=== PATIENT | female | born 1960 | race African-American/Black ===

== ENCOUNTER 2020-07-15 16:27 | Outpatient (CLI) | payer OTHER, SELFPAY ==
--- NOTE | ~2020-07-15 | MM_ITS ---
EXAMINATION: MM screening maryjo BI w demarcus HISTORY: Screening mammogram TECHNIQUE: Craniocaudal and mediolateral oblique 3-D tomosynthesis images were obtained and synthetic 2-D images were generated. CAD analysis was submitted and interpreted. COMPARISON: 11/07/2018, 10/26/2017 bilateral digital screening mammogram examinations BREAST PARENCHYMAL COMPOSITION: The breasts are almost entirely fatty. FINDINGS: There is no evidence of suspicious mass, calcification, or architectural distortion to sugg est malignancy in either breast. There has been no suspicious interval change. IMPRESSION: 1. No mammographic evidence of malignancy. 2. Recommend routine screening mammography in one year. BI-RADS Category 1: Negative Reviewed, dictated and finalized at location A.
== END 2020-07-15 16:28 | disposition home or self-care (01) ==
PROVIDERS: Visit Provider Nurse Practitioner Obstetrics & Gynecology
DX: Z12.31 Encounter for screening mammogram for malignant neoplasm of breast (principal)
CPT/HCPCS: 77063; 77067

== ENCOUNTER 2021-04-24 02:50 | Day surgery (SDC) | payer OTHER, SELFPAY ==
[2021-04-16 15:11] VITALS: BMI 27.6
--- NOTE | 2021-04-23 15:56 | WPDANESEPP ---
Anes - Eval Pre Procedure Procedure: Operation Date: 04/24/21 12:30 Proposed Procedures p Screening Colonoscopy - Luis Hanna MD Date/Time: 04/23/21 15:56 Pre Op Diagnosis: neoplasm screening, hx of colon polyps Patient Data Age: 60 Gender: F Height: 1.63 m Weight: 73 kg Allergies Allergy/AdvReac Type Severity Reaction Status Date / Time No Known Allergies Allergy Verified 04/16/21 15:07 Home Medications Medication Instructions Recorded Confirmed Type levothyroxine 50 mcg PO DAILY 04/16/21 04/16/21 History rosuvastatin 5 mg PO DAILY 04/16/21 04/16/21 History Patient hx anesthesia problems: none Family hx anesthesia problems: none Results Review: All pre-operative results and documents have been reviewed as part of the pre-operative evaluation. PMFSH Past Medical History Medical History (Updated 04/23/21 @ 15:57 by Wilda Jack CRNA) Hypothyroid Surgical History Surgical History (Updated 04/23/21 @ 15:57 by Wilda Jack CRNA) H/O section H/O: hysterectomy Hx of tonsillectomy Social History Social History Smoking status: Never smoker Substance use: never Living arrangements: alone Spiritual care concerns: No Exam Day of Procedure 04/23/21 15:56
[2021-04-24 11:05] VITALS: BP 132/87; PULSE 83; RESP 18; TEMP 36.8; O2SAT 100; BMI 29.0
--- NOTE | 2021-04-24 11:16 | PM.HPGS ---
History of Present Illness History of Present Illness Consent: Risks, benefits, and alternatives have been discussed and questions answered. Patient agrees to proceed with procedure. Chief complaint: neoplasm screening, hx of colon polyps Narrative: Ming Loya is a 60 year old female referred for colon cancer screen She has a family history of pancreatic cancer. She apparently had a polyp removed in the past Review of Systems Review of Systems: All systems reviewed & are unremarkable except as noted in HPI and below PMFSH Past Medical History Medical History Hypothyroid Surgical History Surgical History H/O section H/O: hysterectomy Hx of tonsillectomy Social History Social History Smoking status: Never smoker Substance use: never Living arrangements: alone Spiritual care concerns: No Meds Home Medications and Allergies Home Medications Medication Instructions Recorded Confirmed Type levothyroxine 50 mcg PO DAILY 04/16/21 04/16/21 History rosuvastatin 5 mg PO DAILY 04/16/21 04/16/21 History Allergies Allergy/AdvReac Type Severity Reaction Status Date / Time No Known Allergies Allergy Verified 04/24/21 11:15 Exam Const: General: alert Orientation/consciousness: patient oriented x3 Resp: Auscultation: clear to auscultation bilaterally Cardio: Rhythm: regular rhythm GI: GI Palp: Yes Soft to palpation and No Tenderness to palpation present (GI) Neuro: General: patient oriented x3 Assessment and Plan Assessment and plan (1) Colon cancer screening: Code(s): Z12.11 - Encounter for screening for malignant neoplasm of colon Status: Acute Assessment and Plan: Colonoscopy with possible biopsy or polypectomy or cautery or injection of substances.
--- NOTE | 2021-04-24 11:27 | WPDANESEFPP ---
Anes - Eval Final PreProcedure Day of Procedure 04/24/21 11:27 Patient weight: overweight Heart: regular rate and rhythm Lungs: clear to auscultation Airway: Mallampati scale class II Neurological: alert and oriented Last oral intake: >/= 8 hours ASA classification: II Emergent: no Anesthetic plan: proceed Anesthesia type and monitoring: general GIVS and standard monitoring Results Review: All pre-operative results and documents have been reviewed as part of the pre-operative evaluation. Informed Consent: The patient's anesthetic plan and its attendant risks and benefits were discussed with the patient/family/POA. Questions were solicited and answers provided to the satisfaction of the patient/family/POA.
[2021-04-24] MEDS: LACTATED RINGERS 1,000 ML 150 ML IV CONT (11:28)
[2021-04-24 12:46] VITALS: BP 115/74; PULSE 93; RESP 15; O2SAT 100
[2021-04-24 12:56] VITALS: BP 116/74; PULSE 87; RESP 16; O2SAT 100
[2021-04-24 13:06] VITALS: BP 120/86; PULSE 86; RESP 19; O2SAT 100
== END 2021-04-24 13:14 | disposition home or self-care (01) ==
PROVIDERS: PCP Nurse Practitioner Family; Visit Provider Internal Medicine Gastroenterology
PROC: 0DJD8ZZ Inspection of Lower Intestinal Tract, Via Natural or Artificial Opening Endoscopic (ICD-10-PCS; CPT 45378; principal; 2021-04-24 12:30)
DX: Z12.11 Encounter for screening for malignant neoplasm of colon (principal); K57.30 Diverticulosis of large intestine without perforation or abscess without bleeding; Z86.010 Personal history of colon polyps; E03.9 Hypothyroidism, unspecified
CPT/HCPCS: 45378; J2704; J7120

== ENCOUNTER 2022-01-24 09:13 | Emergency (ER) | payer OTHER, SELFPAY ==
--- NOTE | ~2022-01-24 | CT_ITS ---
EXAMINATION: CT cervical spine wo con DATE: 01/24/2022 11:32 INDICATION: Left posterior neck pain radiating 2 left upper extremity. No known injury. TECHNIQUE: Computed tomography (CT) of the cervical spine was performed without intravenous contrast. Automated exposure control and iterative reconstruction technique were employed. Exam dose: 293.76 mGy-cm total exam DLP. COMPARISON: None FINDINGS: There is reversal cervical curvature which may be due to positioning and/or muscle spasm. C1 and C2 are normally aligned and the odontoid process is intact. No fracture or dislocation, locked facet or prevertebral soft tissue swelling. There is mild degenerative disc disease and prominent anterior spurring at C3-4. Moderate loss of interspace height and anterior and mild posterior spurring at C4-5. Moderately severe degenerative disc disease with anterior and prominent posterior spurring at C6-7.. There is uncovertebral joint spurring at C4-5, C5-6 and particularly at C6-7 IMPRESSION: Cervical spondylosis; no fracture or dislocation or locked facet Reviewed, dictated and finalized at [facility]. Reviewed, dictated and finalized at location A. IRER HELPER
[2022-01-24 09:27] VITALS: BP 133/79; PULSE 72; RESP 16; TEMP 36.6; O2SAT 100
--- NOTE | 2022-01-24 10:56 | ED.NECK ---
HPI - Neck Pain/Injury General Chief Complaint: Neck Pain/Injury Stated Complaint: neck, shoulder, L arm pain Time Seen by Provider: 01/24/22 10:44 Source: patient Mode of arrival: ambulatory Limitations: no limitations History of Present Illness HPI Narrative: Patient is a 61 y/o female who presents to the ED with c/o posterior left-sided neck pain. Patient reports the pain begins in her posterior neck going into her left-sided neck, left shoulder, and down to her mid left arm. She states the pain has been intermittent for the last several months since starting a new job. She has tried using a heating pad, but otherwise has not tried any Tylenol or ibuprofen. 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 She has had 1 episode of chest tightness associated with the pain 1 week ago, though denies any persistent chest pain. She does feel this episode was stress related. She denies any current chest pain, difficulty breathing, direct injury, numbness, tingling, focal weakness. Related Data Allergies Allergy/AdvReac Type Severity Reaction Status Date / Time No Known Allergies Allergy Verified 01/24/22 10:15 Review of Systems Review of Systems: CONSTITUTIONAL: Denies fever, chills, or sweats. EYES: Denies visual changes, redness, or discharge. ENT: Denies rhinorrhea, congestion, sore throat, or otalgia. CARDIOVASCULAR: Reports 1 episode of chest tightness. Denies chest pain, palpitations, or edema. RESPIRATORY: Denies cough or dyspnea. GASTROINTESTINAL: Denies abdominal pain, nausea, vomiting. MUSCULOSKELETAL: Reports posterior and L sided neck pain, radiating into shoulder and arm. NEUROLOGIC: Denies tingling, numbness, or focal weakness. All systems reviewed & are unremarkable except as noted in HPI and below PMFSH Past Medical History Medical History Hypothyroid Surgical History Surgical History H/O section H/O: hysterectomy Hx of tonsillectomy Social History Social History Smoking status: Never smoker Substance use: never Spiritual care concerns: No Exam Narrative: GENERAL: Well appearing, well-nourished, non-toxic, in no acute distress. HEAD: Normocephalic, atraumatic. NECK: Supple. No adenopathy, no masses. Mild lower midline spinal tenderness, tenderness extending into L posterior shoulder/trapezius muscles. RESPIRATORY: Airway patent, respirations nonlabored. Clear to auscultation bilaterally, no rales, rhonchi, wheezing. CARDIOVASCULAR: Regular rate and rhythm without murmurs, rubs, or gallops. Peripheral pulses 2+ and equal bilaterally. MUSCULOSKELETAL: Moves all extremities. Strength/ROM intact without gross deformities. Full nonpainful ROM of LUE. Strength 5 out of 5 in upper extremities bilaterally. Equal table tender strength bilaterally. No chest wall tenderness. SKIN: Warm, dry, normal color. No rashes. NEURO: A&O X3. Speech clear. Cranial nerves II-XII grossly intact. Steady gait. No ataxic movements. No focal deficits. PSYCHIATRIC: Appropriate mood and affect. Normal interaction. Course Vital Signs Vital signs: Vital Signs Temperature 97.8 F 01/24/22 09:27 Pulse Rate 72 01/24/22 09:27 Respiratory Rate 16 01/24/22 09:27 Blood Pressure 133/79 01/24/22 09:27 Pulse Oximetry 100 01/24/22 09:27 Oxygen Delivery Room Air 01/24/22 09:27 Temperature 97.8 F 01/24/22 09:27 Pulse Rate 60 01/24/22 13:05 Respiratory Rate 16 01/24/22 13:05 Blood Pressure 140/88 01/24/22 13:05 Pulse Oximetry 98 01/24/22 13:05 Oxygen Delivery Room Air 01/24/22 09:27 MDM - Neck Pain/Injury MDM Narrative Medical decision making narrative: Patient presented to ED with several month history of posterior and left-sided neck pain, radiating down
--- NOTE | 2022-01-24 11:05 | ECG_ITS ---
Measurements Intervals [place] Rate: 53 P: 54 [place]: 142 QRS: 40 QRSD: 79 T: 56 QT: 421 QTc: 398 Interpretive Statements SINUS BRADYCARDIA BASELINE ARTIFACT- I, II, III, AVR, AVL, AVF BORDERLINE ECG NO PREVIOUS ECG AVAILABLE FOR COMPARISON Electronically Signed On 01-24-2022 14:00:09 [employer]ICE WORKFORCE PLANNER by Darrel Sanchez D.O.
[2022-01-24 11:47] LABS: Troponin I < 0.012 ng/mL (0.000-0.034)
[2022-01-24] MEDS: KETOROLAC 30 MG/ML VIAL (*BKC) IM (12:11)
[2022-01-24 13:05] VITALS: BP 140/88; PULSE 60; RESP 16; O2SAT 98
== END 2022-01-24 13:05 | disposition home or self-care (01) ==
PROVIDERS: Physician Assistant; Emergency Provider Emergency Medicine; PCP Nurse Practitioner Family
DX: M47.22 Other spondylosis with radiculopathy, cervical region (principal); E03.9 Hypothyroidism, unspecified; Z90.710 Acquired absence of both cervix and uterus; R00.1 Bradycardia, unspecified
CPT/HCPCS: 36415; 72125; 84484; 93005; 96372; 99284; J1885

== ENCOUNTER 2023-06-27 18:44 | Emergency (ER) | payer MEDICAID, SELFPAY ==
[2023-06-27] VITALS (8 sets, daily range): BP systolic 130–145; BP diastolic 84–100; PULSE 68–76; RESP 14–20; TEMP 36.1–36.8; O2SAT 100
--- NOTE | ~2023-06-27 | XR_ITS ---
EXAMINATION: XR chest 2V Exam Date/Time: 06/27/2023 19:00 CDT HISTORY: chest pain, NAUSEAS FOR 2 DAYS Comparison: 08/06/2009, report only. RESULT: Lines, tubes, and devices: None. Lungs and pleura: Clear. Minimal streaky bibasilar scar/atelectasis. Cardiomediastinal silhouette: Stable. Other: No acute osseous or upper abdominal finding. IMPRESSION: No acute cardiopulmonary process. Reviewed, dictated and finalized at location K.
--- NOTE | 2023-06-27 18:56 | ECG_ITS ---
Measurements Intervals [place] Rate: 74 P: 48 SC: 148 QRS: 66 QRSD: 74 T: 70 QT: 383 AVG RR 804 QTc: 411 QTcB 427 QTcF 411 Interpretive Statements SINUS RHYTHM NORMAL ECG SEE SCANNED COPY FOR SIGNATURE MTDD
[2023-06-27 19:13] LABS: Basophils Percent Auto 0.5 % (0.2-1.2); Eosinophils Absolute Auto 0.1 K/mm3 (0-0.3); Eosinophils Percent Auto 1.8 % (0-4.4); Hemoglobin 13.1 g/dL (12.0-15.0); Immature Granulocyte Absolute 0.01 K/mm3 (0.00-0.031); Immature Granulocyte Percent A 0.2 % (0-0.5); Lymphocytes Absolute Auto 2.42 K/mm3 (0.9-3.2); Lymphocytes Percent Auto 42.5 % (18.3-44.2); Mean Corpuscular Hemoglobin 30.4 pg (26-34); Mean Corpuscular Volume 95.1 fl (80-100); Mean Platelet Volume 11.2 fl (7.4-10.4); Monocytes Absolute Auto 0.5 K/mm3 (0.1-0.6); Monocytes Percent Auto 9.1 % (2.6-8.5); Neutrophils Absolute Auto 2.6 K/mm3 (1.3-6.7); Neutrophils Percent Auto 45.9 % (45.5-73.1); Platelet Count Result 166 k/mm3 (150-375); Red Blood Count 4.31 M/mm3 (4.2-5.4); Red Cell Distribution Width 12.9 % (11.5-14.5); White Blood Count 5.7 K/mm3 (4.5-10.0)
[2023-06-27] MEDS: ASPIRIN 81 MG CHEWABLE TABLET 324 MG PO (19:14)
[2023-06-27 19:23] LABS: INR 0.9; Prothrombin Time 12.3 Seconds (11.1-14.7)
[2023-06-27 19:24] LABS: Partial Thromboplastin Time 25.7 Seconds (22.3-36.8)
[2023-06-27 19:34] LABS: Alanine Aminotransferase 21 U/L (6-35); Albumin Level 4.5 g/dL (3.5-5.1); Alkaline Phosphatase 67 U/L (38-126); Anion Gap 6 mmol/L (4-12); Aspartate Amino Transferase 33 U/L (14-36); Bilirubin,Total 0.5 mg/dL (0.2-1.3); Blood Urea Nitrogen 12 mg/dL (7-17); Calcium 9.3 mg/dL (8.4-10.2); Carbon Dioxide 25 mmol/L (22-30); Chloride 109 mmol/L (98-107); Estimated CRCL calculation 65 ml/min; Estimated Glomerular Filt Rate > 60; Glucose 92 mg/dL (65-110); Lipase 81 U/L (23-300); Potassium 3.6 mmol/L (3.4-5.0); Sodium 140 mmol/L (137-145)
[2023-06-27 19:45] LABS: Troponin I < 0.012 ng/mL (0.000-0.034)
[2023-06-27 22:28] LABS: Troponin I < 0.012 ng/mL (0.000-0.034)
--- NOTE | 2023-06-27 22:51 | ED.GENADULT ---
HPI - General Adult General Chief complaint: Chest Pain Stated complaint: chest pain Time Seen by Provider: 06/27/23 19:04 History of Present Illness HPI narrative: Patient is a 62-year-old female who presents emergency department with chief complaint of dizziness and then nausea and a chest discomfort feeling. The patient reports that the last 2 days she has had some episodes of feeling dizzy and had nausea. The patient states that then she started having a feeling of indigestion and had fullness in her chest. Patient states that he is doing much better at this point reports that she has had a stress test many years ago reports no prior history of cardiac disease. Related Data Allergies Allergy/AdvReac Type Severity Reaction Status Date / Time No Known Allergies Allergy Verified 06/27/23 18:45 Review of Systems Review of Systems: A 10 system review of systems was completed on the patient and is negative except for what is stated in the HPI. Nursing and ancillary documentation was reviewed. PMFSH Past Medical History Medical History Hypothyroid Surgical History Surgical History H/O section H/O: hysterectomy Hx of tonsillectomy Social History Social History Smoking status: Never smoker Substance use: never Living arrangements: alone Spiritual care concerns: No Exam Narrative: GENERAL: Well-appearing, well-nourished, and in no acute distress. HEAD: Normocephalic, atraumatic. EYES: PERRLA and EOMI. ENT: Nares clear, no rhinorrhea or epistaxis. Mucous membranes moist. NECK: Supple. CHEST: Clear to auscultation. No respiratory distress. HEART: Regular rate and rhythm. No murmur heard. Normal peripheral pulses. ABDOMEN: Soft, nontender, nondistended, normal active bowel sounds. EXTREMITIES: Normal range of motion. No edema. SKIN: Warm, dry, no rash. NEURO: No focal deficits. Alert and oriented x3. PSYCH: Normal mood and affect. Course Vital Signs Vital signs: Vital Signs Temperature 36.1 C L 06/27/23 18:53 Pulse Rate 76 06/27/23 18:53 Respiratory Rate 18 06/27/23 18:53 Blood Pressure 132/96 H 06/27/23 18:53 Pulse Oximetry 100 06/27/23 18:53 Oxygen Delivery Room Air 06/27/23 18:53 Temperature 36.8 C 06/27/23 22:13 Pulse Rate 68 06/27/23 22:13 Respiratory Rate 20 06/27/23 22:13 Blood Pressure 145/100 H 06/27/23 22:13 Pulse Oximetry 100 06/27/23 22:13 Oxygen Delivery Room Air 06/27/23 18:53 Medical Decision Making MDM Narrative Medical decision making narrative: Differential diagnosis includes ACS, atypical chest pain, gastroesophageal reflux disease, dysrhythmia, vertigo Laboratory studies were obtained on the patient which showed normal CBC normal CMP troponin was 0 hour and 3 hour EKG showed no acute ischemic changes. Patient currently asymptomatic is feeling much better Vital Signs Vital Signs: Vital Signs Temperature 36.1 C L 06/27/23 18:53 Pulse Rate 76 06/27/23 18:53 Respiratory Rate 18 06/27/23 18:53 Blood Pressure 132/96 H 06/27/23 18:53 Pulse Oximetry 100 06/27/23 18:53 Oxygen Delivery Room Air 06/27/23 18:53 Temperature 36.8 C 06/27/23 22:13 Pulse Rate 68 06/27/23 22:13 Respiratory Rate 20 06/27/23 22:13 Blood Pressure 145/100 H 06/27/23 22:13 Pulse Oximetry 100 06/27/23 22:13 Oxygen Delivery Room Air 06/27/23 18:53 Lab Data 06/27/23 19:04 06/27/23 19:04 Labs: Lab Results 06/27/23 06/27/23 Range/Units 19:04 21:56 WBC 5.7 (4.5-10.0) K/mm3 RBC 4.31 (4.2-5.4) M/mm3 Hgb 13.1 (12.0-15.0) g/dL Hct 41.0 (37.0-47.0) % MCV 95.1 (80-100) fl MCH 30.4 (26-34) pg MCHC 32.0 (32-36) g/dl RDW 12.9 (11.5-14.5) % Plt Coun
== END 2023-06-27 23:16 | disposition home or self-care (01) ==
PROVIDERS: Emergency Medicine; Emergency Provider Emergency Medicine; PCP Nurse Practitioner Family
DX: R07.89 Other chest pain (principal); E03.9 Hypothyroidism, unspecified
CPT/HCPCS: 36415; 71046; 80053; 83690; 84484; 85025; 85610; 85730; 93005; 99284; A9270

== ENCOUNTER 2023-09-15 11:01 | Emergency (ER) | payer SELFPAY ==
--- NOTE | ~2023-09-15 | CT_ITS ---
CT abd pelvis lumbar w con Ordering provider: April Singh PA-C History: . abd pain, bright red blood per rectum . Comparison: None Technique: CT abdomen with IV and without oral contrast. Radiation reduction technique utilized. DLP is 753.12 mGy. 100 mL Omnipaque 350 was given IV. Findings: VISUALIZED LOWER CHEST: Dependent atelectatic changes. UPPER ABDOMINAL ORGANS: Liver: Peripherally enhancing small lesion is seen in the left lobe of the liver measuring 2.4 cm mos t likely hemangioma. Focal area of fat infiltration seen near to the interlobar fissure and adjacent to gallbladder.. Gallbladder: Normal. Spleen: Normal. Stomach/duodenum: Thickened wall of the area of the antrum further evaluation advised. Pancreas: Normal. Adrenals: Normal. Kidneys: Normal. Urinary bladder: Slightly thickened wall with underfilling. VISUALIZED BOWEL AND MESENTERY: No evidence of without diverticulitis. No evidence of appendicitis. S lightly bright signal is seen in the rectal area which may be blood. The bowel is otherwise normal. N o free air or free fluid. No mesenteric lymphadenopathy. RETROPERITONEUM: Mild atheromatous disease of the abdominal aorta. No retroperitoneal lymphadenopathy . MUSCULOSKELETAL: The superficial soft tissues are normal. Normal spine. IMPRESSION: Bright densities in the rectum which may be blood exteriorization. Sigmoidoscopy is advised. Hemangioma in the liver. Thickened wall of the stomach in the area of the pylorus. Reviewed, dictated and finalized at location [facility]. IMPRESSION: Bright densities in the rectum which may be blood exteriorization. Sigmoidoscop y is advised. Hemangioma in the liver. Thickened wall of the stomach in the area of the pylorus.
[2023-09-15 12:13] VITALS: BP 135/80; PULSE 75; RESP 16; TEMP 36.7; O2SAT 96
[2023-09-15 13:19] LABS: Basophils Percent Auto 0.5 % (0.2-1.2); Eosinophils Absolute Auto 0.1 K/mm3 (0-0.3); Eosinophils Percent Auto 1.1 % (0-4.4); Hematocrit 42.8 % (37.0-47.0); Hemoglobin 13.5 g/dL (12.0-15.0); Immature Granulocyte Absolute 0.03 K/mm3 (0.00-0.031); Immature Granulocyte Percent A 0.5 % (0-0.5); Lymphocytes Absolute Auto 2.72 K/mm3 (0.9-3.2); Mean Corpuscular HGB Conc 31.5 g/dl (32-36); Mean Corpuscular Hemoglobin 30.5 pg (26-34); Mean Corpuscular Volume 96.8 fl (80-100); Mean Platelet Volume 11.3 fl (7.4-10.4); Monocytes Absolute Auto 0.5 K/mm3 (0.1-0.6); Monocytes Percent Auto 8.1 % (2.6-8.5); Neutrophils Percent Auto 46.8 % (45.5-73.1); Platelet Count Result 168 k/mm3 (150-375); Red Blood Count 4.42 M/mm3 (4.2-5.4); Red Cell Distribution Width 12.8 % (11.5-14.5); White Blood Count 6.3 K/mm3 (4.5-10.0)
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
[2023-09-15 13:29] LABS: Alanine Aminotransferase 24 U/L (6-35); Albumin Level 4.7 g/dL (3.5-5.1); Alkaline Phosphatase 63 U/L (38-126); Anion Gap 5 mmol/L (4-12); Aspartate Amino Transferase 32 U/L (14-36); Bilirubin,Total 0.5 mg/dL (0.2-1.3); Blood Urea Nitrogen 11 mg/dL (7-17); Calcium 9.3 mg/dL (8.4-10.2); Carbon Dioxide 31 mmol/L (22-30); Chloride 106 mmol/L (98-107); Estimated CRCL calculation 66 ml/min; Estimated Glomerular Filt Rate > 60; Glucose 92 mg/dL (65-110); Lipase 98 U/L (23-300); Sodium 142 mmol/L (137-145)
[2023-09-15 13:30] LABS: INR 0.9; Prothrombin Time 12.7 Seconds (11.1-14.7)
[2023-09-15 13:30] LABS: Appearance Urine Clear (Clear); Bacteria Urine 1+ /hpf; Bilirubin Urine Negative (Negative); Blood Urine Negative (Negative); Color Urine Yellow (Yellow); Glucose Urine UA Negative (Negative); Ketones Urine Negative (Negative); Leukocyte Esterase Ur 2+ LEU/UL (Negative); Mucus Urine Present /lpf; Nitrate Urine Negative (Negative); Non Pathogenic Casts 0-2; Protein Urine Negative (Negative); Specific Grav Ur 1.013 (1.001-1.035); Squamous Epithelial Cell Urine Occasional /hpf (Few); Urobilinogen Urine 0.2 mg/dL (<2.0); WBC Urine 0-5 /hpf (0-3); pH Urine 7.5 (5.0-9.0)
[2023-09-15 13:31] LABS: Partial Thromboplastin Time 25.3 Seconds (22.3-36.8)
[2023-09-15 13:38] LABS: Add Urine Microscopic? YES
[2023-09-15 14:55] VITALS: BP 138/86; PULSE 63; RESP 15; O2SAT 100
[2023-09-15 16:32] VITALS: BP 130/91; PULSE 91; RESP 17; O2SAT 100
== END 2023-09-15 16:33 | disposition home or self-care (01) ==
PROVIDERS: Emergency Provider Physician Assistant
DX: M54.41 Lumbago with sciatica, right side (principal); K62.5 Hemorrhage of anus and rectum; E03.9 Hypothyroidism, unspecified; Z90.710 Acquired absence of both cervix and uterus; D18.09 Hemangioma of other sites; R93.5 Abnormal findings on diagnostic imaging of other abdominal regions, including retroperitoneum
CPT/HCPCS: 36415; 72132; 74177; 80053; 81001; 83690; 85025; 85610; 85730; 99284; Q9967

== ENCOUNTER 2023-10-14 11:31 | Outpatient (CLI) | payer BC, SELFPAY ==
--- NOTE | ~2023-10-14 | US_ITS ---
EXAMINATION: US abdomen limited DATE: 10/14/2023 11:53 INDICATION: diseases of liver TECHNIQUE: Multiple grayscale and Doppler ultrasound images of limited portions of the abdomen were o btained. COMPARISON: CT abdomen pelvis 09/15/2023. FINDINGS: The visualized portions of the pancreas are normal. Increased liver parenchymal echogenicit y. 1.8 cm hypoechogenic lesion in the inferior right liver lobe near the free edge of the liver. Righ t lobe hemangioma. No surface nodularity. Normal hepatopetal flow in the main portal vein. Multiple g allstones. No wall thickening or pericholecystic fluid The common bile duct measures 3 mm. There was no sonographic Austin sign. IMPRESSION: Echogenic liver, most commonly due to steatosis but also can be seen with hepatitis and fibrosis. 1.8 cm indeterminate right liver lobe lesion, recommend MRI or CT of the liver without and with contr ast for further characterization. Cholelithiasis. Reviewed, dictated and finalized at location [facility]. IMPRESSION: Echogenic liver, most commonly due to steatosis but also can be seen with hepat itis and fibrosis. 1.8 cm indeterminate right liver lobe lesion, recommend MRI or CT of the liver without and with contrast for further characterization. Cholelithiasis.
== END 2023-10-14 11:32 ==
PROVIDERS: PCP Family Medicine; Visit Provider Family Medicine
DX: K76.89 Other specified diseases of liver (principal); K80.20 Calculus of gallbladder without cholecystitis without obstruction; Z13.820 Encounter for screening for osteoporosis
CPT/HCPCS: 76705

== ENCOUNTER 2023-10-22 09:28 | Emergency (ER) | payer BC, SELFPAY ==
[2023-10-22 09:35] VITALS: BP 139/99; PULSE 75; RESP 16; TEMP 36.6; O2SAT 98
--- NOTE | 2023-10-22 11:14 | ED.GENADULT ---
HPI - General Adult General Chief complaint: Skin/Abscess/Foreign Body Stated complaint: right side neck swelling Time Seen by Provider: 10/22/23 09:40 History of Present Illness HPI narrative: Patient is a 62-year-old female who presents ER with swelling to her right shoulder. Worsening over last 3 4 days. No fevers chills or sweats. Tender to touch and indurated. Does not believe she had a bug bite. Related Data Allergies Allergy/AdvReac Type Severity Reaction Status Date / Time No Known Allergies Allergy Verified 06/27/23 18:45 Review of Systems Constitutional: Constitutional: Reports no additional constitutional complaints Integumentary/Breasts: Skin/Breast: Denies pruritus, Reports erythema and Denies rash PMFSH Past Medical History Medical History Hypothyroid Surgical History Surgical History H/O section H/O: hysterectomy Hx of tonsillectomy Social History Social History Smoking status: Never smoker Substance use: never Living arrangements: alone Spiritual care concerns: No Exam Narrative: GENERAL: Well-appearing, well-nourished, and in no acute distress. HEAD: Normocephalic, atraumatic. EXTREMITIES: Normal range of motion. No edema. SKIN: Warm, dry, no rash. Abscess versus cyst right trapezius region with erythema and induration and tenderness. NEURO: Alert and oriented x3. PSYCH: Normal mood and affect. Course Vital Signs Vital signs: Vital Signs Temperature 97.9 F 10/22/23 09:35 Pulse Rate 75 10/22/23 09:35 Respiratory Rate 16 10/22/23 09:35 Blood Pressure 139/99 H 10/22/23 09:35 Pulse Oximetry 98 10/22/23 09:35 Oxygen Delivery Room Air 10/22/23 09:35 Temperature 97.9 F 10/22/23 09:35 Pulse Rate 75 10/22/23 09:35 Respiratory Rate 16 10/22/23 09:35 Blood Pressure 139/99 H 10/22/23 09:35 Pulse Oximetry 98 10/22/23 09:35 Oxygen Delivery Room Air 10/22/23 09:35 Procedures Abscess I/D shoulder: Date of Incision: 10/22/23 Time of Incision: 11:00 Local Anesthetic: lidocaine 1% and with epi Amount of anesthesia used (mL): 2 Technique: incised with #11 blade Irrigation: No Packing used?: none I&D Results: Pus Medical Decision Making MDM Narrative Medical decision making narrative: -Course: Pain improved after drainage. -Co-morbidities complicating care: None -Hx from independent Sources: Patient -Independent interpretation of studies: None -Interventions: Incision drainage -Shared decision making / Disposition: Discharge home with Bactrim. Unable to pack. Vital Signs Vital Signs: Vital Signs Temperature 97.9 F 10/22/23 09:35 Pulse Rate 75 10/22/23 09:35 Respiratory Rate 16 10/22/23 09:35 Blood Pressure 139/99 H 10/22/23 09:35 Pulse Oximetry 98 10/22/23 09:35 Oxygen Delivery Room Air 10/22/23 09:35 Temperature 97.9 F 10/22/23 09:35 Pulse Rate 75 10/22/23 09:35 Respiratory Rate 16 10/22/23 09:35 Blood Pressure 139/99 H 10/22/23 09:35 Pulse Oximetry 98 10/22/23 09:35 Oxygen Delivery Room Air 10/22/23 09:35 Discharge Plan Discharge Clinical Impression: Abscess Patient Disposition: Home, Self-Care Condition: Stable Instructions: Abscess (ED) Additional Instructions: Return ER if you have worsening pain, you have fever, or you have additional concerns. Prescriptions: New sulfamethoxazole-trimethoprim [Bactrim DS] 800-160 mg tablet 1 tablet PO Q12H Qty: 14 0RF No Action naproxen 500 mg tablet 250 mg PO BID PRN (Reason: pain) Qty: 20 0RF cyclobenzaprine 5 mg tablet 5 mg PO TID PRN (Reason: muscle spasm) Qty: 15 0RF Follow-up/Referrals: Damon,MD Luis Antonio [Primary Care Provider] - 1 Week
[2023-10-22 11:27] VITALS: BP 147/72; PULSE 76; RESP 18; TEMP 37.1; O2SAT 100
== END 2023-10-22 11:30 | disposition home or self-care (01) ==
PROVIDERS: Emergency Provider Emergency Medicine; PCP Family Medicine
DX: L02.413 Cutaneous abscess of right upper limb (principal); E03.9 Hypothyroidism, unspecified
CPT/HCPCS: 10060; 99283

== ENCOUNTER 2024-04-02 07:48 | Outpatient (CLI) | payer OTHER, SELFPAY ==
--- NOTE | ~2024-04-02 | DEXA_ITS ---
Bone Density Report Name: ANA VELA Age: 63 Sex: Female Ethnicity: White Date of : 1960 Indication: hyperparathyroidism; hysterectomy; Referring Provider: JENNIFER, [facility] Study: Bone densitometry was performed. Exam Date: April 02, 2024 Accession number: [id number] Bone Density: Region BMD T-score Z-score Classification AP Spine(L1-L4) 0.937 -1.0 0.7 Normal Femoral Neck (Left) 0.786 -0.6 0.9 Normal Total Hip (Left) 0.942 0.0 1.2 Normal Femoral Neck (Right) 0.700 -1.3 0.1 Osteopenia Total Hip (Right) 0.881 -0.5 0.7 Normal Total Hip Mean 0.911 -0.3 1.0 Normal World Health Organization criteria for BMD impression classify patients as: Normal (T-score at or above -1.0), Osteopenia (T-score between -1.0 and -2.5), or Osteoporosis (T-score at or below -2.5). 10-year Fracture Risk(1): Major Osteoporotic Fracture 7.9% Hip Fracture 0.7% Reported Risk Factors: [place] (), Neck BMD=0.700, BMI=33.0 (1) FRAX(R) Version 3.08. Fracture probability calculated for an untreated patient. Fracture probability may be lower if the patient has received treatment. Clinical Information Provided by Patient: Has used the following medications: Vitamin D Has the following medical conditions: Hyperparathyroidism, Hysterectomy Patient maximum height was 64.0 No regular weight bearing exercise Drinks caffeinated beverages Onset of menses at age 11 Number of children 2 Impression: The patient has low bone mass, based on the Right Femoral Neck T-score. The patient has an estimated ten-year risk of hip fracture of 0.7% and an estimated ten-year risk of major fracture of 7.9%, based on the WHO FRAX algorithm. Discussion: BONE DENSITY IS LOW AT ONE OR MORE SKELETAL SITES. This patient's lowest T-score is low at one or more skeletal sites. It meets the World Health Organization's (WHO) criteria for ?low bone mass? (T-score between -1.0 and -2.5). The patient's 10-year risk of fracture as calculated by FRAX is less than the threshold where pharmacological therapy is recommended by the National Osteoporosis Foundation (NOF). However, all treatment decisions require clinical judgment and consideration of individual patient factors, including patient preferences, comorbidities, previous drug use, risk factors not captured in the FRAX model (e.g., frailty, falls, vitamin D deficiency, increased bone turnover, interval significant decline in bone density) and possible under or overestimation of fracture risk by FRAX. The patient should follow a healthful lifestyle (good nutrition with adequate calcium and vitamin D, and appropriate weight-bearing exercise). Follow-Up: Consider repeating this study in 2 to 3 years to reassess this patient's status, or sooner if there is some new clinical indication. Reported by: EFREM on 04/02/2024 8:24:00 AM. Reviewed, dictated and finalized at location A. [facility]
== END 2024-04-02 07:49 | disposition home or self-care (01) ==
LOC: ANHIMG 07:52
PROVIDERS: PCP Family Medicine; Visit Provider Family Medicine
DX: Z13.820 Encounter for screening for osteoporosis (principal); M85.851 Other specified disorders of bone density and structure, right thigh
CPT/HCPCS: 77080

== ENCOUNTER 2024-06-22 15:30 | Emergency (ER) | payer MEDICAID, SELFPAY ==
--- NOTE | 2024-06-22 15:32 | ED.URI ---
HPI - URI/Sore Throat General Chief Complaint: Upper Respiratory Infection Stated Complaint: Congesiton Time Seen by Provider: 06/22/24 15:54 Source: patient, RN notes reviewed and old records reviewed Mode of arrival: ambulatory Limitations: no limitations History of Present Illness HPI Narrative: 63-year-old female presents to the [facility] with complaints of 1 week history of cough, congestion, stuffy nose, runny nose, postnasal drainage. Denies fevers, chest pain, shortness of breath. Was evaluated 1 day post symptoms. States that she was negative for flu and COVID. Patient is concerned because her sister has pneumonia. Related Data Home Medications ?Medication ?Instructions ?Recorded ?Confirmed ?Last Taken ?Type levothyroxine 88 mcg tablet mcg 06/22/24 Unknown History tirzepatide 2.5 mg/0.5 mL mg subcut 06/22/24 Unknown History subcutaneous pen injector (Mounjaro) Allergies Allergy/AdvReac Type Severity Reaction Status Date / Time No Known Allergies Allergy Verified 06/22/24 15:56 Review of Systems Review of Systems: All systems reviewed & are unremarkable except as noted in HPI and below Constitutional: Constitutional: Reports no additional constitutional complaints ENT: Reports as per HPI Cardiovascular: Cardiovascular: Reports no additional cardiovascular complaints, Denies chest pain and Denies dyspnea Respiratory: Respiratory: Reports no additional respiratory complaints, Denies chest congestion, Denies cough and Denies dyspnea Musculoskeletal: Musculoskeletal: Reports no additional musculoskeletal complaints Integumentary/Breasts: Skin/Breast: Reports system reviewed and no additional complaints, except as docu PMFSH Past Medical History Medical History Hypothyroid Surgical History Surgical History Hx of tonsillectomy H/O: hysterectomy H/O section Social History Social History Smoking status: Never smoker Substance use: never Living arrangements: alone Spiritual care concerns: No Comments At the time of my signature, I reviewed and agree with the nursing past medical, surgical, social, and family history. There is no relevant family history pertinent to the patient complaint. Exam Const: General: cooperative, healthy appearing, comfortable, no acute distress, well developed, alert and well nourished Nutritional Appearance: well nourished Orientation/consciousness: patient oriented x3 Limitations: no limitations HENMT: Head: normal to inspection Ears: hearing grossly normal bilaterally, external ears normal, TM's normal bilaterally, EAC's normal and mastoids normal Face/Nose/Sinus: Normal external nose present, Normal nares present and Nasal discharge present clear bilateral Mouth: Yes Normal oral and palatal mucosa present, Yes lip normal, Yes tongue normal and Yes moist mucous membranes Throat: posterior oropharynx normal, uvula midline, postnasal drainage and no uvular edema Eyes: General: appearance normal, both eyes and all related structures Alignment and Position: alignment normal Neck: Neck: normal visual inspection, full ROM, no lymphadenopathy and no meningeal signs Chest: Chest palpation & inspection: normal inspection of the chest Resp: Effort & Inspection: normal respiratory effort and able to speak in complete sentences Auscultation: clear to auscultation bilaterally, no crackles, no rales, no rhonchi and no wheezes Cardio: Rate: regular rate Skin: General skin exam: normal color and no rashes or lesions noted Neuro: General: patient oriented x3, gait normal, moves all extremities and no meningeal signs Cognition (Neuro): normal cognition Speech: normal speech Gait exam (Neuro): Normal gait present Extrem: General: normal to inspection, full ROM, capillary refill normal and normal gait Psych: Appearance: grossly normal and well kempt Mental Status: mental status grossly normal Speech and movement: Normal speech and movement present and Clear speech present Affect: normal affect Attitude: cooperative Course Course Level of Care: Express Care Visit Vital Signs Vital signs: Vital Signs Oxygen Delivery Room Air 06/22/24 15:31 Temperature 97.5 F L 06/22/24 15:38 Pulse Rate 76 06/22/24 15:38 Respiratory Rate 18 06/22/24 15:38 Blood Pressure 129/88 06/22/24 15:38 Pulse Oximetry 100 06/22/24 15:38 Oxygen Delivery Room Air 06/22/24 15:38 Reviewed MDM - URI/Sore Throat MDM Narrative Medical decision making narrative: Patient sitting comfortably in exam room. Nontoxic vitals are stable. Patient in no acute distress. Patient presents with 1 week history of URI symptoms. Significant rhinorrhea and postnasal drainage noted. Patient appropriate for outpatient treatment with close follow-up Discharge instructions reviewed with patient, as well as provided in writing per nursing staff. The instructions also include specific and strict return/GO TO THE ER as well as f/u information. All questions have been answered, and the patient deny any further questions with discharge and discharge plan. Some parts of this dictation were generated by voice recognition software and may contain typographical and/or grammatical inaccuracies. Differential Diagnosis Differential diagnosis: Likely upper respiratory infection, otitis media, sinusitis, viral infection, bronchitis, influenza and pharyngitis Critical Care Time Critical Care Time Critical Care Time: No Discharge Plan Discharge Clinical Impression: Sinusitis Patient Disposition: Home, Self-Care Condition: Stable Instructions: Antibiotic Form, Sinusitis (ED) Additional Instructions: It is very important to treat your symptoms. Drink plenty of water, Gatorade, Pedialyte, ice pops or Jell-O. -Alternate Tylenol and Motrin per package directions for fever or pain. You can alternate every 4 hours -Antihistamine medication such as Zyrtec/Claritin/Estrella during the day can help improve symptoms. -doing daily nasal irrigations can help relieve pressure your sinuses. Things like a Neti pot -Use Flonase twice a day for 5 days then daily to help reduce the inflammation and dry up your sinuses. -You can also use Mucinex. Be sure to drink plenty of water with this medication at least 8 ounces with every dose and it is important to drink 8 to 10 glasses of water per day. Water is a natural decongestant -Eat and drink things that are easy to swallow, like tea or soup, or popsicles. -Oral rinses such as: Salt water gargles and/or may use topical anesthetic (eg. Chloraseptic spray) or lozenges to relieve dryness or throat pain). -Frequent hand washing or hand immigration paralegal is one of the best ways to prevent spread of infection. -Using a vaporizer or humidifier at night will also help thin secretions and help with coughing up phlegm. -Follow up with primary care provider in 7-10 days if condition is not improving - For new or worsening symptoms go directly to the nearest ER Patient Language: Urdu Prescriptions: New doxycycline monohydrate 100 mg tablet 100 mg PO BID Qty: 14 0RF No Action levothyroxine 88 mcg tablet Mounjaro 2.5 mg/0.5 mL pen injector SUBCUT Follow-up/Referrals: Damon,MD Luis Antonio [Primary Care Provider] - Stand Alone Forms: Work/School Release IP Time of Disposition: 16:05
--- OUTSIDE RECORDS SUMMARY | 2024-06-22 15:34 | XMS_ITS | Encounter Summary ---
Author Organization [facility] Address [address] [place] [id number] Care Team Providers Care Flexographic Printing Press Operator Name Role Phone Mita Boland [facility] Primary Care Provider + Encounter Details Date Type Department Care Team (Latest Contact Info) Description 01/24/2018 Abstract [facility] Silvia Lewis MD Social History Tobacco Use Types Packs/Day Years Used Date Smoking Tobacco: Never Assessed Comments Unknown Sex and Gender Information Value Date Recorded Sex Assigned at Not on file Legal Sex Female 1:58 AM CDT Gender Identity Not on file Sexual Orientation Not on file documented as of this encounter Plan of Treatment Not on file documented as of this encounter Visit Diagnoses Not on filedocumented in this encounter Care Teams Flexographic Printing Press Operator Relationship Specialty Start Date End Date Mita Boland [facility] [address] [place] [id number] PCP - General Nurse Practitioner Family 05/04/23 documented as of this encounter
--- OUTSIDE RECORDS SUMMARY | 2024-06-22 15:34 | XMS_ITS | Referral Summary ---
Author Organization [facility] Address [address] [place] [address] Care Team Providers Care Oil Pipeline Operator Name Role Phone Luis Antonio Jose MD Primary Care Provider [phone] Encounters Date Type Department Care Team Description 04/17/2024 Telephone [facility] Neurology [address] [place] [phone] Mohsen Justin MD Test Results (Brain MRI results ) 04/16/2024 8:19 AM SH[facility]TMAN - 04/16/2024 11:59 PM [facility] Hospital Encounter [facility] Center [address] [place] [address] Memory change Discharge Disposition: Discharge to home or self care 04/12/2024 Telephone [facility] Neurology [address] [place] [phone] Mohsen Justin MD Pre Cert (MRI) 04/05/2024 3:00 PM [facility] Office Visit [facility] Neurology [address] [place] [phone] Mohsen Justin MD Memory change (Primary Dx) from Last 3 Months Allergies No known active allergies Medications levothyroxine sodium (TIROSINT) 100 mcg capsule Take 1 capsule (100 mcg total) by mouth resolution specialist before breakfast Active metFORMIN XR (GLUCOPHAGE XR) 500 mg 24 hr tablet Take 1 tablet (500 mg total) by mouth daily 3 Active rosuvastatin (CRESTOR) 20 mg tablet Take 1 tablet (20 mg total) by mouth daily 3 Active Active Problems Problem Noted Date Diagnosed Date Hx of colonic polyps 07/22/2020 Overview (07/22/2020): Added automatically from request for surgery [id number] Social History Tobacco Use Types Packs/Day Years Used Date Smoking Tobacco: Never Smokeless Tobacco: Never Tobacco Cessation:Counseling Given: Not Answered AUDIT-C Answer Date Recorded Q1: How often do you have a drink containing alc ohol? Monthly or less 04/05/2024 Q2: How many drinks containi ng alcohol do you have on a typical day when you are drinking? 1 or 2 04/05/2024 Q3: How often do you have si x or more drinks on one occasion? Never 04/05/2024 Comments Unknown Sex and Gender Information Value Date Recorded Sex Assigned at Not on file Legal Sex Female 7:00 PM [facility]TMAN Gender Identity Female 10/08/2020 12:28 PM CDT Sexual Orientation Not on file Last Filed Vital Signs Vital Sign Reading Time Taken Comments Blood Pressure 112/76 04/05/2024 2:54 PM SHIFTMAN Pulse 76 04/05/2024 2:54 PM [facility] Temperature - - Respiratory Rate - - Oxygen Saturation 98% 04/05/2024 2:54 PM [facility]TMAN Inhaled Oxygen Concentration - - Weight 86.2 kg (190 lb) 04/05/2024 2:54 PM [facility]TMAN Height 162.6 cm (5' 4 ) 04/05/2024 2:54 PM [facility]TM[facility] Body Mass Index 32.61 04/05/2024 2:54 PM [facility]TMAN Plan of Treatment Not on file Procedures Procedure Name Priority Date/Time Associated Diagnosis Comments MRI BRAIN WO CONTRAST Schedule Routine, Read Routine (OP Routine) 04/16/2024 10:26 AM SH[facility]TMAN Memory change from Last 3 Months Results * MRI Brain WO Contrast (04/16/2024 10:26 AM SHIFTMAN) Anatomical Region Laterality Modality Head and Neck N/A Magnetic Resonan ce 04/16/2024 11:4 2 AM [facility]TMAN Narrative 04/16/2024 11:49 AM [facility]TMAN EXAM DESCRIPTION: MRI BRAIN WO CONTRAST REASON FOR STUDY: Memory loss of unspecified duration. No provided focal neurologic deficits. No provided history of trauma or inciting and/or aggravating events. No provided past medical or surgical history. TECHNIQUE: Multiplanar imaging includes non-contrasted T1, T2, FLAIR, and diffusion with ADC map sequences. Additional sequence(s) sensitive to blood products. Images stored on PACS. COMPARISON: No prior neuro imaging available at time of interpretation. FINDINGS: CEREBRUM: No acute intra-axial hemorrhage. No edema, mass effect, midline shift, or herniation. Senescent mineralization of the lentiform nuclei. WHITE MATTER: Unremarkable. POSTERIOR FOSSA: Brainstem and cerebellum are unremarkable. DIFFUSION IMAGING: No restricted diffusion to suggest acute/subacute ischemia or infarct. EXTRAAXIAL SPACES: No extra-axial fluid collection. No extra-axial mass. BRAIN VOLUME: Within normal limits for age. PITUITARY: Unremarkable. VASCULATURE: No flow disturbance evident. CALVARIUM: No acute abnormality. Hyperostosis frontalis interna. ORBITS: No acute abnormality. Ocular lenses and globes normal in conformation and position. PARANASAL SINUSES AND MASTOIDS: Well-aerated with no fluid levels. No mucosa thickening. OTHER: No other significant finding. IMPRESSION: No acute intracranial process. THIS IS AN ELECTRONICALLY VERIFIED FINAL REPORT 04/16/2024 11:49 AM - Electronically signed by Tato Mcneil M.D. MOLLY: MOLLY Report ID: [id number] Reading Location: [place] [address] Procedure Note Tato Mcneil MD - 04/16/2024 EXAM DESCRIPTION: MRI BRAIN WO CONTRAST REASON FOR STUDY: Memory loss of unspecified duration. No provided focal neurologic deficits. No provided history of trauma or inciting and/or aggravating events. No provided past medical or surgical history. TECHNIQUE: Multiplanar imaging includes non-contrasted T1, T2, FLAIR, and diffusion with ADC map sequences. Additional sequence(s) sensitive toblood products. Images stored on PACS. COMPARISON: No prior neuro imaging available at time of interpretation. FINDINGS: CEREBRUM: No acute intra-axial hemorrhage. No edema, mass effect,midline shift, or herniation. Senescent mineralization of the lentiform nuclei. WHITE MATTER: Unremarkable. POSTERIOR FOSSA: Brainstem and cerebellum are unremarkable. DIFFUSION IMAGING: No restricted diffusion to suggest acute/subacute ischemia or infarct. EXTRAAXIAL SPACES: No extra-axial fluid collection. No extra-axialmass. BRAIN VOLUME: Within normal limits for age. PITUITARY: Unremarkable. VASCULATURE: No flow disturbance evident. CALVARIUM: No acute abnormality. Hyperostosis frontalis interna. ORBITS: No acute abnormality. Ocular lenses and globes normal in conformation and position. PARANASAL SINUSES AND MASTOIDS: Well-aerated with no fluid levels. Nomucosa thickening. OTHER: No other significant finding. IMPRESSION: No acute intracranial process. THIS IS AN ELECTRONICALLY VERIFIED FINAL REPORT 04/16/2024 11:49 AM - Electronically signed by Tato Mcneil M.D. MOLLY: MOLLY Report ID: [id number] Reading Location: [id number] Mohsen Justin MD IMG MRI PROCEDURES Final Resul t from Last 3 Months Insurance [facility] OPT[employer] PPO [facility] [employer] PPO Advance Directives For more information, please contact: [phone] Documents on File Type Date Recorded Patient Differential Tester Expl anation ADVANCE DIRECTIVE 07/18/2012 12:00 AM MOLLY R OF WHEEL SETTER FINANCIAL/MEDICAL Care Teams Oil Pipeline Operator Relationship Specialty Start Date End Date Luis Antonio Jose MD [address] [address] PCP - General Family Medicine 04/12/24
--- OUTSIDE RECORDS SUMMARY | 2024-06-22 15:34 | XMS_ITS | Clinical Summary ---
Author Organization [facility] Address [address] [place] [address] Care Team Providers Care Fuel Cell Test Engineer Name Role Phone Luis Antonio Jose MD Primary Care Provider [phone] Allergies No known active allergies Medications levothyroxine sodium (TIROSINT) 100 mcg capsule Take 1 capsule (100 mcg total) by mouth metallurgical lab technician before breakfast Active metFORMIN XR (GLUCOPHAGE XR) 500 mg 24 hr tablet Take 1 tablet (500 mg total) by mouth daily 3 Active rosuvastatin (CRESTOR) 20 mg tablet Take 1 tablet (20 mg total) by mouth daily 3 Active Active Problems Problem Noted Date Diagnosed Date Hx of colonic polyps 07/22/2020 Overview (07/22/2020): Added automatically from request for surgery [id number] Encounters Date Type Department Care Team Description 04/17/2024 Telephone [facility] [address] [place] [phone] Mohsen Justin MD Test Results (Brain MRI results ) 04/16/2024 8:19 AM LENS POLISHER - 04/16/2024 11:59 PM LENS POLISHER Hospital Encounter [facility] [address] [place] [address] Memory change Discharge Disposition: Discharge to home or self care 04/12/2024 Telephone [facility] [address] [place] [address] [phone] Mohsen Justin MD Pre Cert (MRI) 04/05/2024 3:00 PM LENS POLISHER Office Visit [facility] [address] [place] [address] [phone] Mohsen Justin MD Memory change (Primary Dx) from Last 3 Months Surgical History Surgery Date Site/Laterality Comments COLONOSCOPY 03/21/2016 - 03/20/2017 SECTION HYSTERECTOMY Medical History Medical History Date Comments Hypothyroidism Social History Tobacco Use Types Packs/Day Years [...] on file Legal Sex Female 7:00 PM LENS POLISHER Gender Identity Female 10/08/2020 12:28 PM CDT Sexual Orientation Not on file Obstetrics History Last Filed Vital Signs Vital Sign Reading Time Taken Comments Blood Pressure 112/76 04/05/2024 2:54 PM LENS POLISHER Pulse 76 04/05/2024 2:54 PM LENS POLISHER Temperature - - Respiratory Rate - - Oxygen Saturation 98% 04/05/2024 2:54 PM LENS POLISHER Inhaled Oxygen Concentration - - Weight 86.2 kg (190 lb) 04/05/2024 2:54 PM LENS POLISHER Height 162.6 cm (5' 4 ) 04/05/2024 2:54 PM LENS POLISHER Body Mass Index 32.61 04/05/2024 2:54 PM LENS POLISHER Plan of Treatment Health Maintenance Due Date Last Done Comments Colon Cancer Screening-Colonoscopy 1960 Depression Screening 1960 Hepatitis C Screening 1960 DTaP/Tdap/Td Vaccine (1 - Tdap) 11/24/1970 Hepatitis B Screening 11/24/1977 Regular Well Visit/Exam 18-64 11/24/1977 Zoster Vaccine (1 of 2) 11/24/2009 Breast Cancer Screening-Mammogram 10/03/2016 10/04/2015, 08/29/2014, 08/29/2013 Influenza Vaccine (#1) 2023 Pneumococcal vaccine <65 Aged Out No longer eligible based on patient's age to complete this topic Procedures Procedure Name Priority Date/Time Associated Diagnosis Comments MRI BRAIN WO CONTRAST Schedule Routine, Read Routine (OP Routine) 04/16/2024 10:26 AM LENS POLISHER Memory change from Last 3 Months Results * MRI Brain WO Contrast (04/16/2024 10:26 AM LENS POLISHER) Anatomical Region Laterality Modality Head and Neck N/A Magnetic Resonan ce 04/16/2024 11:4 2 AM LENS POLISHER Narrative 04/16/2024 11:49 AM LENS POLISHER EXAM DESCRIPTION: MRI BRAIN WO CONTRAST REASON [...] Tato Mcneil M.D. MOLLY: MOLLY Report ID: [id number] Reading Location: [id number] Procedure Note Tato Mcneil MD - 04/16/2024 EXAM DESCRIPTION: MRI BRAIN WO CONTRAST REASON FOR STUDY: Memory loss of unspecified duration. No provided focal neurologic deficits. No provided history of trauma or inciting and/or aggravating events. No provided past medical or surgical history. TECHNIQUE: Multiplanar imaging includes non-contrasted T1, T2, FLAIR, and diffusion with ADC map sequences. Additional sequence(s) sensitive iAdvize products. Images stored on PACS. COMPARISON: No [...] Tato Mcneil M.D. MOLLY: MOLLY Report ID: [id number] Reading Location: [place] [address] Mohsen Justin MD IM MRI PROCEDURES Final Resul t from Last 3 Months Insurance [facility] OPTIONS PPO [facility] H[facility]PPO Address: [address] [address] [place] [id number] [facility] OPTIONS PPO [facility] H[facility]PP[facility] Address: [address] [address] [place] [address] Advance Directives For more information, please contact: [phone] Documents on File Type Date Recorded Patient Brake Lining Finisher Expl anation ADVANCE DIRECTIVE 07/18/2012 12:00 AM MOLLY Walker OF DISPATCH OFFICER FINANCIAL/MEDICAL Care Teams Fuel Cell Test Engineer Relationship Specialty Start Date End Date Luis Antonio Jose MD [address] [address] PCP - General Family Medicine 04/12/24
--- OUTSIDE RECORDS SUMMARY | 2024-06-22 15:34 | XMS_ITS | Clinical Summary ---
Author Organization [facility] Address [address] [place] [address] Care Team Providers Care Color Making Supervisor Name Role Phone Unavailable Primary Care Provider Unavailabl e Source Comments [facility],non-owned Affiliates and Associated Physician Practices is amultiple site organization consisting of ambulatory clinics and hospital sitesin [place], [place], [place] and [place]. This disclosure is being madepursuant to the Care Everywhere program and may not contain all information available regarding this patient. Last updated 17.TroopSwap Allergies No known active allergies Medications * Be aware that medications may not be up to date on this document. Alwaysverify current medications with the patient. Medication Sig Dispensed Refills Start Date End Date Status metFORMIN ER 24hr (Glucophage XR) 500 MG tablet Take 1 (one) tablet by mouth once daily 06/04/2022 Active rosuvastatin (Crestor) 20 MG tablet Take 1 (one) tablet by mouth once daily 06/01/2022 Active OneTouch Ultra test strip USE TO TEST BLOOD SUGAR EVERY DAY 07/29/2022 Active polyethylene glycol 3350 (Miralax) 17 GM/SCOOP powder MIX AND TAKE 17 GRAMS TWICE DAILY NEEDED FOR BOWEL MOVEMENT 07/27/2022 Active Blood Glucose Monitoring Suppl (ONE TOUCH ULTRA 2) w/Device KIT as directed 07/29/2022 Active ONETOUCH DELICA PLUS 30G FINE LANCETS USE TO CHECK BLOOD SUGAR EVERY DAY 07/30/2022 Active Linzess 145 MCG capsule Take 1 (one) capsule by mouth once daily 10/06/2022 Active levothyroxine (Synthroid) 88 MCG tablet Take 1 (one) tablet by mouth once daily 06/01/2022 Active azithromycin (Zithromax) 250 MG tablet Take 2 tablets on day 1, then take 1 tablet daily for 4 days 6 tablet 11/02/2022 Active methylPREDNISolone (Medrol Dosepak) 4 MG tablet Take by mouth as directed Follow package insert dosing for six day supply. 21 tablet 11/02/2022 Active Active Problems No known active problems Encounters Date Type Department Care Team Description 06/12/2024 Travel from Last 3 Months Social History Tobacco Use Types Packs/Day Years Used Date Smoking Tobacco: Never Passive Smoke Exposure: Past Smokeless Tobacco: Never Tobacco Cessation:Counseling Given: Not Answered Alcohol Use Standard Drinks/Week Comments Not Currently 0 (1 standard drink = 0.6 oz pur e alcohol) PHQ-2 Answer Date Recorded Patient Health Questionnaire-2 Score 0 11/02/2022 Sex and Gender Information Value Date Recorded Sex Assigned at Not on file Gender Identity Not on file Sexual Orientation Not on file Last Filed Vital Signs Vital Sign Reading Time Taken Comments Blood Pressure 151/100 03/24/2023 1:30 PM BLUE PRINT CONTROL CLERK Pulse 64 03/24/2023 1:30 PM BLUE PRINT CONTROL CLERK Temperature 36.4 C (97.6 F) 03/24/2023 9:08 AM BLUE PRINT CONTROL CLERK Respiratory Rate 12 03/24/2023 1:30 PM BLUE PRINT CONTROL CLERK Oxygen Saturation 98% 03/24/2023 1:30 PM BLUE PRINT CONTROL CLERK Inhaled Oxygen Concentration - - Weight 83.9 kg (185 lb) 03/24/2023 9:08 AM BLUE PRINT CONTROL CLERK Height 162.6 cm (5' 4 ) 03/24/2023 9:08 AM BLUE PRINT CONTROL CLERK Body Mass Index 31.76 03/24/2023 9:08 AM BLUE PRINT CONTROL CLERK Plan of Treatment Upcoming Encounters Date Type Department Care Team (Late st Contact Info) Description 10/18/2024 10:00 AM CDT Office Visit [facility] [address] [place] [address] 11/01/2024 2:00 PM CDT Office Visit [facility] [address] [place] [phone] Brendan Villela MD [address] [place] [phone] Health Maintenance Due Date Last Done Comments COLOGUARD (AGES 45-75) - COL ON CA SCREENING 1959 COLON MONITORING 1959 COLONOSCOPY - COLON CA SCREENING 1959 CT COLONOGRAPHY - COLON CA SCREENING 1960 Colorectal Cancer Screening 1959 FIT - COLON CA SCREENING 1959 FLEX SIG - COLON CA SCREENING 1959 MAMMOGRAM 1959 PAP SMEAR 1959 HIV SCREENING 11/24/1974 HEPATITIS C SCREENING 11/20/1977 DTAP/TDAP/TD VACCINES (1 - Tdap) 11/24/1978 PNEUMOCOCCAL VACCINE 50+ (1 of 1 - PCV) 11/24/2009 ZOSTER VACCINE (1 of 2) 11/24/2009 COVID-19 VACCINE (1 - 2023-2 5 season) 2023 DEPRESSION SCREENING 03/21/2024 11/02/2022 INFLUENZA VACCINE (Season Ended) 2024 Respiratory Syncytial Virus (RSV) Vaccine Pt: or over 60 yrs (1 - 1-dose 75+ series) 11/24/2034 HEPATITIS B VACCINE Aged Out No longe r eligible based on patient's age to complete this topic HIB VACCINE Aged Out No longer eligi ble based on patient's age to complete this topic HPV VACCINE Aged Out No longer eligi ble based on patient's age to complete this topic MENINGOCOCCAL (Group B) VACC INE SHARED DECISION-MAKING Aged Out No longer eligibl e based on patient's age to complete this topic MENINGOCOCCAL GROUPS A/C/Y/W VACCINE Aged Out No longer eligible b ased on patient's age to complete this topic Ming Loya Personal/Famil y Self 1960
--- OUTSIDE RECORDS SUMMARY | 2024-06-22 15:34 | XMS_ITS | Clinical Summary ---
Author Organization [facility] Address [address] [place] [address] Care Team Providers Care Accessories Repairer Name Role Phone Mita Boland [facility] Primary Care Provider + Allergies No known active allergies Medications levothyroxine (SYNTHROID) 88 MCG tablet Take 1 tablet (88 mcg total) by mouth daily. 06/01/2022 Active polyethylene glycol (GLYCOLAX) 17 GM/SCOOP powder MIX AND TAKE 17 GRAMS TWICE DAILY NEEDED FOR BOWEL MOVEMENT Active rosuvastatin (CRESTOR) 20 MG tablet Take 1 tablet (20 mg total) by mouth daily. 06/01/2022 Active LINZESS 145 MCG capsule Take 1 capsule (145 mcg total) by mouth daily. 10/06/2022 Active Social History Tobacco Use Types Packs/Day Years Used Date Smoking Tobacco: Never Smokeless Tobacco: Never Tobacco Cessation:Counseling Given: Not Answered Comments No Sex and Gender Information Value Date Recorded Sex Assigned at Not on file Legal Sex Female 1:58 AM CDT Gender Identity Not on file Sexual Orientation Not on file Last Filed Vital Signs Vital Sign Reading Time Taken Comments Blood Pressure 147/93 05/04/2023 6:30 PM CHINA DECORATOR Pulse 78 05/04/2023 6:30 PM CHINA DECORATOR Temperature 36.1 C (97 F) 05/04/2023 6:30 PM CHINA DECORATOR Respiratory Rate 18 05/04/2023 6:30 PM CHINA DECORATOR Oxygen Saturation 100% 05/04/2023 6:30 PM CHINA DECORATOR Inhaled Oxygen Concentration - - Weight 81.6 kg (180 lb) 05/04/2023 6:30 PM CHINA DECORATOR Height 162.6 cm (5' 4 ) 05/04/2023 6:30 PM CHINA DECORATOR Body Mass Index 30.9 05/04/2023 6:30 PM CHINA DECORATOR Plan of Treatment Health Maintenance Due Date Last Done Comments Annual Physical 11/24/1962 Hepatitis C 11/24/1977 Zoster Vaccines (1 of 2) 11/24/2009 DTaP, Tdap and Td Vaccines (2 - Td or Tdap) 06/02/2016 06/02/2006 Mammogram Screening 10/03/2017 10/04/2015, 08/29/2014, 08/29/2013 Colorectal Cancer Screening Colonoscopy (10 Years) 02/05/2021 02/05/2011 COVID-19 Vaccine ( season) 2023 03/11/2021, 06/13/2020, 06/09/2020, Additional history exists RSV Immunization or 60+ Years (1 - 1-dose 75+ series) 11/24/2034 Meningococcal B Vaccine Aged Out No l onger eligible based on patient's age to complete this topic Meningococcal Vaccine Aged Out No xavier austin eligible based on patient's age to complete this topic Pneumococcal Vaccine: Pediatrics (0 to 5 Years) and At-Risk Patients (6 to 64 Years) Aged Out No longer eligible based on patient's age to complete this topic RSV Immunizations Under 20 Months Aged Out No longer eligible based on patient's age to complete this topic Procedures Procedure Name Priority Date/Time Associated Diagnosis Comments MG SCREENING DAYA DIGI Routine 10/04/2015 11:56 AM CDT COLONOSCOPY Routine 02/05/2011 12:00 AM CHINA DECORATOR from Last 3 Months or Most Recently Relevant to Health Maintenance Results * MG SCREENING DAYA DIGI (10/04/2015 11:56 AM CDT) Anatomical Region Laterality Modality Breast Bilateral Mammography 10/04/2015 11:5 6 AM CDT 10/04/2015 11:56 AM CDT Narrative 10/04/2015 12:02 PM CDT CONRAD LOYAKRYSTAL ADMIT/SERVICE DATE: 10/04/15 ACCT: [id number] DISCHARGE DATE: : 1960 SEX: F ORD SITE: [facility] PT TYPE: REG CLI ORDERING MD: XENA MÉNDEZ DO STUDY DATE REPORT # ORDER # EXT ORDER ID 10/04/15 [id number] PROC CODE: [id number] PROCEDURE DESCRIPTION: MG SCREEN MAMMO DIGITAL BI IMPRESSION: 1. STABLE MAMMOGRAPHIC APPEARANCE WITH NO NEW FINDINGS TO SUGGEST MALIGNANCY IN EITHER BREAST. ASSESSMENT: ACR BI-RADS CATEGORY 2 - BENIGN. RECOMMENDATION: 1: ROUTINE SCREENING MAMMOGRAM BILATERAL IN 1 YEAR COMMENTS: EXAMINATION: DIGITAL BILATERAL SCREENING MAMMOGRAM CLINICAL HISTORY: NO PERSONAL HISTORY OF BREAST CANCER. BREAST CANCER IN A SISTER AT AGE 38 AND A MOTHER AT AGE 73. BILATERAL BREAST REDUCTION 2006. CYST ASPIRATION ON THE LEFT 2006. BENIGN EXCISIONAL BIOPSY LEFT 2006. COMPARISON: MAMMOGRAMS FROM 08/29/2014 08/29/2013 08/02/2012 04/18/2010 TECHNIQUE: BILATERAL CC AND MLO MAMMOGRAMS ARE OBTAINED. THIS STUDY WAS READ WITH THE ASSISTANCE OF A COMPUTER-AIDED DETECTION SYSTEM. TISSUE DENSITY: THE BREAST TISSUE CONTAINS SCATTERED FIBROGLANDULAR DENSITIES. FINDINGS: BENIGN PUNCTATE CALCIFICATIONS BILATERALLY. OVERALL PARENCHYMAL PATTERN STABLE FROM PRIOR STUDIES. THERE IS NO NEW FOCAL ASYMMETRY, DOMINANT MASS LESION, AREA OF SKIN THICKENING, OR CLUSTER OF SUSPICIOUS APPEARING CALCIFICATIONS IN EITHER BREAST TO SUGGEST MALIGNANCY. ELECTRONICALLY SIGNED BY: ERNESTO MALDONADO10/04/2015 11:57 AM Procedure Note Silvia Colon MD - 01/11/2018 ANA LOYA ADMIT/SERVICE DATE:10/04/15 ACCT: [id number] DISCHARGE DATE: : 1960 SEX: F [facility] TYPE: REG CLI ORDERING MD:XENA MÉNDEZ DO STUDY DATE REPORT # ORDER # EXT ORDER ID 10/04/15 [id number] PROC CODE: [id number] PROCEDURE DESCRIPTION: MG SCREEN MAMMO DIGITAL BI IMPRESSION: 1. STABLE MAMMOGRAPHIC APPEARANCE WITH NO NEW FINDINGS TO SUGGEST MALIGNANCY IN EITHER BREAST. ASSESSMENT: ACR BI-RADS CATEGORY 2 - BENIGN. RECOMMENDATION: 1: ROUTINE SCREENING MAMMOGRAM BILATERAL IN 1 YEAR COMMENTS: EXAMINATION: DIGITAL BILATERAL SCREENING MAMMOGRAM CLINICAL HISTORY: NO PERSONAL HISTORY OF BREAST CANCER. BREAST CANCER IN A SISTER AT AGE 38 AND A MOTHER AT AGE 73. BILATERAL BREAST REDUCTION 2006. CYST ASPIRATION ON THE LEFT 2006. BENIGN EXCISIONAL BIOPSY LEFT 2006. COMPARISON: MAMMOGRAMS FROM 08/29/2014 08/29/2013 08/02/2012 04/18/2010 TECHNIQUE: BILATERAL CC AND MLO MAMMOGRAMS ARE OBTAINED. THIS STUDY WAS READ WITH THE ASSISTANCE OF A COMPUTER-AIDED DETECTION SYSTEM. TISSUE DENSITY: THE BREAST TISSUE CONTAINS SCATTERED FIBROGLANDULAR DENSITIES. FINDINGS: BENIGN PUNCTATE CALCIFICATIONS BILATERALLY. OVERALL PARENCHYMAL PATTERN STABLE FROM PRIOR STUDIES. THERE IS NO NEW FOCAL ASYMMETRY, DOMINANT MASS LESION, AREA OF SKIN THICKENING, OR CLUSTER OF SUSPICIOUS APPEARING CALCIFICATIONS IN EITHER BREAST TO SUGGEST MALIGNANCY. ELECTRONICALLY SIGNED BY: ERNESTO MALDONADO10/04/2015 11:57 AM Xena Méndez DO MAMMO Final Result * Colonoscopy (02/05/2011 12:00 AM CHINA DECORATOR) 02/05/2011 02/05/2011 Narrative [facility] TO EPIC CONVERSION - 02/05/2011 12:00 AM CHINA DECORATOR Documented hx of procedure Procedure Note Silvia Colon MD - 01/22/2018 Documented hx of procedure us Generic Conversion Md COLON GI PROCEDURE ORDERABLES Final Result [facility] TO EPIC CONVERSION from Last 3 Months or Most Recently Relevant to Health Maintenance Insurance [employer] Care Teams Accessories Repairer Relationship Specialty Start Date End Date Mita Boland, SINGLE ENDING MACHINE OPERATOR- [address] [place] [phone] PCP - General Nurse Practitioner Family 05/04/23
--- OUTSIDE RECORDS SUMMARY | 2024-06-22 15:34 | XMS_ITS | Encounter Summary ---
Author Organization [facility] Address [facility] [place] [address] Care Team Providers Care Senior Database Programmer Name Role Phone Mita Boland [facility] Primary Care Provider + Encounter Details Date Type Department Care Team (Latest Contact Info) Description 11/15/2017 Abstract [facility] Patel Laguerre MD [address] [phone] Social History Tobacco Use Types Packs/Day Years [...] on filedocumented in this encounter Care Teams Senior Database Programmer Relationship Specialty Start Date End Date Mita Boland [facility] [address] [place] [address] PCP - General Nurse Practitioner Family 05/04/23 documented as of this encounter
--- OUTSIDE RECORDS SUMMARY | 2024-06-22 15:34 | XMS_ITS | Data Portability ---
Author Organization [facility] MARLINFerRamah H Address [address] [place] [address] Assessment Encounter Date Assessment Date Assessment LastModified by Organization Details LastModified Time 09/11/2019 09/11/2019 Next visit - discuss memory problems karina Not available 09/11/2019 10:34:32 Plan of Treatment Reminders Order Date Submit Date Provider Last Modified By Organization Details Last Modified Time Details Appointments None recorded. Lab CT + NG + TV, DNA, urine/swab [address] [facility], [address] [place] [address], [address], [place], [address], 0 06:07:16 HBsAg (hepatitis B surface Ag), EIA, serum [address] [facility], [address] [place] [address], [address], [place], [address], 0 06:07:17 RPR (rapid plasma reagin), serum [address] [facility], [address] [place] [address], [address], [place], [address], 0 06:07:16 HIV 1+2 AB + HIV 1 p24 Ag, qualitativ e immunoassa y, serum [address] [facility], [address] [place] [address], [address], [place], [address], 0 06:07:17 TSH, ultra-sens itive, serum 2019 020 [facility], [address] [place] [address], [address], [place], [address], 0 03:04:23 TSH, ultra-sens itive, serum 2019 020 [facility], [address] [place] [address], [address], [place], [address], 0 08:19:36 TSH, ultra-sens itive, serum 2018 019 [facility], [address] [place] [address], [address], [place], [address], 9 06:13:01 bacterial vaginosis + vaginitis panel, vaginal [address] [facility], [address] [place] [address], [address], [place], [address], 8 06:05:55 Referral None recorded. Procedures None recorded. Surgeries None recorded. Imaging None recorded. Medication Orders levothyrox ine 25 mcg tablet 2019 020 [id number], [address] [place], [place], [id number], 0 23:29:46 Miralax 17 gram/dose oral powder 2019 020 [id number], [address] [place], [place], [id number], 0 10:34:31 naproxen 500 mg tablet 2018 019 [id number], [address], [place], [id number], 0 10:18:29 Augmentin 875 mg-125 mg tablet 2017 018 [email or web address], [address] [place] [address] [place], [id number], 9 11:04:15 Patient TargetsNo targets recorded. Patient Instructions Encounter Date Encounter Id Patient Instructions Last Modified By Organization Details Last Modified Time 06/02/[id number] I certify that I was present and available in the [facility] for discussion of this patient. I have reviewed the resident's note and agree with the stated assessment and treatment plan. nicole Not available 06/27/2017 14:23:22 12/06/2018 [id number] I certify that I was present and available in the clinic for discussion of this patient. I have reviewed the resident's note and agree with the stated assessment and treatment plan. --Gawrys DO Faculty physician [email or web address] Not available 12/11/2018 00:09:17 09/14/2019 [id number] rotator cuff: exercises husman Not available 09/14/2019 11:47:37 Reason for Referral None Reported. Results Created Date Observation Date Name Description Value Unit Range Abnormal Flag Note LastModifiedBy Organization Detail LastModifiedTime 06/03/19 18 06/04/2017 bacte rial vagin osis + vagin itis panel , vagin al trich vag by RICK Negati ve negati ve Not Available [facility] ([facility]) [address] [place], [address], 06/07/2017 06:05:55 06/03/19 18 06/04/2017 bacte rial vagin osis + vagin itis panel , vagin al chlamydia trachomatis, RICK Negati ve negati ve Not Available [facility] ([facility]) [address] [place], [address], 06/07/2017 06:05:55 06/03/19 18 06/04/2017 bacte rial vagin osis + vagin itis panel , vagin al neisseria gonorrhoeae, RICK Negati ve negati ve Not Available [facility] ([facility]) [address] [facility], [place], [address], 06/07/2017 06:05:55 06/03/19 18 06/05/2017 bacte rial vagin osis + vagin itis panel , vagin al atopobium vaginae High - 2 score abnormal Not Available [facility] ([facility]) [address] [facility], [place], [address], 06/07/2017 06:05:55 06/03/19 18 06/05/2017 bacte rial vagin osis + vagin itis panel , vagin al bvab 2 Low - 0 score Not Available [facility] ([facility]) [address] [facility], [place], [address], 06/07/2017 06:05:55 06/03/19 18 06/05/2017 bacte rial vagin osis + vagin itis panel , vagin al megasphaera 1 Low - 0 score Calcu late total score by zoila valenzuela the 3 indiv idual bacte rial vagin osis (BV) marke r score s toget her. Total score is inter prete d as follo ws: Total score 0-1: Indic ates the absen ce of BV. Total score 2: Indet ermin ate for BV. Addit ional clini leonardo data shoul d be evalu ated to estab beatriz a diagn osis. Total score 3-6: Indic ates the prese nce of BV. This test was devel oped and its perfo rmanc e brii cteri stics deter mined by [facility]. It has not been clear ed or appro melly by the Food and Drug Admin istra tion. The FDA has deter mined that such clear ance or appro gustabo is not neces jorge alberto. Not Available [facility] ([facility]) [address] [facility], [place], [address], 06/07/2017 06:05:55 06/03/19 18 06/06/2017 bacte rial vagin osis + vagin itis panel , vagin al arsh albicans, RICK Negati ve negati ve Not Available [facility] ([facility]) [address] [place], [address], 06/07/2017 06:05:55 06/03/19 18 06/06/2017 bacte rial vagin osis + vagin itis panel , vagin al arsh glabrata, RICK Negati ve negati ve This test was gregorio hollins and its perfo rmanc e brii cteri stics deter mined by [facility]. It has not been clear ed or appro melly by the Food and Drug Admin istra tion. The FDA has deter mined that such clear ance or appro gustabo is not neces jorge alberto. Not Available [facility] ([facility]) [address] [facility], [place], [address], 06/07/2017 06:05:55 12/07/19 19 12/07/2018 TSH, ultra -sens itive , serum TSH 6.950 uIU/m L 0.450- 4.500 above high normal Not Available [facility] ([facility]) [address] [place], [address], 12/07/2018 06:13:00 09/11/19 20 09/12/2019 TSH, ultra -sens itive , serum TSH 5.140 uIU/m L 0.450- 4.500 above high normal Not Available [facility] ([facility]) [address] [place], [address], 09/12/2019 08:19:36 09/11/1909/12/2019 TSH, ultra -sens itive , serum T4,free (direct) 0.71 NG/dL 0.82-1 .77 below low normal Not Available [facility] ([facility]) [address] [place], [address], 09/12/2019 08:19:36 09/14/19 20 09/18/2019 CT + NG + TV, DNA, urine /swab chlamydia by RICK Negati ve negati ve Not Available [facility] ([facility]) [address] [facility], [place], [address], 09/18/2019 06:07:16 09/14/19 20 09/18/2019 CT + NG + TV, DNA, urine /swab gonococcus by RICK Negati ve negati ve Not Available [facility] ([facility]) [address] [place], [address], 09/18/2019 06:07:16 09/14/19 20 09/18/2019 CT + NG + TV, DNA, urine /swab trich vag by RICK Negati ve negati ve Not Available [facility] ([facility]) [address] [facility], [place], [address], 09/18/2019 06:07:16 09/14/19 20 09/15/2019 RPR (rapi d plasm a reagi n), serum RPR Non Reacti ve non reacti ve Not Available [facility] ([facility]) [address] [place], [address], 09/18/2019 06:07:16 09/14/19 20 09/15/2019 HIV 1+2 AB + HIV 1 p24 Ag, quali tativ e immun oassa y, serum HIV screen 4TH generation wrfx Non Reacti ve non reacti ve Not Available [facility] ([facility]) [address] [place], [address], 09/18/2019 06:07:17 09/14/19 20 09/15/2019 HBsAg (hepa titis B surfa ce Ag), EIA, serum HBsAg screen Negati ve negati ve Not Available [facility] ([facility]) [address] [place], [address], 09/18/2019 06:07:17 11/14/19 19 11/11/2018 MAMMO , scree kristy, digit al, bilat eral No observ ation record ed. [address] (Imaging) [address] [place] [address] [place] [address], [address], 11/13/2018 18:56:30 Result Notes None recorded. Problems Name Problem SNOMED Code Status Onset Date Resolution Date Notes Provider Name and Address Organization Details Recorded Time Hypothyro idism 69814735 Active 2018 Hypothyro idism, untreated as pt believes sx are not controlle d. -TSH/t4 today -Counsell ed on importanc e of complianc e with medicatio ns Alia barreto, [place] - [facility] 0 14:03:01 Pain of right elbow joint [id number] 82979 Active 2018 Jose barreto, [place] - [facility] 9 21:27:08 Constipat ion 85900867 Active 2019 Constipat ion present for 5+ years, BM Q weekly, has untreated hypothyro idism. Alleviate d with unknown stool softener. -Begin miralax capful daily, titrate to goal of soft BMs Alia barreto, [place] - [facility] 0 14:02:13 Problem Notes None recorded. Procedures Surgical History None recorded. Imaging Results Imaging Date Name Status LastModified by Organiz ation Details LastModified Time 11/11/2018 MAMMO, screening, digital, bilateral completed [address] (Imaging) [address], [place], [address], 11/13/2018 18:56:30 Procedure Notes None recorded. Medical Equipment None Reported. Allergies No known drug allergies Medications Name Sig Start Date Stop Date Status Note LastModified by Organization Details LastModified Time cyclobenzap rine 10 mg tablet 09/10 completed Not Available Not Available Not Available amoxicillin 500 mg capsule 09/10 completed Not Available Not Available Not Available tramadol 50 mg tablet 08/16 completed Not Available Not Available Not Available levothyroxi ne 25 mcg tablet Take 1 tablet every day by oral route as directed for 30 days. 2019 active Not Available Not Available Not Avai lable Flagyl 500 mg tablet Take 1 tablet twice a day by oral route as directed for 7 days. 08/16 completed Not Available Not Available Not Available polyethylen e glycol 3350 17 gram/dose oral powder MIX AND TAKE 17 GRAMS EVERY DAY DIRECTED active Not Available Not Available No t Available fluticasone propionate 50 mcg/actuati on nasal spray,suspe nsion 09/10 completed Not Available Not Available Not Available loratadine 10 mg tablet 09/10 completed Not Available Not Available Not Available naproxen 500 mg tablet Take 1 tablet twice a day by oral route for 5 days. 09/10 completed Not Available Not Available Not Available amoxicillin 875 mg-potassiu m clavulanate 125 mg tablet Take 1 tablet every 12 hours by oral route as directed for 10 days. 08/16 completed Not Available Not Available Not Available chlorhexidi ne gluconate 0.12 % mouthwash 09/10 completed Not Available Not Available Not Available Vitals Date Recorded Body height Body mass index (BMI) Body weight Body temperature Heart rate Oxygen saturation Oxygen saturation in Arterial blood by Pulse oximetry Systolic blood pressure Diastolic blood pressure Provider Name and Address Organization Details Last Updated DateTime 8 160.02 cm 29.7 kg/m2 47275.0 8 g 98.9 [degF] 90 /min 98 % 98 % 140 mm[Hg] 94 mm[Hg] Heidi Louis [facility] 8 16:05:36 Date Recorded Body height Heart rate Oxygen saturation Oxygen saturation in Arterial blood by Pulse oximetry Body mass index (BMI) Body weight Body temperature Systolic blood pressure Diastolic blood pressure Provider Name and Address Organization Details Last Updated DateTime 9 161.93 cm 72 /min 99 % 99 % 30.2 kg/m2 93794.2 2 g 98.4 [degF] 122 mm[Hg] 76 mm[Hg] Nina Gilmore CMA [facility] 9 09:49:02 Date Recorded Body height Body mass index (BMI) Body weight Heart rate Oxygen saturation Oxygen saturation in Arterial blood by Pulse oximetry Systolic blood pressure Diastolic blood pressure Provider Name and Address Organization Details Last Updated DateTime 9 161.93 cm 30.4 kg/m2 43562.2 6 g 74 /min 98 % 98 % 118 mm[Hg] 90 mm[Hg] Nani Campo MA [facility] 9 11:39:14 Date Recorded Body height Body mass index (BMI) Body weight Heart rate Oxygen saturation Oxygen saturation in Arterial blood by Pulse oximetry Body temperature Systolic blood pressure Diastolic blood pressure Provider Name and Address Organization Details Last Updated DateTime 0 161.93 cm 30.8 kg/m2 58762.1 9 g 92 /min 98 % 98 % 99.1 [degF] 110 mm[Hg] 78 mm[Hg] Hesham Ramesh CMA [place] [facility] 0 10:36:24 Social History Question Answer Notes LastModified by Organizat ion Details LastModified Time Tobacco Smoking Status Never Smoker Desire Bernabe CMA [place], [place] - [facility] 07/29/2016 17:04:53 Do You Or Have You Ever Used E-cigarettes Or Vape? Never Used Electronic Cigarettes Information not available 09/14/2019 What Was The Date Of Your Most Recent Tobacco Screening? 09/11/2019 [email or web address] Information not available 09/11/2019 Do You Or Have You Ever Used Smokeless Tobacco? Never Used Smokeless Tobacco Information not available 09/14/2019 Sex: Unknown Functional Status None recorded. Mental Status None recorded. Family History Nothing Reported. Medical History No medical history recorded. Gynecological HistoryNo gynecological history recorded. 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 Valencia- onoscopy 1 year ago, Pap smear 1-2 years ago, Mammogram 1 year ago. Request for records, patient to sign release form and give to medical records in frontdesk- Not on thyroid medication . Will check TSH.-Praneeth wagner lipid panel and BMP.-Refus es all vaccines. Obesity 714809719 E66.9 -BMI 31.5, patient just recently enrolled in a weight loss clinic. Discussed with patient diet and exercise. Pt expresses understand ing. [id number] Heidilinda Richardsons, [employer] [facility] [place] [facility] ([address]) [address] [place] [address] 12/07/2016 14:43:30 12/08/2016 11:42:39 Standard chest X-ray abnormal 463009973 R93.8 - CXR showed minimal scarring vs atelectasi s- Will repeat CXR to ensure resolution Memory impairment 279965 006 R41.3 - Expresses concern about dementia because her father has it- Occasional ly forgets things like names, but memory impairment is not limiting her ADLs- SLUMs questionna yovani administer ed; resulted in score of 28 - normal- Reassured pt that this is age-relate d and memory changes typically occur, but as long as they are not affecting daily activities , she does not have dementia. Pt verbalized understand ing and agreement [id number] Jai Ornelas MD [facility] [address] [address] 06/02/2017 15:57:32 06/03/2017 15:25:04 Vaginal discharge 470959514 N89.8 Check nuswab + Sinusitis 67171734 J32.9 Augmentin BID x10 daysRecomm end nasal saline rinses [id number] Daljit Vitaly [place] [address] [address] 08/16/2018 09:27:23 08/17/2018 13:42:27 Pain in elbow 85849664 M25.521 - Suspect mild bursitis vs muscle strain- PE remarkable TTP over elbow. Mild swelling over R elbow- Start Naproxen 500mg BID for 5 days with food [id number] Gwendolyn Estrada [facility] [address] [address] 12/06/2018 11:24:27 12/08/2018 10:10:28 Hypothyroidism 33551460 E03.9 Chronic-Pa tient reports symptoms consistent with hypothyroi dism-Most recent TSH 6.7 on 10/06/17-Cu rrently not taking Synthroid- Will check TSH and if abnormal will start treatment Elevated blood-pressure reading without diagnosis of hypertension 799328799 R03.0 Blood pressure 118/90 in clinicGoal blood pressure less than 140/90-No red flag symptoms concerning for HTN emergency- ED precaution s discussed- RTC 2 weeks for blood pressure recheck. If persistent ly elevated will discuss lifestyle modificati ons vs initiating antihypert ensive medication . Lateral epicondylitis 20 7442358 M77.11 Approximat sarah 6 month history of lateral, right elbow painExam consistent with lateral epicondyli tis-Reassu sarah provided that in most individual symptoms will improve within 1 year from onset even without any interventi on.-May continue to use Aleve/Tyle nol as needed-Pat ient declines physical therapy. Rehab exercises provided from [employer]-RTC as needed [id number] Alia Reyez [facility] 47 [address] [facility] [address] [place] [address] 09/11/2019 08:33:41 09/19/2019 15:00:46 Constipation 14504028 K59.00 Constipati on present for 5+ years, BM Q weekly, has untreated hypothyroi dism. Alleviated with unknown stool softener.- Begin miralax capful daily, titrate to goal of soft BMs Hypothyroidism 41689538 E03.9 Hypothyroi dism, untreated as pt believes sx are not controlled .-TSH/t4 today-Coun selled on importance of compliance with medication s [id number] Alia Reyez [facility] 47 3 [facility] [address] [place] [address] 09/14/2019 10:25:33 09/19/2019 15:49:32 Venereal disease screening 272664040 Z11.3 Symptomati c with dysuria and pressure for a couple weeks-STI screening today, will call with abnormal results Pain of ri ght shoulder joint 9713653016 5130057 M25.511 R shoulder pain, likely rotator cuff injury-Pro vided with exercises- Conservati ve care with PRN tylenol/ib uprofen, rest, heat/ice Hypothyroidism 33569084 E03.9 Hx of hypothyroi dism, on 25mcg daily. TSH 5.140/T4 0.71-Pt noncomplia nt with medication s, advised her to take meds as prescribed . Repeat TSH/T4 6-8 weeks Health Concerns Section Related Observation LastModified by Organization Detai ls LastModified Time None Recorded Concern Status LastModified by Organization Details LastModified Time None Recorded Advance Directives Directive None Recorded Payers Encounter Date Sequence Insurance Name Policy Number Policy Fu Covered Member ID Fu Member ID Guarantor Name 06/02/2017 1 [facility] (MEDICAID HMO) [id number] Tatiana Loya [id number] Ming Vincenzo 08/16/2018 1 [facility] (MEDICAID HMO) [id number] Cargti Loya [id number] Ming Loya 12/06/2018 1 [facility] (MEDICAID HMO) [id number] Cargti Loya [id number] [place] Loya 09/11/2019 1 [facility] (MEDICAID HMO) [id number] Tatiana Loya [id number] Ming Vincenzo 09/14/2019 1 [facility] (MEDICAID HMO) [id number] Tatiana Loya [id number] Ming Vincenzo Notes Date Note Type Note Provider Name and Address Organization Details Recorded Time 8 text/html 56 y/o F presents w/ vaginal discharge and itching x1-2 days. Denies any bleeding. She is sexually active. Denies fever or abdominal pain. Also c/o of sinus congestion for 2 weeks, purulent nasal discharge, and intermittent fevers. No teeth or jaw pain. Jai Ornelas MD Attn: Accounting,[address] [facility], [place], [address], [facility] 06/27/2017 14:23:47 9 text/html 57 y/o F presents for ER f/u.Pt went to [place] [facility] on 08/10 due to R elbow and arm pain .Pain started about 3-4 weeks ago. Pt fell about a few months ago and broke her fall with her R arm - unknown if that was the trigger.Pt was given muscle relaxant and Naproxen. Naproxen decreased pain down to 5/10. Did not take muscle relaxantPain currently 8/10.Feels like sharp pain that radiates up and down elbow and it starts at the elbow.No numbness or tingling.No other complaints today. Daljit Haider [facility] 08/17/2018 11:33:39 9 text/html 58 y/o F presenting in clinic for follow up for right elbow pain. Patient last seen in 07/2018 for pain in right elbow at which time was started on Aleve and provided home PT exercises. Patient states that since that time her symptoms have improved, but still having some pain over the lateral aspect of her elbow. She continues to take Aleve as needed for pain and states that she has tried to continue with home PT exercises. Denies any recent trauma, swelling, bruising, erythema, warmth, or decreased range of motion.Patient also reports a history of hypothyroidism. States that was previously on 25mcg Synthroid in 2017 but only continued for a few months. States still dealing with weight gain, thinning of hair, fatigue, and difficulty concentrating. Most recent TSH was 09/26/2017 which demonstrated TSH elevated to 6.7. No recent viral illness, fever, chills, or thyroid tenderness. She states that she is able to drink fluids and swallow food without difficulty, but does state that occasionally when she lies flat she feels as though someone is pressing on her throat but improves when sitting up. No headaches, acute changes in vision, chest pain, palpitations, dyspnea, abdominal pain, N/V/D, or dysuria. [facility] 12/11/2018 00:09:24 0 text/html ConstipationReported bypatient.Duration:presen t 5 or more years Onset/Timing:once every three days; once a week Contexthx of hypothyroidism Hx of cystocele and bladder repair (???) during hysterectomy - 2007, pt poor historian Alleviating Factors:stool softener (unknown name) Associated Symptoms:no abdominal pain; no fever; no rash; no nausea; no vomiting; no blood in stool; no black or tarry stools; Abdominal distentionNotes: Preventative-Last colonoscopy - 2+ years ago, unknown GIHypertension F/UReported bypatient.Medications:jacobo cks blood pressure at home, range: (120s/80s) 58F presents for GI complaints R flank-C/o RUQ abdominal hardness-Assoc tenderness Hypothyroidism-Hx of thyroid cyst [id number]-Cpao not take her synthroid - says it gave her exophthalmos, did not improve symptoms-C/o fatigue x1 month and exercise intolerance Alia barreto [facility] 11/11/2019 14:03:06 0 text/html 58 y/o female who presents with concerns about a pain involving the right arm and shoulder R arm pain -Has been present for years but has recently worsened -Shocking pain that travels down the lateral aspect of the forearm & anterior shoulder-occasionally numbness, tingling, and weakness-Episode 1 mo. ago concerning for TIA. Pt was on a walk and noticed her right upper and lower extermities were tingling and weak and foot drag.- No recent injuries. Did have an over throw injury years ago but did not require PT or intervention- Possible compression of the nerve root at the shoulder due holding right shoulder to support keeping her phone to ear STI screening-Recently found out her exhusband had another partner-C/o dysuria and pressure for a couple weeks w/o flank pain/fevers/chills Alia barreto [facility] 03/31/2020 12:10:53 OBGyn Episode No OBEpisode recorded.
--- OUTSIDE RECORDS SUMMARY | 2024-06-22 15:34 | XMS_ITS | Data Portability ---
Author Organization [facility] Address [address] [place] [address] Assessment Encounter Date Assessment Date Assessment LastModified by Organization Details LastModified Time 06/24/2020 06/24/2020 Annual gynecological exam performed. Patient will come back in a year unless there are new symptoms. [email or web address] Not available 06/24/2020 09:59:24 05/05/2023 05/05/2023 Annual gynecological exam performed. Patient will come back in a year unless there are new symptoms. [email or web address] Not available 05/05/2023 11:56:14 Plan of Treatment Reminders Order Date Submit Date Provider Last Modified By Organization Details Last Modified Time Details Appointments None recorded. Lab CMP, serum or plasma 2020 [facility] (Lab), [address], [place], [address], 11:29:20 CBC w/ auto diff 2020 021 [facility] (Lab), [address], [place], [address], 11:29:19 lipid panel, blood 2020 021 [facility] (Lab), [address], [place], [address], 11:29:20 HbA1c (hemoglobin A1c), blood 2020 021 [facility] (Lab), [address], [place], [address], 1 11:29:19 vitamin D, 25-hydroxy, total, serum 2020 021 [facility] (Lab), [address], [place], [address], 1 11:29:21 TSH, serum or plasma 2020 021 [facility] (Lab), [address], [place], [address], 1 11:29:21 Referral primary care provider referral 2020 021 [email or web address] Not available 1 13:07:52 Procedures None recorded. Surgeries None recorded. Imaging US, breast, bilateral, complete 2023 024 [facility], [address], [place], [address], 4 13:34:45 MAMMO, screening, bilateral [address] [facility], [address], [place], [address], 4 15:22:18 DEXA, axial skeleton + vertebral fracture assessment 2020 021 [facility], [address], [place], [address], 2 05:00:48 Medication Orders Diflucan 150 mg tablet 2023 024 [id number], [address], [place], [place], [id number], 4 12:13:41 metronidazo le 500 mg tablet 2023 024 [facility] #[id number], [address], [place], [place], [id number], 4 12:13:45 Patient TargetsNo targets recorded. Patient InstructionsNo instructions recorded. Reason for Referral Primary Care Provider Referr al for Adult health examination Referring Physician: Evangelina Capps, SYSTEM TRAINER, Encounter Date: 06/24/2020 Results Created Date Observation Date Name Description Value Unit Range Abnormal Flag Note LastModifiedBy Organization Detail LastModifiedTime 06/25/19 21 06/24/2020 CBC w/ auto diff WBC 6.3 10'3/ uL 3.6-10 .2 Not Available [facility] (Lab) [address], [place], [address], 06/25/2020 11:29:18 06/25/19 21 06/24/2020 CBC w/ auto diff RBC 4.50 10'6/ uL (based on docume nted legal sex) 4.10-5 .30 Not Available [facility] (Lab) [address] [place], [address], 06/25/2020 11:29:18 06/25/19 21 06/24/2020 CBC w/ auto diff HGB 13.7 g/dL (based on docume nted legal sex) 11.9-1 5.8 Not Available [facility] (Lab) [address] [place], [address], 06/25/2020 11:29:18 06/25/19 21 06/24/2020 CBC w/ auto diff HCT 44.9 % (based on docume nted legal sex) 37.4-4 8.3 Not Available [facility] (Lab) [address] [place], [address], 06/25/2020 11:29:18 06/25/19 21 06/24/2020 CBC w/ auto diff MCV 100.0 fL 82.0-9 9.0 high Not Available [facility] (Lab) [address] [place], [address], 06/25/2020 11:29:18 06/25/19 21 06/24/2020 CBC w/ auto diff MCH 31.0 pg 27.0-3 3.0 Not Available [facility] (Lab) [address], [place], [address], 06/25/2020 11:29:18 06/25/19 21 06/24/2020 CBC w/ auto diff MCHC 31.0 g/dL 32.0-3 6.0 low Not Available [facility] (Lab) [address], [place], [address], 06/25/2020 11:29:18 06/25/19 21 06/24/2020 CBC w/ auto diff RDW 14.0 % 11.0-1 5.0 Not Available [facility] (Lab) [address], [place], [address], 06/25/2020 11:29:18 06/25/19 21 06/24/2020 CBC w/ auto diff plt 201 10'3/ uL 150-45 0 Not Available [facility] (Lab) [address], [place], [address], 06/25/2020 11:29:18 06/25/19 21 06/24/2020 CBC w/ auto diff MPV 11.8 fL Not Available [facility] (Lab) [address], [place], [address], 06/25/2020 11:29:18 06/25/19 21 06/24/2020 CBC w/ auto diff NRBC's 0.00 % 0 Not Available [facility] (Lab) [address], [place], [address], 06/25/2020 11:29:18 06/25/19 21 06/24/2020 CBC w/ auto diff absolute NRBCs 0.0 10'3/ uL 0 Not Available [facility] (Lab) [address] [facility], [place], [address], 06/25/2020 11:29:18 06/25/19 21 06/24/2020 CBC w/ auto diff neutrophils 55.0 % 37.0-7 2.0 Not Available [facility] (Lab) [address], [place], [address], 06/25/2020 11:29:18 06/25/19 21 06/24/2020 CBC w/ auto diff lymphocytes 36.0 % 16.0-4 8.0 Not Available [facility] (Lab) [address] [facility], [place], [address], 06/25/2020 11:29:18 06/25/19 21 06/24/2020 CBC w/ auto diff monocytes 7.0 % 4.0-14 .0 Not Available [facility] (Lab) [address] [facility], [place], [address], 06/25/2020 11:29:18 06/25/19 21 06/24/2020 CBC w/ auto diff eosinophils 1.0 % 0.0-9. 0 Not Available [facility] (Lab) [address] [facility], [place], [address], 06/25/2020 11:29:18 06/25/19 21 06/24/2020 CBC w/ auto diff basophils 1.0 % 0.0-2. 0 Not Available [facility] (Lab) [address] [facility], [place], [address], 06/25/2020 11:29:18 06/25/19 21 06/24/2020 CBC w/ auto diff immature granulocytes 0.0 % no define d refere nce range Not Available [facility] (Lab) [address], [place], [address], 06/25/2020 11:29:18 06/25/19 21 06/24/2020 CBC w/ auto diff absolute neutrophils 3.5 10'3/ uL 1.1-6. 0 Not Available [facility] (Lab) [address] [facility], [place], [address], 06/25/2020 11:29:18 06/25/19 21 06/24/2020 CBC w/ auto diff absolute lymphocytes 2.3 10'3/ uL 0.7-3. 4 Not Available [facility] (Lab) [address] [facility], [place], [address], 06/25/2020 11:29:18 06/25/19 21 06/24/2020 CBC w/ auto diff absolute monocytes 0.4 10'3/ uL 0.3-1. 0 Not Available [facility] (Lab) [address], [place], [address], 06/25/2020 11:29:18 06/25/19 21 06/24/2020 CBC w/ auto diff absolute eosinophils 0.1 10'3/ uL 0.0-0. 6 Not Available [facility] (Lab) [address], [place], [address], 06/25/2020 11:29:18 06/25/19 21 06/24/2020 CBC w/ auto diff absolute basophils 0.0 10'3/ uL 0.0-0. 1 Not Available [facility] (Lab) [address] [facility], [place], [address], 06/25/2020 11:29:18 06/25/19 21 06/24/2020 CBC w/ auto diff absolute immature granulocytes 0.00 10'3/ uL 0.00-0 .10 7:03 AM: P indic ates parti al resul ts on a panel have been relea sed. Addit ional resul ts will follo w. 7:03 AM: This resul t has been final verif ied. No addit ional or vizcaino ed resul ts are expec peter. Not Available [facility] (Lab) [address], [place], [address], 06/25/2020 11:29:18 06/25/19 21 06/24/2020 HbA1c (hemo globi n A1c), blood hemoglobin A1C 5.8 % 0-5.6 high The Ameri can [employer] [facility] i[employer] n recom mends that a prima ry goal of thera py genaro d be a HBA1C of < 7% and that physi cians shoul d reeva luate the treat ment regim en in patie nts with HBA1C value s consi stent ly > 8%. <5.7% Myranda l 5.7 - 6.4% Incre ased risk for diabe vicenta >=6.5 % Diagn ostic of diabe vicenta <7.0% Goal of thera py >8.0% Actio n jordin whitlock Not Available [facility] (Lab) [address], [place], [address], 06/25/2020 11:29:19 06/25/19 21 06/24/2020 lipid panel , blood total cholesterol 250 mg/dL 0-[address] [facility] (Lab) [address] [place], [address], 06/25/2020 11:29:20 06/25/19 21 06/24/2020 lipid panel , blood triglyceride s 96 mg/dL 0-150 NCEP Refer ence Value s for Trigl yceri prashanth: Myranda l: <150 mg/dL Borde rline High: 150 - 199 mg/dL High: 200 - 499 mg/dL Very High: >/= 500 mg/dL Not Available [facility] (Lab) [address] [place], [address], 06/25/2020 11:29:20 06/25/19 21 06/24/2020 lipid panel , blood HDL cholesterol 66 mg/dL 40-[address] [facility] (Lab) [address] [place], [address], 06/25/2020 11:29:20 06/25/19 21 06/24/2020 lipid panel , blood LDL cholesterol 165 mg/dL 0-99 high Cutof f value s recom ilana d by the [facility] Gloria stero l Educa tion Progr am: FRED ABLE: Gloria stero l <200 mg/dL LDL <100 mg/dL BORDE RLINE : Gloria stero l 200-2 39 mg/dL LDL 101-1 59 mg/dL HIGHE R RISK: Gloria stero l >240 mg/dL LDL >160 mg/dL , HDL <40 mg/dL Not Available [facility] (Lab) [address] [place], [address], 06/25/2020 11:29:20 06/25/19 21 06/24/2020 lipid panel , blood non-HDL cholesterol 184 mg/dL 0-129 high A reaso nable goal for non-H DL gloria stero l is one that is 30 mg/dL highe r than the LDL gloria stero l goal. Not Available [facility] (Lab) [address] [place], [address], 06/25/2020 11:29:20 06/25/19 21 06/24/2020 lipid panel , blood chol/HDL ratio 3.8 . 0.0-5. 0 Not Available [facility] (Lab) [address] [place], [address], 06/25/2020 11:29:20 06/25/19 21 06/24/2020 CMP, serum or plasm a sodium 145 mmol/ L 136-14 5 Not Available [facility] (Lab) [address] [place], [address], 06/25/2020 11:29:20 06/25/19 21 06/24/2020 CMP, serum or plasm a potassium 4.3 mmol/ L 3.5-5. 3 Not Available [facility] (Lab) [address] [place], [address], 06/25/2020 11:29:20 06/25/19 21 06/24/2020 CMP, serum or plasm a chloride 104 mmol/ L 98-107 Not Available [facility] (Lab) [address] [place] [facility] [place], [address], 06/25/2020 11:29:20 06/25/19 21 06/24/2020 CMP, serum or plasm a carbon dioxide 27 mmol/ L 23-31 Not Available [facility] (Lab) [address], [place], [address], 06/25/2020 11:29:20 06/25/19 21 06/24/2020 CMP, serum or plasm a anion gap 14 mmol/ L 8-16 Not Available [facility] (Lab) [address], [place], [address], 06/25/2020 11:29:20 06/25/19 21 06/24/2020 CMP, serum or plasm a blood urea nitrogen 12.0 mg/dL 8.0-23 .0 Not Available [facility] (Lab) [address], [place], [address], 06/25/2020 11:29:20 06/25/19 21 06/24/2020 CMP, serum or plasm a creatinine 0.90 mg/dL (based on legal sex) .5-1.2 Not Available [facility] (Lab) [address], [place], [address], 06/25/2020 11:29:20 06/25/19 21 06/24/2020 CMP, serum or plasm a GFR () 77 mL/mi n/1.7 3_m2 60-300 Not Available [facility] (Lab) [address] [place], [address], 06/25/2020 11:29:20 06/25/19 21 06/24/2020 CMP, serum or plasm a GFR (others) 64 mL/mi n/1.7 3_m2 60-300 Not Available [facility] (Lab) [address] [place], [address], 06/25/2020 11:29:20 06/25/19 21 06/24/2020 CMP, serum or plasm a calcium 9.8 mg/dL 8.4-10 .5 Not Available [facility] (Lab) [address] [place], [address], 06/25/2020 11:29:20 06/25/19 21 06/24/2020 CMP, serum or plasm a glucose 94 mg/dL 70-99 Not Available [facility] (Lab) [address] [place], [address], 06/25/2020 11:29:20 06/25/19 21 06/24/2020 CMP, serum or plasm a protein, total 7.2 g/dL 6.0-8. 3 Not Available [facility] (Lab) [address], [place], [address], 06/25/2020 11:29:20 06/25/19 21 06/24/2020 CMP, serum or plasm a albumin 4.6 g/dL 3.5-5. 0 Not Available [facility] (Lab) [address] [place], [address], 06/25/2020 11:29:20 06/25/19 21 06/24/2020 CMP, serum or plasm a ALT 15 units /L 9-43 Not Available [facility] (Lab) [address] [place], [address], 06/25/2020 11:29:20 06/25/19 21 06/24/2020 CMP, serum or plasm a alkaline phosphatase 61 units /L 35-129 Not Available [facility] (Lab) [address] [place], [address], 06/25/2020 11:29:20 06/25/19 21 06/24/2020 CMP, serum or plasm a AST 19 units /L (based on docume nted legal sex) 11-32 Not Available [facility] (Lab) [address] [place], [address], 06/25/2020 11:29:20 06/25/19 21 06/24/2020 CMP, serum or plasm a bilirubin, total 0.4 mg/dL 0.0-1. 0 Not Available [facility] (Lab) [address] [facility], [place], [address], 06/25/2020 11:29:20 06/25/19 21 06/24/2020 vitam in D, 25-hy droxy , total , serum vitamin D, 25-hydroxy, total 34.3 NG/mL 30-80 NOTE: Defic iency : <20 ng/mL Insuf ficie ncy: 20-29 ng/mL Optim um Level : 30-80 ng/mL Possi ble Toxic ity: >80 ng/mL Most patie nts with toxic ity have level s >150 ng/mL . Not Available [facility] (Lab) [address] [facility], [place], [address], 06/25/2020 11:29:21 06/25/19 21 06/24/2020 TSH, serum or plasm a TSH 5.63 uIU/m L 0.30-5 .00 high Not Available [facility] (Lab) [address] [facility], [place], [address], 06/25/2020 11:29:21 06/25/19 21 06/24/2020 T4, free, serum T4, free 0.73 NG/dL 0.80-1 .80 low Not Available [facility] (Lab) [address] [place], [address], 06/26/2020 03:58:05 06/25/1906/24/2020 pap, IG Pap test SEE RESULT S BELOW abnormal CASE REPOR T: Cytol ogy Gynec ologi leonardo Repor t Case: [id number] Autho ashok valenzuela Provi mario: Gama Castellano Colle cted: 06/24 1447 GREY WASHER Order ing Locat ion: [place] Patho logy Recei melly: 06/25 0946 First Scree n: Yeny conley ak, [address] [address], [place] Patho logis t: Asha Marshall MD Speci men: Praneeth wagner Pap - Image d, Cervi x STATE MENT OF ADEQU ACY: Satis facto ry for evalu ation Trans forma tion zone compo nent prese nt FINAL DIAGN OSIS: Epith elial Cell Abnor malit y, Squam ous Cell: Atypi leonardo squam ous cells of undet ermin ed solo jackson. Elect jamie mata by Asha Marshall MD on 021 at 11:41 AM ----- ----- ----- ----- ----- ----- ----- ----- ----- ----- ----- ----- ----- ----- ----- ----- ----- ---- HPV RESUL TS: HPV mRNA E6/E7 : No HPV mRNA Detec peter NOTE: This high risk HPV mRNA assay detec ts fourt een high- risk HPV types (16, 18, 31, 33, 35, 39, 45, 51, 52, 56, 58, 59, 66, 68) witho ut diffe renti ation . CHART ABLE COMME NT: Note: This speci men was revie wed by a Cytot echno logis t and/o r Patho logis t (as indic ated in this repor t) after evalu ation using the Thinp rep Imagi ng Syste m. CLINI LEONARDO INFOR MATIO N: Menst rual Statu s: LMP (if appli cable ): Clini leonardo Histo ry/Pr eviou s Pap: Type of Neopl gladys (if appli cable ): Other Histo ry: Hormo refugio (if appli cable ): JORDIN WHITLOCK FOLLO W-UP: Follo w up as warra nted, based on curre nt guide lines and indiv idual patie nt consi derat ions. Not Available [facility] (Lab) [address], [place], [address], 06/26/2020 12:45:05 06/25/19 21 06/24/2020 [facility] HIV Ag-Ab total quant 0.08 idx <1.[address] [facility] (Lab) [address], [place], [address], 06/26/2020 12:49:08 06/25/19 21 06/24/2020 [facility] HIV Ag-Ab total Non-re active non-re active Not Available [facility] (Lab) [address], [place], [address], 06/26/2020 12:49:08 06/25/19 21 06/24/2020 [facility] HIV-1 antibody quant 0.04 idx <1.00 Not Available [facility] (Lab) [address], [place], [address], 06/26/2020 12:49:08 06/25/19 21 06/24/2020 [facility] HIV-1 antibody Non-re active non-re active Not Available [facility] (Lab) [address] [place], [address], 06/26/2020 12:49:08 06/25/19 21 06/24/2020 [facility] HIV-1 antigen (P24) quant 0.08 idx <1.[address] [facility] (Lab) [address] [place], [address], 06/26/2020 12:49:08 06/25/19 21 06/24/2020 [facility] HIV-1 antigen (P24) Non-re active non-re active Not Available [facility] (Lab) [address] [place], [address], 06/26/2020 12:49:08 06/25/19 21 06/24/2020 [facility] HIV-2 antibody quant 0.03 idx <1.00 Not Available [facility] (Lab) [address], [place], [address], 06/26/2020 12:49:08 06/25/19 21 06/24/2020 [facility] HIV-2 antibody Non-re active non-re active HIV testi ng is perfo rmed using Multi plex- Bead Immun oassa y techn ology . The final overa ll HIV Ag-Ab resul t is deter mined based on the final resul t for each indiv idual reyna te. If any of the reyna vicenta has 2 or more repli cates that are REACT ADY, the final overa ll HIV Ag-Ab resul t is also React ady. A Non-R eacti ve test resul t at any point in the inves tigat ion of indiv idual subje cts does not precl ude the possi bilit y of expos ure to or infec tion with HIV-1 and/o r HIV-2 . Non-R eacti ve resul ts can occur if the quant ity of marke r prese nt in the sampl e is below the detec tion limit s of the assay . React ady speci mens must be inves tigat ed by addit ional , more speci fic suppl ement al tests . Speci men confi rmati on will be perfo rmed by the Quad/Graphicsni us HIV 1/2 Suppl ement al Assay . The perfo rmanc e of this assay has not been estab lishe d for neona vicenta and the assay shoul d not be used in indiv idual s young er than 2 years of age. Not Available [facility] (Lab) [address], [place], [address], 06/26/2020 12:49:08 05/05/19 24 05/05/2023 IMAGE GUIDE D PAP AND HPV REGAR DLESS image guided Pap, HPV regardless of Pap result SEE RESULT S BELOW CASE REPOR T: Cytol ogy Gynec ologi leonardo Repor t Case: [id number] Autho ashok valenzuela Provi mario: Gama Castellano Colle cted: 05/05 1629 GREY WASHER Order ing Locat ion: [place] Patho logy Recei melly: 05/06 0020 First Scree n: Uriel Lugo, CT Rescr een: Yeny hartley, Ivory smalls, CT Speci men: Scree kristy Pap - Image d, Vagin a STATE MENT OF ADEQU ACY: Satis facto ry for evalu ation Trans forma tion zone compo nent prese nt FINAL DIAGN OSIS: Negat ady for Intra epith elial Lesio n or Jovita leonard (NIL) . Elect jamie alexandre eunice d by Yeny hartley, Ivory smalls, CT on 2023 at 7:45 PM ----- ----- ----- ----- ----- ----- ----- ----- ----- ----- ----- ----- ----- ----- ----- ----- ----- ---- HPV RESUL TS: HPV mRNA E6/E7 : No HPV mRNA Detec peter NOTE: This high risk HPV mRNA assay detec ts fourt een high- risk HPV types (16, 18, 31, 33, 35, 39, 45, 51, 52, 56, 58, 59, 66, 68) witho ut diffe renti ation . COMME NT: This speci men was revie wed by a Cytot echno logis t and/o r Patho logis t (as indic ated in this repor t) after evalu ation using the Thinp rep Imagi ng Syste m. CLINI LEONARDO INFOR MATIO N: Menst rual Statu s: LMP (if appli cable ): Clini leonardo Histo ry/Pr eviou s Pap: Type of Neopl gladys (if appli cable ): Signi fican t Clini leonardo Findi ngs: Other Histo ry: Hormo refugio (if appli cable ): PAP EDUCA MIGUEL A L NOTE: The Pap Test is a scree kristy test with an inher ent false negat ady rate. Liqui d-bas ed sampl ing may decre ase, but will not elimi naima, false negat ady resul ts. A negat ady resul t does not precl ude the prese nce and/o r devel opmen t of disea se, since the prese nce of abnor mal cells in the sampl e depen ds on the locat ion of the lesio n and sampl ing techn ique. Andie nued regul ar scree kristy is the best metho d of cance r preve ntion . If repor peter cytol ogic findi ng do not corre late with physi leonardo and/o r histo rical findi ngs, furth er inves tigat ion is recom ilana d, as clini emanuel warra nted. Not Available [facility] (Lab) [address], [place], [address], 05/11/2023 20:49:08 07/16/19 21 07/15/2020 MAMMO , scree kristy, bilat eral No observ ation record ed. [facility] (Imaging) [address], [place], [address], 07/21/2020 17:21:15 05/18/19 24 05/17/2023 US, breas t, bilat eral, compl ete No observ ation record ed. [facility] [address] [place], [address], 05/30/2023 01:17:32 05/18/19 24 05/17/2023 MAMMO , diagn ostic , digit al, bilat eral No observ ation record ed. [email or web address] [address], [place], [address], 05/18/2023 17:52:20 Result Notes None recorded. Problems Name Problem SNOMED Code Status Onset Date Resolution Date Notes Provider Name and Address Organization Details Recorded Time Screenin g for malignan t neoplasm of rectum Completed 201605/18/2021 Encounter for screening for malignant neoplasm of rectum;Pr actice ID: [id number] Nimco Baker [place], [place] - [facility] 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 2 10:19:25 Atypical squamous cells on cervical Papanico laou smear cannot exclude high grade squamous intraepi thelial lesion [id number] Completed 201405/18/2021 Papanicol aou smear of cervix with atypical squamous cannot exclude high grade squamous intraepit helial lesion (ASC-H);R ecorded Elsewhere : No Locati on: [facility] So urce: EHR Chron ic: N Practic e ID: [id number] Bill able Time: 02:28:55 PM Nimco barreto [facility] 2 10:19:18 Adult health examinat ion Completed 201405/18/2021 ROUTINE MEDICAL EXAM;Gentry rded Elsewhere : No Locati on: [facility] So urce: EHR Chron ic: N Practic e ID: [id number] Bill able Time: 02:30:00 PM Nimco Baker [facility] 2 10:19:16 Speciali zed medical examinat ion Completed 201405/18/2021 ROUTINE MOVE COORDINATOR EXAMINATI ON;Record ed Elsewhere : No Locati on: [facility] So urce: EHR Chron ic: N Practic e ID: [id number] Bill able Time: 02:30:00 PM Nimco Baker [facility] 2 10:19:26 Abscess of vulva [id number] Completed 201605/18/2021 Abscess of vulva;Rec orded Elsewhere : No Locati on: [facility] So urce: EHR Chron ic: N Practic e ID: [id number] Bill able Time: 09:15:00 AM Nimco barreto [facility] 2 10:19:15 Body mass index 25-29 - overweig [id number] Completed 201705/18/2021 Body mass index (BMI) 29.0-29.9 , adult;Rec orded Elsewhere : No Locati on: [facility] So urce: EHR Chron ic: N Practic e ID: [id number] Bill able Time: 11:00:00 AM Nimco Baker [facility] 2 10:19:20 Screenin g for malignan t neoplasm of cervix Completed 201705/18/2021 Screening for malignant neoplasms of the cervix;Re corded Elsewhere : No Locati on: [facility] So urce: EHR Chron ic: N Practic e ID: [id number] Bill able Time: 11:00:00 AM Nimco Baker [facility] 10:19:21 Problem Notes None recorded. Procedures Surgical History Date Name Laterality Status Provider Name and Address Organization Details Recorded Time 05/26/19 22 I&D completed Venancio Clements MD [address], [place], [address], [facility] 05/25/2021 22:57:40 04/25/19 22 completed [facility] 05/18/2021 10:42:58 04/25/19 22 Date of Last Colonoscopy completed [facility] 05/18/2021 10:42:58 07/16/19 21 Date of Last Mammogram completed [facility] 05/18/2021 10:46:50 06/25/19 21 Date of Last Pap Smear completed [facility] 05/18/2021 10:45:03 10/06/19 18 completed [facility] 06/24/2020 10:00:26 Vaginal hysterectomy completed [facility] 06/24/2020 10:01:36 Imaging Results Imaging Date Name Status LastModified by [facility] Details LastModified Time 07/15/2020 MAMMO, screening, bilateral completed [facility] (Imaging) [address], [place], [address], 07/21/2020 17:21:15 05/17/2023 US, breast, bilateral, complete completed [facility] [address], [place], [address], 05/30/2023 01:17:32 05/17/2023 MAMMO, diagnostic, digital, bilateral completed [email or web address] [address], [place], [address], 05/18/2023 17:52:20 Procedure Notes None recorded. Medical Equipment None Reported. Allergies No known drug allergies Medications Name Sig Start Date Stop Date Status Note LastModified by Organization Details LastModified Time doxycycli ne hyclate 100 mg capsule TAKE 1 CAPSULE BY MOUTH TWICE DAILY FOR 10 DAYS 05/18 completed Not Available Not Available Not Available clindamyc in HCl 300 mg capsule TAKE 1 CAPSULE BY MOUTH EVERY 6 HOURS FOR 5 DAYS 05/18 completed Not Available Not Available Not Available azithromy rhett 250 mg tablet TAKE 2 TABLETS BY MOUTH FOR 1 DAY THEN TAKE 1 TABLET BY MOUTH DAILY FOR 4 DAYS 05/05 completed Not Available Not Available Not Available fluconazo le 150 mg tablet TAKE 1 TABLET BY MOUTH EVERY DAY active Not Available Not Available No t Available clindamyc in HCl 150 mg capsule TAKE 2 CAPSULES BY MOUTH EVERY 8 HOURS FOR 10 DAYS 05/05 completed Not Available Not Available Not Available metronida zole 500 mg tablet TAKE 1 TABLET BY MOUTH TWICE DAILY active Not Available Not Available No t Available sulfameth oxazole 800 mg-trimet hoprim 160 mg tablet TAKE 1 TABLET BY MOUTH TWICE DAILY 05/18 completed Not Available Not Available Not Available doxycycli ne monohydra te 100 mg tablet take 1 tablet by oral route 2 times every day 09/05 completed Prescrib ed Elsewher e: No Locat ion: [facility] odify By: [email or web address] salcedo DateTime : 08/28/19 17 09:16:56 AM Not Available Not Available Not Available levothyro xine 25 mcg tablet TAKE 1 TABLET BY MOUTH EVERY DAY DIRECTED 05/18 completed Not Available Not Available Not Available levothyro xine 88 mcg tablet TAKE 1 TABLET BY MOUTH EVERY DAY active Not Available Not Available No t Available amoxicill in 875 mg tablet TAKE 1 TABLET BY MOUTH EVERY 12 HOURS FOR 10 DAYS 05/05 completed Not Available Not Available Not Available OneTouch Ultra Test strips USE TO TEST BLOOD SUGAR EVERY DAY active Not Available Not Available No t Available levothyro xine 50 mcg tablet TAKE 1 TABLET BY MOUTH EVERY DAY IN THE MORNING active Not Available Not Available No t Available polyethyl dennys glycol 3350 17 gram/dose oral powder MIX AND TAKE 17 GRAMS TWICE DAILY NEEDED FOR BOWEL MOVEMENT 05/05 completed Not Available Not Available Not Available methylpre dnisolone 4 mg tablets in a dose pack FOLLOW PACKAGE DIRECTIO NS 05/05 completed Not Available Not Available Not Available metformin ER 500 mg tablet,ex tended release 24 hr TAKE 1 TABLET BY MOUTH EVERY DAY active Not Available Not Available No t Available doxycycli ne hyclate 100 mg tablet take 1 tablet by oral route 2 times every day 06/24 completed Prescrib ed Elsewher e: No Locat ion: [facility] odify By: [email or web address] Encounte r DateTime : 08/27/19 17 09:15:00 AM Not Available Not Available Not Available rosuvasta tin 5 mg tablet TAKE 1 TABLET BY MOUTH EVERY DAY active Not Available Not Available No t Available rosuvasta tin 20 mg tablet TAKE 1 TABLET BY MOUTH EVERY DAY active Not Available Not Available No t Available chlorhexi dine gluconate 0.12 % mouthwash RINSE AND SPIT 15ML BY MOUTH TWICE DAILY FOR 8 TO 10 DAYS 05/05 completed Not Available Not Available Not Available Linzess 145 mcg capsule TAKE 1 CAPSULE BY MOUTH EVERY DAY active Not Available Not Available No t Available OneTouch Ultra2 Meter DIRECTED active Not Available Not Available No t Available OneTouch Delica Plus Lancet 30 gauge USE TO CHECK BLOOD SUGAR EVERY DAY active Not Available Not Available No t Available Vitals Date Recorded Body height Body mass index (BMI) Body weight Provider Name and Address Organization Details Last Updated DateTime 06/24/2020 160.02 cm 28.3 kg/m2 02211.78 g Margret Ontiveros [facility] 06/24/2020 09:59:51 Date Recorded Systolic blood pressure Diastolic blood pressure Provider Name and Address Organization Details Last Updated DateTime 06/24/2020 123 mm[Hg] 80 mm[Hg] Evangelina Capps, [facility]- [address], [place], [address], [facility] 06/24/2020 10:04:04 Date Recorded Body height Body mass index (BMI) Body weight Systolic blood pressure Diastolic blood pressure Provider Name and Address Organization Details Last Updated DateTime 05/18/2021 160.02 cm 30.6 kg/m2 37495.48 g 120 mm[Hg] 80 mm[Hg] Nimco Baker [facility] 2 10:42:49 Date Recorded Body height Body mass index (BMI) Body weight Systolic blood pressure Diastolic blood pressure Provider Name and Address Organization Details Last Updated DateTime 05/25/2021 160.02 cm 30.6 kg/m2 92984.48 g 126 mm[Hg] 76 mm[Hg] Nimco Baker [facility] 2 14:56:36 Date Recorded Body height Body mass index (BMI) Body weight Systolic blood pressure Diastolic blood pressure Provider Name and Address Organization Details Last Updated DateTime 05/05/2023 160.02 cm 33.2 kg/m2 09477.49 g 137 mm[Hg] 88 mm[Hg] Smitha Tapia [facility] 4 11:57:05 Social History Question Answer Notes LastModified by Organizat ion Details LastModified Time Tobacco Smoking Status Never Smoker Nimco Baker [facility] 05/18/2021 10:43:02 What Is Your Level Of Alcohol Consumption? None Information not available 05/18/2021 How Many Years Have You Consumed Alcohol? 1 Information not available 05/18/2021 Are You Blind Or Do You Have Difficulty Seeing? Yes Information not available 05/18/2021 What Is Your Level Of Caffeine Consumption? Occasional Information not available 05/18/2021 Are You Deaf Or Do You Have Serious Difficulty Hearing? No Information not available 05/18/2021 What Type Of Diet Are You Following? REGULAR Information not available 05/18/2021 What Is The Highest Grade Or Level Of School You Have Completed Or The Highest Degree You Have Received? 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 No Information not available 05/18/2021 Do You Use Protection During Sex? No Information not available 05/18/2021 Do You Use Your Seat Belt Or Car Seat Routinely? Yes Information not available 05/18/2021 Do You Have Smoke And Carbon Monoxide Detectors In Your Home? Yes Information not available 05/18/2021 How Much Tobacco Do You Smoke? No Information not available 05/18/2021 Do You Use Any Illicit Or Recreational Drugs? No Information not available 05/18/2021 Do You Use Sunscreen Routinely? No Information not available 05/18/2021 Have You Used IV Drugs? No Information not available 05/18/2021 Sex: Unknown Functional Status Question Answer Note LastModified by Organizat ion Details LastModified Time Do you have difficulty walking or climbing stairs? No Information not available 05/18/2021 Are you able to walk? YESWOREST Information not available 05/18/2021 Are you able to care for yourself? Yes Information not available 05/18/2021 Do you have difficulty dressing or bathing? No Information not available 05/18/2021 What is your exercise level? None Information not available 05/18/2021 Mental Status None recorded. Family History Relationship Description Onset Age of this Age Resolved Age Notes LastModified by Organization Details LastModified Time Father No current problems or disability [email or web address] Not available 05/05 11:58:20 Mother No current problems or disability [email or web address] Not available 05/05 11:58:20 Medical History Condition Response Allergies (Food, seasonal, environmental ) N Other N Breast Cancer N Drug/Latex Allergies/Reactions N Blood Transfusion N Dermatologic Disorders N Lung Disease N Defects or Inherited Disease N Breast Problem N Gestational Diabetes N Hematologic disorders N Anesthesia Complications N History of STI N Deep Vein Thrombosis N Polycystic ovary syndrome N Anxiety Disorder N Autoimmune disease N Arthritis N Infertility N Polyps N Acid Reflux (GERD) N History of abnormal pap N Cancer N Stroke N Varicosities N Neurologic/Epilepsy N Endometriosis N High Cholesterol N Headaches N Fibromyalgia N Kidney Disease N Heart Problems N Kidney or Bladder Problems N Thyroid Problems N GI Problems N Eating Disorder N Anemia N Art (IVF or FET) N Psychiatric Illness N Ovarian Cancer N Diabetes N Pulmonary (TB, Asthma) N Hepatitis/Liver Disease N No Past Medical History N Eczema N Urinary Tract Infection N Abuse/Domestic Violence N Asthma N Trauma/Violence N Depression/ depression N Heart Disease N Pre-Eclampsia N Hypertension N Osteoporosis N Thrombophilias N Gynecological History Statement/Question Response Abnormal Pap Yes Date of Last Mammogram 07/15/2020 On BCP's at Conception? N N STIs/STDs Yes HPV Vaccine N Duration of Flow (days) 2 10/05/2017 Current Control Method Hysterectom y Age at First Child 17 Date of Last Colonoscopy 04/25/2021 Frequency of Cycle (Q days) 3 Sexually Active? Y Age of first menstrual cycle 13 Date of Last Pap Smear 06/24/2020 Sexual Problems? N LMP Unknown 04/25/2021 N Obstetrics History GPAL:G 2 P 0 0 2 0 Type Value Spontaneous 1 Living 0 Ectopics 1 Total 2 Past Encounters Encounter ID Performer Location Encounter Start Date Encounter Closed Date Diagnosis/Indication Diagnosis SNOMED-CT Code Diagnosis ICD10 Code Diagnosis [id number] [address] [address] 06/24/2020 09:38:26 06/24/2020 10:32:04 Gynecologic examination 09270562 Z01.419 Take Calcium with Vitamin D 12-1500mg daily. Do monthly self breast exams. It is advised to get annual flu shot in the fall and she could obtain at [facility] or [facility] take care clinic. If you haven't received the Tdap vaccine in the last 10 years you should obtain one as well. Have mammogram yearly, bone density every 2-3 years and colonoscop y every 5-10 years depending on findings and history. Engage in daily exercise of low impact aerobic exercise 45-60 minutes 4-5 times weekly. Avoid tobacco and illicit drugs as well as using moderation with alcohol intake less than 1-2 8 oz beverages daily. This lifestyle behavior pattern will lead to less health conditions and longer life span. If BMI greater than 25 weight watchers or dietary consult advised. Questions have been answered. Patient appears to understand instructio ns, but if you have any further questions call or respond to this email Pap/hpv sent partial hyst kept cervix after 33yrs No new partners Colon-PCP managed Dexa ordered Adult heal th examination 502220953 Z00.00 Wants new PCP. Referral made. Reports hx of thyroid dz but does not routine take her medication . Will update her labs & refer out if needed. Postmenopa usal osteopenia 426461055 M85.80 [id number] [facility]apps [facility] [address] [address] 05/18/2021 10:29:53 05/18/2021 11:28:26 Comedone present 325866482 L70.0 Today, we discussed shaving hygeine & body skin care which included mosturizin g and exfoliatin g.Her bumps are comedones two of which were able to be extracted w/o difficulty .Consider laser hair removal. Time spent in visit is a total of 15 mins with at least 50% of visit consisting of counseling and review of plan of care.Addit ional precaution art measures were taken to minimize potential exposure to the Covid-19 virus during this patient s visit, including available hand medicare specialist upon arrive, temperatur e check and being asked a series of screening questions. All staff wore face coverings during this encounter, as well as provided additional cleaning and sanitizing of all surfaces, including countertop s, pens, chairs, door handles, light switches, etc, prior to and following the patient s visit. [id number] Venancio Clements MD [facility] [address],[facility] [place] [address] 05/23/2021 10:33:55 05/23/2021 12:01:43 Obesity 208782295 E66.9 Lesion of vulva 73412130 6 N90.89 This patient is a 60-year-ol d female who presents for discussion on obesity. We discussed her health in detail. She has hypothyroi dism which is untreated. She chooses not to take her medication s. We reviewed her health history. We talked about her her obesity in detail. We talked about her goals with respect to her excess body weight. talked about the medical tense of weight loss. She describes some of her social history and her medical history. We talked about her ideal body weight and historical body weights. She is radha valenzuela returning to join our weight loss program. Talked about a vulvar lesion agreed to meet for the vulvar lesion. [id number] Venancio Clements MD [facility] [address],[facility] [place] [address] 05/25/2021 14:36:35 05/26/2021 11:01:41 Lesion of vulva 360571887 N90.89 incision drainage a 0 inclusion cyst, she tolerated well. [id number] Evangelina Capps , [facility] [address],[facility] [place] [address] 05/05/2023 11:41:09 05/05/2023 12:15:56 Gynecologic examination 47514455 Z01.419 Take Calcium with Vitamin D 12-1500mg daily. Do monthly self breast exams. It is advised to get annual flu shot in the fall and she could obtain at [facility] or [facility] take care clinic. If you haven't received the Tdap vaccine in the last 10 years you should obtain one as well. Have mammogram yearly, bone density every 2-3 years and colonoscop y every 5-10 years depending on findings and history. Engage in daily exercise of low impact aerobic exercise 45-60 minutes 4-5 times weekly. Avoid tobacco and illicit drugs as well as using moderation with alcohol intake less than 1-2 8 oz beverages daily. This lifestyle behavior pattern will lead to less health conditions and longer life span. If BMI greater than 25 weight watchers or dietary consult advised. Questions have been answered. Patient appears to understand instructio ns, but if you have any further questions call or respond to this email Pap/hpv sent partial hyst kept cervix after 33yrsDad 2wks ago; talking to old boyfriend Colon-PCP managed Toshia sanchezLab s PCP Screening mammography 24 742200 Z12.31 Extremely dense breast composition 933000046 N63.0 Dense on exam Vaginitis 75206839 N76.0 PRN use Health Concerns Section Related Observation LastModified by Organization Detai ls LastModified Time None Recorded Concern Status LastModified by Organization Details LastModified Time None Recorded Advance Directives Directive None Recorded Payers Encounter Date Sequence Insurance Name Policy Number Policy Fu Covered Member ID Fu Member ID Guarantor Name 06/24/2020 1 [facility] (MEDICAID HMO) [id number] Tatiana Loya [id number] Ming Loya 05/18/2021 1 [facility] (MEDICAID HMO) [id number] Tatiana Loya [id number] Ming oLya 05/23/2021 1 [facility] (MEDICAID HMO) [id number] Monsei Vincenzo [id number] Ming Loya 05/25/2021 1 [facility] (MEDICAID HMO) [id number] Monsei Vincenzo [id number] Ming Loya 05/05/2023 1 [facility] [place] ([place]ICAID [place]) [id number] Monsei Vincenzo [id number] Ming Loya Notes Date Note Type Note Provider Name and Address Organization Details Recorded Time 06/24/2020 text/html Annual Green Prize Packer Post-MenopausalRepor peter bypatient.Menopausal Symptoms:no menopausal symptoms; normal vaginal lubrication Vaginal Bleeding:history of menopause having occurred; no history of post menopausal bleeding Urinary Symptoms:no hematuria; no incontinence; no nocturia; no urinary frequency Vulva:no genital lesion; no vulvar atrophy Vagina:normal vaginal discharge; no vaginal atrophy Breast:no breast lump; no nipple discharge; no breast pain Sexual Complaints:no sexual complaints Psychological Symptoms:no depression; no anxiety Preventive Measures:encourage regular mammograms starting age 40; encourage self breast examination; encourage regular exercise; encourage no tobacco use; needs to schedule mammogram; history of recent colonoscopy; needs to schedule bone density Evangelina Capps, [facility] [address], [place], [address], [facility] 06/24/2020 10:31:58 05/18/2021 text/html Here today with concerns of bumps undermy arms and bikini areas after I shave. This has been going on for >6mos but feels creates more bumps now.She shaves with a triple blade disposable razor.Uses bath & body soaps.Does not always moisturize in these areas.No pain.Neg N/V/F/D/CNeg drainage in these areas.Neg itching, odor, vag d/c.Neg urinary sx'sNeg GI sx'sNeg Hx of skin conditions Evangelina Capps, [facility] [address], [place], [address], [facility] 05/18/2021 11:13:35 05/23/2021 text/html This patient is a 60-year-old female who presents for discussion on obesity. We discussed her health in detail. She has hypothyroidism which is untreated. She chooses not to take her medications. We reviewed her health history. We talked about her her obesity in detail. We talked about her goals with respect to her excess body weight. talked about the medical tense of weight loss. She describes some of her social history and her medical history. We talked about her ideal body weight and historical body weights. She is considering returning to join our weight loss program. Talked about a vulvar lesion agreed to meet for the vulvar lesion. Venancio Clements MD [address], [place], [address], [facility] 05/23/2021 12:00:39 05/25/2021 text/html Patient presents for incision drainage of vulvar lesion. She has a small inclusion cyst on the left labia. It is slightly less than a cm. Venancio Clements MD [address], [place], [address], [facility] 05/25/2021 23:00:19 05/05/2023 text/html Annual [employer] Prize Packer Post-MenopausalRepor peter bypatient.Menopausal Symptoms:no menopausal symptoms; normal vaginal lubrication Vaginal Bleeding:history of menopause having occurred; no history of post menopausal bleeding Urinary Symptoms:no hematuria; no incontinence; no nocturia; no urinary frequency Vulva:no genital lesion; no vulvar atrophy Vagina:normal vaginal discharge; no vaginal atrophy Breast:no breast lump; no nipple discharge; no breast pain Sexual Complaints:no sexual complaints Psychological Symptoms:no depression; no anxiety Preventive Measures:encourage regular mammograms starting age 40; encourage self breast examination; encourage regular exercise; encourage no tobacco use; needs to schedule mammogram; history of recent colonoscopy Evangelina Capps, [facility]- [address], [place], [address], [facility] 05/05/2023 12:15:43 OBGyn Episode Ob Episode Information Episode Created Date Number of Fetuses Patient Bloodtype Patient rh Status Prepregnancy Weight lbs Domestic Partner Domestic Partner Phone Father Name Life Trainer Status 06/25/19 21 1 CLOSED Fetus Data First Name Last Name Admitted to NICU Weight (g) Sex Living Outcome Pediatric Complications Fetus ID Race Codes Race Delivery Type , Spontane ous [id number] Dnaiele Calculation Initial Daniele Date Initial Exam Date Initial Exam Provider Initial Ultrasound Date Last Menstrual Period Date Ultra Sound Weeks Gestation 0 Eighteen To Twenty Week Daniele Update Ultra Sound Date Fundal Height At Umbil Quickening Date Ultra Sound Latest Weeks Gestation Final Daniele Confirmed By Final Daniele Confirmed Date Final Daniele Date Ultra Sound Latest Days Gestation 0 0 Menstrual History Last Menstrual Date Menses Monthly On Bcp Conception Prior Menses Frequency Hcg Plus Date Menarche Onset Age Delivery Information Delivery Date Delivery Type Labor Anesthesia Weeks Gestation Incision Type Labor Labor Length Hrs Delivered By Post Complications Tubal Sterilization Discharge Date Comments 9 Discharge Information Feeding Method Contraceptive Method Maternal HG B and HCT Levels Ob Episode Information Episode Created Date Number of Fetuses Patient Bloodtype Patient rh Status Prepregnancy Weight lbs Domestic Partner Domestic Partner Phone Father Name Life Trainer Status 06/25/19 21 1 CLOSED Fetus Data First Name Last Name Admitted to NICU Weight (g) Sex Living Outcome Pediatric Complications Fetus ID Race Codes Race Delivery Type Ectopic [id number] Daniele Calculation Initial Daniele Date Initial Exam Date Initial Exam Provider Initial Ultrasound Date Last Menstrual Period Date Ultra Sound Weeks Gestation 0 Eighteen To Twenty Week Daniele Update Ultra Sound Date Fundal Height At Umbil Quickening Date Ultra Sound Latest Weeks Gestation Final Daniele Confirmed By Final Daniele Confirmed Date Final Daniele Date Ultra Sound Latest Days Gestation 0 0 Menstrual History Last Menstrual Date Menses Monthly On Bcp Conception Prior Menses Frequency Hcg Plus Date Menarche Onset Age Delivery Information Delivery Date Delivery Type Labor Anesthesia Weeks Gestation Incision Type Labor Labor Length Hrs Delivered By Post Complications Tubal Sterilization Discharge Date Comments 8 Discharge Information Feeding Method Contraceptive Method Maternal HG B and HCT Levels
--- OUTSIDE RECORDS SUMMARY | 2024-06-22 15:34 | XMS_ITS | Continuity of Care Document ---
Author Organization [facility] Address [address] [place] [address] [place] [address] Phone Care Team Providers Care Shroudman Name Role Phone Gama Dockery DO Unavailable Unavailable Advance Directives Directive Yes / No Effective Date File Name No Information Encounters Encounter Description Practice Location Reason(s) For Visit Diagnoses Date Provider Providers Copied on Encounter [facility], [address], [place], [place], [id number], [place] tel:[phone] [facility] No Information Sarkis Ji. [address] [place], [address], [place]. tel: [phone] Family History Family Member Type Diagnosis Age At Onset No Information Payers Payer name Insurance type Covered constitution party ID Authoriza tyson(s) [facility] Commercial CI [id number] Social History Type Description Quantity Date Captured [...]
[2024-06-22 15:38] VITALS: BP 129/88; PULSE 76; RESP 18; TEMP 36.4; O2SAT 100
--- OUTSIDE RECORDS SUMMARY | 2024-06-22 15:39 | XMS_ITS | Continuity of Care Document ---
Author Organization Located within [facility] Address [id number] [place] [address] [place] [address] Phone Care Team Providers Care Cash Management Clerk Name Role Phone Gama Dockery DO Unavailable Unavailable Advance Directives Directive Yes / No Effective Date File Name No Information Encounters Encounter Description Practice Location Reason(s) For Visit Diagnoses Date Provider Providers Copied on Encounter [facility], [address] [place], [place], [id number], [place] tel:[phone] [facility] No Information Sarkis [address] [address] [place], [address], [place]. tel: [phone] Family History Family Member Type Diagnosis Age At Onset No Information Payers Payer name Insurance type Covered libertarian ID Authoriza tyson(s) [facility] Commercial CI [id number] Social History Type Description Quantity Date Captured [...]
--- OUTSIDE RECORDS SUMMARY | 2024-06-22 15:39 | XMS_ITS | Data Portability ---
Author Organization [place] - [facility], Main Office Address [address] [place] [address] Care Team Providers Care Switch Crew Supervisor Name Role Phone LUIS ANTONIO JOSE Primary Care Provider Assessment Encounter Date Assessment Date Assessment LastModified by Organization Details LastModified Time 09/21/2023 09/21/2023 I have reconcile d the patient's medications post their discharge from inpatient facility. [email or web address] Not available 09/21/2023 11:57:16 10/13/2023 10/13/2023 62 yo F with - WELL ADULT VISIT - SKIN LESIONS - LIVER CYST - HYPOTHYROIDISM - HLD - CHRONIC CONSTIPATION - CHRONIC LOW BACK PAIN - OBESITY I CT A&P with: 09/15/23. D/w pt about her findings, recent labs & imagines and further plan of care. Will do routine labs, US liver. Meds as directed. Diet and exercise explained in detail. BP diary education given. Cont f/u with Ophtho and Dentist as per schedule. HM: WWE - 06/11, normal as per pt. Cont f/u with Gyne as per schedule. Mammo - 05/17/23, normal. DEXA - Ordered. Colonoscopy - 2022, 1 polyp ++. Cont f/u with GI as per schedule. Flu - Pt declined. Tdap - Pt declined. Pneumo - Pt declined. Shingrix - At pharmacy/HD. F/u in 3 weeks. Annual labs in 10/12. [email or web address] Not available 10/13/2023 10:34:32 11/09/2023 11/09/2023 62 yo F with - DM II, new - GALL STONES - RT LIVER CYST (1.8 cm) - HYPOTHYROIDISM, resolved - HLD - CHRONIC CONSTIPATION - CHRONIC LOW BACK PAIN - SKIN LESIONS - OBESITY I HbA1c: 6.5(10/13/23) US liver: 10/14/23. Annual labs: 10/13/23. CT A&P with: 09/15/23. D/w pt about her findings, recent labs & imagines and further plan of care. Will refer pt to GI and Hepat. Explained about different options for her. Pt declined for any ACEI/ARB at this time. Meds as directed. Diet and exercise explained in detail. BP & DM diary education given. F/u with Derm as per schedule. F/u with Neuro as per schedule. Cont f/u with Ophtho and Dentist as per schedule. HM: WWE - 06/11, normal as per pt. Cont f/u with Gyne as per schedule. Mammo - 05/17/23, normal. DEXA - Ordered. Colonoscopy - 2022, 1 polyp ++. Cont f/u with GI as per schedule. Flu - Pt declined. Tdap - Pt declined. Pneumo - Pt declined. Shingrix - At pharmacy/HD. F/u in 3 months. A1c in 02/11. Annual labs in 10/12. Not available 11/09/2023 14:37:38 04/05/2024 04/05/2024 63 yo F with - ANXIETY, new - DM II, new - GALL STONES - RT LIVER CYST (1.8 cm) - HLD - CHRONIC CONSTIPATION - CHRONIC LOW BACK PAIN - OSTEOPENIA - SKIN LESIONS - OBESITY I - H/O HYPOTHYROIDISM HbA1c: 6.5(10/13/23) - 6.8(04/02/24) US liver: 10/14/23. Annual labs: 10/13/23. CT A&P with: 09/15/23. D/w pt about her findings, recent labs & imagines and further plan of care. Will refer pt to Counsellor. Explained about different options for her. Pt declined for any ACEI/ARB at this time. Meds as directed. Diet and exercise explained in detail. BP & DM diary education given. F/u with Derm as per schedule. F/u with Neuro as per schedule. Cont f/u with Ophtho and Dentist as per schedule. Pt got s/e from [facility]. Rybelsus is too costly for pt. HM: WWE - 06/11, normal as per pt. Cont f/u with Gyne as per schedule. Mammo - 05/17/23, normal. DEXA - 04/02/24, osteopenia ++. Colonoscopy - 2022, 1 polyp ++. Cont f/u with GI as per schedule. Flu - Pt declined. Tdap - Pt declined. Pneumo - Pt declined. Shingrix - At pharmacy/HD. F/u in 1-1.5 months. A1c in 07/13. Annual labs in 10/12. [email or web address] Not available 04/05/2024 10:29:03 Plan of Treatment Reminders Order Date Submit Date Provider Last Modified By Organization Details Last Modified Time Details Appointments Follow Up 15 2024 08:30A Gene Jose MD Not available Not available Not available Lab glycohemo globin, total, blood 2024 [email or web address] [facility] (Lab), [address] [place], [address], 04/05/2024 10:11:58 glycohemo globin, total, blood [email or web address] (Lab), [address] [place], [address], 04/02/2024 11:26:15 vitamin D, 25-hydrox y, total, serum [address] (Lab), [address] [place], [address], 10/20/2023 08:43:00 vitamin B12 + folate, serum or blood [address] (Lab), [address] [place], [address], 10/20/2023 08:43:00 CBC w/ auto diff [address] [facility] (Lab), [address] [place], [address], 10/13/2023 14:34:02 CMP, serum or plasma 2023 024 [facility] (Lab), [address] [place], [address], 10/13/2023 14:39:42 lipid panel, serum 2023 024 [facility] (Lab), [address] [place], [address], 10/13/2023 14:39:45 TSH, serum, reflex free T4 [address] (Lab), [address] [place], [address], 10/20/2023 08:42:59 urinalysi s complete, reflex culture [address] (Lab), [address] [place], [address], 10/20/2023 08:42:59 glycohemo globin, total, blood 2023 024 [facility] (Lab), [address] [place], [address], 10/13/2023 19:24:01 CMP, serum or plasma 2022 023 SCOTT Not available 05/28/2022 21:57:18 HbA1c (hemoglob in A1c), blood 2022 023 [email or web address] Not available 06/04/2022 10:45:29 TSH, serum, reflex free T4 2022 023 [email or web address] Not available 06/08/2022 09:56:46 lipid panel, serum 2022 023 SCOTT Not available 05/28/2022 21:57:[address] referral - Please call patient to schedule an appointme nt. Thank you. 2024 025 SCOTT [facility] [employer], [facility] , [address], [place], [address], 04/05/2024 17:03:59 mental health counselor referral - Please call patient to schedule an appointme nt. Thank you. 2024 025 [email or web address] Leyla Matthew Ma [facility], [address] [facility], [address], [place], [address], 05/03/2024 09:03:53 gastroent erologist referral - Please call patient to schedule an appointme nt. Thank you. 2023 024 [email or web address] [facility], [facility] [place], [address], 12/07/2023 08:45:47 hepatolog ist referral - Please call patient to schedule an appointme nt. Thank you. 2023 024 [email or web address] [facility], [address] [place], [address], 12/07/2023 08:45:[address] referral - Please call patient to schedule an appointme nt. Thank you 2023 024 [email or web address] [facility], [facility] , [address], [place], [address], 11/10/2023 08:44:13 dermatolo gist referral - Please call patient to schedule an appointme nt. Thank you. 2023 024 [email or web address] [facility], [address], [place], [address], 11/10/2023 08:43:50 physical therapist referral - *Please call pt to schedule* 2023 024 [email or web address] [id number] [facility] [address] , [place], [address], 10/24/2023 09:09:13 Procedures None recorded. Surgeries None recorded. Imaging US, liver - *Please call pt to schedule* [address], [address], [place], [address], 10/17/2023 10:23:13 DEXA - *Please call pt to schedule* [address] (Imaging), [address], [place], [address], 04/03/2024 09:14:22 Medication Orders buspirone 10 mg tablet 2024 SCOTT [id number], [address], [place], [place], [id number], 04/05/2024 10:15:30 rosuvasta tin 20 mg tablet 2024 [employer] [facility], [address], [place], [place], [id number], 04/05/2024 16:25:25 Calcium 600 + D(3) 600 mg-10 mcg (400 unit) tablet 2024 SCOTT [facility] #70406, [address], [place], [place], [id number], 04/05/2024 10:14:06 Linzess 145 mcg capsule 2024 [facility]12107, [address], [place], [place], [id number], 04/05/2024 10:25:22 Mounjaro 2.5 mg/0.5 mL subcutane ous pen injector 2024 025 [facility], [address], [place], [place], [id number], 04/25/2024 15:09:29 Farxiga 10 mg tablet 2024 025 [facility] #15457, [address], [place], [place], [id number], 04/05/2024 10:12:03 metformin ER 500 mg tablet,ex tended release 24 hr 2023 024 [facility] #58435, [address], [place], [place], [id number], 04/05/2024 10:24:39 Rybelsus 3 mg tablet 2023 024 [facility] #75363, [address], [place], [place], [id number], 11/09/2023 14:26:53 Trulance 3 mg tablet 2023 024 [facility] #73219, [address], [place], [place], [id number], 10/13/2023 10:25:56 cyclobenz aprine 10 mg tablet 2023 024 [facility] #66996, [address], [place], [place], [id number], 10/13/2023 10:10:39 diclofena c sodium 75 mg tablet,de layed release 2023 024 [facility]38132, [address], [id number], 09/21/2023 11:28:28 polyethyl dennys glycol 3350 17 gram/dose oral powder 2023 024 [facility] #25521, [address], [place], [place], [id number], 09/21/2023 11:28:27 Linzess 145 mcg capsule 2023 [facility] #81164, [address], [place], [place], [id number], 09/21/2023 11:28:33 docusate sodium 100 mg capsule 2023 [facility] #86899, [address], [place], [place], [id number], 09/21/2023 11:28:26 rosuvasta tin 20 mg tablet 2023 [facility] #50846, [address], [place], [place], [id number], 09/21/2023 11:28:32 levothyro xine 88 mcg tablet 2023 [facility] #15813, [address], [place], [place], [id number], 09/21/2023 11:28:28 Patient TargetsNo targets recorded. Patient Instructions Encounter Date Encounter Id Patient Instructions Last Modified By Organization Details Last Modified Time 05/28/2022 [id number] 3 mo fu weight, lipid, hyperglycemia, thyroid. [email or web address] Not available 05/28/2022 14:34:11 09/21/2023 [id number] learning about obesity [email or web address] Not available 09/21/2023 11:28:18 Thank you for your visit to our office today. We would like to request that you reach out to your referring or previous provider and request that they send us a Summary of Care in electronic form, so that we may have it on file in your medical record. At your visit, we had the medical records we needed to provide you with the best possible care; however, for insurance purposes, an electronic Summary of Care is beneficial. Thank you for your assistance in obtaining this information and we look forward to providing continued care to you. Please review your medication list from the Summary of Care for this visit. If there are any differences from what you are currently taking at home, please call us to discuss. Not available 09/21/2023 11:11:03 Homebound Status : {{Patient has an inability to leave the home without a taxing effort and assistance from another person Does not meet homebound status}} Required Home Health Services: {{none detention, physical therapy, occupational therapy detention, physical therapy detention}} Durable Medical Equipment needed: {{cane walker wal ker with seat manual wheelchair bedsid e commode oxygen}} Billing Guidelines CPT code 06305- Transitional Care Management services with moderate medical decision complexity ([id number]-[id number] visit within 14 days of discharge). CPT code 33696- Transitional Care Management services with high medical decision complexity (jqqy-xm-ptvs visit within 7 days of discharge). Not available 09/21/2023 11:11:03 10/13/2023 [id number] dash diet: care instructions [email or web address] Not available 10/13/2023 10:26:32 11/09/2023 [id number] starting a weigh t loss plan: care instructions [email or web address] Not available 11/09/2023 14:35:19 dash diet: care instructions [email or web address] Not available 11/09/2023 14:26:47 type 2 diabetes: care instructions [email or web address] Not available 11/09/2023 14:35:38 04/05/2024 [id number] dash diet: care instructions Not available 04/05/2024 10:11:58 starting a weigh t loss plan: care instructions [email or web address] Not available 04/05/2024 10:11:58 type 2 diabetes: care instructions Not available 04/05/2024 10:11:58 Reason for Referral Physical Therapist Referral for Chronic low back pain *Please call pt to schedule* Referring Physician: [facility], Encounter Date: 09/21/2023 Inspector Outside Production Referral for C jered in skin lesion Please call patient to schedule an appointment. Thank you. Referring Physician: [facility], Encounter Date: 10/13/2023 Neurologist Referral for Mem ory impairment Please call patient to schedule an appointment. Thank you [facility]: 10/13/2023 Network Administrator Referral for Li cordell cyst Liver cyst, fatty liver, ? Fibrosis Please call patient to schedule an appointment. Thank you. Referring Physician: Luis Antonio Jose [facility], Encounter Date: 11/09/2023 Sign Out Clerk Referral for Chronic idiopathic constipation Please call patient to schedule an appointment. Thank you. Referring Physician: Luis Antonio Jose [facility], Encounter Date: 11/09/2023 Neurologist Referral for Mem ory impairment Please call patient to schedule an appointment. Thank you. Referring Physician: Luis Antonio Jose [facility], Encounter Date: 04/05/2024 Mental Health Counselor Refe rral for Anxiety disorder Please call patient to schedule an appointment. Thank you. Ref[facility], Encounter Date: 04/05/2024 Results Created Date Observation Date Name Description Value Unit Range Abnormal Flag Note LastModifiedBy Organization Detail LastModifiedTime 05/29/1905/28/2022 HEMOG LOBIN A1C HA1C 6.6 % 4.0-6. 0 high Diabe vicenta Scree kristy Crite carson: <5.7% Consi stent with absen ce of diabe vicenta 5.7-6 .4% Consi stent with incre ased risk for diabe vicenta (pred iabet es) >OR=6 .5% Consi stent with diabe vicenta REFER ENCE: Diabe vicenta Care 2016, 39(Nettles ppl.1 ):s13 -s22 Not Available [facility] (Lab) [address] [place], [address], 05/28/2022 21:23:21 05/29/19 23 05/28/2022 TSH thyroid-stim ulating hormone 5.600 uIU/m L 0.465- 4.680 high Not Available [facility] (Lab) [address] [place], [address], 05/28/2022 21:55:29 05/29/19 23 05/28/2022 LIPID PANEL cholesterol 260 mg/dL 140-19 9 high NIH TAYLER NSUS RECOM MENDA TION FOR ANNE-MARIE STERO L: ADULT CHILD LOW RISK: <200 <170 BORDE RLINE : <200- 239 ----- HIGH RISK: >240 >200 Not Available [facility] (Lab) [address] [place], [address], 05/28/2022 21:57:12 05/29/19 23 05/28/2022 LIPID PANEL triglyceride s 116 mg/dL 0-150 NIH TAYLER NSUS REPOR T RECOM MENDA TION FOR TRIGL YCERI IMAN: ADULT CHILD LOW RISK: <150 ----- BODER LINE: 150-1 99 ----- HIGH RISK: >200 ----- Not Available [facility] (Lab) [address] [place], [address], 05/28/2022 21:57:12 05/29/19 23 05/28/2022 LIPID PANEL HDL cholesterol 65 mg/dL 40- Not Available [facility] (Lab) [address] [place], [address], 05/28/2022 21:57:12 05/29/19 23 05/28/2022 LIPID PANEL LDL cholesterol, calculated 172 mg/dL 0-130 high NIH TAYLER NSUS REPOR T RECOM MENDA TIONS FOR LDL: ADULT CHILD LOW RISK <130 <110 (OPTI MAL LDL) <100 ----- BORDE RLINE : 130-1 59 ----- HIGH RISK: >160 >130 A TRIGL YCERI DE RESUL T >400 INVAL IDATE S THE CALCU LATIO N FOR LDL FRACT IONAT ION - THE LDL RESUL T WILL NOT BE REPOR JOSHUA. Not Available [facility] (Lab) [address] [place], [address], 05/28/2022 21:57:12 05/29/19 23 05/28/2022 COMPR EHENS ADY METAB OLIC PANEL sodium 139 mmol/ L 137-14 5 Not Available [facility] (Lab) [address] [place], [address], 05/28/2022 21:57:18 05/29/19 23 05/28/2022 COMPR EHENS ADY METAB OLIC PANEL potassium 4.2 mmol/ L 3.5-5. 1 Not Available [facility] (Lab) [address] [place], [address], 05/28/2022 21:57:18 05/29/19 23 05/28/2022 COMPR EHENS ADY METAB OLIC PANEL chloride 106 mmol/ L 98-107 Not Available [facility] (Lab) [address] [place], [address], 05/28/2022 21:57:18 05/29/19 23 05/28/2022 COMPR EHENS ADY METAB OLIC PANEL carbon dioxide 29 mmol/ L 22-30 Not Available [facility] (Lab) [address] [place], [address], 05/28/2022 21:57:18 05/29/19 23 05/28/2022 COMPR EHENS ADY METAB OLIC PANEL anion gap 8.2 mmol/ L 14-22 low Not Available [facility] (Lab) [address] [place], [address], 05/28/2022 21:57:18 05/29/19 23 05/28/2022 COMPR EHENS ADY METAB OLIC PANEL glucose 106 mg/dL 70-99 high Not Available [facility] (Lab) [address] [place], [address], 05/28/2022 21:57:18 05/29/19 23 05/28/2022 COMPR EHENS ADY METAB OLIC PANEL BUN 10 mg/dL 8-19 Not Available [facility] (Lab) [address] [place], [address], 05/28/2022 21:57:18 05/29/19 23 05/28/2022 COMPR EHENS ADY METAB OLIC PANEL creatinine 0.78 mg/dL 0.66-1 .25 Not Available [facility] (Lab) [address] [place], [address], 05/28/2022 21:57:18 05/29/19 23 05/28/2022 COMPR EHENS ADY METAB OLIC PANEL GFR >60 Refer ence Range : [place] ge GFR Healt hy Adult : >60 mL/mi n/1.7 3 m2 Chron ic Kidne y Disea se: 15-60 mL/mi n/1.7 3 m2 Kidne y Failu re: <15/m L/min /1.73 m2 www.n iddk. nih.g ov The MDRD study equat ion has not been valid ated in child tomasz <18 years of age; pregn ant women ; the elder ly >85 years of age; or in some racia l or ethni c subgr oups, such as Hisms nics. Outsi de the valid ated lonnie eters , estim ated GFR is less accur ate, requi ring clini leonardo judgm ent on a case- by-ca se basis . Clini leonardo inter preta tion for other races and ages must be made by the clini roberto. The MDRD study equat ion has not been valid ated for the evalu ation of serum creat inine relat ed to nutri ayanna l statu s or medic ation usage . For perso ns <18 years of age, a pedia tric GFR calcu lator is avail able on the [facility] websi te: https ://ann marie w.jigna taveras.o rg/pr ofess ional s/kdo qi/gf r_cal culat or Not Available [facility] (Lab) [address] [place], [address], 05/28/2022 21:57:18 05/29/19 23 05/28/2022 COMPR EHENS ADY METAB OLIC PANEL alkaline phosphatase 67 U/L 38-126 Not Available [facility] (Lab) [address] [place], [address], 05/28/2022 21:57:18 05/29/19 23 05/28/2022 COMPR EHENS ADY METAB OLIC PANEL alanine aminotransfe rase 25 U/L 0-35 Not Available [facility] (Lab) [address] [place], [address], 05/28/2022 21:57:18 05/29/19 23 05/28/2022 COMPR EHENS ADY METAB OLIC PANEL aspartate aminotransfe rase 34 U/L 15-37 Not Available [facility] (Lab) [address] [place], [address], 05/28/2022 21:57:18 05/29/19 23 05/28/2022 COMPR EHENS ADY METAB OLIC PANEL bilirubin, total 0.60 mg/dL 0.20-1 .30 Not Available [facility] (Lab) [address] [place], [address], 05/28/2022 21:57:18 05/29/19 23 05/28/2022 COMPR EHENS ADY METAB OLIC PANEL calcium 9.3 mg/dL 8.4-10 .2 Not Available [facility] (Lab) [address] [place], [address], 05/28/2022 21:57:18 05/29/19 23 05/28/2022 COMPR EHENS ADY METAB OLIC PANEL total protein 7.5 g/dL 6.3-8. 2 Not Available [facility] (Lab) [address] [place], [address], 05/28/2022 21:57:18 05/29/19 23 05/28/2022 COMPR EHENS ADY METAB OLIC PANEL albumin 4.4 g/dL 3.4-5. 0 Not Available [facility] (Lab) [address] [place], [address], 05/28/2022 21:57:18 05/29/19 23 05/28/2022 COMPR EHENS ADY METAB OLIC PANEL globulin 3.1 g/dL 2.6-4. 2 Not Available [facility] (Lab) [address] [place], [address], 05/28/2022 21:57:18 05/29/19 23 05/28/2022 COMPR EHENS ADY METAB OLIC PANEL A/G ratio 1.4 ratio 1.0-2. 0 Not Available [facility] (Lab) [address] [place], [address], 05/28/2022 21:57:18 10/13/19 24 10/13/2023 CBC/C OMPLE TE BLD COUNT W/DIF F white blood cells 5.5 x10'3 /uL 4.2-10 .8 Not Available [facility] (Lab) [address] [place], [address], 10/13/2023 14:34:02 10/13/19 24 10/13/2023 CBC/C OMPLE TE BLD COUNT W/DIF F red blood cells 4.47 x10'6 /uL 3.80-5 .20 Not Available [facility] (Lab) [address] [place], [address], 10/13/2023 14:34:02 10/13/19 24 10/13/2023 CBC/C OMPLE TE BLD COUNT W/DIF F hemoglobin 14.1 g/dL 12.0-1 5.6 Not Available [facility] (Lab) [address] [place], [address], 10/13/2023 14:34:02 10/13/19 24 10/13/2023 CBC/C OMPLE TE BLD COUNT W/DIF F hematocrit 43.2 % 35.7-4 5.7 Not Available [facility] (Lab) [address] [place], [address], 10/13/2023 14:34:02 10/13/19 24 10/13/2023 CBC/C OMPLE TE BLD COUNT W/DIF F mean red cell volume 96.6 fL 82.0-9 9.0 Not Available [facility] (Lab) [address] [place], [address], 10/13/2023 14:34:02 10/13/19 24 10/13/2023 CBC/C OMPLE TE BLD COUNT W/DIF F mean red cell hemoglobin 31.5 pg 27.0-3 3.0 Not Available [facility] (Lab) [address] [place], [address], 10/13/2023 14:34:02 10/13/19 24 10/13/2023 CBC/C OMPLE TE BLD COUNT W/DIF F mean RBC HGB concentratio n 32.6 g/dL 31.0-3 6.0 Not Available [facility] (Lab) [address] [place], [address], 10/13/2023 14:34:02 10/13/19 24 10/13/2023 CBC/C OMPLE TE BLD COUNT W/DIF F red cell distribution width 12.8 % 11.8-1 5.5 Not Available [facility] (Lab) [address] [place], [address], 10/13/2023 14:34:02 10/13/19 24 10/13/2023 CBC/C OMPLE TE BLD COUNT W/DIF F platelets 186 x10'3 /uL 150-40 0 Not Available [facility] (Lab) [address] [place], [address], 10/13/2023 14:34:02 10/13/19 24 10/13/2023 CBC/C OMPLE TE BLD COUNT W/DIF F mean platelet volume 11.9 fL 9.0-12 .4 Not Available [facility] (Lab) [address] [place], [address], 10/13/2023 14:34:02 10/13/19 24 10/13/2023 CBC/C OMPLE TE BLD COUNT W/DIF F neutrophils 47.6 % 39.0-7 2.0 Not Available [facility] (Lab) [address] [place], [address], 10/13/2023 14:34:02 10/13/19 24 10/13/2023 CBC/C OMPLE TE BLD COUNT W/DIF F lymphocytes 40.3 % 16.0-4 7.0 Not Available [facility] (Lab) [address] [place], [address], 10/13/2023 14:34:02 10/13/19 24 10/13/2023 CBC/C OMPLE TE BLD COUNT W/DIF F monocytes 8.6 % 5.0-12 .0 Not Available [facility] (Lab) [address] [place], [address], 10/13/2023 14:34:02 10/13/19 24 10/13/2023 CBC/C OMPLE TE BLD COUNT W/DIF F eosinophils 2.4 % 1.0-7. 0 Not Available [facility] (Lab) [address] [place], [address], 10/13/2023 14:34:02 10/13/19 24 10/13/2023 CBC/C OMPLE TE BLD COUNT W/DIF F basophils 0.7 % 0.0-2. 0 Not Available [facility] (Lab) [address] [place], [address], 10/13/2023 14:34:02 10/13/19 24 10/13/2023 CBC/C OMPLE TE BLD COUNT W/DIF F immature granulocytes 0.4 % 0.00-0 .50 Not Available [facility] (Lab) [address] [place], [address], 10/13/2023 14:34:02 10/13/19 24 10/13/2023 CBC/C OMPLE TE BLD COUNT W/DIF F neutrophils, absolute count 2.62 x10'3 /uL 1.5-8. 0 Not Available [facility] (Lab) [address] [place], [address], 10/13/2023 14:34:02 10/13/19 24 10/13/2023 CBC/C OMPLE TE BLD COUNT W/DIF F lymphocytes, absolute count 2.21 x10'3 /uL 1.07-3 .43 Not Available [facility] (Lab) [address] [place], [address], 10/13/2023 14:34:02 10/13/19 24 10/13/2023 CBC/C OMPLE TE BLD COUNT W/DIF F monocytes, absolute count 0.47 x10'3 /uL 0.29-0 .99 Not Available [facility] (Lab) [address] [place], [address], 10/13/2023 14:34:02 10/13/19 24 10/13/2023 CBC/C OMPLE TE BLD COUNT W/DIF F eosinophils, absolute count 0.13 x10'3 /uL 0.02-0 .53 Not Available [facility] (Lab) [address] [place], [address], 10/13/2023 14:34:02 10/13/19 24 10/13/2023 CBC/C OMPLE TE BLD COUNT W/DIF F basophils, absolute count 0.04 x10'3 /uL 0.01-0 .08 Not Available [facility] (Lab) [address] [place], [address], 10/13/2023 14:34:02 10/13/19 24 10/13/2023 CBC/C OMPLE TE BLD COUNT W/DIF F immature granulocytes ,absolute 0.02 x10'3 /uL 0.00-0 .05 Not Available [facility] (Lab) [address] [place], [address], 10/13/2023 14:34:02 10/13/19 24 10/13/2023 CBC/C OMPLE TE BLD COUNT W/DIF F nucleated red blood cells 0.0 % -0 Not Available [facility] (Lab) [address] [place], [address], 10/13/2023 14:34:02 10/13/19 24 10/13/2023 CBC/C OMPLE TE BLD COUNT W/DIF F NRBC# 0.00 x10'3 /uL Not Available [facility] (Lab) [address] [place], [address], 10/13/2023 14:34:02 10/13/19 24 10/13/2023 COMPR EHENS ADY METAB OLIC PANEL sodium 140 mmol/ L 137-14 5 Not Available [facility] (Lab) [address] [place], [address], 10/13/2023 14:39:42 10/13/19 24 10/13/2023 COMPR EHENS ADY METAB OLIC PANEL potassium 4.2 mmol/ L 3.5-5. 1 Not Available [facility] (Lab) [address] [place], [address], 10/13/2023 14:39:42 10/13/19 24 10/13/2023 COMPR EHENS ADY METAB OLIC PANEL chloride 109 mmol/ L 98-107 high Not Available [facility] (Lab) [address] [place], [address], 10/13/2023 14:39:42 10/13/19 24 10/13/2023 COMPR EHENS ADY METAB OLIC PANEL carbon dioxide 29 mmol/ L 22-30 Not Available [facility] (Lab) [address] [place], [address], 10/13/2023 14:39:42 10/13/19 24 10/13/2023 COMPR EHENS ADY METAB OLIC PANEL anion gap 6.2 mmol/ L 14-22 low Not Available [facility] (Lab) [address] [place], [address], 10/13/2023 14:39:42 10/13/19 24 10/13/2023 COMPR EHENS ADY METAB OLIC PANEL glucose 113 mg/dL 70-99 high Not Available [facility] (Lab) [address] [place], [address], 10/13/2023 14:39:42 10/13/19 24 10/13/2023 COMPR EHENS ADY METAB OLIC PANEL BUN 12 mg/dL 8-19 Not Available [facility] (Lab) [address] [place], [address], 10/13/2023 14:39:42 10/13/19 24 10/13/2023 COMPR EHENS ADY METAB OLIC PANEL creatinine 0.79 mg/dL 0.66-1 .25 Not Available [facility] (Lab) [address] [place], [address], 10/13/2023 14:39:42 10/13/19 24 10/13/2023 COMPR EHENS ADY METAB OLIC PANEL GFR >60 Refer ence Range : [place] ge GFR Healt hy Adult : >60 mL/mi n/1.7 3 m2 Chron ic Kidne y Disea se: 15-60 mL/mi n/1.7 3 m2 Kidne y Failu re: <15/m L/min /1.73 m2 www.n iddk. nih.g ov The MDRD study equat ion has not been valid ated in child tomasz <18 years of age; pregn ant women ; the elder ly >85 years of age; or in some racia l or ethni c subgr oups, such as Hispa nics. Outsi de the valid ated lonnie eters , estim ated GFR is less accur ate, requi ring clini leonardo judgm ent on a case- by-ca se basis . Clini leonardo inter preta tion for other races and ages must be made by the clini roberto. The MDRD study equat ion has not been valid ated for the evalu ation of serum creat inine relat ed to nutri ayanna l statu s or medic ation usage . For perso ns <18 years of age, a pedia tric GFR calcu lator is avail able on the [facility] websi te: https ://ann marie w.jigna taveras.o rg/pr ofess ional s/kdo qi/gf r_cal culat or Not Available [facility] (Lab) [address] [place], [address], 10/13/2023 14:39:42 10/13/19 24 10/13/2023 COMPR EHENS ADY METAB OLIC PANEL alkaline phosphatase 62 U/L 38-126 Not Available [facility] (Lab) [address] [place], [address], 10/13/2023 14:39:42 10/13/19 24 10/13/2023 COMPR EHENS ADY METAB OLIC PANEL alanine aminotransfe rase 30 U/L 0-35 Not Available [facility] (Lab) [address] [place], [address], 10/13/2023 14:39:42 10/13/19 24 10/13/2023 COMPR EHENS ADY METAB OLIC PANEL aspartate aminotransfe rase 35 U/L 15-37 Not Available [facility] (Lab) [address] [place], [address], 10/13/2023 14:39:42 10/13/19 24 10/13/2023 COMPR EHENS ADY METAB OLIC PANEL bilirubin, total 0.60 mg/dL 0.20-1 .30 Not Available [facility] (Lab) [address] [place], [address], 10/13/2023 14:39:42 10/13/19 24 10/13/2023 COMPR EHENS ADY METAB OLIC PANEL calcium 9.3 mg/dL 8.4-10 .2 Not Available [facility] (Lab) [address] [place], [address], 10/13/2023 14:39:42 10/13/19 24 10/13/2023 COMPR EHENS ADY METAB OLIC PANEL total protein 7.0 g/dL 6.3-8. 2 Not Available [facility] (Lab) [address] [place], [address], 10/13/2023 14:39:42 10/13/19 24 10/13/2023 COMPR EHENS ADY METAB OLIC PANEL albumin 4.4 g/dL 3.0-4. 4 Not Available [facility] (Lab) [address] [place], [address], 10/13/2023 14:39:42 10/13/19 24 10/13/2023 COMPR EHENS ADY METAB OLIC PANEL globulin 2.6 g/dL 2.6-4. 2 Not Available [facility] (Lab) [address] [place], [address], 10/13/2023 14:39:42 10/13/19 24 10/13/2023 COMPR EHENS ADY METAB OLIC PANEL A/G ratio 1.7 ratio 1.0-2. 0 Not Available [facility] (Lab) [address] [place], [address], 10/13/2023 14:39:42 10/13/19 24 10/13/2023 LIPID PANEL cholesterol 144 mg/dL 140-19 9 NIH TAYLER NSUS RECOM MENDA TION FOR ANNE-MARIE STERO L: ADULT CHILD LOW RISK: <200 <170 BORDE RLINE : <200- 239 ----- HIGH RISK: >240 >200 Not Available [facility] (Lab) [address] [place], [address], 10/13/2023 14:39:44 10/13/19 24 10/13/2023 LIPID PANEL triglyceride s 87 mg/dL 0-150 NIH TAYLER NSUS REPOR T RECOM MENDA TION FOR TRIGL YCERI IMAN: ADULT CHILD LOW RISK: <150 ----- BODER LINE: 150-1 99 ----- HIGH RISK: >200 ----- Not Available [facility] (Lab) [address] [place], [address], 10/13/2023 14:39:44 10/13/19 24 10/13/2023 LIPID PANEL HDL cholesterol 45 mg/dL 40- Not Available [facility] (Lab) [address] [place], [address], 10/13/2023 14:39:44 10/13/19 24 10/13/2023 LIPID PANEL LDL cholesterol, calculated 82 mg/dL 0-130 NIH TAYLER NSUS REPOR T RECOM MENDA TIONS FOR LDL: ADULT CHILD LOW RISK <130 <110 (OPTI MAL LDL) <100 ----- BORDE RLINE : 130-1 59 ----- HIGH RISK: >160 >130 A TRIGL YCERI DE RESUL T >400 INVAL IDATE S THE CALCU LATIO N FOR LDL FRACT IONAT ION - THE LDL RESUL T WILL NOT BE REPOR JOSHUA. Not Available [facility] (Lab) [address] [place], [address], 10/13/2023 14:39:44 10/13/1910/13/2023 TSH W/REF LONG FT4 TSH with reflex free T4 3.060 uIU/m L 0.465- 4.680 Not Available [facility] (Lab) [address] [place], [address], 10/13/2023 14:52:23 10/13/19 24 10/13/2023 URINA LYSIS COMPL ETE/I RIS W/RFX color LIGHT- YELLOW Not Available [facility] (Lab) [address] [place], [address], 10/13/2023 14:55:27 10/13/19 24 10/13/2023 URINA LYSIS COMPL ETE/I RIS W/RFX appear TURBID abnormal Not Available [facility] (Lab) [address] [place], [address], 10/13/2023 14:55:27 10/13/19 24 10/13/2023 URINA LYSIS COMPL ETE/I RIS W/RFX specific gravity 1.020 1.001- 1.030 Not Available [facility] (Lab) [address] [place], [address], 10/13/2023 14:55:27 10/13/19 24 10/13/2023 URINA LYSIS COMPL ETE/I RIS W/RFX pH 6.5 pH_un its 5.0-9. 0 Not Available [facility] (Lab) [address] [place], [address], 10/13/2023 14:55:27 10/13/19 24 10/13/2023 URINA LYSIS COMPL ETE/I RIS W/RFX leukocytes 25 karime/u L negati ve- abnormal Not Available [facility] (Lab) [address] [place], [address], 10/13/2023 14:55:27 10/13/19 24 10/13/2023 URINA LYSIS COMPL ETE/I RIS W/RFX nitrite NEGATI VE negati ve- Not Available [facility] (Lab) [address] [place], [address], 10/13/2023 14:55:27 10/13/19 24 10/13/2023 URINA LYSIS COMPL ETE/I RIS W/RFX protein NEGATI VE mg/dL negati ve- Not Available [facility] (Lab) [address] [place], [address], 10/13/2023 14:55:27 10/13/19 24 10/13/2023 URINA LYSIS COMPL ETE/I RIS W/RFX glucose NORMAL mg/dL normal - Not Available [facility] (Lab) [address] [place], [address], 10/13/2023 14:55:27 10/13/19 24 10/13/2023 URINA LYSIS COMPL ETE/I RIS W/RFX ketones NEGATI VE mg/dL negati ve- Not Available [facility] (Lab) [address] [place], [address], 10/13/2023 14:55:27 10/13/19 24 10/13/2023 URINA LYSIS COMPL ETE/I RIS W/RFX urobilinogen NORMAL mg/dL normal - Not Available [facility] (Lab) [address] [place], [address], 10/13/2023 14:55:27 10/13/19 24 10/13/2023 URINA LYSIS COMPL ETE/I RIS W/RFX bilirubin NEGATI VE mg/dL negati ve- Not Available [facility] (Lab) [address] [place], [address], 10/13/2023 14:55:27 10/13/19 24 10/13/2023 URINA LYSIS COMPL ETE/I RIS W/RFX blood NEGATI VE mg/dL negati ve- Not Available [facility] (Lab) [address] [place], [address], 10/13/2023 14:55:27 10/13/19 24 10/13/2023 URINA LYSIS COMPL ETE/I RIS W/RFX white blood cells 0-8 /i??h pfi?? 0-8 Not Available [facility] (Lab) [address] [place], [address], 10/13/2023 14:55:27 10/13/19 24 10/13/2023 URINA LYSIS COMPL ETE/I RIS W/RFX red blood cells 0-4 /i??h pfi?? 0-4 Not Available [facility] (Lab) [address] [place], [address], 10/13/2023 14:55:27 10/13/19 24 10/13/2023 URINA LYSIS COMPL ETE/I RIS W/RFX bacteria NONE Not Available [facility] (Lab) [address] [place], [address], 10/13/2023 14:55:27 10/13/19 24 10/13/2023 URINA LYSIS COMPL ETE/I RIS W/RFX mucous OCCASI ONAL /i??l pfi?? abnormal Not Available [facility] (Lab) [address] [place], [address], 10/13/2023 14:55:27 10/13/19 24 10/13/2023 URINA LYSIS COMPL ETE/I RIS W/RFX squamous epithelial PACKED FIELD /i??l pfi?? abnormal Not Available [facility] (Lab) [address] [place], [address], 10/13/2023 14:55:27 10/13/19 24 10/13/2023 URINA LYSIS COMPL ETE/I RIS W/RFX unclassified cast 4 abnormal Not Available [facility] (Lab) [address] [place], [address], 10/13/2023 14:55:27 10/13/19 24 10/13/2023 VITAM IN D 25-HY DROXY [id number] 33.5 NG/mL 30-100 Vitam in D Statu s: Defic ient: <20 ng/mL Insuf ficie nt: 20-29 ng/mL Suffi cient : 30-10 0 ng/mL Not Available [facility] (Lab) [address] [place], [address], 10/13/2023 14:57:22 10/13/19 24 10/13/2023 VITAM IN B12 (POLA JOEY ) vb12 >1000 pg/mL 239-93 1 high Not Available [facility] (Lab) [address] [place], [address], 10/13/2023 15:21:13 10/13/19 24 10/13/2023 FOLAT E, SERUM /PLAS MA folate 13.5 NG/mL 2.76-2 0.0 Not Available [facility] (Lab) [address] [place], [address], 10/13/2023 15:21:18 10/13/19 24 10/13/2023 HEMOG LOBIN A1C HA1C 6.5 % 4.0-6. 0 high Diabe vicenta Scree kristy Crite carson: <5.7% Consi stent with absen ce of diabe vicenta 5.7-6 .4% Consi stent with incre ased risk for diabe vicenta (pred iabet es) >OR=6 .5% Consi stent with diabe vicenta REFER ENCE: Diabe vicenta Care 2016, 39(Nettles ppl.1 ):s13 -s22 Not Available [facility] (Lab) [address] [place], [address], 10/13/2023 19:24:01 05/17/19 24 05/17/2023 MAMMO , scree kristy, digit al, bilat eral No observ ation record ed. [email or web address] [facility] [address] [place], [address], 09/21/2023 11:18:07 05/17/19 24 05/17/2023 MAMMO , scree kristy, digit al, bilat eral No observ ation record ed. [email or web address] [facility] [address], [place], [address], 09/21/2023 11:18:07 10/13/19 24 09/15/2023 CT, abdom en + pelvi s, w/ contr ast No observ ation record ed. [email or web address] Not Available 2023 14:19:35 10/14/19 24 10/14/2023 US, liver No observ ation record ed. [facility] [address], [place], [address], 11/09/2023 14:19:35 04/02/19 25 04/02/2024 DEXA No observ ation record ed. [facility] [address], [place], [address], 04/05/2024 10:04:21 Result Notes None recorded. Problems Name Problem SNOMED Code Status Onset Date Resolution Date Notes Provider Name and Address Organization Details Recorded Time Constipati on 48432127 Active 2020 Not Available [facility] 3 00:43:37 Insomnia 529567856 Active 2020 Not Available [facility] 3 00:43:37 Mixed anxiety and depressive disorder 682588311 Active 2020 Not Available [facility] 3 00:43:37 Screening for malignant neoplasm of colon Active 2021 Not Available [facility] 3 00:43:37 Hypothyroi dism 66787630 Active 2020 Not Available [facility] 3 00:43:38 Hyperlipid emia 43264810 Active 2021 Not Available [facility] 3 00:43:38 Cyst of thyroid 19513623 Active 2020 Not Available [facility] 3 00:43:38 Hyperglyce manju 74997701 Active 2021 Not Available [facility] 3 00:43:38 Incision of thyroid Active 2020 Not Available [facility] 3 00:43:38 Type 2 diabetes mellitus without complicati on 842450725 Active 2022 Mita Boland NP [address], [place], [address] , [employer] 3 12:48:57 Chronic idiopathic constipati on 78438180 Active 2022 Miat Boland NP [address], [place], [address] , [employer] 3 15:22:02 Obesity 584174454 Active 2023 Luis Antonio Jose MD [address], [place], [address] , [employer] 4 11:07:21 Prediabete s 033772883 Active 2023 Luis Antonio Jose MD [address], [place], [address] , [employer] 4 11:08:11 Chronic low back pain 143554318 Active 2023 Luis Antonio Jose MD [address], [place], [address] , [employer] 4 11:24:17 Blood-ting ed feces 3135512647665 02 Active 2023 Luis Antonio Jose MD [address], [place], [address] , [employer] 4 11:57:31 Thyroid nodule 232594837 Active 2023 Luis Antonio Jose MD [address], [place], [address] , [employer] 4 11:58:23 Change in skin lesion 418521163 Active 2023 Luis Antonio Jose MD [address], [place], [address] , [employer] 4 10:20:35 Liver cyst 88859280 Active 2023 Luis Antonio Jose MD [address] [address], [place], [address] , [facility] 4 10:22:56 Memory impairment 086026500 Active 2023 Luis Antonio Jose MD [address], [place] [address], [place], [address] , [facility] 4 10:23:44 Elevated blood-pres sure reading without diagnosis of hypertensi on 862930108 Active 2023 Luis Antonio Jose MD [address] [place] [address], [place], [address] , [facility] 4 10:26:15 Cholelithi asis without obstructio n 15040088 Active 2023 Luis Antonio Jose MD [address], [place] [address], [place], [address] , [facility] 4 14:24:57 Osteopenia 857202414 Active 2024 Luis Antonio Jose MD [address], [address], [address] , [facility] 5 10:13:36 Anxiety disorder 667470031 Active 2024 Luis Antonio Jose MD [address] [place] [address], [place], [address] , [facility] 5 10:14:13 Problem Notes None recorded. Procedures Surgical History Date Name Laterality Status Provider Name and Address Organization Details Recorded Time 09/21/19 24 Transitional_Car e_Management completed Jose Roberto Lawton [facility] 09/21/2023 11:11:03 04/24/19 22 Date of Last Colonoscopy completed Not Available [facility] 05/19/2022 00:41:05 03/01/19 81 delivery completed Not Available [facility] 05/19/2022 00:41:08 biopsy of thyroid completed Not Available [facility] 05/19/2022 00:41:08 Unlisted px mectheodore's [email or web address] completed Not Available [facility] 05/19/2022 00:41:08 Hysterectomy completed Not [facility] 05/19/2022 00:41:08 Imaging Results Imaging Date Name Status LastModified by Organiz ation Details LastModified Time 05/17/2023 MAMMO, screening, digital, bilateral completed [email or web address] [facility] [address] [place], [address], 09/21/2023 11:18:07 05/17/2023 MAMMO, screening, digital, bilateral completed [email or web address] [facility] [address] [place], [address], 09/21/2023 11:18:07 09/15/2023 CT, abdomen + pelvis, w/ contrast completed [email or web address] Information not available 11/09/2023 14:19:35 10/14/2023 US, liver completed [email or web address] [facility] [address], [place], [address], 11/09/2023 14:19:35 04/02/2024 DEXA completed [email or web address] [facility] [address], [place], [address], 04/05/2024 10:04:21 Procedure Notes None recorded. Medical Equipment None Reported. Allergies Allergen ID Allergen Name Allergen Category Reaction Reaction Severity Criticality Documentation Date Start Date Code Code System Note Provider Name and Address Organization Details Recorded Time 88833 metformin medicatio n abdominal pain moderate Not available 04/05/2024 6808 RxNorm Luis Antonio Jose MD [address], [place], [address] , [facility] [employer] 10:06:38 Medications Name Sig Start Date Stop Date Status Note LastModified by Organization Details LastModified Time cyclobenzap rine 10 mg tablet 2023 active Not Available Not Available Not Avai lable amoxicillin 500 mg capsule TAKE 1 CAPSULE BY MOUTH FOUR TIMES DAILY UNTIL ALL TAKEN active Not Available Not Available No t Available doxycycline hyclate 100 mg capsule Take 1 capsule twice a day by oral route for 10 days. active Not Available Not Available No t Available clindamycin HCl 300 mg capsule Take 1 capsule every 6 hours by oral route for 5 days. active Not Available Not Available No t Available azithromyci n 250 mg tablet TAKE 2 TABLETS BY MOUTH FOR 1 DAY THEN TAKE 1 TABLET BY MOUTH DAILY FOR 4 DAYS 09/20 completed Not Available Not Available Not Available fluconazole 150 mg tablet TAKE 1 TABLET BY MOUTH EVERY DAY 09/20 completed Not Available Not Available Not Available hydrocodone 5 mg-acetamin ophen 325 mg tablet TAKE 1 TABLET BY MOUTH EVERY 6 HOURS NEEDED FOR PAIN 05/26 completed Not Available Not Available Not Available clindamycin HCl 150 mg capsule TAKE 2 CAPSULES BY MOUTH EVERY 8 HOURS FOR 10 DAYS 10/15 completed Not Available Not Available Not Available metronidazo le 500 mg tablet TAKE 1 TABLET BY MOUTH TWICE DAILY 09/20 completed Not Available Not Available Not Available sulfamethox azole 800 mg-trimetho prim 160 mg tablet TAKE 1 TABLET BY MOUTH TWICE DAILY 04/05 completed Not Available Not Available Not Available levothyroxi ne 25 mcg tablet TAKE 1 TABLET BY MOUTH EVERY DAY DIRECTED 06/11 completed Not Available Not Available Not Available levothyroxi ne 75 mcg tablet Take 1 tablet every day by oral route. 06/01 completed Not Available Not Available Not Available levothyroxi ne 88 mcg tablet TAKE 1 TABLET BY MOUTH EVERY DAY IN THE MORNING active Not Available Not Available No t Available amoxicillin 875 mg tablet TAKE 1 TABLET BY MOUTH EVERY 12 HOURS FOR 10 DAYS 10/15 completed Not Available Not Available Not Available OneTouch Ultra Test strips USE TO TEST BLOOD SUGAR EVERY DAY active Not Available Not Available No t Available levothyroxi ne 50 mcg tablet TAKE 1 TABLET BY MOUTH EVERY DAY IN THE MORNING 12/14 completed Not Available Not Available Not Available buspirone 10 mg tablet Take 1 tablet twice a day by oral route as needed for 30 days. active Not Available Not Available No t Available docusate sodium 100 mg capsule TAKE 1 CAPSULE BY MOUTH TWICE DAILY DIRECTED active Not Available Not Available No t Available diclofenac sodium 75 mg tablet,uriel yed release TAKE 1 TABLET BY MOUTH EVERY 12 HOURS NEEDED WITH FOOD 2023 active Not Available Not Available Not Avai lable polyethylen e glycol 3350 17 gram/dose oral powder MIX AND TAKE 17 GRAMS TWICE DAILY NEEDED FOR BOWEL MOVEMENT active Not Available Not Available No t Available methylpredn isolone 4 mg tablets in a dose pack FOLLOW PACKAGE DIRECTION S 09/20 completed Not Available Not Available Not Available metformin ER 500 mg tablet,exte nded release 24 hr TAKE 1 TABLET BY MOUTH TWICE DAILY AFTER MEALS 04/05 completed Not Available Not Available Not Available naproxen 500 mg tablet TAKE 1 TABLET BY MOUTH TWICE DAILY WITH FOOD active Not Available Not Available No t Available amoxicillin 875 mg-potassiu m clavulanate 125 mg tablet TAKE 1 TABLET BY MOUTH TWICE DAILY 10/12 completed Not Available Not Available Not Available rosuvastati n 5 mg tablet Take 1 tablet every day by oral route. 12/14 completed Not Available Not Available Not Available rosuvastati n 10 mg tablet Take 1 tablet every day by oral route. 06/01 completed Not Available Not Available Not Available rosuvastati n 20 mg tablet Take 1 tablet every day by oral route at bedtime for 90 days. active Not Available Not Available No t Available nitrofurant oin monohydrate /macrocryst als 100 mg capsule TAKE 1 CAPSULE BY MOUTH EVERY 12 HOURS 06/26 completed Not Available Not Available Not Available chlorhexidi ne gluconate 0.12 % mouthwash SWISH AND SPIT 15 ML FOR 30 SECONDS TWICE DAILY active Not Available Not Available No t Available aspirin as needed 09/16 completed Not Available Not Available Not Available Calcium 600 + D(3) 600 mg-10 mcg (400 unit) tablet Take 1 tablet twice a day by oral route as directed for 90 days. 2024 active Not Available Not Available Not Avai lable Linzess 145 mcg capsule Take 1 capsule every day by oral route as directed for 90 days. active Not Available Not Available No t Available Farxiga 10 mg tablet TAKE 1 TABLET BY MOUTH EVERY DAY active Not Available Not Available No t Available Jardiance 25 mg tablet Take 1 tablet every day by oral route as directed for 90 days. 2024 active Not Available Not Available Not Avai lable Trulance 3 mg tablet Take 1 tablet every day by oral route as directed for 90 days. active Not Available Not Available No t Available OneTouch Ultra2 Meter DIRECTED active Not Available Not Available No t Available OneTouch Delica Plus Lancet 30 gauge USE TO CHECK BLOOD SUGAR EVERY DAY active Not Available Not Available No t Available Rybelsus 3 mg tablet 2023 active Not Available Not Available Not Avai lable Mounjaro 2.5 mg/0.5 mL subcutaneou s pen injector ADMINISTE R 2.5 MG UNDER THE SKIN EVERY WEEK DIRECTED active Not Available Not Available No t Available Vitals Date Recorded Body height Body mass index (BMI) Body weight Body temperature Heart rate Oxygen saturation Oxygen saturation in Arterial blood by Pulse oximetry Systolic blood pressure Diastolic blood pressure Provider Name and Address Organization Details Last Updated DateTime 3 157.48 cm 33.3 kg/m2 02173.8 1 g 96.7 [degF] 70 /min 99 % 99 % 122 mm[Hg] 80 mm[Hg] Sonia lombardi [facility] [employer] [facility] 3 12:00:56 Date Recorded Body height Body mass index (BMI) Body weight Body temperature Heart rate Respiratory rate Oxygen saturation Oxygen saturation in Arterial blood by Pulse oximetry Systolic blood pressure Diastolic blood pressure Provider Name and Address Organization Details Last Updated DateTime 4 157.48 cm 34.2 kg/m2 69992.1 2 g 98.2 [degF] 72 /min 16 /min 99 % 99 % 126 mm[Hg] 84 mm[Hg] Jose Roberto Lawton [facility] [employer] [facility] 4 11:14:41 Date Recorded Body height Body mass index (BMI) Body weight Body temperature Heart rate Respiratory rate Oxygen saturation Oxygen saturation in Arterial blood by Pulse oximetry Pain severity - 0-10 verbal numeric rating [Score] - Reported Provider Name and Address Organization Details Last Updated DateTime 4 157.48 cm 34.4 kg/m2 65136.7 2 g 97.2 [degF] 72 /min 20 /min 99 % 99 % 7 Mita Huang RN [facility] [employer] [facility] 4 10:13:40 Date Recorded Systolic blood pressure Diastolic blood pressure Provider Name and Address Organization Details Last Updated DateTime 10/13/2023 136 mm[Hg] 88 mm[Hg] Luis Antonio Jose MD [address], [facility] [address], [place], [address], [place] [employer] [facility] [employer] 10/13/2023 10:29:47 Date Recorded Body height Body mass index (BMI) Body weight Body temperature Heart rate Respiratory rate Oxygen saturation Oxygen saturation in Arterial blood by Pulse oximetry Systolic blood pressure Diastolic blood pressure Provider Name and Address Organization Details Last Updated DateTime 4 157.48 cm 34.4 kg/m2 70220.7 2 g 98.1 [degF] 70 /min 16 /min 99 % 99 % 128 mm[Hg] 78 mm[Hg] Jose Roberto Lwaton PA [employer] [facility] [employer] 14:16:38 Date Recorded Body height Body mass index (BMI) Body weight Body temperature Oxygen saturation Oxygen saturation in Arterial blood by Pulse oximetry Heart rate Systolic blood pressure Diastolic blood pressure Provider Name and Address Organization Details Last Updated DateTime 5 162.56 cm 32.7 kg/m2 63047 g 97.3 [degF] 95 % 95 % 91 /min 126 mm[Hg] 90 mm[Hg] Chari Serrano RN [facility] [employer] 5 10:03:18 Social History Question Answer Notes LastModified by Organizat ion Details LastModified Time Tobacco Smoking Status Never Smoker Not Available [facility] 05/19/2022 00:40:51 What Is Your Level Of Alcohol Consumption? Occasional [id number] Information not available 05/19/2022 What Is Your Level Of Caffeine Consumption? Moderate MIGRATION.[id number] Information not available 05/19/2022 How Much Tobacco Do You Chew? None MIGRATION.35795 [id number] Information not available 05/19/2022 In The 14 Days Before Symptom Onset, Have You Had Close Contact With A Laboratory-confir med COVID-19 While That Case Was Ill? No MIGRATION.[id number] Information not available 05/19/2022 In The 14 Days Before Symptom Onset, Have You Had Close Contact With A Person Who Is Under Investigation For COVID-19 While That Person Was Ill? No MIGRATION.13489 07563 Information not available 05/19/2022 Are You Currently Employed? Yes Information not available 10/13/2023 What Type Of Diet Are You Following? REGULAR MIGRATION.01544 15221 Information not available 05/19/2022 Do You Or Have You Ever Used E-cigarettes Or Vape? 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 Yes Dad Information not available 10/13/2023 Where Do You Live? Apartment Information not available 10/13/2023 What Was The Date Of Your Most Recent Tobacco Screening? 06/11/2020 MIGRATION.84220 [id number] Information not available 05/19/2022 How Many Children Do You Have? 2 Information not available 10/13/2023 Do You Have Any Pets? No Information not available 10/13/2023 What Is Your Relationship Status? Single Information not available 10/13/2023 Do You Use Your Seat Belt Or Car Seat Routinely? Yes Information not available 10/13/2023 Do You Have Smoke And Carbon Monoxide Detectors In Your Home? Yes Information not available 10/13/2023 Are You Passively Exposed To Smoke? No MIGRATION.65640 95859 Information not available 05/19/2022 Do You Or Have You Ever Used Smokeless Tobacco? Never Used Smokeless Tobacco MIGRATION.38786 94488 Information not available 05/19/2022 Are There Any Smokers In Your House? Yes Information not available 10/13/2023 Do You Participate In Social Media? Yes Information not available 10/13/2023 Do You Feel Stressed (tense, Restless, Nervous, Or Anxious, Or Unable To Sleep At Night)? [id number] Information not available 10/13/2023 Have You Recently Traveled Abroad? No Information not available 10/13/2023 Sex: Female Functional Status None recorded. Mental Status None recorded. Family History Relationship Description Onset Age of this Age Resolved Age Notes LastModified by Organization Details LastModified Time Brother Heart disease 59 [id number] Not available 05/19/2022 00:41:13 Brother Hypertensive disorder MIGRATION.135 [id number] Not available 05/19/2022 00:41:13 Brother Diabetes mellitus MIGRATION.488 [id number] Not available 05/19/2022 00:41:13 Mother Diabetes mellitus MIGRATION.836 [id number] Not available 05/19/2022 00:41:13 Mother Hypertensive disorder MIGRATION.226 [id number] Not available 05/19/2022 00:41:13 Sister Malignant tumor of ovary 38 46 MIGRATION.805 [id number] Not available 05/19/2022 00:41:13 Medical History Condition Response BLINDNESS N KIDNEY STONES N BLADDER PROBLEMS N MRSA N CARPAL TUNNEL SYNDROME N OTHER # 1 N LUNG DISEASE/DISORDER N HISTORY OF DRUG ABUSE N RADIATION / CHEMOTHERAPY N COPD N Other # 2 N BLOOD DISEASES N SURGERY N SCHIZOPHRENIA N BOWEL PROBLEMS N DEPRESSION (INCLUDING POST ) N STROKE/TIA N ULCERS N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
== END 2024-06-22 16:14 | disposition home or self-care (01) ==
PROVIDERS: Emergency Provider Nurse Practitioner; PCP Family Medicine
DX: J32.9 Chronic sinusitis, unspecified (principal); E03.9 Hypothyroidism, unspecified
CPT/HCPCS: 99213; G0463

== ENCOUNTER 2024-12-19 12:51 | Emergency (ER) | payer MEDICARE, MEDICAID, SELFPAY ==
--- OUTSIDE RECORDS SUMMARY | 2001-05-12 03:15 | XMS_ITS | Continuity of Care Document ---
Author Organization [facility] Address [id number] [place] [address] [place] [address] Phone Care Team Providers Care Track Oiler Name Role Phone Gama Dockery DO Unavailable Unavailable Advance Directives Directive Yes / No Effective Date File Name No Information Encounters Encounter Description Practice Location Reason(s) For Visit Diagnoses Date Provider Providers Copied on Encounter [facility], [address], [place], [place], [id number], [place] tel:[phone] [facility] No Information Sarkis Ji. [address] [place], [address], [place]. tel: [phone] Family History Family Member Type Diagnosis Age At Onset No Information Payers Payer name Insurance type Covered republican ID Authoriza tyson(s) [facility] Commercial CI [id number] Social History Type Description Quantity Date Captured Comments Sex Female Smoking Status No Information Chief Complaint And Reason For Visit No Information Reason For Referral Reason For Referral No Information History Of Present Illness Encounter Date Complaint History Of Prese nt Illness No Information Functional Status Date Functional Assessmen t No Information Instructions Date Instruction Additional Infor mation No Information Assessments Type Assessment Date No Information Patient Care Teams Name Effective Dates (start - stop) Status Members No Information
--- NOTE | ~2024-12-19 | CT_ITS ---
Exam: CT abdomen and pelvis with contrast Clinical History: [Abdominal cramping. Back pain ] Comparison: [ 09/15/2023] Technique: Multiple axial CT images of the abdomen and pelvis were obtained with IV contrast. Sagittal and coronal reformatted images were obtained. FINDINGS: Lung bases: [Small opacities in the lower lungs, greater on the right. ] Liver: Stable 2.4 cm hemangioma in the left lobe of the liver. [ No intrahepatic biliary duct dilatation.] Small amount of focal fat infiltration in the medial segment of the left lobe of the liver adjacent to the falciform ligament, unchanged. Gallbladder: [ No wall thickening or stones.] Common bile duct: [ Normal caliber.] [ No stones.] Spleen: [ Within normal limits.] Pancreas: [ No mass. No pancreatic fluid collection.] Adrenals: [ No masses.] Kidneys: [ No masses. No hydronephrosis.][ There is a too small to characterize low-attenuation lesion in the left kidney.] Lymph nodes: [ No adenopathy in the abdomen or pelvis.] Stomach, small bowel and colon: Thickening of the nelson of the distal stomach and proximal duodenum. Peritoneum cavity: [ No mesenteric fat stranding or fluid.] Bladder: [ Unremarkable.] Osseous structures: [ No acute fracture lesion.] [ Multilevel degenerative change in the visualized spine.] Grade 1 anterolisthesis of L4 on L5. Abdominal aorta: [ No aneurysm.] Additional findings: [ None of significance.] IMPRESSION: 1. Thickening of the nelson of the distal stomach and proximal duodenum. Differential includes incomplete wall distention, inflammatory/infectious process or mass. An upper GI examination is recommended. 2. Grade 1 anterolisthesis of L4 on L5. If symptoms persist or worsen, consider a short-term follow-up study or additional imaging for further assessment. Reviewed, dictated and finalized at location Q. IMPRESSION: 1. Thickening of the nelson of the distal stomach and proximal duodenum. Differe ntial includes incomplete wall distention, inflammatory/infectious process or m ass. An upper GI examination is recommended. 2. Grade 1 anterolisthesis of L4 on L5. If symptoms persist or worsen, consider a short-term follow-up study or additio nal imaging for further assessment.
--- OUTSIDE RECORDS SUMMARY | 2024-12-19 12:56 | XMS_ITS | Encounter Summary ---
Author Organization [facility] Address [facility] [place] [address] Care Team Providers Care Dater Assembler Name Role Phone Mita Boland [facility] Primary Care Provider + Encounter Details Date Type Department Care Team (Latest Contact Info) Description 11/15/2017 Abstract [facility] Patel Laguerre MD [address] [phone] Social History Tobacco Use Types Packs/Day Years [...] on filedocumented in this encounter Care Teams Dater Assembler Relationship Specialty Start Date End Date Mita Boland [facility] [address] [place] [address] PCP - General Nurse Practitioner Family 05/04/23 documented as of this encounter
--- OUTSIDE RECORDS SUMMARY | 2024-12-19 12:56 | XMS_ITS | Clinical Summary ---
Author Organization [facility] Address [address] [place] [address] Care Team Providers Care Side Splitter Name Role Phone Mita Boland [facility] Primary Care Provider + Allergies [...] Comments Blood Pressure 147/93 05/04/2023 6:30 PM PULMONARY FUNCTION TECHNICIAN Pulse 78 05/04/2023 6:30 PM PULMONARY FUNCTION TECHNICIAN Temperature 36.1 C (97 F) 05/04/2023 6:30 PM PULMONARY FUNCTION TECHNICIAN Respiratory Rate 18 05/04/2023 6:30 PM PULMONARY FUNCTION TECHNICIAN Oxygen Saturation 100% 05/04/2023 6:30 PM PULMONARY FUNCTION TECHNICIAN Inhaled Oxygen Concentration - - Weight 81.6 kg (180 lb) 05/04/2023 6:30 PM PULMONARY FUNCTION TECHNICIAN Height 162.6 cm (5' 4) 05/04/2023 6:30 PM PULMONARY FUNCTION TECHNICIAN Body Mass Index 30.9 05/04/2023 6:30 PM PULMONARY FUNCTION TECHNICIAN Plan of Treatment Health Maintenance Due Date Last Done Comments Hepatitis C 11/24/1977 Pneumococcal Vaccine: 50+ Years (1 of 1 - PCV) 11/24/2009 Zoster Vaccines (1 of 2) 11/24/2009 DTaP, Tdap and Td Vaccines (2 - Td or Tdap) 06/02/2016 06/02/2006 Mammogram Screening 10/03/2017 10/04/2015, 08/29/2014, 08/29/2013 Colorectal Cancer Screening Colonoscopy (10 Years) 02/05/2021 02/05/2011 COVID-19 Vaccine ( season) 2024 03/11/2021, 06/13/2020, 06/09/2020, Additional history exists Dexa Scan (General) 11/24/2024 RSV Immunization or 60+ Years (1 - [...] AM CDT COLONOSCOPY Routine 02/05/2011 12:00 AM PULMONARY FUNCTION TECHNICIAN from Last 3 Months or Most Recently Relevant to Health Maintenance Results * MG SCREENING DAYA DIGI (10/04/2015 11:56 AM CDT) Anatomical Region Laterality Modality Breast Bilateral Mammography 10/04/2015 11:5 6 AM CDT 10/04/2015 11:56 AM CDT Narrative 10/04/2015 12:02 PM CDT ANA LOYA ADMIT/SERVICE DATE: 10/04/15 ACCT: [id number] DISCHARGE DATE: : 1960 SEX: F ORD SITE: [facility] PT TYPE: REG CLI ORDERING MD: XENA MÉNDEZ DO STUDY DATE REPORT # ORDER # EXT ORDER ID 10/04/15 [id number] PROC CODE: SCMAMDGB PROCEDURE DESCRIPTION: MG SCREEN [...] - 01/11/2018 ANA LOYA ADMIT/SERVICE DATE:10/04/15 ACCT: [id number] DISCHARGE DATE: : 1960 SEX: F [facility] TYPE: REG CLI ORDERING MD:XENA MÉNDEZ DO STUDY DATE REPORT # ORDER # EXT ORDER ID 10/04/15 [id number] PROC CODE: SCMAMDGB PROCEDURE DESCRIPTION: MG SCREEN [...] ELECTRONICALLY SIGNED BY: ERNESTO MALDONADO10/04/2015 11:57 AM us Xena Méndez DO MAMMO Final Result * Colonoscopy (02/05/2011 12:00 AM PULMONARY FUNCTION TECHNICIAN) 02/05/2011 02/05/2011 Narrative [facility] TO EPIC CONVERSION - 02/05/2011 12:00 AM PULMONARY FUNCTION TECHNICIAN Documented hx of procedure Procedure Note Silvia Colon MD - 01/22/2018 Documented hx of procedure us Generic Conversion Md COLON GI PROCEDURE ORDERABLES Final Result [facility] TO EPIC CONVERSION from Last 3 Months or Most Recently Relevant to Health Maintenance Insurance [place] [employer] Care Teams Side Splitter Relationship Specialty Start Date End Date Mita Boland, [employer]- [address] [place] [phone] PCP - General Nurse Practitioner Family 05/04/23
--- OUTSIDE RECORDS SUMMARY | 2024-12-19 12:56 | XMS_ITS | Data Portability ---
Author Organization [facility] MARLINEmber Vallecillo Address [address] [place] [address] Assessment Encounter Date Assessment Date Assessment LastModified by Organization Details LastModified Time 09/11/2019 09/11/2019 Next visit - discuss memory problems karina Not available 09/11/2019 10:34:32 Plan of Treatment Reminders Order Date Submit Date Provider Last Modified By Organization Details Last Modified Time Details Appointments None recorded. Lab CT + NG + TV, DNA, urine/swab 2019 [facility], [address] [place] [address], [address], [place], [address], 0 06:07:16 HBsAg (hepatitis B surface Ag), EIA, serum 2019 [facility], [address] [place] [address], [address], [place], [address], 0 06:07:17 RPR (rapid plasma reagin), serum 2019 [facility], [address] [place] [address], [address], [place], [address], 0 06:07:16 HIV 1+2 AB + HIV 1 p24 Ag, qualitativ e immunoassa y, serum 2019 [facility], [address] [place] [address], [address], [place], [address], 0 06:07:17 TSH, ultra-sens itive, serum 2019 020 [facility], [address] [place] [address], [address], [place], [address], 0 03:04:23 TSH, ultra-sens itive, serum 2019 020 [facility], [address] [place] [address], [address], [place], [address], 0 08:19:36 TSH, ultra-sens itive, serum 2018 019 [facility], [address] [place] [address], [address], [place], [address], 9 06:13:01 bacterial vaginosis + vaginitis panel, vaginal 2017 018 [facility], [address] [place] [address], [address], [place], [address], 8 06:05:55 Referral None recorded. Procedures None recorded. Surgeries None recorded. Imaging None recorded. Medication Orders levothyrox ine 25 mcg tablet 2019 020 [id number], [address], [place], [id number], 0 23:29:46 Miralax 17 gram/dose oral powder 2019 020 [facility] #36883, [address], [place], [id number], 0 10:34:31 naproxen 500 mg tablet 2018 019 [facility] #77492, [address], [place], [id number], 0 10:18:29 Augmentin 875 mg-125 mg tablet 2017 Rico munoz [facility] #82120, [address], [place], [id number], 9 11:04:15 Patient TargetsNo targets recorded. Patient Instructions Encounter Date Encounter Id Patient Instructions Last Modified By Organization Details Last Modified Time 06/02/[id number] I certify that I was present and available in the Family Medicine [facility] for discussion of this patient. I have reviewed the resident's note and agree with the stated assessment and treatment plan. nicole Not available 06/27/2017 14:23:22 12/06/2018 [id number] I certify that I was present and available in the FM clinic for discussion of this patient. I have reviewed the resident's note and agree with the stated assessment and treatment plan. --Gawrys DO Faculty physician dontrell Not available 12/11/2018 00:09:17 09/14/2019 [id number] rotator cuff: exercises husman Not available 09/14/2019 11:47:37 Reason for Referral None Reported. Results Created Date Observation Date Name Description Value Unit Range Abnormal Flag Note LastModifiedBy Organization Detail LastModifiedTime 06/03/19 18 06/04/2017 bacte rial vagin osis + vagin itis panel , vagin al trich vag by RICK Negati ve negati ve Not Available [facility] ([facility]) [address] [place], [address], 06/07/2017 06:05:55 06/03/19 18 06/04/2017 bacte rial vagin osis + vagin itis panel , vagin al chlamydia trachomatis, RICK Negati ve negati ve Not Available [facility] ([facility]) [address] [place], [address], 06/07/2017 06:05:55 06/03/19 18 06/04/2017 bacte rial vagin osis + vagin itis panel , vagin al neisseria gonorrhoeae, RICK Negati ve negati ve Not Available [facility] ([facility]) [address] [facility], [place], [address], 06/07/2017 06:05:55 06/03/19 18 06/05/2017 bacte rial vagin osis + vagin itis panel , vagin al atopobium vaginae High - 2 score abnormal Not Available [facility] ([facility]) [address] [facility], [place], [address], 06/07/2017 06:05:55 06/03/19 18 06/05/2017 bacte rial vagin osis + vagin itis panel , vagin al bvab 2 Low - 0 score Not Available [facility] ([facility]) [address] [facility], [place], [address], 06/07/2017 06:05:55 06/03/19 18 06/05/2017 bacte rial [...] not neces jorge alberto. Not Available [facility] ([facility]) [address] [facility], [place], [address], 06/07/2017 06:05:55 06/03/19 18 06/06/2017 bacte rial vagin osis + vagin itis panel , vagin al arsh albicans, RICK Negati ve negati ve Not Available [facility] ([facility]) [address] [place], [address], 06/07/2017 06:05:55 06/03/1906/06/2017 bacte rial vagin osis + vagin itis panel , vagin al arsh glabrata, RICK Negati ve negati ve This test was devel gurvinder and its perfo rmanc e brii cteri stics deter mined by [facility]. It has not been clear ed or appro melly by the Food and Drug Admin istra tion. The FDA has deter mined that such clear ance or appro gustabo is not neces jorge alberto. Not Available [facility] ([facility]) [address] [facility], [place], [address], 06/07/2017 06:05:55 12/07/1912/07/2018 TSH, ultra -sens itive , serum TSH 6.950 uIU/m L 0.450- 4.500 above high normal Not Available [facility] ([facility]) [address] [place], [address], 12/07/2018 06:13:00 09/11/1909/12/2019 TSH, ultra -sens itive , serum TSH 5.140 uIU/m L 0.450- 4.500 above high normal Not Available [facility] ([facility]) [address] [place], [address], 09/12/2019 08:19:36 09/11/1909/12/2019 TSH, ultra -sens itive , serum T4,free (direct) 0.71 NG/dL 0.82-1 .77 below low normal Not Available [facility] ([facility]) [address] [place], [address], 09/12/2019 08:19:36 09/14/1909/18/2019 CT + NG + TV, DNA, urine /swab chlamydia by RICK Negati ve negati ve Not Available [facility] ([facility]) [address] [place], [address], 09/18/2019 06:07:16 09/14/19 20 09/18/2019 CT + NG + TV, DNA, urine /swab gonococcus by RICK Negati ve negati ve Not Available [facility] ([facility]) [address] [place], [address], 09/18/2019 06:07:16 09/14/19 20 09/18/2019 CT + NG + TV, DNA, urine /swab trich vag by RICK Negati ve negati ve Not Available [facility] ([facility]) [address] [place], [address], 09/18/2019 06:07:16 09/14/19 20 09/15/2019 RPR (rapi d plasm a reagi n), serum RPR Non Reacti ve non reacti ve Not Available [facility] ([facility]) [address] [place], [address], 09/18/2019 06:07:16 09/14/19 20 09/15/2019 HIV 1+2 AB + HIV 1 p24 Ag, quali tativ e immun oassa y, serum HIV screen 4TH generation wrfx Non Reacti ve non reacti ve Not Available [facility] ([facility]) [address] [place], [address], 09/18/2019 06:07:17 09/14/19 20 09/15/2019 HBsAg (hepa titis B surfa ce Ag), EIA, serum HBsAg screen Negati ve negati ve Not Available [facility] ([facility]) [address] [place], [address], 09/18/2019 06:07:17 11/14/19 19 11/11/2018 MAMMO , scree kristy, digit al, bilat eral No observ ation record ed. [address] (Imaging) [address] [facility] [address], [place], [address], 11/13/2018 18:56:30 Result Notes None recorded. Problems Name Problem SNOMED Code Status Onset Date Resolution Date Notes Provider Name and Address Organization Details Recorded Time Hypothyro idism 93340695 Active 2018 Hypothyro idism, untreated as pt believes sx are not controlle d. -TSH/t4 today -Counsell ed on importanc e of complianc e with medicatio ns Alia Reyez RANDY barreto - [facility] 0 14:03:01 Pain of right elbow joint 781279558164 65624 Active 2018 Jose RANDY Jackman - [facility] 9 21:27:08 Constipat ion 83208213 Active 2019 Constipat ion present for 5+ years, BM Q weekly, has untreated hypothyro idism. Alleviate d with unknown stool softener. -Begin miralax capful daily, titrate to goal of soft BMs Laiaclair Reyez RANDY barreto - SI 0 14:02:13 Problem Notes None recorded. Medical Equipment None Reported. [...] in Arterial blood by Pulse oximetry Systolic And Diastolic Provider Name and Address Organization Details Last Updated DateTime 8 160.02 cm 29.7 kg/m2 47009.0 8 g 98.9 [degF] 90 /min 98 % 98 % 140/94 mm[Hg] Heidi Louis [facility] 8 16:05:36 Date Recorded Body height Heart rate Oxygen saturation Oxygen saturation in Arterial blood by Pulse oximetry Body mass index (BMI) Body weight Body temperature Systolic And Diastolic Provider Name and Address Organization Details Last Updated DateTime 9 161.93 cm 72 /min 99 % 99 % 30.2 kg/m2 24794.2 2 g 98.4 [degF] 122/76 mm[Hg] Nina Gilmore [facility] 9 09:49:02 Date Recorded Body height Body mass index (BMI) Body weight Heart rate Oxygen saturation Oxygen saturation in Arterial blood by Pulse oximetry Body temperature Systolic And Diastolic Provider Name and Address Organization Details Last Updated DateTime 0 161.93 cm 30.8 kg/m2 61754.1 9 g 92 /min 98 % 98 % 99.1 [degF] 110/78 mm[Hg] Hesham Ramesh [facility] 0 10:36:24 Date Recorded Body height Body mass index (BMI) Body weight Heart rate Oxygen saturation Oxygen saturation in Arterial blood by Pulse oximetry Systolic And Diastolic Provider Name and Address Organization Details Last Updated DateTime 9 161.93 cm 30.4 kg/m2 49244.2 6 g 74 /min 98 % 98 % 118/90 mm[Hg] Nani Campo MA [facility] 9 11:39:14 Social History Question Answer Notes LastModified by Organizat ion Details LastModified Time Tobacco Smoking Status Never Smoker 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 09/11/2019 [email or web address] Information not available 09/11/2019 Sex: Unknown Functional Status Question Answer Note LastModified by Organizat ion Details LastModified Time Do you or have you ever used smokeless tobacco? Never used smokeless tobacco Information not available 09/14/2019 Do you or have you ever used e-cigarettes or vape? Never used electronic cigarettes Information not available 09/14/2019 Mental Status None recorded. Family History Nothing Reported. Medical History No medical history recorded. Gynecological HistoryNo gynecological history recorded. Obstetrics History GPAL:G 0 P 0 0 0 0 Past Encounters Encounter ID Performer Location Encounter Start Date Encounter Closed Date Diagnosis/Indication Diagnosis SNOMED-CT Code Diagnosis ICD10 Code Diagnosis IMO Codes Diagnosis Note [id number] DO Juan Cote [facility] ([facility]) [address] [facility] [place] [address] 07/29/2016 16:51:24 07/30/2016 12:28:35 Adult health examination 902484826 Z00.00 55 YO F w/ PMHx significan [...] panel and BMP.-Refus es all vaccines. Obesity 374550088 E66.9 -BMI 31.5, patient just recently enrolled in a weight loss clinic. Discussed with patient diet and exercise. Pt expresses understand ing. [id number] MD Juan De La Vega e [facility] ([facility]) [address] [facility] [place] [address] 12/07/2016 14:43:30 12/08/2016 11:42:39 Standard chest X-ray abnormal 763808781 R93.8 - CXR showed minimal scarring vs atelectasi s- Will repeat CXR to ensure resolution Memory impairment 684373 006 R41.3 - Expresses concern about dementia [...] dementia. Pt verbalized understand ing and agreement [id number] Dasia Cantor MD [facility] [address] [facility] [address] [place] [address] 06/02/2017 15:57:32 06/03/2017 15:25:04 Vaginal discharge 561466654 N89.8 Check nuswab + Sinusitis 34952843 J32.9 Augmentin BID x10 daysRecomm end nasal saline rinses [id number] Daljit Mccray DO [place] [address] [address] [facility] [address] [place] [address] 08/16/2018 09:27:23 08/17/2018 13:42:27 Pain of elbow region 16828230 M25.521 - Suspect mild bursitis vs muscle strain- PE remarkable TTP over elbow. Mild swelling over R elbow- Start Naproxen 500mg BID for 5 days with food [id number] Anastasia Odell MD [facility] [address] [address] 12/06/2018 11:24:27 12/08/2018 10:10:28 Hypothyroidism 60293599 E03.9 Chronic-Pa tient reports symptoms consistent with hypothyroi dism-Most recent TSH 6.7 on 10/06/17-Cu rrently not taking Synthroid- Will check TSH and if abnormal will start treatment Elevated blood-pressure reading without diagnosis of hypertension 034328915 R03.0 Blood pressure 118/90 in clinicGoal blood pressure less than 140/90-No red flag symptoms concerning for HTN emergency- ED precaution s discussed- RTC 2 weeks for blood pressure recheck. If persistent ly elevated will discuss lifestyle modificati ons vs initiating antihypert ensive medication . Lateral epicondylitis 20 4103904 M77.11 Approximat sarah 6 month history of lateral, right elbow painExam consistent with lateral epicondyli tis-Reassu sarah provided that in most individual symptoms will improve within 1 year from onset even without any interventi on.-May continue to use Aleve/Tyle nol as needed-Pat ient declines physical therapy. Rehab exercises provided from [employer]. [facility]-RTC as needed [id number] Anastasia Odell MD [facility] [address] [facility] [address] [place] [address] 09/11/2019 08:33:41 09/19/2019 15:00:46 Constipation 69198488 K59.00 Constipati on present for 5+ years, BM Q weekly, has untreated hypothyroi dism. Alleviated with unknown stool softener.- Begin miralax capful daily, titrate to goal of soft BMs Hypothyroidism 34871514 E03.9 Hypothyroi dism, untreated as pt believes sx are not controlled .-TSH/t4 today-Coun selled on importance of compliance with medication s [id number] Anastasia Odell MD [facility] [address] [facility] [address] [place] [address] 09/14/2019 10:25:33 09/19/2019 15:49:32 Venereal disease screening 062626378 Z11.3 Symptomati c with dysuria and pressure for a couple weeks-STI screening today, will call with abnormal results Pain of ri ght shoulder joint 9501479105 5778955 M25.511 R shoulder pain, likely rotator cuff injury-Pro vided with exercises- Conservati ve care with PRN tylenol/ib uprofen, rest, heat/ice Hypothyroidism 96065362 E03.9 Hx of hypothyroi dism, on 25mcg daily. TSH 5.140/T4 0.71-Pt noncomplia nt with medication s, advised her to take meds as prescribed . Repeat TSH/T4 6-8 weeks Health Concerns Section Related Observation LastModified by Organization Detai ls LastModified Time None Recorded Concern Status LastModified by Organization Details LastModified Time None Recorded Advance Directives Directive None Recorded Payers Insurance Date Sequence Insurance Name Policy Number Policy Fu Covered Member ID Fu Member ID Guarantor Name 09/14/2019 1 [facility] (MEDICAID HMO) [id number] Tatiana Loya [id number] Ming Loya Notes Date Note Type Note Provider Name and Address Organization Details Recorded Time 06/02/2017 text/html ROS as noted in the HPI 56 y/o F presents w/ vaginal discharge and itching x1-2 days. Denies any bleeding. She is sexually active. Denies fever or abdominal pain. Also c/o of sinus congestion for 2 weeks, purulent nasal discharge, and intermittent fevers. No teeth or jaw pain. Jai Ornelas MD Attn: Accounting,[address] [facility], [place], [address], [facility] 06/27/2017 14:23:47 08/16/2018 text/html ROS as noted in the HPI 57 y/o F presents for ER f/u.Pt went to [facility] on 08/10 due to R elbow and [...] numbness or tingling.No other complaints today. Daljit barreto, [facility] 08/17/2018 11:33:39 12/06/2018 text/html ROS as noted in the HPI 58 y/o F presenting in clinic for [...] dyspnea, abdominal pain, N/V/D, or dysuria. Gwendolyn barreto [facility] 12/11/2018 00:09:24 09/11/2019 text/html Hypertension F/UReported by PatientHPIFor medications, patient reportschecks blood pressure at home, range: (120s/80s). ConstipationReported by PatientHPIFor duration, patient reportspresent 5 or more years. For onset/timing, patient reportsonce every three daysandonce a week. For alleviating factors, patient reportsstool softener (unknown name). For associated symptoms, patient reportsno abdominal pain,no fever,no rash,no nausea,no vomiting,no blood in stool, andno black or tarry stools(abdominal distention). For context, (hx of hypothyroidismhx of cystocele and bladder repair (???) during hysterectomy - 2007, pt poor historian). Preventative-Last colonoscopy - 2+ years ago, unknown GI 58F presents for GI complaints R flank-C/o RUQ abdominal hardness-Assoc tenderness Hypothyroidism-Hx of thyroid cyst [id number]-Ikxr not take her synthroid - says it gave her exophthalmos, did not improve symptoms-C/o fatigue x1 month and exercise intolerance Alia barreto [facility] 11/11/2019 14:03:06 09/14/2019 text/html ROS as noted in the HPI 58 y/o female who presents with concerns [...] couple weeks w/o flank pain/fevers/chills Alia barreto [place] [facility] 03/31/2020 12:10:53 OBGyn Episode No OBEpisode recorded.
--- OUTSIDE RECORDS SUMMARY | 2024-12-19 12:56 | XMS_ITS | Clinical Summary ---
Author Organization [facility] Address [address] [place] [address] Care Team Providers Care Annealing Oven Operator Name Role Phone Luis Antonio Jose MD Primary Care Provider [phone] Allergies No known active allergies Medications levothyroxine sodium (TIROSINT) 100 mcg capsule Take 1 capsule (100 mcg total) by mouth offal roller before breakfast Active metFORMIN XR (GLUCOPHAGE XR) 500 mg 24 hr tablet Take 1 tablet (500 mg total) by mouth daily 3 Active rosuvastatin (CRESTOR) 20 mg tablet Take 1 tablet (20 mg total) by mouth daily 3 Active Active Problems Problem Noted Date Diagnosed Date Hx of colonic polyps 07/22/2020 Overview (07/22/2020): Added automatically from request for surgery [id number] Surgical History Surgery Date Site/Laterality Comments COLONOSCOPY [...] on file Legal Sex Female 7:00 PM 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 MANAGER Gender Identity Female 10/08/2020 12:28 PM CDT Sexual Orientation Not on file Obstetrics History Last Filed Vital Signs Vital Sign Reading Time Taken Comments Blood Pressure 112/76 04/05/2024 2:54 PM OPERATING MANAGER Pulse 76 04/05/2024 2:54 PM OPERATING MANAGER Temperature - - Respiratory Rate - - Oxygen Saturation 98% 04/05/2024 2:54 PM OPERATING MANAGER Inhaled Oxygen Concentration - - Weight 86.2 kg (190 lb) 04/05/2024 2:54 PM OPERATING MANAGER Height 162.6 cm (5' 4) 04/05/2024 2:54 PM OPERATING MANAGER Body Mass Index 32.61 04/05/2024 2:54 PM OPERATING MANAGER Plan of Treatment Health Maintenance Due Date Last Done Comments Colon Cancer Screening-Colonoscopy 1959 Depression Screening 1959 Fall Risk Assessment 1959 Hepatitis C Screening 1959 Osteoporosis Screening-Bone Density Scan 1959 DTaP/Tdap/Td Vaccine (1 - Tdap) 11/24/1970 Hepatitis B Screening 11/24/1977 Pneumococcal vaccine 65+ (1 of 1 - PCV) 11/24/2009 Zoster Vaccine (1 of 2) 11/24/2009 Breast Cancer Screening-Mammogram 10/03/2016 10/04/2015, 08/29/2014, 08/29/2013 Influenza Vaccine (#1) 2024 Well Visit 65+ 11/24/2024 Insurance [facility] [place] [id number] Advance Directives For more information, please contact: [phone] Documents on File Type Date Recorded Patient Linen Room 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
--- OUTSIDE RECORDS SUMMARY | 2024-12-19 12:56 | XMS_ITS | Clinical Summary ---
Author Organization [facility] Address [address] [place] [address] Care Team Providers Care Sales And Marketing Associate Name Role Phone Luis Antonio Jose MD Primary Care Provider [phone] Source Comments [facility] [employer],non-owned Affiliates and Associated Physician Practices is amultiple site organization consisting of ambulatory clinics and hospital sitesin [place], [place], [place] and [place]. This disclosure is being madepursuant to the Care Everywhere program and may not contain all information available regarding this patient. Last updated 17.[facility] [employer] Allergies No known active allergies Medications * Be aware that medications may not be up to date on this document. Alwaysverify current medications with the patient. metFORMIN ER 24hr (Glucophage XR) 500 MG tablet Take 1 (one) tablet by mouth once daily 3 Active rosuvastatin (Crestor) 20 MG tablet Take 1 (one) tablet by mouth once daily 3 Active OneTouch Ultra test strip USE TO TEST BLOOD SUGAR EVERY DAY 3 Active polyethylene glycol 3350 (Miralax) 17 GM/SCOOP powder MIX AND TAKE 17 GRAMS TWICE DAILY NEEDED FOR BOWEL MOVEMENT 3 Active Blood Glucose Monitoring Suppl (ONE TOUCH ULTRA 2) w/Device KIT as directed 3 Active LutonixTOUCH DELICA PLUS 30G FINE LANCETS USE TO CHECK BLOOD SUGAR EVERY DAY 3 Active levothyroxine (Synthroid) 88 MCG tablet Take 1 (one) tablet by mouth once daily 3 Active Other Take 1 Each by mouth as needed (seamoss) Active bisacodyl EC 5 MG tablet Take 1 (one) tablet by mouth once as needed for Constipation Active dulaglutide (Trulicity) 0.75 MG/0.5ML injection Inject 0.75 (three-quarters) mg subcutaneously every 7 days (once a week) Active linaCLOtide (Linzess) 290 MCG capsule Take 1 (one) capsule by mouth daily before breakfast Take on an empty stomach at least 30 minutes prior to first meal of the day. 60 capsule 2 Active Active Problems Problem Noted Date Diagnosed Date Metabolic dysfunction-associ ated steatotic liver disease (MASLD) 11/02/2024 Overview (11/02/2024): 11/01/24 Fibroscan CAP 323, LSM 5.0 kPa Osteopenia 04/04/2024 Cholelithiasis without obstruction 11/09/2023 Changing skin lesion 10/13/2023 Elevated blood-pressure read ing without diagnosis of hypertension 10/13/2023 Liver cyst 10/13/2023 Memory impairment 10/13/2023 Chronic low back pain 09/21/2023 Hematochezia 09/21/2023 Obesity 09/21/2023 Chronic idiopathic constipation 08/03/2022 Type 2 diabetes mellitus without complication Overview (12/19/2024): IMO 12/19/2024 Encounter for screening for malignant neoplasm o f colon 11/24/2021 Hyperglycemia 11/24/2021 Hyperlipidemia 11/24/2021 Generalized anxiety disorder 09/10/2021 Cyst of thyroid 07/23/2020 Hx of colonic polyps 07/22/2020 Overview (11/01/2024): Added automatically from request for surgery [id number] Insomnia 06/26/2020 Age-related osteoporosis wit hout current pathological fracture 05/01/2020 Overview (11/01/2024): M81.0 - Skeletal - low Added by Interface Resolved Problems Problem Noted Date Diagnosed Date Resolved Date Constipation 12/26/2020 11/29/2024 Encounters Date Type Department Care Team Description 11/01/2024 3:00 PM CDT Procedure visit [facility] - [address] [phone] Brendan Villela MD NAFLD (nonalcoholic fatty liver disease) ; Highly echogenic liver on ultrasound 11/01/2024 2:00 PM CDT Office Visit [facility] - [address] [address] Brendan Villela MD Highly echogenic liver on ultrasound (Primary Dx); Metabolic dysfunction-associate d steatotic liver disease (MASLD); Hemangioma of liver; Liver cyst 11/01/2024 1:30 PM CDT Office Visit [facility] - [address] [phone] Lupe Land PA-C Chronic idiopathic constipation (Primary Dx) 11/01/2024 Travel from Last 3 Months Social History Tobacco Use Types Packs/Day Years Used Date Smoking Tobacco: Never Passive Smoke Exposure: Past Smokeless Tobacco: Never Tobacco Cessation:Counseling Given: Not Answered Alcohol Use Standard Drinks/Week Comments Not Currently 0 (1 standard drink = 0.6 oz pur e alcohol) PHQ-2 Answer Date Recorded Patient Health Questionnaire-2 Score 0 11/02/2022 Comments No Sex and Gender Information Value Date Recorded Sex Assigned at Not on file Legal Sex Female 4:31 PM CDT Gender Identity Not on file Sexual Orientation Not on file Last Filed Vital Signs Vital Sign Reading Time Taken Comments Blood Pressure 110/81 11/01/2024 1:57 PM CDT Pulse 89 11/01/2024 1:57 PM CDT Temperature 36.1 C (97 F) 11/01/2024 1:57 PM CDT Respiratory Rate 12 03/24/2023 1:30 PM BIBLICAL LANGUAGES PROFESSOR Oxygen Saturation 100% 11/01/2024 1:57 PM CDT Inhaled Oxygen Concentration - - Weight 83.5 kg (184 lb) 11/01/2024 1:57 PM CDT Height 162.6 cm (5' 4) 08/20/2024 8:38 AM CDT Body Mass Index 31.58 08/20/2024 8:38 AM CDT Plan of Treatment Upcoming Encounters Date Type Department Care Team (Late st Contact Info) Description 03/04/2025 9:30 AM BIBLICAL LANGUAGES PROFESSOR Office Visit [facility] [address] [place] [address] Lupe Land PA-C [address] [place] [address] Health Maintenance Due Date Last Done Comments BONE DENSITY TESTING 1960 COLOGUARD (AGES 45-75) - COLON CA SCREENING 1959 COLON MONITORING 1959 COLONOSCOPY - COLON CA SCREENING 1959 CT COLONOGRAPHY - COLON CA SCREENING 1960 Colorectal Cancer Screening 1959 FIT - COLON CA SCREENING 1959 FLEX SIG - COLON CA SCREENING 1959 HEPATITIS C SCREENING 11/20/1977 DTAP/TDAP/TD VACCINES (1 - Tdap) 11/24/1978 PNEUMOCOCCAL VACCINE 50+ (1 of 2 - PCV) 11/24/1978 ZOSTER VACCINE (1 of 2) 11/24/2009 MAMMOGRAM 10/03/2017 10/04/2015, 09/18, 08/29/2014, Additional history exists DEPRESSION SCREENING 03/21/2024 11/02/2022 DIABETES - URINE PROTEIN SCREENING 03/21/2024 DIABETES-SERUM CREATININE 03/24/2024 03/24/2023 DIABETES RETINOPATHY SCREENING 11/01/2024 DIABETES-FOOT EXAM WITH MONOFILAMENT 11/01/2024 DIABETES-HGB A1C 11/01/2024 06/24/2020 COVID-19 VACCINE ( season) 2024 03/11/2021, 06/09/2020, 05/12/2020 INFLUENZA VACCINE (#1) 2024 PAP SMEAR 05/05/2026 05/05/2023, 05/05/2023 Respiratory Syncytial Virus (RSV) Vaccine Pt: or over 60 yrs (1 - 1-dose 75+ series) 11/24/2034 HIV SCREENING Completed 06/24/2020 HEPATITIS B VACCINE Aged Out No longe r eligible based on patient's age to complete this topic HIB VACCINE Aged Out No longer eligi ble based on patient's age to complete this topic HPV VACCINE Aged Out No longer eligi ble based on patient's age to complete this topic MENINGOCOCCAL (Group B) VACCINE SHARED DECISION-MAKING Aged Out No longer eligible based on patient's age to complete this topic MENINGOCOCCAL GROUPS A/C/Y/W VACCINE Aged Out No longer eligible based on patient's age to complete this topic Goals Goal Patient Goal Type Associated Problems Recent Progress Patient-Stated? Author Consistently take Medications as Prescribed General On track( 025 1:46 PM CDT) No Catrina Emanuel RN Procedures Procedure Name Priority Date/Time Associated Diagnosis Comments [place] LIVER ELASTOGRAPHY Routine 11/01/2024 2:57 PM CDT Highly echogenic liver on ultrasound COMPREHENSIVE METABOLIC PANEL STAT 03/24/2023 10:08 AM BIBLICAL LANGUAGES PROFESSOR from Last 3 Months or Most Recently Relevant to Health Maintenance Results * [place] LIVER ELASTOGRAPHY (11/01/2024 2:57 PM CDT) Narrative Tony Stern MD - 11/01/2024 2:57 PM CDT Tony Stern MD 11/02/2024 12:15 AM Diagnosis: Fatty Liver RN verified patient NPO for prior 3 hours. Procedure explained. Date of Exam: 11/01/2024 Liver Stiffness: (LSM, kPa) median: 5.0 IQR/Median% (ideally < 30%): 9% CAP (controlled attenuation parameter): 323 Technical Difficulty: None Ordering Provider: Dr. Villela Phone Fax Fibroscan interpretation: I have personally reviewed the Fibroscan report and associated tracings. The calculated Liver Stiffness Measurement (LSM, kPa) indicates that: The probability of advanced liver fibrosis is: low. The loss of ultrasound signal, (controlled attenuation parameter, CAP [dB/m]), indicates that the probability of hepatic steatosis is: high. Tony Lal MD The following criteria are used to indicate the probability of advanced (stage 3-4) fibrosis: < 7.0 kPa: low 7.0-8.9 kPa: low to moderate 9.0-14.9 kPa: moderate 15-20 kPa: high > 20 kPa: very high Liver stiffness > 12 kPa is associated with an increased risk of cirrhosis-related complications over the next 3-5 years (Rishi, 2022). Liver stiffness > 20 kPa is also associated with a high probability of complications of portal hypertension including varices and ascites. Liver stiffness > 50 kPa is associated with a high risk of variceal bleeding. These interpretations are based on the following published data: Rishi J, Hagstr m H, Ekstaliat M, Jcak C, Bonasandrai M, Cure S, Amptusharo J, Nasr P, Tallab L, Canivet CM, Kechasusan S, S ncfernanda Y, Vida E, Mike A, Kwan M, Nayely J, Faraz A and Harvey-Rodrigo M. Non-invasive tests accurately stratify patients with NAFLD based on their risk of liver-related events. J Hepatol (2021) 76: 6385-6927. Alyson PJ, Mansi M, Juany M, et al. Accuracy of FibroScan controlled attenuation parameter and liver stiffness measurement in assessing steatosis and fibrosis in patients with nonalcoholic fatty liver disease. Gastroenterology 2019;156:0838-8317. Natividad ALLEN, Rhett R, Van Orlando MUÑIZ, et al. Vibration-controlled transient elastography to assess fibrosis and steatosis in patients with nonalcoholic fatty liver disease. Clin Gastroenterol Hepatol 2019;17:156-163. Note that scores have been developed that incorporate the Fibroscan liver stiffness measurement from large cohorts of patients with liver biopsies to further refine the ability of Fibroscan to identify patients with MASH and advanced fibrosis. These include the FAST (Fibroscan-AST) score (Anival, 2022) and the Agile3+ and Agile4 scores (Florence, 202; Jaye, 202). Anival TA, Van Natta ML, Jesús Mills, Tushar A, et al. Validation of the accuracy of the FAST score for detecting patients with at-risk nonalcoholic steatohepatitis (JOLLEY) in a [place] cohort and comparison to other non-invasive algorithms. PLoS ONE (2021) 17: [id number]. Florence NEWSOME, Alexandro Gale, Digna ZM, et al. Enhanced diagnosis of advanced fibrosis and cirrhosis in individuals with NAFLD using FibroScan-based Agile scores. J Hepatol (2022) 78: 247-259. Jaye et al. Vibration-controlled transient elastography scores to predict liver-related events in steatotic liver disease. JOZEF (2023) 331: 9685-6286 Fibroscan LSM can also be used with laboratory parameters without formulas to assess prognosis. According to the Baveno-VII criteria (Castañeda, 202), Fibroscan LSM <=15 kPa plus a platelet count of >=[id number]/L rules out clinically significant portal hypertension (sensitivity and negative predictive value >90%) in patients with compensated advanced chronic liver disease. Castañeda R, Theo J, Jeremias-Nila G, Cynthia T, Zee Quintero on behalf of the Baveno VII Faculty. Baveno VII--Renewing consensus in portal hypertension. J Hepatol (2021) 76: 959-974 Assessing the likelihood of advanced fibrosis in patients with intermediate liver stiffness measurement (LSM) by Fibroscan (e.g., 8-15 kPa) can be improved by also calculating the FIB-4 score (Estephanie et al. Hepatology Communications 2019;3:4295-2331) or NAFLD Fibrosis score (Brumfield et al. Clinical Gastroenterology and Hepatology 2019;17:2939-3547 using routine clinical data. Notes: 1. Fibroscan cannot reliably identify earlier stages of fibrosis (ie distinguish F0 from F1 and F2) and thus a histologic stage cannot be predicted from the Fibroscan reading. 2. Liver stiffness can be increased by factors other than fibrosis including passive congestion, infiltrative processes, active alcoholism, recent moderate alcohol consumption in the 2 weeks before the exam, biliary obstruction and marked inflammation. The interpretation of the Fibroscan result provided above may not have taken such clinical factors into account. 3. Identifying steatosis by an elevated CAP score (> 250 db/m) is useful for establishing a diagnosis of steatotic liver disease. However the severity of steatosis does not correlate with liver related outcomes. Disease etiology also influences Fibroscan cutoff values for fibrosis stages and the following cutoffs have been proposed (Tank et al, Clin Gastro Hepatol 2015; 13:27-36): Cutoffs for Stage 3 and Stage 4 fibrosis respectively: Hepatitis B: >9 and >11.7 kPa Hepatitis C: >9.5 and >12.5 kPa HCV-HIV: >11 and >14 kPa Cholestatic liver diseases: >10 and >17.9 kPa MASLD/MASH: >10 and >14 kPa CAP estimates of steatosis: normal <200 dB/m mild 200 to 250 dB/m moderate 250-290 dB/m substantial > 290 dB/m (Note that Fibroscan is not a quantitative measure of liver fat.) These criteria are estimates and may change as additional supporting data becomes available. (This additional interpretive data was last updated 03/23/24.) [email or web address] Brendan Villela MD PROCEDURE/MINOR SURGICAL CEEE VALENTIN Final Result * (ABNORMAL) COMPREHENSIVE METABOLIC PANEL (03/24/2023 10:08 AM [facility]) Sodium 139 136 - 145 mmol/L 03/24/2023 10:43 AM [facility] Potassium 4.0 3.5 - 5.1 mmol/L 03/24/2023 10:43 AM [facility] Chloride 103 98 - 107 mmol/L 03/24/2023 10:43 AM [facility] CO2 28 22 - 29 mmol/L 03/24/2023 10:43 AM [facility] Anion Gap 8 6 - 16 mmol/L 03/24/2023 10:43 AM [facility] Glucose 104 70 - 105 mg/dL 03/24/2023 10:43 AM [facility] BUN 11 7 - 26 mg/dL 03/24/2023 10:43 AM [facility] Creatinine 0.88 0.57 - 1.11 mg/dL 03/24/2023 10:43 AM [facility] BUN/Creatinine Ratio 12.5 11.2 - 18.1 03/24/2023 10:43 AM [facility] Calcium 9.3 8.4 - 10.4 mg/dL 03/24/2023 10:43 AM [facility] Protein Total 7.3 6.4 - 8.3 gm/dL 03/24/2023 10:43 AM [facility] Albumin 4.3 3.4 - 5.0 gm/dL 03/24/2023 10:43 AM BIBLICAL LANGUAGES PROFESSOR [facility] ALT 18 0 - 55 U/L 03/24/2023 10:43 AM BIBLICAL LANGUAGES PROFESSOR [facility] AST 22 5 - 34 U/L 03/24/2023 10:43 AM [facility] Alkaline Phosphatase 52 40 - 150 U/L 03/24/2023 10:43 AM [facility] Bilirubin Total 0.6 0.2 - 1.2 mg/dL 03/24/2023 10:43 AM [facility] Globulin Total 3.0 1.3 - 4.7 gm/dL 03/24/2023 10:43 AM [facility] Albumin/Globulin Ratio 1.4 1.1 - 2.2 03/24/2023 10:43 AM [facility] Osmolality Calculated 268 260 - 284 mOsm/kg 03/24/2023 10:43 AM [facility] eGFR by CKD-EPI 74(L) >=90 mL/min/1.7 3 m2 03/24/2023 10:43 AM [facility] Blood BLOOD SPECIMEN / Unknown Venipuncture / Unknown 03/24/2023 10:08 AM BIBLICAL LANGUAGES PROFESSOR 03/24/2023 10:13 AM [facility] Narrative [facility] - 03/24/2023 10:43 AM [facility] ADA Comment: The [place] [employer] recommends a fasting glucose concentration of 99 mg/dL as the upper limit of normal. Note:EGFR Reference Ranges have been established for adults between the ages of 18 and 70. ESTIMATE STAGES OF CHRONIC KIDNEY DISEASE Stage Description EGFR 1. Kidney damage with normal or increased EGFR > or =90 mL/min/1.73 m 2. Kidney damage with mildly decreased EGFR 60-89 mL/min/1.73 m 3. Moderately decreased EGFR 30-59 mL/min/1.73 m 4. Severely decreased EGFR 15-29 mL/min/1.73 m 5. Kidney Failure EGFR <15 mL/min/1.73 m The GFR result was calculated using the updated CKD-EPI Creatinine Equation (2020) Joe Tellez MD LAB - CHEMISTRY ORDERABLES Final Result [facility] [address] [place] [address], [facility] [phone] from Last 3 Months or Most Recently Relevant to Health Maintenance Insurance [facility] Care Teams Sales And Marketing Associate Relationship Specialty Start Date End Date Luis Antonio Jose MD [address] [place] [phone] PCP - General Family Medicine 08/20/24
--- OUTSIDE RECORDS SUMMARY | 2024-12-19 12:56 | XMS_ITS | Encounter Summary ---
Author Organization [facility] Address [address] [place] [id number] Care Team Providers Care Shoe Lining Fitter Name Role Phone Mita Boland [facility] Primary Care Provider + Encounter Details Date Type Department Care Team (Latest Contact Info) Description 01/24/2018 Abstract [facility] Silvia Lewis MD Social [...] on filedocumented in this encounter Care Teams Shoe Lining Fitter Relationship Specialty Start Date End Date Mita Boland [facility] [address] [place] [phone] PCP - General Nurse Practitioner Family 05/04/23 documented as of this encounter
--- OUTSIDE RECORDS SUMMARY | 2024-12-19 12:57 | XMS_ITS | Data Portability ---
Author Organization [facility] Address [address] [place] [address] Assessment Encounter Date Assessment Date Assessment LastModified [...] recorded. Lab CMP, serum or plasma 2020 021 [facility] (Lab), [address] , [place], [address], 11:29:20 CBC w/ auto diff 2020 021 [facility] (Lab), [address], [place], [address], 11:29:19 lipid panel, blood 2020 021 [facility] (Lab), [address] [place], [address], 11:29:20 HbA1c (hemoglobin A1c), blood 2020 021 [facility] (Lab), [address], [place], [address], 1 11:29:19 vitamin D, 25-hydroxy, total, serum 2020 021 [facility] (Lab), [address], [place], [address], 1 11:29:21 TSH, serum or plasma 2020 021 [facility] (Lab), [address], [place], [address], 1 11:29:21 Referral primary care provider referral 2020 021 [email or web address] Not available 13:07:52 Procedures None recorded. Surgeries None recorded. Imaging US, breast, bilateral, complete [address] [facility], [address], [place], [address], 4 13:34:45 MAMMO, screening, bilateral [address] - Breast Ctr, [address], [place], [address], 4 15:22:18 DEXA, axial skeleton + vertebral fracture assessment 2020 021 [facility], [address], [place], [address], 2 05:00:48 Medication Orders Diflucan 150 mg tablet 2023 024 [id number], [address], [place], [place], [id number], 4 12:13:41 metronidazo le 500 mg tablet 2023 024 [id number], [address], [place], [place], [id number], 4 12:13:45 Patient TargetsNo targets recorded. Patient InstructionsNo instructions recorded. Reason for Referral Primary Care Provider Referr al for Adult health examination Referring Physician: Evangelina Capps, [employer]ESS, Encounter Date: 06/24/2020 Results Created Date Observation Date Name Description Value Unit Range Abnormal Flag Note LastModifiedBy Organization Detail LastModifiedTime 06/25/19 21 06/24/2020 CBC w/ auto diff WBC 6.3 10'3/ uL 3.6-10 .2 Not Available [facility] (Lab) [address], [place], [address], 06/25/2020 11:29:18 06/25/19 21 06/24/2020 CBC w/ auto diff RBC 4.50 10'6/ uL (based on docume nted legal sex) 4.10-5 .30 Not Available [facility] (Lab) [address], [place], [address], 06/25/2020 11:29:18 06/25/19 21 06/24/2020 CBC w/ auto diff HGB 13.7 g/dL (based on docume nted legal sex) 11.9-1 5.8 Not Available [facility] (Lab) [address], [place], [address], 06/25/2020 11:29:18 06/25/19 21 06/24/2020 CBC w/ auto diff HCT 44.9 % (based on docume nted legal sex) 37.4-4 8.3 Not Available [facility] (Lab) [address] [place], [address], 06/25/2020 11:29:18 06/25/19 21 06/24/2020 CBC w/ auto diff MCV 100.0 fL 82.0-9 9.0 high Not Available [facility] (Lab) [address] [place], [address], 06/25/2020 11:29:18 06/25/19 21 06/24/2020 CBC w/ auto diff MCH 31.0 pg 27.0-3 3.0 Not Available [facility] (Lab) [address], [place], [address], 06/25/2020 11:29:18 06/25/19 21 06/24/2020 CBC w/ auto diff MCHC 31.0 g/dL 32.0-3 6.0 low Not Available [facility] (Lab) [address], [place], [address], 06/25/2020 11:29:18 06/25/19 21 06/24/2020 CBC w/ auto diff RDW 14.0 % 11.0-1 5.0 Not Available [facility] (Lab) [address], [place], [address], 06/25/2020 11:29:18 06/25/19 21 06/24/2020 CBC w/ auto diff plt 201 10'3/ uL 150-45 0 Not Available [facility] (Lab) [address], [place], [address], 06/25/2020 11:29:18 06/25/19 21 06/24/2020 CBC w/ auto diff MPV 11.8 fL Not Available [facility] (Lab) [address], [place], [address], 06/25/2020 11:29:18 06/25/19 21 06/24/2020 CBC w/ auto diff NRBC's 0.00 % 0 Not Available [facility] (Lab) [address], [place], [address], 06/25/2020 11:29:18 06/25/19 21 06/24/2020 CBC w/ auto diff absolute NRBCs 0.0 10'3/ uL 0 Not Available [facility] (Lab) [address], [place], [address], 06/25/2020 11:29:18 06/25/19 21 06/24/2020 CBC w/ auto diff neutrophils 55.0 % 37.0-7 2.0 Not Available [facility] (Lab) [address], [place], [address], 06/25/2020 11:29:18 06/25/19 21 06/24/2020 CBC w/ auto diff lymphocytes 36.0 % 16.0-4 8.0 Not Available [facility] (Lab) [address], [place], [address], 06/25/2020 11:29:18 06/25/19 21 06/24/2020 CBC w/ auto diff monocytes 7.0 % 4.0-14 .0 Not Available [facility] (Lab) [address], [place], [address], 06/25/2020 11:29:18 06/25/19 21 06/24/2020 CBC w/ auto diff eosinophils 1.0 % 0.0-9. 0 Not Available [facility] (Lab) [address], [place], [address], 06/25/2020 11:29:18 06/25/19 21 06/24/2020 CBC w/ auto diff basophils 1.0 % 0.0-2. 0 Not Available [facility] (Lab) [address], [place], [address], 06/25/2020 11:29:18 06/25/19 21 06/24/2020 CBC w/ auto diff immature granulocytes 0.0 % no define d refere nce range Not Available [facility] (Lab) [address], [place], [address], 06/25/2020 11:29:18 06/25/19 21 06/24/2020 CBC w/ auto diff absolute neutrophils 3.5 10'3/ uL 1.1-6. 0 Not Available [facility] (Lab) [address], [place], [address], 06/25/2020 11:29:18 06/25/19 21 06/24/2020 CBC w/ auto diff absolute lymphocytes 2.3 10'3/ uL 0.7-3. 4 Not Available [facility] (Lab) [address], [place], [address], 06/25/2020 11:29:18 06/25/19 21 06/24/2020 CBC w/ auto diff absolute monocytes 0.4 10'3/ uL 0.3-1. 0 Not Available [facility] (Lab) [address], [place], [address], 06/25/2020 11:29:18 06/25/19 21 06/24/2020 CBC w/ auto diff absolute eosinophils 0.1 10'3/ uL 0.0-0. 6 Not Available [facility] (Lab) [address], [place], [address], 06/25/2020 11:29:18 06/25/19 21 06/24/2020 CBC w/ auto diff absolute basophils 0.0 10'3/ uL 0.0-0. 1 Not Available [facility] (Lab) [address], [place], [address], 06/25/2020 11:29:18 06/25/19 21 06/24/2020 CBC w/ auto diff absolute immature granulocytes 0.00 10'3/ uL 0.00-0 .10 7:03 AM: P indic ates parti al resul ts on a panel have been relea sed. Addit ional resul ts will follo w. 7:03 AM: This resul t has been final verif ied. No addit ional or vizcaino ed resul ts are expec peter. Not Available [facility] (Lab) [address], [place], [address], 06/25/2020 11:29:18 06/25/19 21 06/24/2020 HbA1c (hemo globi n A1c), blood hemoglobin A1C 5.8 % 0-5.6 high The Ameri can [employer] vic[employer] iatio n recom mends that a prima ry goal of thera py genaro mata be a HBA1C of < 7% and that physi cians shoul d reeva luate the treat ment regim en in patie nts with HBA1C value s consi stent ly > 8%. <5.7% Myranda l 5.7 - 6.4% Incre ased risk for diabe vicenta >=6.5 % Diagn ostic of diabe vicenta <7.0% Goal of thera py >8.0% Actio n jordin steadolfo Not Available [facility] (Lab) [address], [place], [address], 06/25/2020 11:29:19 06/25/19 21 06/24/2020 lipid panel , blood total cholesterol 250 mg/dL 0-199 high Not Available [facility] (Lab) [address] [place], [address], 06/25/2020 11:29:20 06/25/19 21 06/24/2020 lipid panel , blood triglyceride s 96 mg/dL 0-150 NCEP Refer ence Value s for Trigl yceri prashanth: Myranda l: <150 mg/dL Borde rline High: 150 - 199 mg/dL High: 200 - 499 mg/dL Very High: >/= 500 mg/dL Not Available [facility] (Lab) [address] [place], [address], 06/25/2020 11:29:20 06/25/19 21 06/24/2020 lipid panel , blood HDL cholesterol 66 mg/dL 40-240 Not Available [facility] (Lab) [address] [place], [address], 06/25/2020 11:29:20 06/25/19 21 06/24/2020 lipid panel , blood LDL cholesterol 165 mg/dL 0-99 high Cutof f value s recom ilana d by the Natio nal Gloria stero l Educa tion Progr am: FRED ABLE: Gloria stero l <200 mg/dL LDL <100 mg/dL BORDE RLINE : Gloria stero l 200-2 39 mg/dL LDL 101-1 59 mg/dL HIGHE R RISK: Gloria stero l >240 mg/dL LDL >160 mg/dL , HDL <40 mg/dL Not Available [facility] (Lab) [address], [place], [address], 06/25/2020 11:29:20 06/25/19 21 06/24/2020 lipid panel , blood non-HDL cholesterol 184 mg/dL 0-129 high A reaso nable goal for non-H DL gloria stero l is one that is 30 mg/dL highe r than the LDL gloria stero l goal. Not Available [facility] (Lab) [address] [place], [address], 06/25/2020 11:29:20 06/25/19 21 06/24/2020 lipid panel , blood chol/HDL ratio 3.8 . 0.0-5. 0 Not Available [facility] (Lab) [address] [place], [address], 06/25/2020 11:29:20 06/25/19 21 06/24/2020 CMP, serum or plasm a sodium 145 mmol/ L 136-14 5 Not Available [facility] (Lab) [address] [place], [address], 06/25/2020 11:29:20 06/25/19 21 06/24/2020 CMP, serum or plasm a potassium 4.3 mmol/ L 3.5-5. 3 Not Available [facility] (Lab) [address] [place], [address], 06/25/2020 11:29:20 06/25/19 21 06/24/2020 CMP, serum or plasm a chloride 104 mmol/ L 98-107 Not Available [facility] (Lab) [address], [place], [address], 06/25/2020 11:29:20 06/25/19 21 06/24/2020 CMP, serum or plasm a carbon dioxide 27 mmol/ L 23-31 Not Available [facility] (Lab) [address], [place], [address], 06/25/2020 11:29:20 06/25/19 21 06/24/2020 CMP, serum or plasm a anion gap 14 mmol/ L 8-16 Not Available [facility] (Lab) [address], [place], [address], 06/25/2020 11:29:20 06/25/19 21 06/24/2020 CMP, serum or plasm a blood urea nitrogen 12.0 mg/dL 8.0-23 .0 Not Available [facility] (Lab) [address] [place], [address], 06/25/2020 11:29:20 06/25/19 21 06/24/2020 CMP, serum or plasm a creatinine 0.90 mg/dL (based on legal sex) .5-1.2 Not Available [facility] (Lab) [address], [place], [address], 06/25/2020 11:29:20 06/25/19 21 06/24/2020 CMP, serum or plasm a GFR () 77 mL/mi n/1.7 3_m2 60-300 Not Available [facility] (Lab) [address] [place], [address], 06/25/2020 11:29:20 06/25/19 21 06/24/2020 CMP, serum or plasm a GFR (others) 64 mL/mi n/1.7 3_m2 60-300 Not Available [facility] (Lab) [address] [place], [address], 06/25/2020 11:29:20 06/25/19 21 06/24/2020 CMP, serum or plasm a calcium 9.8 mg/dL 8.4-10 .5 Not Available [facility] (Lab) [address] [place], [address], 06/25/2020 11:29:20 06/25/19 21 06/24/2020 CMP, serum or plasm a glucose 94 mg/dL 70-99 Not Available [facility] (Lab) [address] [place], [address], 06/25/2020 11:29:20 06/25/19 21 06/24/2020 CMP, serum or plasm a protein, total 7.2 g/dL 6.0-8. 3 Not Available [facility] (Lab) [address] [place], [address], 06/25/2020 11:29:20 06/25/19 21 06/24/2020 CMP, serum or plasm a albumin 4.6 g/dL 3.5-5. 0 Not Available [facility] (Lab) [address], [place], [address], 06/25/2020 11:29:20 06/25/19 21 06/24/2020 CMP, serum or plasm a ALT 15 units /L 9-43 Not Available [facility] (Lab) [address] [place], [address], 06/25/2020 11:29:20 06/25/19 21 06/24/2020 CMP, serum or plasm a alkaline phosphatase 61 units /L 35-129 Not Available [facility] (Lab) [address] [place], [address], 06/25/2020 11:29:20 06/25/19 21 06/24/2020 CMP, serum or plasm a AST 19 units /L (based on docume nted legal sex) 11-32 Not Available [facility] (Lab) [address] [place], [address], 06/25/2020 11:29:20 06/25/19 21 06/24/2020 CMP, serum or plasm a bilirubin, total 0.4 mg/dL 0.0-1. 0 Not Available [facility] (Lab) [address], [place], [address], 06/25/2020 11:29:20 06/25/19 21 06/24/2020 vitam in D, 25-hy droxy , total , serum vitamin D, 25-hydroxy, total 34.3 NG/mL 30-80 NOTE: Defic iency : <20 ng/mL Insuf ficie ncy: 20-29 ng/mL Optim um Level : 30-80 ng/mL Possi ble Toxic ity: >80 ng/mL Most patie nts with toxic ity have level s >150 ng/mL . Not Available [facility] (Lab) [address], [place], [address], 06/25/2020 11:29:21 06/25/19 21 06/24/2020 TSH, serum or plasm a TSH 5.63 uIU/m L 0.30-5 .00 high Not Available [facility] (Lab) [address] [place], [address], 06/25/2020 11:29:21 06/25/19 21 06/24/2020 T4, free, serum T4, free 0.73 NG/dL 0.80-1 .80 low Not Available [facility] (Lab) [address] [place], [address], 06/26/2020 03:58:05 06/25/19 21 06/24/2020 pap, IG Pap test SEE RESULT S BELOW abnormal CASE REPOR T: Cytol ogy Gynec ologi leonardo Repor t Case: [id number] Autho ashok g Provi mario: Gama Castellano Colle cted: 06/24 1447 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 Elect jamie mata by Asha Marhsall MD on 021 at 11:41 AM ----- [...] patie nt consi derat ions. Not Available [facility] (Lab) [address], [place], [address], 06/26/2020 12:45:05 06/25/19 21 06/24/2020 [facility] HIV Ag-Ab total quant 0.08 idx <1.00 Not Available [facility] (Lab) [address], [place], [address], 06/26/2020 12:49:08 06/25/19 21 06/24/2020 [facility] HIV Ag-Ab total Non-re active non-re active Not Available [facility] (Lab) [address], [place], [address], 06/26/2020 12:49:08 06/25/19 21 06/24/2020 [facility] HIV-1 antibody quant 0.04 idx <1.[address] [facility] (Lab) [address], [place], [address], 06/26/2020 12:49:08 06/25/19 21 06/24/2020 [facility] HIV-1 antibody Non-re active non-re active Not Available [facility] (Lab) [address], [place], [address], 06/26/2020 12:49:08 06/25/19 21 06/24/2020 [facility] HIV-1 antigen (P24) quant 0.08 idx <1.00 Not Available [facility] (Lab) [address] [place], [address], 06/26/2020 12:49:08 06/25/19 21 06/24/2020 [facility] HIV-1 antigen (P24) Non-re active non-re active Not Available [facility] (Lab) [address], [place], [address], 06/26/2020 12:49:08 06/25/19 21 06/24/2020 [facility] HIV-2 antibody quant 0.03 idx <1.[address] [facility] (Lab) [address], [place], [address], 06/26/2020 12:49:08 06/25/19 21 06/24/2020 [facility] HIV-2 antibody Non-re active non-re active [...] on will be perfo rmed by the beprettyni us HIV 1/2 Suppl ement al Assay . The perfo rmanc e of this assay has not been estab lishe d for neona vicenta and the assay shoul d not be used in indiv idual s young er than 2 years of age. 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 Not Available [facility] (Lab) [address], [place], [address], 05/11/2023 20:49:08 07/16/19 21 07/15/2020 MAMMO , scree kristy, bilat eral No observ ation record ed. [facility] (Imaging) [address], [place], [address], 07/21/2020 17:21:15 05/18/19 24 05/17/2023 US, breas t, bilat eral, compl ete No observ ation record ed. [facility] [address], [place], [address], 05/30/2023 01:17:32 05/18/19 24 05/17/2023 MAMMO , diagn ostic , digit al, bilat eral No observ ation record ed. [email or web address] [address], [place], [address], 05/18/2023 17:52:20 Result Notes None recorded. Problems Name Problem SNOMED Code Status Onset Date Resolution Date Notes Provider Name and Address Organization Details Recorded Time Adult health examinat ion Completed 201405/18/2021 ROUTINE MEDICAL EXAM;Gentry rded Elsewhere : No Locati on: [facility] So urce: EHR Chron ic: N Practic e ID: [id number] Bill able Time: 02:30:00 PM Nimcolyn barreto [facility] 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 2 10:19:26 Atypical squamous cells on cervical Papanico laou smear cannot exclude high grade squamous intraepi thelial lesion [id number] Completed 201405/18/2021 Papanicol aou smear of cervix with atypical squamous cannot exclude high grade squamous intraepit helial lesion (ASC-H);R ecorded Elsewhere : No Locati on: [facility] So urce: EHR Chron ic: N Practic e ID: [id number] Bill able Time: 02:28:55 PM Nimco barreto [facility] 2 10:19:18 Screenin g for malignan t neoplasm of rectum Completed 201605/18/2021 Encounter for screening for malignant neoplasm of rectum;Pr actice ID: [id number] Nimco barreto [facility] 2 10:19:23 Abscess of vulva [id number] Completed 201605/18/2021 Abscess of vulva;Rec orded Elsewhere : No Locati on: [facility] So urce: EHR Chron ic: N Practic e ID: [id number] Bill able Time: 09:15:00 AM Nimco barreto [facility] [address] 10:19:[address] Concept Completed 201705/18/2021 Encntr for juice scaleman exam (general) (routine) w/o abn findings; Practice ID: [id number] Nimco barreto [facility] 2 10:19:25 Body mass index 25-29 - overweig [id number] Completed 201705/18/2021 Body mass index (BMI) 29.0-29.9 , adult;Rec orded Elsewhere : No Locati on: [facility] So urce: EHR Chron ic: N Practic e ID: [id number] Bill able Time: 11:00:00 [facility] 10:19:20 Screenin g for malignan t neoplasm of cervix Completed 201705/18/2021 Screening for malignant neoplasms of the cervix;Re corded Elsewhere : No Locati on: [facility] So urce: EHR Chron ic: N Practic e ID: [id number] Bill able Time: 11:00:00 AM Nimco barreto [facility] 2 10:19:21 Problem Notes None recorded. Procedures Surgical History Date Name Laterality Status Provider Name and Address Organization Details Recorded Time 05/26/19 22 I&D completed Venancio Clements MD [address], [place], [address], [facility] 05/25/2021 22:57:40 04/25/19 22 completed [facility] 05/18/2021 10:42:58 04/25/19 22 Date of Last Colonoscopy completed [facility] 05/18/2021 10:42:58 07/16/19 21 Date of Last Mammogram completed [facility] 05/18/2021 10:46:50 06/25/19 21 Date of Last Pap Smear completed [facility] 05/18/2021 10:45:03 10/06/19 18 completed [facility] 06/24/2020 10:00:26 Vaginal hysterectomy completed [facility] 06/24/2020 10:01:36 Imaging Results None recorded. Procedure Notes None recorded. Medical Equipment None [...] times every day 09/05 completed Prescrib ed [facility] e: No Locat ion: [facility] odify By: jasmin salcedo DateTime : [...] completed Not Available Not Available Not Available TruHearingTouch Ultra Test strips USE TO TEST BLOOD [...] Prescrib ed Elsewher e: No Locat ion: [facility] M odify By: [email or web address] Encounte r DateTime : 08/27/19 09:15:00 AM Not Available Not Available Not [...] Body mass index (BMI) Body weight Systolic And Diastolic Provider Name and Address Organization Details Last Updated DateTime 05/05/2023 160.02 cm 33.2 kg/m2 68619.49 g 137/88 mm[Hg] Smitha Tapia [facility] 05/05/2023 11:57:05 Date Recorded Body height Body mass index (BMI) Body weight Systolic And Diastolic Provider Name and Address Organization Details Last Updated DateTime 05/18/2021 160.02 cm 30.6 kg/m2 65878.48 g 120/80 mm[Hg] Nimco Baker [facility] 05/18/2021 10:42:49 Date Recorded Body height Body mass index (BMI) Body weight Systolic And Diastolic Provider Name and Address Organization Details Last Updated DateTime 05/25/2021 160.02 cm 30.6 kg/m2 28620.48 g 126/76 mm[Hg] Nimco Baker [facility] 05/25/2021 14:56:36 Date Recorded Systolic And Diastolic Provider Name and Address Organization Details Last Updated DateTime 06/24/2020 123/80 mm[Hg] Evangelina Capps, [facility]- [address], [place], [address], [facility] 06/24/2020 10:04:04 Date Recorded Body height Body mass index (BMI) Body weight Provider Name and Address Organization Details Last Updated DateTime 06/24/2020 160.02 cm 28.3 kg/m2 86742.78 g Margret Ontiveros [facility] 06/24/2020 09:59:51 Social History Question Answer Notes LastModified by Organizat ion Details LastModified Time Tobacco Smoking Status Never Smoker [facility] 05/18/2021 10:43:02 How Many Years Have You Consumed Alcohol? [...] Or The Highest Degree You Have Received? [id number] Information not available 05/18/2021 Are There Any [...] IV Drugs? No Information not available 05/18/2021 Do You Have Difficulty Walking Or Climbing Stairs? No Information not available 05/18/2021 Sex: Unknown Functional Status Question Answer Note LastModified by Organizat ion Details LastModified Time Do you use any illicit or recreational drugs? No Information not available 05/18/2021 What is your level of alcohol consumption? None Information not available 05/18/2021 Are you able to walk independently without assistance or assistive devices? YESWOREST Information not available 05/18/2021 Are you able to care for yourself independently? 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 No Information not available 05/18/2021 What is [...] (Food, seasonal, environmental ) N Other N Blood Transfusion N Drug/Latex Allergies/Reactions N Breast Cancer N Dermatologic Disorders N Lung Disease N [...] ICD10 Code Diagnosis IMO Codes Diagnosis Note [id number] [facility]apps [facility] [address] [address] 06/24/2020 09:38:26 06/24/2020 10:32:04 Gynecologic examination [id number] Z01.419 Take Calcium with Vitamin D 12-1500mg daily. Do monthly self breast exams. It is advised to get annual flu shot in the fall and she could obtain at [facility] or [facility] clinic. If you haven't received the Tdap [...] new partners Colon-PCP managed Dexa ordered Adult [facility] th examination [id number] Z00.00 Wants new PCP. Referral made. Reports hx of thyroid dz but does not routine take her medication . Will update her labs & refer out if needed. Postmenopa usal osteopenia [id number] M85.80 [id number] Evangelina Capps , [facility] [address],[place] [address] 05/18/2021 10:29:53 05/18/2021 11:28:26 Comedone present [id number] L70.0 Today, we discussed shaving hygeine & [...] this patient s visit, including available hand manager life sciences upon arrive, temperatur e check and being asked a series of screening questions. All staff wore face coverings during this encounter, as well as provided additional cleaning and sanitizing of all surfaces, including countertop s, pens, chairs, door handles, light switches, etc, prior to and following the patient s visit. [id number] Venancio Clements MD [facility] [address],[facility] [address] 05/23/2021 10:33:55 05/23/2021 12:01:43 Obesity [id number] E66.9 Lesion of vulva [id number] N90.89 This patient is a 60-year-ol [...] weight and historical body weights. She is considertay valenzuela returning to join our weight loss program. Talked about a vulvar lesion agreed to meet for the vulvar lesion. [id number] Venancio Clements MD [facility] [address] [address] 05/25/2021 14:36:35 05/26/2021 11:01:41 Lesion of vulva [id number] N90.89 incision drainage a 0 inclusion cyst, she tolerated well. [id number] Evangelina Capps [facility] [address],[place] [address] 05/05/2023 11:41:09 05/05/2023 12:15:56 Gynecologic examination [id number] Z01.419 Take Calcium with Vitamin D 12-1500mg daily. Do monthly self breast exams. It is advised to get annual flu shot in the fall and she could obtain at [facility] or [facility] care clinic. If you haven't received the [...] ago; talking to old boyfriend Colon-PCP managed Dexa orderedLab s PCP Screening mammography [id number] 320704 Z12.31 Extremely dense breast composition [id number] N63.0 Dense on exam Vaginitis [id number] N76.0 PRN use Health Concerns Section Related Observation LastModified by Organization Detai ls LastModified Time None Recorded Concern Status LastModified by Organization Details LastModified Time None Recorded Advance Directives Directive None Recorded Payers Insurance Date Sequence Insurance Name Policy Number Policy Fu Covered Member ID Fu Member ID Guarantor Name 05/10/2023 1 [facility] (MEDICAID HMO) [id number] Tatiana Loya [id number] Ming Loya Notes Date Note Type Note Provider Name and Address Organization Details Recorded Time 1 text/html Annual Transportation Assistant Post-MenopausalReported by PatientGenitourinary symptomsFor menopausal symptoms, patient reportsno menopausal symptomsandnormal vaginal lubrication. For vaginal bleeding, patient reportshistory of menopause having occurredandno history of post menopausal bleeding. For urinary symptoms, patient reportsno hematuria,no incontinence,no nocturia, andno urinary frequency. For vulva, patient reportsno genital lesionandno vulvar atrophy. For vagina, patient reportsnormal vaginal dischargeandno vaginal atrophy.Breast symptomsFor breast, patient reportsno breast lump,no nipple discharge, andno breast pain.Psychological symptomsFor sexual complaints, patient reportsno sexual complaints. For psychological symptoms, patient reportsno depressionandno anxiety.Preventative measuresFor preventive measures, patient reportsencourage regular mammograms starting age 40,encourage self breast examination,encourage regular exercise,encourage no tobacco use,needs to schedule mammogram,history of recent colonoscopy, andneeds to schedule bone density. Evangelina Capps [facility] [address], [place], [address], [facility] 06/24/2020 10:31:58 2 text/html ROS as noted in the HPI Here today with concerns of bumps undermy arms and bikini areas after I shave. This has been going on for >6mos but feels creates more bumps now.She shaves with a triple blade disposable razor.Uses bath & body soaps.Does not always moisturize in these areas.No pain.Neg N/V/F/D/CNeg drainage in these areas.Neg itching, odor, vag d/c.Neg urinary sx'sNeg GI sx'sNeg Hx of skin conditions Evangelina Capps [facility] [address], [place], [address], [facility] 05/18/2021 11:13:35 2 text/html This patient is a 60-year-old female [...] lesion. Venancio Clements MD [address], [place], [address], [facility] 05/23/2021 12:00:39 2 text/html Patient presents for incision drainage of vulvar lesion. She has a small inclusion cyst on the left labia. It is slightly less than a cm. Venancio Clements MD [address], [place], [address], [facility] 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 For vaginal bleeding, patient reportshistory of menopause having occurredandno history of post menopausal bleeding. For urinary symptoms, patient reportsno hematuria,no incontinence,no nocturia, andno urinary frequency. For vulva, patient reportsno genital lesionandno vulvar atrophy. For vagina, patient reportsnormal vaginal dischargeandno vaginal atrophy.Breast symptomsFor breast, patient reportsno breast lump,no nipple discharge, andno breast pain.Psychological symptomsFor sexual complaints, patient reportsno sexual complaints. For psychological symptoms, patient reportsno depressionandno anxiety.Preventative measuresFor preventive measures, patient reportsencourage regular mammograms starting age 40,encourage self breast examination,encourage regular exercise,encourage no tobacco use,needs to schedule mammogram, andhistory of recent colonoscopy. Evangelina Capps, [facility] [address], [place], [address], [facility] 05/05/2023 12:15:43 OBGyn Episode Ob Episode Information Episode Created Date Number of Fetuses Patient Bloodtype Patient rh Status Prepregnancy Weight lbs Domestic Partner Domestic Partner Phone Father Name Special Education Teaching Assistant Status 06/25/19 21 1 CLOSED Fetus Data First Name Last Name Admitted to NICU Weight (g) Sex Living Outcome Pediatric Complications Fetus ID Race Codes Race Delivery Type , Spontane ous [id number] Daniele Calculation Initial Daniele Date Initial Exam [...] Domestic Partner Domestic Partner Phone Father Name Special Education Teaching Assistant Status 06/25/19 21 1 CLOSED Fetus Data [...]
[2024-12-19 13:01] VITALS: BP 114/72; PULSE 98; RESP 19; TEMP 36.8; O2SAT 96
[2024-12-19 13:14] VITALS: BP 114/72; PULSE 98; RESP 16; TEMP 36.8; O2SAT 96
[2024-12-19 13:22] VITALS: BP 115/91; PULSE 92; RESP 16; TEMP 36.6; O2SAT 100
[2024-12-19 13:36] LABS: Hematocrit 43.9 % (37.0-47.0); Hemoglobin 13.9 g/dL (12.0-15.0); Immature Granulocyte Percent A 0.2 % (0-0.5); Lymphocytes Absolute Auto 2.07 K/mm3 (0.9-3.2); Mean Corpuscular HGB Conc 31.7 g/dl (32-36); Mean Corpuscular Hemoglobin 30.2 pg (26-34); Mean Corpuscular Volume 95.2 fl (80-100); Nucleated Red Blood Cells Absolute Auto 0.000 K/mm3 (0.0-0.012); Nucleated Red Blood Cells Perc 0.0 % (0.0-0.2); Platelet Count Result 199 k/mm3 (150-375); Red Blood Count 4.61 M/mm3 (4.2-5.4); White Blood Count 5.0 K/mm3 (4.5-10.0)
[2024-12-19 13:53] LABS: Alanine Aminotransferase 19 U/L (6-35); Albumin Level 4.6 g/dL (3.5-5.1); Alkaline Phosphatase 56 U/L (38-126); Anion Gap 9 mmol/L (4-12); Aspartate Amino Transferase 34 U/L (14-36); Bilirubin,Total 0.7 mg/dL (0.2-1.3); Blood Urea Nitrogen 10 mg/dL (7-17); Calcium 9.1 mg/dL (8.4-10.2); Carbon Dioxide 23 mmol/L (22-30); Chloride 106 mmol/L (98-107); Estimated CRCL calculation 64 ml/min; Estimated Glomerular Filt Rate > 60; Glucose 89 mg/dL (65-110); Potassium 4.3 mmol/L (3.4-5.0); Sodium 138 mmol/L (137-145); Total Protein 8.1 g/dL (6.3-8.2)
[2024-12-19 13:54] LABS: INR 1.0; Partial Thromboplastin Time 26.0 Seconds (22.3-36.8); Prothrombin Time 12.7 Seconds (11.1-14.7)
--- OUTSIDE RECORDS SUMMARY | 2024-12-19 14:10 | XMS_ITS | Clinical Summary ---
Author Organization [facility] Address [address] [place] [address] Care Team Providers Care Residential Appliance Repair Technician Name Role Phone Mita Boland [facility] Primary Care Provider + Allergies No [...] Comments Blood Pressure 147/93 05/04/2023 6:30 PM EMU FARM WORKER Pulse 78 05/04/2023 6:30 PM EMU FARM WORKER Temperature 36.1 C (97 F) 05/04/2023 6:30 PM EMU FARM WORKER Respiratory Rate 18 05/04/2023 6:30 PM EMU FARM WORKER Oxygen Saturation 100% 05/04/2023 6:30 PM EMU FARM WORKER Inhaled Oxygen Concentration - - Weight 81.6 kg (180 lb) 05/04/2023 6:30 PM EMU FARM WORKER Height 162.6 cm (5' 4) 05/04/2023 6:30 PM EMU FARM WORKER Body Mass Index 30.9 05/04/2023 6:30 PM EMU FARM WORKER Plan of Treatment Health Maintenance Due Date [...] AM CDT COLONOSCOPY Routine 02/05/2011 12:00 AM EMU FARM WORKER from Last 3 Months or Most Recently Relevant to Health Maintenance Results * MG SCREENING DAYA DIGI (10/04/2015 11:56 AM CDT) Anatomical Region Laterality Modality Breast Bilateral Mammography 10/04/2015 11:5 6 AM CDT 10/04/2015 11:56 AM CDT Narrative 10/04/2015 12:02 PM CDT ANA LOYA ADMIT/SERVICE DATE: 10/04/15 ACCT: [id number] DISCHARGE DATE: : 1960 SEX: F ORD SITE: [facility] PT TYPE: REG CLI ORDERING MD: XENA MÉNDEZ DO STUDY DATE REPORT # ORDER # EXT ORDER ID 10/04/15 [id number] PROC CODE: SCMAMDGB PROCEDURE DESCRIPTION: MG SCREEN [...] - 01/11/2018 ANA LOYA ADMIT/SERVICE DATE:10/04/15 ACCT: [id number] DISCHARGE DATE: : 1960 SEX: F [facility] TYPE: REG CLI ORDERING MD:XENA MÉNDEZ DO STUDY DATE REPORT # ORDER # EXT ORDER ID 10/04/15 [id number] PROC CODE: SCMAMDGB PROCEDURE DESCRIPTION: MG SCREEN [...] Final Result * Colonoscopy (02/05/2011 12:00 AM EMU FARM WORKER) 02/05/2011 02/05/2011 Narrative [facility] TO EPIC CONVERSION - 02/05/2011 12:00 AM EMU FARM WORKER Documented hx of procedure Procedure Note Silvia Colon MD - 01/22/2018 Documented hx of procedure us Generic Conversion Md COLON GI PROCEDURE ORDERABLES Final Result [facility] TO EPIC CONVERSION from Last 3 Months or Most Recently Relevant to Health Maintenance Insurance [place] [employer] Care Teams Residential Appliance Repair Technician Relationship Specialty Start Date End Date Mita Boland, HYDRAULIC REPAIRER- [address] [place] [phone] PCP - General Nurse Practitioner Family 05/04/23
--- OUTSIDE RECORDS SUMMARY | 2024-12-19 14:10 | XMS_ITS | Data Portability ---
Author Organization [place] - [facility], Main Office Address [address] [place] [id number] Care Team Providers Care Numerical Control Router Operator Name Role Phone LUIS ANTONIO JOSE Primary Care Provider Assessment Encounter Date Assessment Date Assessment LastModified by Organization Details LastModified Time 09/21/2023 09/21/2023 I have reconcile d the patient's medications post their discharge from inpatient facility. [email or web address] Not available 09/21/2023 11:57:16 10/13/2023 10/13/2023 62 [...] in 3 weeks. Annual labs in 10/12. [email or web address] Not available 10/13/2023 10:34:32 11/09/2023 11/09/2023 62 [...] A1c in 02/11. Annual labs in 10/12. [email or web address] Not available 11/09/2023 14:37:38 04/05/2024 04/05/2024 63 [...] A1c in 07/13. Annual labs in 10/12. [email or web address] Not available 04/05/2024 10:29:03 09/05/2024 09/05/2024 63 yo F with - DM II, new - ANXIETY, stable - GALL STONES - RT LIVER CYST (1.8 cm) - HLD - CHRONIC CONSTIPATION - CHRONIC LOW BACK PAIN - OSTEOPENIA - SKIN LESIONS - OBESITY I - H/O HYPOTHYROIDISM HbA1c: 6.5(10/13/23) - 6.8(04/02/24) US liver: 10/14/23. Annual labs: 10/13/23. CT A&P with: 09/15/23. D/w pt about her findings, recent labs & imagines and further plan of care. Explained about different options for her. Pt declined for any ACEI/ARB at this time. Meds as directed. Diet and exercise explained in detail. BP & DM diary education given. F/u with counsellor as per schedule. F/u with Derm as per schedule. Cont f/u with Neuro at [place] as per schedule. Cont f/u with Ophtho and Dentist as per schedule. Pt got s/e from [facility]. Rybelsus, Mounjaro are too costly for pt. HM: WWE - 06/11, normal as per pt. Cont f/u with Gyne as per schedule. Mammo - 05/17/23, normal. DEXA - 04/02/24, osteopenia ++. Colonoscopy - 2022, 1 polyp ++. Cont f/u with GI as per schedule. Flu - Pt declined. Tdap - Pt declined. Pneumo - Pt declined. Shingrix - At pharmacy/HD. F/u in 2 months. Annual labs in 7/25. [email or web address] Not available 09/05/2024 11:25:15 Plan of Treatment Reminders Order Date Submit Date Provider Last Modified By Organization Details Last Modified Time Details Appointments Any 30 2024 09:30A M Luis Antonio Jose MD Not available Not available Not available Lab lipid panel, serum [address] (Lab), [address] [place], [address], 09/20/2024 13:56:01 glycohemo globin, total, blood [address] (Lab), [address] [place], [address], 10/08/2024 09:50:05 glycohemo globin, total, blood [address] (Lab), [address] [place], [address], 07/27/2024 15:45:17 glycohemo globin, total, blood [email or web address] (Lab), [address] [place], [address], 04/02/2024 11:26:15 vitamin D, 25-hydrox y, total, serum [address] (Lab), [address] [place], [address], 10/20/2023 08:43:00 vitamin B12 + folate, serum or blood [address] (Lab), [address] [place], [address], 10/20/2023 08:43:00 CBC w/ auto diff 2023 024 [facility] (Lab), [address] [place], [address], 10/13/2023 14:34:02 CMP, serum or plasma 2023 024 [facility] (Lab), [address] [place], [address], 10/13/2023 14:39:42 lipid panel, serum 2023 024 [facility] (Lab), [address] [place], [address], 10/13/2023 14:39:45 TSH, serum, reflex free T4 [address] (Lab), [address] [place], [address], 10/20/2023 08:42:59 urinalysi s complete, reflex culture [address] (Lab), [address] [place], [address], 10/20/2023 08:42:59 glycohemo globin, total, blood 2023 024 [facility] (Lab), [address] [place], [address], 10/13/2023 19:24:[address] referral - Please call patient to schedule an appointme nt. Thank you. 2024 025 [facility] [address] [place] [address] , [address], [place], [address], 04/05/2024 17:03:59 mental health counselor referral - Please call patient to schedule an appointme nt. Thank you. 2024 025 [email or web address] Leyla Matthew Ma [facility], [address] [facility], [address], [place], [address], 05/03/2024 09:03:53 gastroent erologist referral - Please call patient to schedule an appointme nt. Thank you. 2023 024 [email or web address] [facility], [address] [place], [address], 12/07/2023 08:45:47 hepatolog ist referral - Please call patient to schedule an appointme nt. Thank you. 2023 024 [email or web address] [facility], [address] [place], [address], 12/07/2023 08:45:[address] referral - Please call patient to schedule an appointme nt. Thank you 2023 024 [email or web address] [facility] [address] , [place] [address], [place], [address], 11/10/2023 08:44:13 dermatolo gist referral - Please call patient to schedule an appointme nt. Thank you. 2023 024 [email or web address] [facility], [address], [place], [address], 11/10/2023 08:43:50 physical therapist referral - *Please call pt to schedule* 2023 024 [email or web address] [address] [facility] [address] , [place], [address], 10/24/2023 09:09:13 Procedures None recorded. Surgeries None recorded. Imaging US, liver - *Please call pt to schedule* [address], [address] [place] [address], [address], 10/17/2023 10:23:13 DEXA - *Please call pt to schedule* [address] (Imaging), [address] [place] [address] [address], [place], [address], 04/03/2024 09:14:22 Medication Orders buspirone 10 mg tablet 2024 [facility]43646, [address], [place], [place], [id number], 09/05/2024 11:17:33 Calcium 600 + D(3) 600 mg-10 mcg (400 unit) tablet 2024 [facility] #70968, [address], [place], [place], [id number], 09/05/2024 11:17:31 rosuvasta tin 20 mg tablet 2024 [facility] #11086, [address], [place], [place], [id number], 09/05/2024 11:17:32 Linzess 290 mcg capsule 2024 [facility] #80143, [address], [place], [place], [id number], 09/05/2024 11:17:32 metformin ER 500 mg tablet,ex tended release 24 hr 2024 [facility] #07240, [address], [place], [place], [id number], 09/05/2024 11:17:30 Ozempic 0.25 mg or 0.5 mg (2 mg/3 mL) subcutane ous pen injector [email or web address] [place] [address] [facility] #39973, [address], [place], [place], [id number], 09/11/2024 08:41:46 buspirone 10 mg tablet 2024 [facility]79426, [address], [place], [place], [id number], 04/05/2024 10:15:30 rosuvasta tin 20 mg tablet 2024 [facility], [address], [place], [place], [id number], 04/05/2024 16:25:25 Calcium 600 + D(3) 600 mg-10 mcg (400 unit) tablet 2024 025 [facility] #77498, [address], [place], [place], [id number], 04/05/2024 10:14:06 Linzess 145 mcg capsule 2024 025 [email or web address] [facility] #33411, [address], [place], [place], [id number], 11/20/2024 15:14:10 Mounjaro 2.5 mg/0.5 mL subcutane ous pen injector 2024 025 [email or web address] [facility] #06267, [address], [place], [place], [id number], 11/20/2024 15:13:42 Farxiga 10 mg tablet 2024 025 [facility] #71305, [address], [place], [place], [id number], 04/05/2024 10:12:03 metformin ER 500 mg tablet,ex tended release 24 hr 2023 024 [facility], [address], [place], [place], [id number], 04/05/2024 10:24:39 Rybelsus 3 mg tablet 2023 024 [email or web address] [facility] #83820, [address], [place], [place], [id number], 11/20/2024 15:14:03 Trulance 3 mg tablet 2023 [facility] #38167, [address], [place], [place], [id number], 10/13/2023 10:25:56 cyclobenz aprine 10 mg tablet 2023 024 [facility] #47511, [address], [place], [place], [id number], 10/13/2023 10:10:39 diclofena c sodium 75 mg tablet,de layed release 2023 024 [facility] #33993, [address], [place], [place], [id number], 09/21/2023 11:28:28 polyethyl dennys glycol 3350 17 gram/dose oral powder 2023 024 [facility] #24677, [address], [place], [place], [id number], 09/21/2023 11:28:27 Linzess 145 mcg capsule 2023 024 [email or web address] [facility] #19310, [address], [place], [place], [id number], 11/20/2024 15:14:10 docusate sodium 100 mg capsule 2023 024 [facility] #05612, [address], [place], [place], [id number], 09/21/2023 11:28:26 rosuvasta tin 20 mg tablet 2023 [facility] #79490, [address] [facility], [place], [place], [id number], 09/21/2023 11:28:32 levothyro xine 88 mcg tablet 2023 [facility] #57993, [address] [facility], [place], [place], [id number], 09/21/2023 11:28:28 Patient TargetsNo targets recorded. Patient Instructions Encounter Date Encounter Id Patient Instructions Last Modified By Organization Details Last Modified Time 09/21/2023 [id number] learning about obesity [email or web address] Not available 09/21/2023 11:28:18 Thank you for [...] Not available 09/21/2023 11:11:03 Homebound Status : Required Home Health Services: Durable Medical Equipment needed: Billing Guidelines CPT code 67678- Transitional Care Management services with moderate medical decision complexity (merj-mz-tdww visit within 14 days of discharge). CPT code 76789- Transitional Care Management services with high medical decision complexity (crre-ef-qgue visit within 7 days of discharge). Not available 09/21/2023 11:11:03 10/13/2023 [id number] dash diet: care instructions [email or web address] Not available 10/13/2023 10:26:32 11/09/2023 [id number] starting a weigh t loss plan: care instructions Not available 11/09/2023 14:35:19 dash diet: care instructions [email or web address] Not available 11/09/2023 14:26:47 type 2 diabetes: care instructions Not available 11/09/2023 14:35:38 04/05/2024 [id number] dash diet: care instructions Not available 04/05/2024 10:11:58 starting a weigh t loss plan: care instructions [email or web address] Not available 04/05/2024 10:11:58 type 2 diabetes: care instructions [email or web address] Not available 04/05/2024 10:11:58 09/05/2024 [id number] dash diet: care instructions [email or web address] Not available 09/05/2024 11:17:19 starting a weigh t loss plan: care instructions [email or web address] Not available 09/05/2024 11:17:19 type 2 diabetes: care instructions [email or web address] Not available 09/05/2024 11:17:19 Reason for Referral Physical Therapist Referral for Chronic low back pain *Please call pt to schedule* Referring Physician: Family Clara Craven, Encounter Date: 09/21/2023 Activities Director Referral for C hange in skin lesion Please call patient to schedule an appointment. Thank you. Referring Physician: Family Clara Craven, Encounter Date: 10/13/2023 Neurologist Referral for Mem ory impairment Please call patient to schedule an appointment. Thank you Referring Physician: Family Clara Craven, Encounter Date: 10/13/2023 Electronic Component Processor Referral for Li cordell cyst Liver cyst, fatty liver, ? Fibrosis Please call patient to schedule an appointment. Thank you. Referring Physician: Family Clara Craven, Encounter Date: 11/09/2023 Leaf Size Picker Referral for Chronic idiopathic constipation Please call patient to schedule an appointment. Thank you. Referring Physician: Family Clara Craven, Encounter Date: 11/09/2023 Neurologist Referral for Mem ory impairment Please call patient to schedule an appointment. Thank you. Referring Physician: Family Clara Craven, Encounter Date: 04/05/2024 Mental Health Counselor Refe rral for Anxiety disorder Please call patient to schedule an appointment. Thank you. Referring Physician: Luis Antonio Jose, Family Medicine, Encounter Date: 04/05/2024 Results Created Date Observation Date Name Description Value Unit Range Abnormal Flag Note LastModifiedBy Organization Detail LastModifiedTime 10/13/19 24 10/13/2023 CBC/C OMPLE TE BLD COUNT W/DIF F white blood cells 5.5 x10'3 /uL 4.2-10 .8 Not Available [facility] (Lab) [address] [place], [address], 10/13/2023 14:34:02 10/13/19 24 10/13/2023 CBC/C OMPLE TE BLD COUNT W/DIF F red blood cells 4.47 x10'6 /uL 3.80-5 .20 Not Available [facility] (Lab) [address] [place], [address], 10/13/2023 14:34:02 10/13/19 24 10/13/2023 CBC/C OMPLE TE BLD COUNT W/DIF F hemoglobin 14.1 g/dL 12.0-1 5.6 Not Available [facility] (Lab) [address] [place], [address], 10/13/2023 14:34:02 10/13/19 24 10/13/2023 CBC/C OMPLE TE BLD COUNT W/DIF F hematocrit 43.2 % 35.7-4 5.7 Not Available [facility] (Lab) [address] [place], [address], 10/13/2023 14:34:02 10/13/19 24 10/13/2023 CBC/C OMPLE TE BLD COUNT W/DIF F mean red cell volume 96.6 fL 82.0-9 9.0 Not Available [facility] (Lab) [address] [place], [address], 10/13/2023 14:34:02 10/13/19 24 10/13/2023 CBC/C OMPLE TE BLD COUNT W/DIF F mean red cell hemoglobin 31.5 pg 27.0-3 3.0 Not Available [facility] (Lab) [address] [place], [address], 10/13/2023 14:34:02 10/13/19 24 10/13/2023 CBC/C OMPLE TE BLD COUNT W/DIF F mean RBC HGB concentratio n 32.6 g/dL 31.0-3 6.0 Not Available [facility] (Lab) [address] [place], [address], 10/13/2023 14:34:02 10/13/19 24 10/13/2023 CBC/C OMPLE TE BLD COUNT W/DIF F red cell distribution width 12.8 % 11.8-1 5.5 Not Available [facility] (Lab) [address] [place], [address], 10/13/2023 14:34:02 10/13/19 24 10/13/2023 CBC/C OMPLE TE BLD COUNT W/DIF F platelets 186 x10'3 /uL 150-40 0 Not Available [facility] (Lab) [address] [place], [address], 10/13/2023 14:34:02 10/13/19 24 10/13/2023 CBC/C OMPLE TE BLD COUNT W/DIF F mean platelet volume 11.9 fL 9.0-12 .4 Not Available [facility] (Lab) [address] [place], [address], 10/13/2023 14:34:02 10/13/19 24 10/13/2023 CBC/C OMPLE TE BLD COUNT W/DIF F neutrophils 47.6 % 39.0-7 2.0 Not Available [facility] (Lab) [address] [place], [address], 10/13/2023 14:34:02 10/13/19 24 10/13/2023 CBC/C OMPLE TE BLD COUNT W/DIF F lymphocytes 40.3 % 16.0-[address] [facility] (Lab) [address] [place], [address], 10/13/2023 14:34:02 10/13/19 24 10/13/2023 CBC/C OMPLE TE BLD COUNT W/DIF F monocytes 8.6 % 5.0-12 .0 Not Available [facility] (Lab) [address] [place], [address], 10/13/2023 14:34:02 10/13/19 24 10/13/2023 CBC/C OMPLE TE BLD COUNT W/DIF F eosinophils 2.4 % 1.0-7. 0 Not Available [facility] (Lab) [address] [place], [address], 10/13/2023 14:34:02 10/13/19 24 10/13/2023 CBC/C OMPLE TE BLD COUNT W/DIF F basophils 0.7 % 0.0-2. 0 Not Available [facility] (Lab) [address] [place], [address], 10/13/2023 14:34:02 10/13/19 24 10/13/2023 CBC/C OMPLE TE BLD COUNT W/DIF F immature granulocytes 0.4 % 0.00-0 .50 Not Available [facility] (Lab) [address] [place], [address], 10/13/2023 14:34:02 10/13/19 24 10/13/2023 CBC/C OMPLE TE BLD COUNT W/DIF F neutrophils, absolute count 2.62 x10'3 /uL 1.5-8. 0 Not Available [facility] (Lab) [address] [place], [address], 10/13/2023 14:34:02 10/13/19 24 10/13/2023 CBC/C OMPLE TE BLD COUNT W/DIF F lymphocytes, absolute count 2.21 x10'3 /uL 1.07-3 .43 Not Available [facility] (Lab) [address] [place], [address], 10/13/2023 14:34:02 10/13/19 24 10/13/2023 CBC/C OMPLE TE BLD COUNT W/DIF F monocytes, absolute count 0.47 x10'3 /uL 0.29-0 .99 Not Available [facility] (Lab) [address] [place], [address], 10/13/2023 14:34:02 10/13/19 24 10/13/2023 CBC/C OMPLE TE BLD COUNT W/DIF F eosinophils, absolute count 0.13 x10'3 /uL 0.02-0 .53 Not Available [facility] (Lab) [address] [place], [address], 10/13/2023 14:34:02 10/13/19 24 10/13/2023 CBC/C OMPLE TE BLD COUNT W/DIF F basophils, absolute count 0.04 x10'3 /uL 0.01-0 .08 Not Available [facility] (Lab) [address] [place], [address], 10/13/2023 14:34:02 10/13/19 24 10/13/2023 CBC/C OMPLE TE BLD COUNT W/DIF F immature granulocytes ,absolute 0.02 x10'3 /uL 0.00-0 .05 Not Available [facility] (Lab) [address] [place], [address], 10/13/2023 14:34:02 10/13/19 24 10/13/2023 CBC/C OMPLE TE BLD COUNT W/DIF F nucleated red blood cells 0.0 % -0 Not Available [facility] (Lab) [address] [place], [address], 10/13/2023 14:34:02 10/13/19 24 10/13/2023 CBC/C OMPLE TE BLD COUNT W/DIF F NRBC# 0.00 x10'3 /uL Not Available [facility] (Lab) [address] [place], [address], 10/13/2023 14:34:02 10/13/19 24 10/13/2023 COMPR EHENS ADY METAB OLIC PANEL sodium 140 mmol/ L 137-14 5 Not Available [facility] (Lab) [address] [place], [address], 10/13/2023 14:39:42 10/13/19 24 10/13/2023 COMPR EHENS ADY METAB OLIC PANEL potassium 4.2 mmol/ L 3.5-5. 1 Not Available [facility] (Lab) [address] [place], [address], 10/13/2023 14:39:42 10/13/19 24 10/13/2023 COMPR EHENS ADY METAB OLIC PANEL chloride 109 mmol/ L 98-107 high Not Available [facility] (Lab) [address] [place], [address], 10/13/2023 14:39:42 10/13/19 24 10/13/2023 COMPR EHENS ADY METAB OLIC PANEL carbon dioxide 29 mmol/ L 22-30 Not Available [facility] (Lab) [address] [place], [address], 10/13/2023 14:39:42 10/13/19 24 10/13/2023 COMPR EHENS ADY METAB OLIC PANEL anion gap 6.2 mmol/ L 14-22 low Not Available [facility] (Lab) [address] [place], [address], 10/13/2023 14:39:42 10/13/19 24 10/13/2023 COMPR EHENS ADY METAB OLIC PANEL glucose 113 mg/dL 70-99 high Not Available [facility] (Lab) [address] [place], [address], 10/13/2023 14:39:42 10/13/19 24 10/13/2023 COMPR EHENS ADY METAB OLIC PANEL BUN 12 mg/dL 8-19 Not Available [facility] (Lab) [address] [place], [address], 10/13/2023 14:39:42 10/13/19 24 10/13/2023 COMPR EHENS ADY METAB OLIC PANEL creatinine 0.79 mg/dL 0.66-1 .25 Not Available [facility] (Lab) [address] [place], [address], 10/13/2023 14:39:42 10/13/19 24 10/13/2023 COMPR EHENS ADY METAB OLIC PANEL GFR >60 Refer ence Range : [place] ge GFR Healt hy Adult : >60 [...] of age, a pedia tric GFR calcu latwilbert is avail able on the [facility] websi te: https :[email or web address] [email or web address] [email or web address] queen/pr ofess ional s/kdo qi/gf r_cal culat or Not Available [facility] (Lab) [address] [place], [address], 10/13/2023 14:39:42 10/13/19 24 10/13/2023 COMPR EHENS ADY METAB OLIC PANEL alkaline phosphatase 62 U/L 38-126 Not Available [facility] (Lab) [address] [place], [address], 10/13/2023 14:39:42 10/13/19 24 10/13/2023 COMPR EHENS ADY METAB OLIC PANEL alanine aminotransfe rase 30 U/L 0-35 Not Available [facility] (Lab) [address] [place], [address], 10/13/2023 14:39:42 10/13/19 24 10/13/2023 COMPR EHENS ADY METAB OLIC PANEL aspartate aminotransfe rase 35 U/L 15-37 Not Available [facility] (Lab) [address] [place], [address], 10/13/2023 14:39:42 10/13/19 24 10/13/2023 COMPR EHENS ADY METAB OLIC PANEL bilirubin, total 0.60 mg/dL 0.20-1 .30 Not Available [facility] (Lab) [address] [place], [address], 10/13/2023 14:39:42 10/13/19 24 10/13/2023 COMPR EHENS ADY METAB OLIC PANEL calcium 9.3 mg/dL 8.4-10 .2 Not Available [facility] (Lab) [address] [place], [address], 10/13/2023 14:39:42 10/13/19 24 10/13/2023 COMPR EHENS ADY METAB OLIC PANEL total protein 7.0 g/dL 6.3-8. 2 Not Available [facility] (Lab) [address] [place], [address], 10/13/2023 14:39:42 10/13/19 24 10/13/2023 COMPR EHENS ADY METAB OLIC PANEL albumin 4.4 g/dL 3.0-4. 4 Not Available [facility] (Lab) [address] [place], [address], 10/13/2023 14:39:42 10/13/19 24 10/13/2023 COMPR EHENS ADY METAB OLIC PANEL globulin 2.6 g/dL 2.6-4. 2 Not Available [facility] (Lab) [address] [place], [address], 10/13/2023 14:39:42 10/13/19 24 10/13/2023 COMPR EHENS ADY METAB OLIC PANEL A/G ratio 1.7 ratio 1.0-2. 0 Not Available [facility] (Lab) [address] [place], [address], 10/13/2023 14:39:42 10/13/19 24 10/13/2023 LIPID PANEL cholesterol 144 mg/dL 140-19 9 NIH TAYLER NSUS RECOM MENDA TION FOR ANNE-MARIE STERO L: ADULT CHILD LOW RISK: <200 <170 BORDE RLINE : <200- 239 ----- HIGH RISK: >240 >200 Not Available [facility] (Lab) [address] [place], [address], 10/13/2023 14:39:44 10/13/19 24 10/13/2023 LIPID PANEL triglyceride s 87 mg/dL 0-150 NIH TAYLER NSUS REPOR T RECOM MENDA TION FOR TRIGL YCERI IMAN: ADULT CHILD LOW RISK: <150 ----- BODER LINE: 150-1 99 ----- HIGH RISK: >200 ----- Not Available [facility] (Lab) [address] [place], [address], 10/13/2023 14:39:44 10/13/19 24 10/13/2023 LIPID PANEL HDL cholesterol 45 mg/dL 40- Not Available [facility] (Lab) [address] [place], [address], 10/13/2023 14:39:44 10/13/19 24 10/13/2023 LIPID PANEL [...] BE REPOR JOSHUA. Not Available [facility] (Lab) [address] [place], [address], 10/13/2023 14:39:44 10/13/19 24 10/13/2023 TSH W/REF LONG FT4 TSH with reflex free T4 3.060 uIU/m L 0.465- 4.680 Not Available [facility] (Lab) [address] [place], [address], 10/13/2023 14:52:23 10/13/19 24 10/13/2023 URINA LYSIS COMPL ETE/I RIS W/RFX color LIGHT- YELLOW Not Available [facility] (Lab) [address] [place], [address], 10/13/2023 14:55:27 10/13/19 24 10/13/2023 URINA LYSIS COMPL ETE/I RIS W/RFX appear TURBID abnormal Not Available [facility] (Lab) [address] [place], [address], 10/13/2023 14:55:27 10/13/19 24 10/13/2023 URINA LYSIS COMPL ETE/I RIS W/RFX specific gravity 1.020 1.001- 1.030 Not Available [facility] (Lab) [address] [place], [address], 10/13/2023 14:55:27 10/13/19 24 10/13/2023 URINA LYSIS COMPL ETE/I RIS W/RFX pH 6.5 pH_un its 5.0-9. 0 Not Available [facility] (Lab) [address] [place], [address], 10/13/2023 14:55:27 10/13/19 24 10/13/2023 URINA LYSIS COMPL ETE/I RIS W/RFX leukocytes 25 karime/u L negati ve- abnormal Not Available [facility] (Lab) [address] [place], [address], 10/13/2023 14:55:27 10/13/19 24 10/13/2023 URINA LYSIS COMPL ETE/I RIS W/RFX nitrite NEGATI VE negati ve- Not Available [facility] (Lab) [address] [place], [address], 10/13/2023 14:55:27 10/13/19 24 10/13/2023 URINA LYSIS COMPL ETE/I RIS W/RFX protein NEGATI VE mg/dL negati ve- Not Available [facility] (Lab) [address] [place], [address], 10/13/2023 14:55:27 10/13/19 24 10/13/2023 URINA LYSIS COMPL ETE/I RIS W/RFX glucose NORMAL mg/dL normal - Not Available [facility] (Lab) [address] [place], [address], 10/13/2023 14:55:27 10/13/19 24 10/13/2023 URINA LYSIS COMPL ETE/I RIS W/RFX ketones NEGATI VE mg/dL negati ve- Not Available [facility] (Lab) [address] [place], [address], 10/13/2023 14:55:27 10/13/19 24 10/13/2023 URINA LYSIS COMPL ETE/I RIS W/RFX urobilinogen NORMAL mg/dL normal - Not Available [facility] (Lab) [address] [place], [address], 10/13/2023 14:55:27 10/13/19 24 10/13/2023 URINA LYSIS COMPL ETE/I RIS W/RFX bilirubin NEGATI VE mg/dL negati ve- Not Available [facility] (Lab) [address] [place], [address], 10/13/2023 14:55:27 10/13/19 24 10/13/2023 URINA LYSIS COMPL ETE/I RIS W/RFX blood NEGATI VE mg/dL negati ve- Not Available [facility] (Lab) [address] [place], [address], 10/13/2023 14:55:27 10/13/19 24 10/13/2023 URINA LYSIS COMPL ETE/I RIS W/RFX white blood cells 0-8 /i??h pfi?? 0-8 Not Available [facility] (Lab) [address] [place], [address], 10/13/2023 14:55:27 10/13/19 24 10/13/2023 URINA LYSIS COMPL ETE/I RIS W/RFX red blood cells 0-4 /i??h pfi?? 0-4 Not Available [facility] (Lab) [address] [place], [address], 10/13/2023 14:55:27 10/13/19 24 10/13/2023 URINA LYSIS COMPL ETE/I RIS W/RFX bacteria NONE Not Available [facility] (Lab) [address] [place], [address], 10/13/2023 14:55:27 10/13/19 24 10/13/2023 URINA LYSIS COMPL ETE/I RIS W/RFX mucous OCCASI ONAL /i??l pfi?? abnormal Not Available [facility] (Lab) [address] [place], [address], 10/13/2023 14:55:27 10/13/19 24 10/13/2023 URINA LYSIS COMPL ETE/I RIS W/RFX squamous epithelial PACKED FIELD /i??l pfi?? abnormal Not Available [facility] (Lab) [address] [place], [address], 10/13/2023 14:55:27 10/13/19 24 10/13/2023 URINA LYSIS COMPL ETE/I RIS W/RFX unclassified cast 4 abnormal Not Available [facility] (Lab) [address] [place], [address], 10/13/2023 14:55:27 10/13/19 24 10/13/2023 VITAM IN D 25-HY DROXY vd25oh 33.5 NG/mL 30-100 Vitam in D Statu s: Defic ient: <20 ng/mL Insuf ficie nt: 20-29 ng/mL Suffi cient : 30-10 0 ng/mL Not Available [facility] (Lab) [address] [place], [address], 10/13/2023 14:57:22 10/13/19 24 10/13/2023 VITAM IN B12 (POLA JOEY ) vb12 >1000 pg/mL 239-93 1 high Not Available [facility] (Lab) [address] [place], [address], 10/13/2023 15:21:13 10/13/19 24 10/13/2023 FOLAT E, SERUM /PLAS MA folate 13.5 NG/mL 2.76-2 0.0 Not Available [facility] (Lab) [address] [place], [address], 10/13/2023 15:21:18 10/13/19 24 10/13/2023 HEMOG LOBIN [...] ppl.1 ):s13 -s22 Not Available [facility] (Lab) [address] [place], [address], 10/13/2023 19:24:01 10/13/19 24 09/15/2023 CT, abdom en + pelvi s, w/ contr ast No observ ation record ed. [email or web address] Not Available 2023 14:19:35 10/14/19 24 10/14/2023 US, liver No observ ation record ed. [email or web address] [facility] [address] [facility] [facility] [address], [place], [address], 11/09/2023 14:19:35 04/02/19 25 04/02/2024 DEXA No observ ation record ed. [facility] [address], [place], [address], 04/05/2024 10:04:21 09/20/19 25 08/27/2024 scresaige wagner breas t helder, bilat [facility] [address] [place] [address] [phone] Marc kim Name: CONRAD LOYA Access ion #: [id number] Sex: F : 1960 8 Locati on: RAD Attend ing Physic may: NELSY JOSE Orderi ng Physic may: NELSY JOSE Exam Date: 08/28/19 8:26 AM Exam Name: MG CAMILO BREAST HELDER BILAT Admitt ing Diagno sis(es ): MAMMOG SHANT REPORT - FINAL EXAM: SCRN BREAST HELDER BILAT HISTOR Y: screen ing 63-yea r-old female with no curren t breast compla ints. The marc kim has a histor y of bilate ral breast reduct ion surger y. COMPAR VINEET: Mammog shant dated 2023. TECHNI QUE: Bilate ral CC and MLO views of the breast s were perfor med. Digita l Mammog shant images were obtain ed. CAD (compu ter assist ed detect ion) was utiliz ed. 3D Digita l breast tomosy nthesi s was perfor med and used in the interp retati on of images . FINDIN GS: The breast s are almost entire ly fatty. Page 1 of 2 [facility] Marc kim Name: CONRAD LOYA Access ion #: [id number] Sex: F : 1960 8 Exam Date: 08/28/19 8:26 AM Exam Name: MG CAMILO BREAST HELDER BILAT Admitt ing Diagno sis(es ): No masses , asymme tries, suspic ious calcif icatio ns, or vivien ectura l distor tion are seen. IMPRES PAVITHRA: BIRADS 1: Assess ment comple te. Negati ve. Recomm end annual screen ing mammog shant. Accord ing to the [employer], yearly mammog marco antonio are recomm ended starti ng at age 40 and contin uing as long as the woman is in good health . Clinic al Breast Exam should be part of the period health exam-a bout every 3 years for women in their 20s and 30s and every year for women 40 and over. Breast self-e xam is an option for women in their 20s. Any breast change noted on the breast self-e xam she would be report ed prompt ly to the marc kim's [facility]. A negati ve mammog shant report should not discou rage follow -up or biopsy of a clinic ally signif icant findin g and/or abnorm ality. Dense breast tissue may obscur e small neopla sms. This marc kim has been entere d into a mammog shant remind er system with a target date for her next mammog bethel. Create d and electr onical ly signed by: Timothy moulton MD Signed Date: 09/20/19 8:28 AM (CT) Dictat ed by: Timothy moulton MD (CT) (CT) Page [address] of [address] (Imaging) [address] [place], [address], 09/20/2024 12:31:11 09/20/19 25 08/27/2024 MAMMO , elmer wagner, bilevi eral No observ ation record ed. [address] [place], [address], 09/20/2024 12:31:12 Result Notes None recorded. Problems Name Problem SNOMED Code Status Onset Date Resolution Date Notes Provider Name and Address Organization Details Recorded Time Insomnia 061733154 Active 2020 Not Available [facility] 3 00:43:37 Incision of thyroid Active 2020 Not Available [facility] 3 00:43:38 Cyst of thyroid 98721950 Active 2020 Not Available [facility] 3 00:43:38 Constipati on 43671017 Active 2020 Not Available [facility] 3 00:43:37 Mixed anxiety and depressive disorder 485002314 Active 2020 Not Available [facility] 3 00:43:37 Hypothyroi dism 72441659 Active 2020 Not Available [facility] 3 00:43:38 Screening for malignant neoplasm of colon Active 2021 Not Available [facility] 3 00:43:37 Hyperlipid emia 35270510 Active 2021 Not Available [facility] 3 00:43:38 Hyperglyce manju 46596306 Active 2021 Not Available [facility] 3 00:43:38 Type 2 diabetes mellitus without complicati on 809645286 Active 2022 Mita Boland NP [address], [place], [address] , [employer] 3 12:48:57 Chronic idiopathic constipati on 62402881 Active 2022 Mita Boland NP [address], [place], [address] , [employer] 3 15:22:02 Obesity 281247449 Active 2023 Luis Antonio Jose MD [address], [place], [address] , [employer] 4 11:07:21 Prediabete s 927004752 Active 2023 Luis Antonio Jose MD [address], [place], [address] , [employer] 4 11:08:11 Chronic low back pain 694838653 Active 2023 Luis Antonio Jose MD [address], [place], [address] , [employer] 4 11:24:17 Blood-ting ed feces 4939748168471 02 Active 2023 Luis Antonio Jose MD [address], [place], [address] , [employer] 4 11:57:31 Thyroid nodule 693683816 Active 2023 Luis Antonio Jose MD [address], [place], [address] , [facility] [employer] [facility] [employer] [facility] 4 11:58:23 Change in skin lesion 968832613 Active 2023 Luis Antonio Jose MD [address], [place], [address] , [facility] [employer] [facility] [employer] [facility] 4 10:20:35 Liver cyst 50396075 Active 2023 Luis Antonio Jose MD [address], [place], [address] , [facility] [employer] [facility] [employer] 4 10:22:56 Memory impairment 226278129 Active 2023 Luis Anotnio Jose MD [address], [place], [address] , [facility] [employer] [facility] [employer] 4 10:23:44 Elevated blood-pres sure reading without diagnosis of hypertensi on 368346460 Active 2023 Luis Antonio Jose MD [address], [place], [address] , [facility] [employer] [facility] [employer] [facility] 4 10:26:15 Cholelithi asis without obstructio n 94371174 Active 2023 Luis Antonio Jose MD [address], [place], [address] , [facility] [employer] [facility] [employer] [facility] 4 14:24:57 Osteopenia 970924996 Active 2024 Luis Antonio Jose MD [address], [place], [address] , [facility] [employer] [facility] [employer] 5 10:13:36 Anxiety disorder 185882350 Active 2024 Luis Antonio Jose MD [address], [place], [address] , [facility] [employer] [facility] [employer] 5 10:14:13 Type 2 diabetes mellitus 55463740 Active 2024 Luis Antonio Jose MD [address] [address], [place], [address] , [facility] [employer] [facility] 5 16:18:27 Notes:Some problems listed i n Document: #[id number] could not be added to this patient's chart. Please review this document and add these problems to the patient's chart manually as needed. Problem Notes None recorded. Procedures Surgical History Date Name Laterality Status Provider Name and Address Organization Details Recorded Time 09/21/19 24 Transitional_Car e_Management completed Jose Roberto [facility] [employer] [facility] [employer] 09/21/2023 11:11:03 04/24/19 22 Date of Last Colonoscopy completed Not Available [facility] 05/19/2022 00:41:05 03/01/19 81 delivery completed Not Available [facility] 05/19/2022 00:41:08 biopsy of thyroid completed Not Available [facility] 05/19/2022 00:41:08 Unlisted px meckel's [id number] completed Not Available [facility] 05/19/2022 00:41:08 Hysterectomy completed Not Available [facility] 05/19/2022 00:41:08 Imaging Results None recorded. Procedure Notes None recorded. Medical Equipment None Reported. Allergies Allergen ID Allergen Name Allergen Category Reaction Reaction Severity Criticality Documentation Date Start Date Code Code System Note Provider Name and Address Organization Details Recorded Time 52980 metformin medicatio n abdominal pain moderate Not available 04/05/2024 6809 RxNorm Luis Antonio Jose MD [address] [facility] [address], [place], [address], [facility] [employer] [facility] 5 11:17:26 Medications Name Sig Start Date Stop Date Status Note LastModified by Organization Details LastModified Time cyclobenzap rine 10 mg tablet 2023 active Not Available Not Available Not Avai lable amoxicillin 500 mg capsule TAKE 1 CAPSULE BY MOUTH FOUR TIMES DAILY UNTIL ALL TAKEN 11/20 completed Not Available Not Available Not Available metformin 500 mg tablet Take 1 tablet every day by oral route. 2024 active Not Available Not Available Not Avai lable doxycycline hyclate 100 mg capsule Take 1 [...] completed Not Available Not Available Not Available ibuprofen 800 mg tablet TAKE ONE TABLET BY MOUTH EVERY 6 TO 8 HOURS NEEDED FOR SEVEN DAYS active Not Available Not Available No t Available fluconazole 150 mg tablet TAKE 1 TABLET BY MOUTH EVERY DAY 09/20 completed Not Available Not Available Not Available hydrocodone 5 mg-acetamin ophen 325 mg tablet TAKE 1 TABLET BY MOUTH EVERY 6 HOURS NEEDED FOR PAIN 05/26 completed Not Available Not Available Not Available prednisone 20 mg tablet TAKE 3 TABLETS BY MOUTH DAILY FOR 5 DAYS 11/20 completed Not Available Not Available Not Available [...] completed Not Available Not Available Not Available doxycycline monohydrate 100 mg tablet TAKE 1 TABLET BY MOUTH TWICE DAILY active Not Available Not Available No t Available acetaminoph en 500 mg tablet TAKE ONE TABLET BY MOUTH EVERY 6 TO 8 HOURS NEEDED FOR PAIN active Not Available Not Available No t Available amoxicillin 500 mg tablet TAKE 1 TABLET BY MOUTH THREE TIMES DAILY UNTIL GONE active Not Available Not Available No t Available levothyroxi ne 25 mcg tablet TAKE [...] completed Not Available Not Available Not Available ZenefitsTouch Ultra Test strips USE TO TEST BLOOD SUGAR EVERY DAY active Not Available Not Available No t Available levothyroxi ne 50 mcg tablet TAKE 1 TABLET BY MOUTH EVERY DAY IN THE MORNING 12/14 completed Not Available Not Available Not Available buspirone 10 mg tablet Take 1 tablet twice a day by oral route as needed for 30 days. 2024 active Not Available Not Available Not Avai lable docusate sodium 100 mg capsule TAKE 1 CAPSULE BY MOUTH TWICE DAILY DIRECTED active Not Available Not Available No t Available diclofenac sodium 75 mg tablet,uriel yed release TAKE 1 TABLET BY MOUTH EVERY 12 HOURS NEEDED WITH FOOD 2023 active Not Available Not Available Not Avai lable methylpredn isolone 4 mg tablets in a dose pack FOLLOW PACKAGE DIRECTION S 09/20 completed Not Available Not Available Not Available metformin ER 500 mg tablet,exte nded release 24 hr Take 1 tablet twice a day by oral route after meal(s) for 90 days. 2024 active Not Available Not Available Not Avai lable naproxen 500 mg tablet TAKE 1 TABLET [...] Not Available rosuvastati n 20 mg tablet TAKE 1 TABLET BY MOUTH EVERY DAY AT BEDTIME active Not Available Not Available No t [...] oral route as directed for 90 days. 06/18/ 2025 active Not Available Not Available Not Avai lable Gavilax 17 gram/dose oral powder MIX AND TAKE 17 GRAMS TWICE DAILY NEEDED FOR BOWEL MOVEMENT active Not Available Not Available No t Available Linzess 145 mcg capsule TAKE 1 CAPSULE BY MOUTH EVERY DAY 11/20 completed Not Available Not Available Not Available Linzess 290 mcg capsule TAKE 1 CAPSULE BY MOUTH DAILY ON EMPTY STOMACH AT LEAST 30 MINUTES PRIOR TO FIRST MEAL OF THE DAY active Not Available Not Available No t Available Farxiga 10 mg tablet TAKE 1 TABLET BY MOUTH EVERY DAY active Not Available Not Available No t Available Jardiance 25 mg tablet Take 1 tablet every day by oral route as directed for 90 days. 2024 active Not Available Not Available Not Avai lable Trulicity 0.75 mg/0.5 mL subcutaneou s pen injector ADMINISTE R 0.75MG UNDER THE SKIN EVERY WEEK DIRECTED active Not Available Not Available No t Available Trulance 3 mg tablet Take 1 tablet every day by oral route as directed for 90 days. active Not Available Not Available No t Available OneTouch Ultra2 Meter DIRECTED active Not Available Not Available No t Available OneTouch Delica Plus Lancet 30 gauge USE TO CHECK BLOOD SUGAR EVERY DAY active Not Available Not Available No t Available Rybelsus 3 mg tablet TAKE 1 TABLET BY MOUTH EVERY DAY DIRECTED 11/20 completed Not Available Not Available Not Available Mounjaro 5 mg/0.5 mL subcutaneou s pen injector ADMINISTE R 5 MG UNDER THE SKIN EVERY WEEK DIRECTED active Not Available Not Available No t Available Mounjaro 2.5 mg/0.5 mL subcutaneou s pen injector INJECT 2.5 MG UNDER THE SKIN ONE DAY A WEEK 11/20 completed Not Available Not Available Not Available Ozempic 0.25 mg or 0.5 mg (2 mg/3 mL) subcutaneou s pen injector Inject by subcutane ous route for 42 days. active Not Available Not Available No t Available Vitals Date Recorded Body height Body mass index (BMI) Body weight Body temperature Oxygen saturation Oxygen saturation in Arterial blood by Pulse oximetry Heart rate Systolic And Diastolic Provider Name and Address Organization Details Last Updated DateTime 5 162.56 cm 32.7 kg/m2 10874 g 97.3 [degF] 95 % 95 % 91 /min 126/90 mm[Hg] Chari Serrano RN [facility] [employer] 5 10:03:18 Date Recorded Body height Body mass index (BMI) Body weight Body temperature Oxygen saturation Oxygen saturation in Arterial blood by Pulse oximetry Heart rate Systolic And Diastolic Provider Name and Address Organization Details Last Updated DateTime 5 162.56 cm 32 kg/m2 27058.2 3 g 97.5 [degF] 95 % 95 % 87 /min 120/78 mm[Hg] Chari Serrano RN [facility] [employer] 5 11:07:50 Date Recorded Body height Body mass index (BMI) Body weight Body temperature Heart rate Respiratory rate Oxygen saturation Oxygen saturation in Arterial blood by Pulse oximetry Systolic And Diastolic Provider Name and Address Organization Details Last Updated DateTime 4 157.48 cm 34.2 kg/m2 02742.1 2 g 98.2 [degF] 72 /min 16 /min 99 % 99 % 126/84 mm[Hg] Jose Roberto Lawton [employer] [facility] [employer] 4 11:14:41 Date Recorded Systolic And Diastolic Provider Name and Address Organization Details Last Updated DateTime 10/13/2023 136/88 mm[Hg] Gene Craven [address] [place] [address], [address], [facility] [employer] 10/13/2023 10:29:47 Date Recorded Body height Body mass index (BMI) Body weight Body temperature Heart rate Respiratory rate Oxygen saturation Oxygen saturation in Arterial blood by Pulse oximetry Pain severity - 0-10 verbal numeric rating [Score] - Reported Provider Name and Address Organization Details Last Updated DateTime 4 157.48 cm 34.4 kg/m2 47297.7 2 g 97.2 [degF] 72 /min 20 /min 99 % 99 % 7 Mita Huang RN [facility] [employer] 4 10:13:40 Date Recorded Body height Body mass index (BMI) Body weight Body temperature Heart rate Respiratory rate Oxygen saturation Oxygen saturation in Arterial blood by Pulse oximetry Systolic And Diastolic Provider Name and Address Organization Details Last Updated DateTime 4 157.48 cm 34.4 kg/m2 15364.7 2 g 98.1 [degF] 70 /min 16 /min 99 % 99 % 128/78 mm[Hg] Jose Roberto Jered [facility] 4 14:16:38 Social History Question Answer Notes LastModified by Organizat ion Details LastModified Time Tobacco Smoking Status Never Smoker Not Available [facility] 05/19/2022 00:40:51 What Is Your Level Of Caffeine Consumption? Moderate [id number] Information not available 05/19/2022 How Much Tobacco Do You Chew? None [id number] Information not available 05/19/2022 In The 14 Days Before Symptom Onset, Have You Had Close Contact With A Laboratory-confir med COVID-19 While That Case Was Ill? No [id number] Information not available 05/19/2022 In The 14 Days Before Symptom Onset, Have You Had Close Contact With A Person Who Is Under Investigation For COVID-19 While That Person Was Ill? No [id number] Information not available 05/19/2022 What Type Of Diet Are You Following? REGULAR [id number] Information not available 05/19/2022 Have There Been Any Changes To Your Family Or Social Situation? Yes Dad Information not available 10/13/2023 Where Do You Live? Apartment Information not available 10/13/2023 What Was The Date Of Your Most Recent Tobacco Screening? 06/11/2020 [id number] Information not available 05/19/2022 How Many Children [...] Are You Passively Exposed To Smoke? No [id number] Information not available 05/19/2022 Are There Any Smokers In Your House? Yes Information not available 10/13/2023 Do You Participate In Social Media? Yes Information not available 10/13/2023 Have You Recently Traveled Abroad? No Information not available 10/13/2023 Sex: Female Functional Status Question Answer Note LastModified by Organizat ion Details LastModified Time What is your level of alcohol consumption? Occasional [id number] Information not available 05/19/2022 Do you or have you ever used smokeless tobacco? Never used smokeless tobacco [id number] Information not available 05/19/2022 Are you currently employed? Yes Information not available 10/13/2023 What is your occupation? [employer] [id number] Information not available 05/19/2022 Do you or have you ever used e-cigarettes or vape? Never used electronic cigarettes [id number] Information not available 05/19/2022 Mental Status Question Answer Note LastModified by Organization D etails LastModified Time Do you feel stressed (tense, restless, nervous, or anxious, or unable to sleep at night)? [id number] Information not available 10/13/2023 Family History Relationship Description Onset Age of this Age Resolved Age Notes LastModified by Organization Details LastModified Time Brother Heart disease 59 [id number] Not available 05/19/2022 00:41:13 Brother Hypertensive disorder [id number] Not available 05/19/2022 00:41:13 Brother Diabetes mellitus [id number] Not available 05/19/2022 00:41:13 Mother Diabetes mellitus [id number].834 [id number] Not available 05/19/2022 00:41:13 Mother Hypertensive disorder [id number] [id number] Not available 05/19/2022 00:41:13 Sister Malignant neoplasm of ovary 38 46 [id number] [id number] Not available 05/19/2022 00:41:13 Medical History Condition Response BLINDNESS N KIDNEY STONES N BLADDER PROBLEMS N MRSA N CARPAL TUNNEL SYNDROME N OTHER # 1 N LUNG DISEASE/DISORDER N HISTORY OF DRUG ABUSE N RADIATION / CHEMOTHERAPY N COPD N Other # 2 N BLOOD DISEASES N SURGERY N SCHIZOPHRENIA N DEPRESSION (INCLUDING POST ) N BOWEL PROBLEMS N STROKE/TIA N ULCERS N BENIGN PROSTATIC [...] FRACTURES N LIVER DISEASE N HYPERTENSION N Metal allergy N ANXIETY DISORDER N BLOOD TRANSFUSION N ANEMIA/BLOOD DISORDER N BIPOLAR DISORDER N BRONCHITIS N OSTEOARTHRITIS N TUBERCULOSIS N GLAUCOMA N FOOT PROBLEM N HEART VALVE DISORDERS N ALLERGIES/HAYFEVER N INFECTIOUS DISEASE N HEART ARRHYTHMIA N INSOMNIA Y HIGH CHOLESTEROL / HYPERLIPIDEMIA N RHEUMATOID ARTHRITIS N HYPERTHYROIDISM N NEUROLOGICAL PROBLEMS N EDEMA N CHRONIC PAIN SYNDROME N HYPOTHYROIDISM Y CAROTID BLOCKAGE N BACK / NECK PROBLEMS N HAVE YOU BEEN HOSPITALIZED OR SEEN IN [facility] ER IN THE PAST YEAR ? N BURSITIS N HERNIATED DISC N DIALYSIS N FIBROMYALGIA N OSTEOPOROSIS N ARTHRITIS N NO SIGNIFICANT PAST MEDICAL HISTORY N PERIPHERAL NEUROPATHY N DIABETES, TYPE N HEARTBURN / REFLUX N HEPATITIS / LIVER DISEASE N PULMONARY DISEASE N GOUT N SLEEP DISORDER N ALZHEIMER'S DISEASE N HEADACHES/MIGRAINES N SEIZURES/EPILEPSY N VASCULAR DISEASE N Blood Disorder N HEAD TRAUMA OR INJURY N HEART DISEASE/HEART PROBLEMS N KIDNEY DISEASE N MULTIPLE SCLEROSIS N CANCER: SPECIFY N CARDIAC ARRHYTHMIA N ANESTHESIA COMPLICATIONS N ATRIAL FIBRILLATION N PULMONARY EMBOLISM N AUTOIMMUNE DISEASE N Gynecological History Statement/Question Response Date of Last Colonoscopy 04/24/2021 Obstetrics History GPAL:G 0 P 0 0 0 0 Immunizations Vaccine Type Date Status Note Provider Nam e and Address Organization Details Recorded Time SARS-COV-2 (COVID-19) vaccine, UNSPECIFIED 1 completed Not Available [facility] 05/19/2022 00:46:33 SARS-COV-2 (COVID-19) vaccine, UNSPECIFIED 1 completed Not Available [facility] 05/19/2022 00:46:33 Past Encounters Encounter ID Performer Location Encounter Start Date Encounter Closed Date Diagnosis/Indication Diagnosis SNOMED-CT Code Diagnosis ICD10 Code Diagnosis IMO Codes Diagnosis Note [id number] MD ALINE [facility] [address] [place] [address] 05/26/2020 00:00:00 05/26/2020 15:05:37 [id number] MD ALINE Du[facility] [address] [place] [address] 06/11/2020 00:00:00 06/11/2020 10:01:59 [id number] Luis Antonio Jose MD [address] [address] 06/26/2020 00:00:00 06/26/2020 10:43:16 [id number] Chiquis Hawkins MD [facility] [address] [place] [address] 09/16/2020 00:00:00 09/17/2020 07:16:02 [id number] Chiquis Hawkins MD _ATHENA_M IGRATION_ DEFAULT_1 _1 , 10/16/2020 00:00:00 10/16/2020 10:53:01 [id number] Luis Antonio Jose MD [address] [address] 04/08/2021 00:00:00 04/08/2021 11:24:13 [id number] Luis Antonio Jose MD [address] [address] 04/28/2021 00:00:00 04/28/2021 15:30:50 [id number] Mita Boland NP [address] [address] 11/24/2021 00:00:00 11/24/2021 11:09:20 [id number] Mita Boland NP [address] [address] 05/28/2022 11:47:08 05/28/2022 12:43:01 Hypothyroidism 65070210 E03.9 Levothyrox ine 75 mcg po daily. Hyperlipidemia 70548882 E78.5 Rosuvastat in 10 mg po nightly. Hyperglycemia 69756254 R 73.9 States she wasn't fasting last labs, but we will recheck now. Constipation 53036344 K5 9.00 Work on 64 ounces of water [id number] Luis Antonio Jose MD [address] [address] 09/21/2023 11:02:42 09/21/2023 12:01:02 Seen in emergency clinic [id number] Z76.89 Staff to get recent ED records. Hypothyroidism 01748386 E03.9 Hyperlipidemia 10651438 E78.5 Chronic id iopathic constipation 63113515 K59.04 Obesity 458783313 E66.9 Prediabetes 513209310 R7 3.03 Transition of care 40597 55535 105 Z75.8 Chronic low back pain 27 4885419 M54.50 Blood-tinged feces 98269 03370 47983 K92.1 Advised pt to f/u with her GI about this. Thyroid nodule 744951111 E04.1 [id number] Luis Antonio Jose MD [address] [address] 10/13/2023 10:01:00 10/13/2023 10:38:58 Adult health examination 707110399 Z00.00 Screening for osteoporosis 773331732 Z13.820 Change in skin lesion 39 1670815 L98.9 Liver cyst 11315128 K76. 89 Screening for disorder 961417122 Z13.9 Obesity 877793473 E66.9 Memory impairment 544334 006 R41.3 Chronic id iopathic constipation 01331170 K59.04 Elevated blood-pressure reading without diagnosis of hypertension 503657193 R03.0 [id number] Luis Antonio Jose MD [address] [address] 11/09/2023 14:03:09 11/09/2023 14:40:51 Change in skin lesion 390672064 L98.9 Liver cyst 82593227 K76. 89 1.8 cm Obesity 893286437 E66.9 Memory impairment 335493 006 R41.3 Chronic id iopathic constipation 28446344 K59.04 Elevated blood-pressure reading without diagnosis of hypertension 257122200 R03.0 Type 2 leslie betes mellitus without complication 838881456 E11.9 Cholelithi asis without obstruction 64265388 K80.20 [id number] Luis Antonio Jose MD [address] [address] 04/05/2024 09:51:54 04/05/2024 10:33:05 Type 2 diabetes mellitus without complication 397956596 E11.9 Liver cyst 46748157 K76. 89 1.8 cm Cholelithi asis without obstruction 87684936 K80.20 Change in skin lesion 39 0830981 L98.9 Obesity 743031293 E66.9 Memory impairment 877778 006 R41.3 Chronic id iopathic constipation 92456107 K59.04 Elevated blood-pressure reading without diagnosis of hypertension 977894103 R03.0 Osteopenia 619617976 M85 .80 Anxiety disorder 6071535 06 F41.9 Hyperlipidemia 83298283 E78.5 [id number] Luis Antonio Jose MD [address] [address] 09/05/2024 10:59:48 09/05/2024 12:27:06 Type 2 diabetes mellitus without complication 171728145 E11.9 Liver cyst 77711966 K76. 89 1.8 cm Cholelithi asis without obstruction 43500834 K80.20 Change in skin lesion 39 4276564 L98.9 Obesity 530044649 E66.9 Memory impairment 531493 006 R41.3 Chronic id iopathic constipation 74912781 K59.04 Elevated blood-pressure reading without diagnosis of hypertension 442445019 R03.0 Osteopenia 996646370 M85 .80 Anxiety disorder 1467342 06 F41.9 Hyperlipidemia 73407495 E78.5 Health Concerns Section Related Observation LastModified by Organization Detai ls LastModified Time None Recorded Concern Status LastModified by Organization Details LastModified Time None Recorded Advance Directives Directive None Recorded Payers Insurance Date Sequence Insurance Name Policy Number Policy Fu Covered Member ID Fu Member ID Guarantor Name 11/20/2024 1 [place] [id number] Ming Loya [id number] Ming Loya 09/05/2024 [facility] Ming Loya SELF SELF Ming Loya 11/20/2024 1 [facility] [id number] Ming Loya [id number] Ming Loya 09/05/2024 1 [employer] [id number] Ming Loya [id number] Ming Loya 11/20/2024 1 [place] Tatiana Loya [id number] Ming Loya 11/21/2024 1 [employer] [place] - DOS ON OR AFTER 2020 (MEDICAID REPLACEMENT - HMO) Tatiana Loya [id number] Ming Loya 12/19/2024 1 [facility] (MEDICARE REPLACEMENT/A DVANTAGE - PPO) [id number] Ming Loya [id number] Ming Loya Notes Date Note Type Note Provider Name and Address Organization Details Recorded Time 09/21/2023 text/html ED fuv: Pt was seen [...] of her parents. Luis Antonio Jose MD [address] [place] [address] [address], [place], [address], [facility] [employer] 09/21/2023 11:59:06 10/13/2023 text/html Pt is here for her annual exam. Feeling overall better than last [...] her parents. Luis Antonio Jose MD [address] [facility], [place], [address], [employer] 10/13/2023 10:36:05 11/09/2023 text/html Pt is here f/u on her annual labs. Feeling overall better than [...] back area. Luis Antonio Jose MD [address], [place], [address], [employer] 11/09/2023 14:37:51 04/05/2024 text/html Pt is here f/u on her labs and chronic conditions. Pt got [...] back area. Luis Antonio Jose MD [address], [place], [address], [employer] 04/05/2024 10:29:12 09/05/2024 text/html Pt is here f/u on her labs and chronic conditions. Feeling overall much better now. Denies any problem with meds. Pt's insurance declined for Mounjaro. So she started back Metformin and is tolerating it well now. C/o anxiety for last few months, about [...] and is not taking meds for it. Luis Antonio Jose MD [address], [place], [address], [employer] 09/05/2024 11:25:44 OBGyn Episode No OBEpisode recorded.
--- OUTSIDE RECORDS SUMMARY | 2024-12-19 14:10 | XMS_ITS | Clinical Summary ---
Author Organization [facility] Address [address] [place] [address] Care Team Providers Care Freezer Machine Operator Name Role Phone Luis Antonio Jose MD Primary Care Provider [phone] Source Comments [facility] [employer],non-owned Affiliates and Associated Physician Practices is amultiple site organization consisting of ambulatory clinics and hospital sitesin [place], [place], [place] and [place]. This disclosure is being madepursuant to the Care Everywhere program and may not contain all information available regarding this patient. Last updated 17.[facility] [employer] Allergies No known active allergies Medications * [...] 2) w/Device KIT as directed 3 Active DepartingTOUCH DELICA PLUS 30G FINE LANCETS USE TO [...] (11/01/2024): Added automatically from request for surgery [id number] Insomnia 06/26/2020 Age-related osteoporosis wit hout current pathological fracture 05/01/2020 Overview (11/01/2024): M81.0 - Skeletal - low Added by Interface Resolved Problems Problem Noted Date Diagnosed Date Resolved Date Constipation 12/26/2020 11/29/2024 Encounters Date Type Department Care Team Description 11/01/2024 3:00 PM CDT Procedure visit [facility] - [address] [address] Brendan Villela MD NAFLD (nonalcoholic fatty liver disease) ; Highly echogenic liver on ultrasound 11/01/2024 2:00 PM CDT Office Visit [facility] - [address] [address] Brendan Villela MD Highly echogenic liver on ultrasound (Primary Dx); Metabolic dysfunction-associate d steatotic liver disease (MASLD); Hemangioma of liver; Liver cyst 11/01/2024 1:30 PM CDT Office Visit [facility] - [address] [phone] Lupe Land PA-C Chronic idiopathic constipation (Primary [...] CDT Respiratory Rate 12 03/24/2023 1:30 PM TILE LAYER Oxygen Saturation 100% 11/01/2024 1:57 PM CDT Inhaled Oxygen Concentration - - Weight 83.5 kg (184 lb) 11/01/2024 1:57 PM CDT Height 162.6 cm (5' 4) 08/20/2024 8:38 AM CDT Body Mass Index 31.58 08/20/2024 8:38 AM CDT Plan of Treatment Upcoming Encounters Date Type Department Care Team (Late st Contact Info) Description 03/04/2025 9:30 AM TILE LAYER Office Visit [facility] - GI [address] [facility] [place] [address] Lupe Land PA-C [address] [place] [address] Health Maintenance Due Date Last [...] Procedure Name Priority Date/Time Associated Diagnosis Comments [place] LIVER ELASTOGRAPHY Routine 11/01/2024 2:57 PM CDT Highly echogenic liver on ultrasound COMPREHENSIVE METABOLIC PANEL STAT 03/24/2023 10:08 AM TILE LAYER from Last 3 Months or Most Recently Relevant to Health Maintenance Results * [place] LIVER ELASTOGRAPHY (11/01/2024 2:57 PM CDT) Narrative [...] Rishi J, Hagstr m H, Ekstaliat M, Jack C, Bonasandrai M, Cure S, Amptusharo J, Nasr P, Tallab L, Canivet CM, Kechasusan S, S ncfernanda Y, Vida E, Mike A, Kwan M, Nayely J, Faraz A and Harvey-Rodrigo M. Non-invasive tests accurately stratify patients with NAFLD based on their risk of liver-related events. J Hepatol (2021) 76: 1471-4150. Alyson PJ, Mansi M, Juany M, et al. Accuracy of FibroScan controlled attenuation parameter and liver stiffness measurement in assessing steatosis and fibrosis in patients with nonalcoholic fatty liver disease. Gastroenterology 2019;156:3937-4108. Natividad ALLEN, Rhett R, Van Orlando MUÑIZ, [...] at-risk nonalcoholic steatohepatitis (JOLLEY) in a [place] cohort and comparison to other non-invasive algorithms. PLoS ONE (2021) 17: b3596433. Florence NEWSOME, Alexandro Gale, Digna ZM, et al. Enhanced diagnosis of advanced fibrosis and cirrhosis in individuals with NAFLD using FibroScan-based Agile scores. J Hepatol (2022) 78: 247-259. Jaye et al. Vibration-controlled transient elastography scores to predict liver-related events in steatotic liver disease. JOZEF (2023) 331: 4540-8058 Fibroscan LSM can also be used with laboratory parameters without formulas to assess prognosis. According to the Baveno-VII criteria (Castañeda, 202), Fibroscan LSM <=15 kPa plus a platelet count of >=010x812/L rules out clinically significant portal hypertension (sensitivity [...] FIB-4 score (Estephanie et al. Hepatology Communications 2019;3:5610-4659) or NAFLD Fibrosis score (Brumfield et al. Clinical Gastroenterology and Hepatology 2019;17:9360-1948 using routine clinical data. Notes: 1. Fibroscan [...] additional interpretive data was last updated 03/23/24.) [email or web address] Brendan Villela MD PROCEDURE/MINOR SURGICAL CEEE VALENTIN Final Result * (ABNORMAL) COMPREHENSIVE METABOLIC PANEL (03/24/2023 10:08 AM [facility]) Sodium 139 136 - 145 mmol/L 03/24/2023 10:43 AM [facility] Potassium 4.0 3.5 - 5.1 mmol/L 03/24/2023 10:43 AM [facility] Chloride 103 98 - 107 mmol/L 03/24/2023 10:43 AM [facility] CO2 28 22 - 29 mmol/L 03/24/2023 10:43 AM [facility] Anion Gap 8 6 - 16 mmol/L 03/24/2023 10:43 AM [facility] Glucose 104 70 - 105 mg/dL 03/24/2023 10:43 AM [facility] BUN 11 7 - 26 mg/dL 03/24/2023 10:43 AM [facility] Creatinine 0.88 0.57 - 1.11 mg/dL 03/24/2023 10:43 AM [facility] BUN/Creatinine Ratio 12.5 11.2 - 18.1 03/24/2023 10:43 AM [facility] Calcium 9.3 8.4 - 10.4 mg/dL 03/24/2023 10:43 AM [facility] Protein Total 7.3 6.4 - 8.3 gm/dL 03/24/2023 10:43 AM [facility] Albumin 4.3 3.4 - 5.0 gm/dL 03/24/2023 10:43 AM [facility] ALT 18 0 - 55 U/L 03/24/2023 10:43 AM [facility] AST 22 5 - 34 U/L 03/24/2023 10:43 AM [facility] Alkaline Phosphatase 52 40 - 150 U/L 03/24/2023 10:43 AM [facility] Bilirubin Total 0.6 0.2 - 1.2 mg/dL 03/24/2023 10:43 AM [facility] Globulin Total 3.0 1.3 - 4.7 gm/dL 03/24/2023 10:43 AM [facility] Albumin/Globulin Ratio 1.4 1.1 - 2.2 03/24/2023 10:43 AM [facility] Osmolality Calculated 268 260 - 284 mOsm/kg 03/24/2023 10:43 AM [facility] eGFR by CKD-EPI 74(L) >=90 mL/min/1.7 3 m2 03/24/2023 10:43 AM [facility] Blood BLOOD SPECIMEN / Unknown Venipuncture / Unknown 03/24/2023 10:08 AM TILE [facility]AYER 03/24/2023 10:13 AM [facility] Narrative [facility] - 03/24/2023 10:43 AM [facility] ADA Comment: The [place] Diabetes Association recommends a fasting glucose concentration [...] MD LAB - CHEMISTRY ORDERABLES Final Result [facility] [address] [place] [address], [facility] [phone] from Last 3 Months or Most Recently Relevant to Health Maintenance Insurance MEDICAID [facility] Care Teams Freezer Machine Operator Relationship Specialty Start Date End Date Luis Antonio Jose MD [address] [place] [phone] PCP - General Family Medicine 08/20/24
--- OUTSIDE RECORDS SUMMARY | 2024-12-19 14:10 | XMS_ITS | Encounter Summary ---
Author Organization [facility] Address [facility] [address] [place] [address] Care Team Providers Care Folding Machine Tender Name Role Phone Mita Boland [facility] Primary Care Provider + Encounter Details Date Type Department Care Team (Latest Contact Info) Description 11/15/2017 Abstract [facility] Patel Laguerre MD [address] [phone] Social History Tobacco Use Types Packs/Day Years [...] on filedocumented in this encounter Care Teams Folding Machine Tender Relationship Specialty Start Date End Date Mita Boland [facility] [address] [place] [address] PCP - General Nurse Practitioner Family 05/04/23 documented as of this encounter
--- OUTSIDE RECORDS SUMMARY | 2024-12-19 14:10 | XMS_ITS | Clinical Summary ---
Author Organization [facility] Address [address] [place] [address] Care Team Providers Care Puff Iron Operator Name Role Phone Luis Antonio Jose MD Primary Care Provider [phone] Allergies No known active allergies Medications levothyroxine sodium (TIROSINT) 100 mcg capsule Take 1 capsule (100 mcg total) by mouth skid road worker before breakfast Active metFORMIN XR (GLUCOPHAGE XR) 500 mg 24 hr tablet Take 1 tablet (500 mg total) by mouth daily 3 Active rosuvastatin (CRESTOR) 20 mg tablet Take 1 tablet (20 mg total) by mouth daily 3 Active Active Problems Problem Noted Date Diagnosed Date Hx of colonic polyps 07/22/2020 Overview (07/22/2020): Added automatically from request for surgery [id number] Surgical History Surgery Date Site/Laterality Comments COLONOSCOPY [...] on file Legal Sex Female 7:00 PM FLOOR ATTENDANT Gender Identity Female 10/08/2020 12:28 PM CDT Sexual Orientation Not on file Obstetrics History Last Filed Vital Signs Vital Sign Reading Time Taken Comments Blood Pressure 112/76 04/05/2024 2:54 PM FLOOR ATTENDANT Pulse 76 04/05/2024 2:54 PM FLOOR ATTENDANT Temperature - - Respiratory Rate - - Oxygen Saturation 98% 04/05/2024 2:54 PM FLOOR ATTENDANT Inhaled Oxygen Concentration - - Weight 86.2 kg (190 lb) 04/05/2024 2:54 PM FLOOR ATTENDANT Height 162.6 cm (5' 4) 04/05/2024 2:54 PM FLOOR ATTENDANT Body Mass Index 32.61 04/05/2024 2:54 PM FLOOR ATTENDANT Plan of Treatment Health Maintenance Due Date [...] (#1) 2024 Well Visit 65+ 11/24/2024 Insurance [facility] UHC OPTIONS PPO [facility] H[facility]/PPO Address: [address] [address] [place] [address] [facility] H[facility]/PPO Address: [facility] [address] [place] [address] Advance Directives For more information, please contact: [phone] Documents on File Type Date Recorded Patient Pan Operator Expl anation ADVANCE DIRECTIVE 07/18/2012 12:00 AM [facility] [employer] Care Teams Puff Iron Operator Relationship Specialty Start Date End Date Luis Antonio Jose MD [address] [address] PCP - General Family Medicine 04/12/24
--- OUTSIDE RECORDS SUMMARY | 2024-12-19 14:10 | XMS_ITS | Encounter Summary ---
Author Organization [facility] Address [address] [place] [address] Care Team Providers Care Newsagent Name Role Phone Mita Boland [facility] Primary Care Provider + Encounter Details Date Type Department Care Team (Latest Contact Info) Description 01/24/2018 Abstract [facility] Silvia Lewis MD Social [...] on filedocumented in this encounter Care Teams Newsagent Relationship Specialty Start Date End Date Mita Boland [facility] [address] [place] [phone] PCP - General Nurse Practitioner Family 05/04/23 documented as of this encounter
--- NOTE | 2024-12-19 14:52 | ED_ITS ---
HPI - GI Bleed General Chief complaint: GI Bleed Stated complaint: Rectal bleeding x 2 episodes-lower back pain Time Seen by Provider: 12/19/24 13:26 Source: patient Mode of arrival: ambulatory Limitations: no limitations History of Present Illness HPI Narrative: Patient is a 64-year-old female who presents the ED with report of rectal bleeding. Patient reports she had 2 episodes of bright red rectal bleeding today. Reports having bright red blood after passing semi formed stool. Denies rectal pain. Had history of similar episodes around 1 year ago and states workup was reassuring at that time. She has previously seen GI. Does report having some discomfort throughout her lower back and cramping throughout her lower abdomen. Denies nausea, vomiting, fevers. She is not on any anticoagulation. Related Data Home Medications ?Medication ?Instructions ?Recorded ?Confirmed ?Last Taken ?Type levothyroxine 88 mcg tablet mcg 06/22/24 Unknown Hist ory tirzepatide 2.5 mg/0.5 mL mg subcut 06/22/24 Unknown History subcutaneous pen injector (Sundeep) Allergies Allergy/AdvReac Type Severity Reaction Status Date / Time No Known Allergies Allergy Verified 12/19/24 12:53 Review of Systems 2 Review of Systems: All systems reviewed & are unremarkable except as noted in HPI. All systems reviewed & are unremarkable except as noted in HPI and below PMFSH Past Medical History Medical History Hypothyroid Surgical History Surgical History Hx of tonsillectomy H/O: hysterectomy H/O section Social History Social History Smoking status: Never smoker Substance use: never Living arrangements: alone Spiritual care concerns: No Exam 2 Narrative: GENERAL: Well appearing, obese with BMI of 30.8, non-toxic, in no acute distress. HEAD: Normocephalic, atraumatic. RESPIRATORY: Airway patent, respirations nonlabored. Clear to auscultation bilaterally, no rales, rhonchi, wheezing. CARDIOVASCULAR: Regular rate and rhythm without murmurs, rubs, or gallops. ABDOMINAL: Soft, minimal tenderness throughout lower abdomen, nondistended. Normoactive BS. RECTAL: Normal rectal tone. Several nonthrombosed external hemorrhoids, with a central predominant hemorrhoid, to R lateral margin of anus with slight amount of bright red rectal bleeding. No stool appreciated with RAMEZ. No significant pain with RAMEZ. MUSCULOSKELETAL: Moves all extremities. No gross deformities. SKIN: Warm, dry, normal color. NEURO: A&O X3. Speech clear. Cranial nerves II-XII grossly intact. Steady gait. No ataxic movements. PSYCHIATRIC: Appropriate mood and affect. Normal interaction. Course Vital Signs Vital signs: Vital Signs Temperature 98.2 F 12/19/24 13:01 Pulse Rate 98 12/19/24 13:01 Respiratory Rate 19 12/19/24 13:01 Blood Pressure 114/72 12/19/24 13:01 Pulse Oximetry 96 12/19/24 13:01 Oxygen Delivery Room Air 12/19/24 13:01 Temperature 97.8 F 12/19/24 13:22 Pulse Rate 90 12/19/24 14:57 Respiratory Rate 16 12/19/24 14:57 Blood Pressure 114/80 12/19/24 14:57 Pulse Oximetry 100 12/19/24 14:57 Oxygen Delivery Room Air 12/19/24 13:22 MDM - GI Bleed MDM Narrative Medical decision making narrative: Patient presented to ED with bright red blood per rectum that began this afternoon. History of similar episodes. Vital signs stable upon arrival. Patient in no acute distress. No evidence of hemodynamic instability. She is not on any anticoagulation. Exam notable for large external hemorrhoid that does appear to be bleeding slightly. No evidence of thrombosis at this time. Laboratory studies are otherwise reassuring. H&H is stable. CMP unremarkable. UA without signs of infection. CT of abdomen/pelvis was obtained: Showing thickening of the distal stomach and proximal duodenum. No other significant abnormal findings. Patient does not have any upper abdominal tenderness lab exam today. No melena. Discussed case with Dr. Fleming GI, agrees with plan for hemorrhoid treatment, ppi, outpatient follow-up. Discussed these recommendations with patient. She is patient given return precautions, advised to monitor bleeding closely. She voiced understanding. Discharged in stable condition. Medical Records Attestation: I reviewed the patient's medical records. Lab Data Attestation: I reviewed the patient's lab results. 12/19/24 13:28 12/19/24 13:29 Labs: Lab Results 12/19/24 12/19/24 12/19/24 Range/Units 13:28 13:29 15:22 WBC 5.0 (4.5-10.0) K/mm3 RBC 4.61 (4.2-5.4) M/mm3 Hgb 13.9 (12.0-15.0) g/dL Hct 43.9 (37.0-47.0) % MCV 95.2 (80-100) fl MCH 30.2 (26-34) pg MCHC 31.7 L (32-36) g/dl RDW 13.1 (11.5-14.5) % Plt Count 199 (150-375) k/mm3 MPV 11.2 H (7.4-10.4) fl Immature Gran % (Auto) 0.2 (0-0.5) % Neut % (Auto) 49.7 (45.5-73.1) % Lymph % (Auto) 41.5 (18.3-44.2) % [place] % (Auto) 6.6 (2.6-8.5) % Eos % (Auto) 1.4 (0-4.4) % Baso % (Auto) 0.6 (0.2-1.2) % Lymph # (Auto) 2.07 (0.9-3.2) K/mm3 [place] # (Auto) 0.3 (0.1-0.6) K/mm3 Eos # (Auto) 0.1 (0-0.3) K/mm3 Baso # (Auto) 0.0 (0.0-0.1) K/mm3 Abs Immat Gran (auto) 0.01 (0.00-0.031) K/mm3 Absolute Neuts (auto) 2.5 (1.3-6.7) K/mm3 Absolute Nucleated RBC 0.000 (0.0-0.012) K/mm3 Nucleated RBC % 0.0 (0.0-0.2) % PT 12.7 (11.1-14.7) Seconds INR 1.0 APTT 26.0 (22.3-36.8) Seconds Sodium 138 (137-145) mmol/L Potassium 4.3 (3.4-5.0) mmol/L Chloride 106 (98-107) mmol/L Carbon Dioxide 23 (22-30) mmol/L Anion Gap 9 (4-12) mmol/L BUN 10 (7-17) mg/dL Creatinine 0.79 (0.7-1.0) mg/dL Estim Creat Clear Calc 64 ml/min Estimated GFR > 60 (59 - ) Glucose 89 (65-110) mg/dL Calcium 9.1 (8.4-10.2) mg/dL Total Bilirubin 0.7 (0.2-1.3) mg/dL AST 34 (14-36) U/L ALT 19 (6-35) U/L Alkaline Phosphatase 56 (38-126) U/L Total Protein 8.1 (6.3-8.2) g/dL Albumin 4.6 (3.5-5.1) g/dL Urine Color Yellow (Yellow) Urine Appearance Clear (Clear) Urine pH 7.0 (5.0-9.0) Ur Specific [place] > 1.045 H (1.001-1.035) Urine Protein Negative (Negative) mg/dL Urine Glucose (UA) Negative (Negative) mg/dL Urine Ketones Trace H (Negative) mg/dL Ur Blood (Man) Trace (Negative) Urine Nitrate Negative (Negative) Urine Bilirubin Negative (Negative) Urine Urobilinogen 0.2 (<2.0) mg/dL Add Ur Microanalysis Reviewed Leukocyte Esterase Rfl 1+ H (Negative) DONIS/UL Urine RBC 0-2 (0-2) /hpf Urine WBC 0-5 (0-3) /hpf Ur Squamous Epith Cells Few (Few) /hpf Urine Bacteria Rare /hpf Urine Casts 0-2 Blood Type Pending Antibody Screen Pending Imaging Data Attestation: I personally reviewed and interpreted this imaging study as follows: Radiologist's impression: ITS Impressions Abdomen/Pelvis CT 12/19/24 15:12 IMPRESSION: 1. Thickening of the nelson of the distal stomach and proximal duodenum. Differential includes incomplete wall distention, inflammatory/infectious process or mass. An upper GI examination is recommended. 2. Grade 1 anterolisthesis of L4 on L5. If symptoms persist or worsen, consider a short-term follow-up study or additional imaging for further assessment. Discharge Plan Discharge Clinical Impression: Bright red rectal bleeding, External hemorrhoids, Duodenitis Patient Disposition: Home Condition: Stable Instructions: Antibiotic Form, Hemorrhoids (ED), Rectal Bleeding (ED) Additional Instructions: Utilize hydrocortisone cream to hemorrhoids. Avoid straining. Recommend daily over the counter stool softeners (miralax, colace) to avoid hard/firm bowel movements. Take omeprazole daily as prescribed. Follow up with GI for further evaluation. Call office to make appointment. Return to the ED if you experience worsening or severe bleeding, severe pain, unable to keep down food or drink, feeling dizzy or lightheaded, passing out, or any other symptoms of concern. Patient Language: Cuban Prescriptions: New omeprazole 20 mg capsule,delayed release(DR/EC) 20 mg PO DAILY Qty: 30 0RF hydrocortisone 2.5 % cream with perineal applicator 1 applic RECTAL BID PRN (Reason: hemorrhoids) Qty: 30 0RF No Action levothyroxine 88 mcg tablet Mounjaro 2.5 mg/0.5 mL pen injector SUBCUT doxycycline monohydrate 100 mg tablet 100 mg PO BID Qty: 14 0RF Follow-up/Referrals: Damon,MD Luis Antonio [Primary Care Provider, Unknown] Jerry Muro MD [Physician, Gastroenterology] Referral Note: GI Time of Disposition: 15:50
[2024-12-19 14:57] VITALS: BP 114/80; PULSE 90; RESP 16; O2SAT 100
[2024-12-19 15:56] LABS: Add Urine Microscopic? YES; Appearance Urine Clear (Clear); Glucose Urine UA Negative (Negative); Leukocyte Esterase Ur 1+ LEU/UL (Negative); Need Manual Microscopic Reviewed; Nitrate Urine Negative (Negative); Non Pathogenic Casts 0-2; Specific Grav Ur > 1.045 (1.001-1.035)
== END 2024-12-19 16:27 | disposition home or self-care (01) ==
PROVIDERS: Emergency Medicine; Emergency Provider Physician Assistant; PCP Family Medicine
DX: K64.4 Residual hemorrhoidal skin tags (principal); K29.80 Duodenitis without bleeding; E03.9 Hypothyroidism, unspecified; Z90.710 Acquired absence of both cervix and uterus; R82.998 Other abnormal findings in urine
CPT/HCPCS: 36415; 74177; 80053; 81001; 85025; 85610; 85730; 86850; 86900; 86901; 87086; 99284; Q9967

== ENCOUNTER 2025-02-07 11:35 | Emergency (ER) | payer MEDICARE, MEDICAID, SELFPAY ==
[2025-02-07 11:46] VITALS: BP 137/98; PULSE 85; RESP 16; TEMP 36.6; O2SAT 100
--- NOTE | 2025-02-07 11:47 | ED_ITS ---
HPI - URI/Sore Throat General Chief Complaint: Upper Respiratory Infection Stated Complaint: headache/throat/runny nose Time Seen by Provider: 02/07/25 11:48 Source: patient, RN notes reviewed and old records reviewed Mode of arrival: ambulatory Limitations: no limitations History of Present Illness HPI Narrative: 64 year old female who presents to [facility] care with complaints of sore throat runny nose and headache for the past 2 day. Patient reports that she is concerned she picked up something from being at the other day when he was around a lot of people. Patient reports that she feels raspy to her voice with her throat sore especially when eating and drinking. Patient reports no fevers chills or sweats, denies any ear pain or any acute cough noted or any feelings of shortness of breath. Patient reports that she has taken some Tylenol for her symptoms and has used Flonase nasal spray. MD elicited complaint: sore throat, rhinorrhea, nasal congestion and other (headache) Onset (ago): day(s) (2) Severity: moderate Pain scale (0-10): 6 Able to tolerate fluids by mouth: Yes Treatments prior to arrival: acetaminophen and other (flonase nasal spray) Related Data Home Medications ?Medication ?Instructions ?Recorded ?Confirmed ?Last Taken ?Type levothyroxine 88 mcg tablet mcg 06/22/24 Unknown Hist ory dulaglutide 0.75 mg/0.5 mL mg subcut 02/07/25 Unknown History subcutaneous pen injector (Trulicity) rosuvastatin 20 mg tablet mg 02/07/25 Unknown History tirzepatide 5 mg/0.5 mL mg subcut 02/07/25 Unknown History subcutaneous pen injector (Mounjaro) vit d vit c 02/07/25 Unknown History Allergies Allergy/AdvReac Type Severity Reaction Status Date / Time No Known Allergies Allergy Verified 02/07/25 11:37 Review of Systems Review of Systems: CONSTITUTIONAL: Reports malaise, no chills, sweats, or fever. EYES: Denies visual changes, redness, or discharge. ENT: Reports rhinorrhea, congestion, sinus pressure, no otalgia and + sore throat. CARDIOVASCULAR: Denies chest pain, palpitations, or edema. RESPIRATORY: Reports cough.? Denies dyspnea. GASTROINTESTINAL: Denies abdominal pain, nausea, vomiting, diarrhea SKIN: Denies rash or itching. MUSCULOSKELETAL: Denies myalgia. NEUROLOGIC: Reports headache. All systems reviewed & are unremarkable except as noted in HPI and below PMFSH Past Medical History Medical History (Updated 02/07/25 @ 12:37 by Carleen Tenorio APRN) Hypothyroid Surgical History Surgical History (Updated 02/07/25 @ 12:37 by Carleen Tenorio APRN) Hx of breast reduction, elective Hx of tonsillectomy H/O: hysterectomy H/O section Social History Social History Smoking status: Never smoker Substance use: never Living arrangements: alone Spiritual care concerns: No Comments At time of signature, agree with nursing past medical, surgical, social and family history. There is no relevant family history pertinent to the presenting complaint Exam Narrative: GENERAL: Well-appearing, well-nourished, and in no acute distress. HEAD: Normocephalic EYES: PERRLA, conjunctivae clear ENT: Nares clear, turbinates edematous and erythematous, clear discharge. Mucous membranes moist. TM pearly diaz with dull light reflex bilaterally; no tragal tenderness. Oropharynx erythematous without lesions. Tonsils not enlarged and without exudate, no drooling, no hoarseness, no trismus, uvula midline.post nasal drainage NECK: Supple. No lymphadenopathy CHEST: Clear to auscultation, breath sounds equal. No wheezing, rhonchi, rales, or stridor. No respiratory distress, speaks in full sentences.cough noted nonproductive with no dyspnea, SAO2 100% on room air HEART: Regular rate and rhythm. No murmur heard. SKIN: Warm, dry, no rash. NEURO: Alert and oriented x3. PSYCH: Normal mood and affect Course Course Emergency Course: Patient is aware of diagnosis, understands and agrees to treatment plan.? Anticipatory guidance given.? Patient agrees to follow-up as directed and is aware of reasons to seek care at the emergency department. Portions of this record may have been created with voice recognition software Level of Care: Express Care Visit Vital Signs Vital signs: Reviewed MDM - URI/Sore Throat MDM Narrative Medical decision making narrative: Differential diagnosis considered: Hernandez virus, strep pharyngitis, allergic rhinitis, upper respiratory tract infection, sinusitis, rhinosinusitis, nasopharyngitis. viral pharyngitis, otitis media, otitis externa, pneumonia, bronchitis, viral cough syndrome, viral syndrome, and influenza.? Exam findings show no acute concerns or changes; patient is non-toxic appearing and is in no distress.? Patient is appropriate for outpatient treatment and follow-up. Differential Diagnosis Differential diagnosis: Likely upper respiratory infection, sinusitis, viral infection, pharyngitis and other (strep pharyngitis) Medical Records Attestation: I reviewed the patient's medical records. Lab Data Attestation: I reviewed the patient's lab results. Lab results narrative: strep screen negative,culture sent, Influenza A,Influenza B negative, Covid antigen negative Critical Care Time Critical Care Time Critical Care Time: No Discharge Plan Discharge Clinical Impression: Upper respiratory infection Qualifiers: URI type: unspecified URI Qualified Code(s): J06.9 - Acute upper respiratory infection, unspecified Pharyngitis Qualifiers: Pharyngitis/tonsillitis etiology: unspecified etiology Qualified Code(s): J02.9 - Acute pharyngitis, unspecified Patient Disposition: Home Condition: Stable Instructions: Antibiotic Form, Pharyngitis (ED), Upper Respiratory Infection (ED) Additional Instructions: Increase fluids especially juices and water [id number] cough and cold medicine of your choice for your symptoms Zyrtec, Claritin, or Estrella daily and include Coricidin brand decogestant Steroids as directed--take with food heat to the face 20-30 minutes 4-6 times a day for pain Salt water gargles, throat lozenges or throat sprays as desired Your strep test today was negative. A throat culture will be sent to the laboratory for further testing. IF the test is positive, you will receive a phone call within 48 hours and an appropriate antibiotic will be initiated at that time. If your symptoms persist, change or worsen significantly before you can contact your personal physician then please, without delay, go to the emergency department for further evaluation. Follow-up with PCP in 7-10 days or sooner if needed Follow up with PCP soon in regards to your blood pressure which is elevated above threshold for referral. Blood pressure above 120/80 may indicate pre- hypertension.137/98 Patient Language: Martiniquais Prescriptions: New methylprednisolone [Medrol (Ravi)] 4 mg tablets,dose pack See Rx Instructions .ROUTE .COMPLEX Qty: 21 0RF Rx Instructions: orally per package directions No Action levothyroxine 88 mcg tablet rosuvastatin 20 mg tablet Trulicity 0.75 mg/0.5 mL pen injector SUBCUT Mounjaro 5 mg/0.5 mL pen injector SUBCUT vit d vit c omeprazole 20 mg capsule,delayed release(DR/EC) 20 mg PO DAILY Qty: 30 0RF Follow-up/Referrals: Damon,Wan Castro MD [Primary Care Provider, Unknown] Time of Disposition: 12:08 Quality [place] Coma Scale Eyes: Open Verbal: Oriented and Alert Motor: Follows Commands Elizabeth Coma Total Score: 15
[2025-02-07 11:56] LABS: EDSTREPNEGPOS1 Negative (Negative)
[2025-02-07 12:04] LABS: EDCOVIDSCREEN Negative (Negative); EDINFLUASCREEN Negative (Negative); EDINFLUBSCREEN Negative (Negative)
[2025-02-07 12:10] LABS: EDCOVIDSCREEN Negative (Negative); EDINFLUASCREEN Negative (Negative); EDINFLUBSCREEN Negative (Negative)
--- OUTSIDE RECORDS SUMMARY | 2025-02-07 14:20 | XMS_ITS | Data Portability ---
Author Organization [facility] MARLINEmber Valleclilo Address [address] [place] [address] Assessment Encounter Date Assessment Date Assessment LastModified by Organization Details LastModified Time 09/11/2019 09/11/2019 Next visit - discuss memory problems karina Not available 09/11/2019 10:34:32 Plan of Treatment Reminders Order Date Submit Date Provider Last Modified By Organization Details Last Modified Time Details Appointments None recorded. Lab CT + NG + TV, DNA, urine/swab 2019 [facility], [address] [place] [address], [address], [place], [address], 0 06:07:16 HBsAg (hepatitis B surface Ag), EIA, serum 2019 [facility], [address] [place] [address], [address], [place], [address], 0 06:07:17 RPR (rapid plasma reagin), serum 2019 [facility], [address] [place] [address], [address], [place], [address], 0 06:07:16 HIV 1+2 AB + HIV 1 p24 Ag, qualitativ e immunoassa y, serum 2019 [facility], [address] [place] [address], [address], [place], [address], 0 06:07:17 TSH, ultra-sens itive, serum 2019 020 [facility], [address] [place] [address], [address], [place], [address], 0 03:04:23 TSH, ultra-sens itive, serum 2019 020 [facility], [address] [place] [address], [address], [place], [address], 0 08:19:36 TSH, ultra-sens itive, serum 2018 019 [facility], [address] [place] [address], [address], [place], [address], 9 06:13:01 bacterial vaginosis + vaginitis panel, vaginal 2017 018 [facility], [address] [place] [address], [address], [place], [address], 8 06:05:55 Referral None recorded. Procedures None recorded. Surgeries None recorded. Imaging None recorded. Medication Orders levothyrox ine 25 mcg tablet 2019 020 [id number], [address], [place], [id number], 0 23:29:46 Miralax 17 gram/dose oral powder 2019 020 [id number], [address], [place], [id number], 0 10:34:31 naproxen 500 mg tablet 2018 019 [facility][id number], [address], [place], [id number], 0 10:18:29 Augmentin 875 mg-125 mg tablet 2017 Rico mun[facility]245, [address], [place], [id number], 9 11:04:15 Patient TargetsNo targets recorded. Patient Instructions Encounter Date Encounter Id Patient Instructions Last Modified By Organization Details Last Modified Time 06/02/[id number] I certify that I was present and available in the [facility] for discussion of this patient. I have reviewed the resident's note and agree with the stated assessment and treatment plan. nicole Not available 06/27/2017 14:23:22 12/06/2018 [id number] I certify that I was present and available in the FM clinic for discussion of this patient. I have reviewed the resident's note and agree with the stated assessment and treatment plan. --Gawrys DO Faculty physician dontrell Not available 12/11/2018 00:09:17 09/14/2019 [id number] rotator cuff: exercises husman Not available 09/14/2019 11:47:37 Reason for Referral None Reported. Results Created Date Observation Date Name Description Value Unit Range Abnormal Flag Note LastModifiedBy Organization Detail LastModifiedTime 06/03/19 18 06/04/2017 bacte rial vagin osis + vagin itis panel , vagin al trich vag by RICK Negati ve negati ve Not Available [facility] ([facility]) [address] [place], [address], 06/07/2017 06:05:55 06/03/19 18 06/04/2017 bacte rial vagin osis + vagin itis panel , vagin al chlamydia trachomatis, RICK Negati ve negati ve Not Available [facility] ([facility]) [address] [place], [address], 06/07/2017 06:05:55 06/03/19 18 06/04/2017 bacte rial vagin osis + vagin itis panel , vagin al neisseria gonorrhoeae, RICK Negati ve negati ve Not Available [facility] ([facility]) [address] [facility], [place], [address], 06/07/2017 06:05:55 06/03/19 18 06/05/2017 bacte rial vagin osis + vagin itis panel , vagin al atopobium vaginae High - 2 score abnormal Not Available [facility] ([facility]) [address] [facility], [place], [address], 06/07/2017 06:05:55 06/03/19 18 06/05/2017 bacte rial vagin osis + vagin itis panel , vagin al bvab 2 Low - 0 score Not Available [facility] ([facility]) [address] [facility], [place], [address], 06/07/2017 06:05:55 06/03/19 18 06/05/2017 bacte rial [...] not neces jorge alberto. Not Available [facility] ([facility]) [address] [facility], [place], [address], 06/07/2017 06:05:55 06/03/19 18 06/06/2017 bacte rial vagin osis + vagin itis panel , vagin al arsh albicans, RICK Negati ve negati ve Not Available [facility] ([facility]) [address] [place], [address], 06/07/2017 06:05:55 06/03/1906/06/2017 bacte rial vagin osis [...] not neces jorge alberto. Not Available [facility] ([facility]) [address] [facility], [place], [address], 06/07/2017 06:05:55 12/07/1912/07/2018 TSH, ultra -sens itive , serum TSH 6.950 uIU/m L 0.450- 4.500 above high normal Not Available [facility] ([facility]) [address] [place], [address], 12/07/2018 06:13:00 09/11/1909/12/2019 TSH, ultra -sens itive , serum TSH 5.140 uIU/m L 0.450- 4.500 above high normal Not Available [facility] ([facility]) [address] [place], [address], 09/12/2019 08:19:36 09/11/1909/12/2019 TSH, ultra -sens itive , serum T4,free (direct) 0.71 NG/dL 0.82-1 .77 below low normal Not Available [facility] ([facility]) [address] [place], [address], 09/12/2019 08:19:36 09/14/1909/18/2019 CT + NG + TV, DNA, urine /swab chlamydia by RICK Negati ve negati ve Not Available [facility] ([facility]) [address] [place], [address], 09/18/2019 06:07:16 09/14/19 20 09/18/2019 CT + NG + TV, DNA, urine /swab gonococcus by RICK Negati ve negati ve Not Available [facility] ([facility]) [address] [place], [address], 09/18/2019 06:07:16 09/14/19 20 09/18/2019 CT + NG + TV, DNA, urine /swab trich vag by RICK Negati ve negati ve Not Available [facility] ([facility]) [address] [place], [address], 09/18/2019 06:07:16 09/14/19 20 09/15/2019 RPR (rapi d plasm a reagi n), serum RPR Non Reacti ve non reacti ve Not Available [facility] ([facility]) [address] [place], [address], 09/18/2019 06:07:16 09/14/19 20 09/15/2019 HIV 1+2 AB + HIV 1 p24 Ag, quali tativ e immun oassa y, serum HIV screen 4TH generation wrfx Non Reacti ve non reacti ve Not Available [facility] ([facility]) [address] [place], [address], 09/18/2019 06:07:17 09/14/19 20 09/15/2019 HBsAg (hepa titis B surfa ce Ag), EIA, serum HBsAg screen Negati ve negati ve Not Available [facility] ([facility]) [address] [place], [address], 09/18/2019 06:07:17 11/14/19 19 11/11/2018 MAMMO , scree kristy, digit al, bilat eral No observ ation record ed. [address] (Imaging) [address] [facility] [address], [place], [address], 11/13/2018 18:56:30 Result Notes None recorded. Problems Name Problem SNOMED Code Status Onset Date Resolution Date Notes Provider Name and Address Organization Details Recorded Time Hypothyro idism 00462269 Active 2018 Hypothyro idism, untreated as pt believes sx are not controlle d. -TSH/t4 today -Counsell ed on importanc e of complianc e with medicatio ns Alia Reyez RANDY barreto - [facility] 0 14:03:01 Pain of right elbow joint [id number] 81914 Active 2018 Jose RANDY Jackman - [facility] 9 21:27:08 Constipat ion 01743812 Active 2019 Constipat ion present for 5+ years, BM Q weekly, has untreated hypothyro idism. Alleviate d with unknown stool softener. -Begin miralax capful daily, titrate to goal of soft BMs Aliaclair Reyez RANDY barreto - SI 0 14:02:13 [...] weight Body temperature Heart rate Oxygen saturation Systolic And Diastolic Provider Name and Address Organization Details Last Updated DateTime 8 160.02 cm 29.7 kg/m2 03646.0 8 g 98.9 [degF] 90 /min 98 % 140/94 mm[Hg] Heidi Louis [facility] 8 16:05:36 Date Recorded Body height Heart rate Oxygen saturation Body mass index (BMI) Body weight Body temperature Systolic And Diastolic Provider Name and Address Organization Details Last Updated DateTime 9 161.93 cm 72 /min 99 % 30.2 kg/m2 38738.2 2 g 98.4 [degF] 122/76 mm[Hg] Nina Gilmore [facility] 9 09:49:02 Date Recorded Body height Body mass index (BMI) Body weight Heart rate Oxygen saturation Body temperature Systolic And Diastolic Provider Name and Address Organization Details Last Updated DateTime 0 161.93 cm 30.8 kg/m2 60139.1 9 g 92 /min 98 % 99.1 [degF] 110/78 mm[Hg] Hesham Ramesh [facility] 0 10:36:24 Date Recorded Body height Body mass index (BMI) Body weight Heart rate Oxygen saturation Systolic And Diastolic Provider Name and Address Organization Details Last Updated DateTime 9 161.93 cm 30.4 kg/m2 84650.2 6 g 74 /min 98 % 118/90 mm[Hg] Nani Campo MA [facility] 9 11:39:14 Social History Question Answer Notes LastModified by Organizat ion Details LastModified Time Tobacco Smoking Status Never Smoker Desire Bernabe CMA null, [place] [facility] 07/29/2016 17:04:53 What Was The Date Of [...] ICD10 Code Diagnosis IMO Codes Diagnosis Note [id number] DO Juan [facility] ([facility]) [address] [place] [address] 07/29/2016 16:51:24 07/30/2016 12:28:35 Adult health examination 190763424 Z00.00 55 YO F w/ PMHx significan [...] panel and BMP.-Refus es all vaccines. Obesity 949525631 E66.9 -BMI 31.5, patient just recently enrolled in a weight loss clinic. Discussed with patient diet and exercise. Pt expresses understand ing. [id number] MD Juan De La [facility] ([facility]) [address] [place] [address] 12/07/2016 14:43:30 12/08/2016 11:42:39 Standard chest X-ray abnormal 855291696 R93.8 - CXR showed minimal scarring vs atelectasi s- Will repeat CXR to ensure resolution Memory impairment 111094 006 R41.3 - Expresses concern about dementia [...] dementia. Pt verbalized understand ing and agreement [id number] Dasia Cantor MD [place] [address] [address] 06/02/2017 15:57:32 06/03/2017 15:25:04 Vaginal discharge 029187906 N89.8 Check nuswab + Sinusitis 00541004 J32.9 Augmentin BID x10 daysRecomm end nasal saline rinses [id number] Daljit Mccray DO [place] [address] [address] 08/16/2018 09:27:23 08/17/2018 13:42:27 Pain of elbow region 00825571 M25.521 - Suspect mild bursitis vs muscle strain- PE remarkable TTP over elbow. Mild swelling over R elbow- Start Naproxen 500mg BID for 5 days with food [id number] Anastasia Odell MD [place] [address] [address] 12/06/2018 11:24:27 12/08/2018 10:10:28 Hypothyroidism 48101518 E03.9 Chronic-Pa tient reports symptoms consistent with hypothyroi dism-Most recent TSH 6.7 on 10/06/17-Cu rrently not taking Synthroid- Will check TSH and if abnormal will start treatment Elevated blood-pressure reading without diagnosis of hypertension 032768060 R03.0 Blood pressure 118/90 in clinicGoal blood pressure less than 140/90-No red flag symptoms concerning for HTN emergency- ED precaution s discussed- RTC 2 weeks for blood pressure recheck. If persistent ly elevated will discuss lifestyle modificati ons vs initiating antihypert ensive medication . Lateral epicondylitis 20 9266965 M77.11 Approximat sarah 6 month history of lateral, right elbow painExam consistent with lateral epicondyli tis-Reassu sarah provided that in most individual symptoms will improve within 1 year from onset even without any interventi on.-May continue to use Aleve/Tyle nol as needed-Pat ient declines physical therapy. Rehab exercises provided from [email or web address]-RTC as needed [id number] Anastasia Odell MD [facility] [address] [facility] [address] [place] [address] 09/11/2019 08:33:41 09/19/2019 15:00:46 Constipation 99106404 K59.00 Constipati on present for 5+ years, BM Q weekly, has untreated hypothyroi dism. Alleviated with unknown stool softener.- Begin miralax capful daily, titrate to goal of soft BMs Hypothyroidism 73098811 E03.9 Hypothyroi dism, untreated as pt believes sx are not controlled .-TSH/t4 today-Coun selled on importance of compliance with medication s [id number] Anastasia Odell MD [facility] [address] [facility] [address] [place] [address] 09/14/2019 10:25:33 09/19/2019 15:49:32 Venereal disease screening 379710331 Z11.3 Symptomati c with dysuria and pressure for a couple weeks-STI screening today, will call with abnormal results Pain of ri ght shoulder joint [id number] 0024237 M25.511 R shoulder pain, likely rotator cuff injury-Pro vided with exercises- Conservati ve care with PRN tylenol/ib uprofen, rest, heat/ice Hypothyroidism 24089416 E03.9 Hx of hypothyroi dism, on 25mcg [...] Fu Member ID Guarantor Name 09/14/2019 1 [facility] (MEDICAID HMO) [id number] Tatiana Loya [id number] Ming Loya Notes Date Note Type Note [...] pain. Jai Ornelas MD Attn: Accounting,[address] [facility], [place], [address], [place] [facility] 06/27/2017 14:23:47 08/16/2018 text/html ROS as noted in the HPI 57 y/o F presents for ER f/u.Pt went to [place] [facility] on 08/10 due to R elbow and arm pain .Pain started about 3-4 weeks ago. Pt fell about a few months ago and broke her fall with her R arm - unknown if that was the trigger.Pt was given muscle relaxant and Naproxen. Naproxen decreased pain down to 5/10. Did not take muscle relaxantPain currently 10/28.Feels like sharp pain that radiates up and down elbow and it starts at the elbow.No numbness or tingling.No other complaints today. Daljit barreto, [facility] 08/17/2018 11:33:39 12/06/2018 text/html ROS as [...] dyspnea, abdominal pain, N/V/D, or dysuria. Gwendolyn barreto, [facility] 12/11/2018 00:09:24 09/11/2019 text/html Hypertension F/UReported [...] abdominal hardness-Assoc tenderness Hypothyroidism-Hx of thyroid cyst [id number]-Ciyr not take her synthroid - says it gave her exophthalmos, did not improve symptoms-C/o fatigue x1 month and exercise intolerance Alia Harrisman [facility], [facility] 11/11/2019 14:03:06 09/14/2019 text/html ROS as [...] a couple weeks w/o flank pain/fevers/chills Alia Reyez [facility], [place] [facility] 03/31/2020 12:10:53 OBGyn Episode No OBEpisode recorded.
--- OUTSIDE RECORDS SUMMARY | 2025-02-07 14:20 | XMS_ITS | Data Portability ---
Author Organization [place] [facility], Main Office Address [address] [place] [id number] Care Team Providers Care Diesel Engine I Pipe Fitter Name Role Phone LUIS ANTONIO JOSE Primary Care Provider [phone] Assessment Encounter Date Assessment Date Assessment LastModified by Organization Details LastModified Time 09/21/2023 09/21/2023 I have reconcile d the patient's medications post their discharge from inpatient facility. Not available 09/21/2023 11:57:16 10/13/2023 10/13/2023 62 [...] in 3 weeks. Annual labs in 10/12. [email or web address] Not available 10/13/2023 10:34:32 11/09/2023 11/09/2023 62 [...] A1c in 02/11. Annual labs in 10/12. [email or web address] Not available 11/09/2023 14:37:38 04/05/2024 04/05/2024 63 [...] A1c in 07/13. Annual labs in 10/12. [email or web address] Not available 04/05/2024 10:29:03 09/05/2024 09/05/2024 63 [...] per schedule. Cont f/u with Neuro at [facility] as per schedule. Cont f/u with Ophtho [...] in 2 months. Annual labs in 7/25. [email or web address] Not available 09/05/2024 11:25:15 Plan of Treatment Reminders Order Date Submit Date Provider Last Modified By Organization Details Last Modified Time Details Appointments None recorded. Lab lipid panel, serum [address] (Lab), [address] [place], [address], 5 13:56:01 glycohemog lobin, total, blood [address] (Lab), [address] [place], [address], 5 09:50:05 glycohemog lobin, total, blood [address] (Lab), [address] [place], [address], 5 15:45:17 glycohemog lobin, total, blood [email or web address] (Lab), [address] [place], [address], 5 11:26:15 vitamin D, 25-hydroxy , total, serum [address] (Lab), [address] [place], [address], 4 08:43:00 vitamin B12 + folate, serum or blood [address] (Lab), [address] [place], [address], 4 08:43:00 CBC w/ auto diff 2023 024 [facility] (Lab), [address] [place], [address], 4 14:34:02 CMP, serum or plasma 2023 024 [facility] (Lab), [address] [place], [address], 4 14:39:42 lipid panel, serum 2023 024 [facility] (Lab), [address] [place], [address], 4 14:39:45 TSH, serum, reflex free T4 [address] (Lab), [address] [place], [address], 4 08:42:59 urinalysis complete, reflex culture [address] (Lab), [address] [place], [address], 4 08:42:59 glycohemog lobin, total, blood 2023 024 [facility] (Lab), [address] [place], [address], 4 19:24:01 Referral neurologis t referral - Please call patient to schedule an appointmen t. Thank you. [address] [facility] [address], [facility] [address], [place], [address], 5 17:03:59 mental health counselor referral - Please call patient to schedule an appointmen t. Thank you. 2024 025 [email or web address] Leyla Matthew Ma Project Design Engineer, [address] [facility], [place], [address], 5 09:03:53 gastroente rologist referral - Please call patient to schedule an appointmen t. Thank you. 2023 024 [email or web address] [facility], [address] [place], [address], 4 08:45:[address] referral - Please call patient to schedule an appointmen t. Thank you. 2023 024 [email or web address] [facility], [address] [place], [address], 4 08:45:09 neurologis t referral - Please call patient to schedule an appointmen t. Thank you [email or web address] [facility] [address] , [place] [address], [place], [address], 4 08:44:13 dermatolog ist referral - Please call patient to schedule an appointmen t. Thank you. 2023 024 [email or web address] [facility], [address], [place], [address], 08:43:50 physical therapist referral - *Please call pt to schedule* 2023 024 [email or web address] 56 [facility] [address] , [place], [address], 09:09:13 Procedures None recorded. Surgeries None recorded. Imaging US, liver - *Please call pt to schedule* [address], [address], [address], 4 10:23:13 DEXA - *Please call pt to schedule* [address] (Imaging), [facility], [place], [address], 5 09:14:22 Medication Orders buspirone 10 mg tablet 2024 [facility]23189, [address], [place], [id number], 11:17:33 Calcium 600 + D(3) 600 mg-10 mcg (400 unit) tablet 2024 [facility] #41990, [address], [place], [id number], 11:17:31 rosuvastat in 20 mg tablet 2024 [facility] #58113, [address], [place], [id number], 11:17:32 Linzess 290 mcg capsule 2024 [facility] #57201, [address], [place], [place], [id number], 11:17:32 metformin ER 500 mg tablet,ext ended release 24 hr 2024 [facility] #34635, [address], [place], [place], [id number], 5 11:17:30 Ozempic 0.25 mg or 0.5 mg (2 mg/3 mL) subcutaneo us pen injector [email or web address] [place] [address] [facility] #51240, [address], [place], [place], [id number], 5 08:41:46 buspirone 10 mg tablet 2024 [facility] #21373, [address], [place], [place], [id number], 5 10:15:30 rosuvastat in 20 mg tablet 2024 025 [facility] #19485, [address], [place], [place], [id number], 5 16:25:25 Calcium 600 + D(3) 600 mg-10 mcg (400 unit) tablet 2024 025 [facility] #15476, [address], [place], [place], [id number], 5 10:14:06 Linzess 145 mcg capsule [address] [facility]46330, [address], [place], [place], [id number], 5 15:14:10 Mounjaro 2.5 mg/0.5 mL subcutaneo us pen injector [address] [facility]00811, [address], [place], [place], [id number], 5 15:13:42 Farxiga 10 mg tablet 2024 025 [facility] #89501, [address], [place], [place], [id number], 5 10:12:03 metformin ER 500 mg tablet,ext ended release 24 hr [address] [facility]65728, [address], [place], [place], [id number], 5 10:24:39 Rybelsus 3 mg tablet 2023 024 [id number] [facility] #43617, [address], [place], [place], [id number], 5 15:14:03 Trulance 3 mg tablet 2023 [facility] #80743, [address], [place], [place], [id number], 4 10:25:56 cyclobenza jacque 10 mg tablet 2023 [facility] #74461, [address], [place], [place], [id number], 4 10:10:39 diclofenac sodium 75 mg tablet,del ayed release 2023 [facility] #20455, [address], [place], [place], [id number], 4 11:28:28 polyethyle ne glycol 3350 17 gram/dose oral powder 2023 024 [facility] #35671, [address], [place], [place], [id number], 4 11:28:27 Linzess 145 mcg capsule 2023 024 [email or web address] [facility] #93943, [address], [place], [place], [id number], 5 15:14:10 docusate sodium 100 mg capsule 2023 [facility] #06333, [address], [place], [place], [id number], 4 11:28:26 rosuvastat in 20 mg tablet 2023 [facility] #42984, [address], [place], [place], [id number], 11:28:32 levothyrox ine 88 mcg tablet 2023 [facility]54832, [address], [place], [place], [id number], 11:28:28 Patient TargetsNo targets recorded. Patient Instructions Encounter Date Encounter Id Patient Instructions Last Modified By Organization Details Last Modified Time 09/21/2023 [id number] learning about obesity [email or web address] Not available 09/21/2023 11:28:18 Thank you for [...] Medical Equipment needed: Billing Guidelines CPT code 37906- Transitional Care Management services with moderate medical decision complexity (dhyi-fs-caxi visit within 14 days of discharge). CPT code 51861- Transitional Care Management services with high medical decision complexity (aaea-gx-wpbv visit within 7 days of discharge). Not available 09/21/2023 11:11:03 10/13/2023 [id number] dash diet: care instructions Not available 10/13/2023 10:26:32 11/09/2023 [id number] Starting a Weight-Loss Plan: Care Instructions [email or web address] Not available 11/09/2023 14:35:19 dash diet: care instructions [email or web address] Not available 11/09/2023 14:26:47 type 2 diabetes: care instructions Not available 11/09/2023 14:35:38 04/05/2024 [id number] dash diet: care instructions [email or web address] Not available 04/05/2024 10:11:58 Starting a Weight-Loss Plan: Care Instructions [email or web address] Not available 04/05/2024 10:11:58 type 2 diabetes: care instructions [email or web address] Not available 04/05/2024 10:11:58 09/05/2024 [id number] dash diet: care instructions [email or web address] Not available 09/05/2024 11:17:19 Starting a Weight-Loss Plan: Care Instructions Not available 09/05/2024 11:17:19 type 2 diabetes: care instructions [email or web address] Not available 09/05/2024 11:17:19 Reason for Referral Physical Therapist Referral for Chronic low back pain *Please call pt to schedule* Referring Physician: Luis Antonio Jose [facility] Clara, Encounter Date: 09/21/2023 Detasseler Referral for C hange in skin lesion Please call patient to schedule an appointment. Thank you. Referring Physician: Family Clara Craven, Encounter Date: 10/13/2023 Neurologist Referral for Mem ory impairment Please call patient to schedule an appointment. Thank you Referring Physician: Family Clara Craven, Encounter Date: 10/13/2023 Packaging Sales Consultant Referral for Li cordell cyst Liver cyst, fatty liver, ? Fibrosis Please call patient to schedule an appointment. Thank you. Referring Physician: Family Clara Craven, Encounter Date: 11/09/2023 Manager Licensing Referral for Chronic idiopathic constipation Please call [...] 5.5 x10'3 /uL 4.2-10 .8 Not Available [facility] (Lab) [address] [place], [address], 10/13/2023 14:34:02 10/13/19 24 10/13/2023 CBC/C OMPLE TE BLD COUNT W/DIF F red blood cells 4.47 x10'6 /uL 3.80-5 .20 Not Available [facility] (Lab) [address] [place], [address], 10/13/2023 14:34:02 10/13/19 24 10/13/2023 CBC/C OMPLE TE BLD COUNT W/DIF F hemoglobin 14.1 g/dL 12.0-1 5.6 Not Available [facility] (Lab) [address] [place], [address], 10/13/2023 14:34:02 10/13/19 24 10/13/2023 CBC/C OMPLE TE BLD COUNT W/DIF F hematocrit 43.2 % 35.7-4 5.7 Not Available [facility] (Lab) [address] [place], [address], 10/13/2023 14:34:02 10/13/19 24 10/13/2023 CBC/C OMPLE TE BLD COUNT W/DIF F mean red cell volume 96.6 fL 82.0-9 9.0 Not Available [facility] (Lab) [address] [place], [address], 10/13/2023 14:34:02 10/13/19 24 10/13/2023 CBC/C OMPLE TE BLD COUNT W/DIF F mean red cell hemoglobin 31.5 pg 27.0-3 3.0 Not Available [facility] (Lab) [address] [place], [address], 10/13/2023 14:34:02 10/13/19 24 10/13/2023 CBC/C OMPLE TE BLD COUNT W/DIF F mean RBC HGB concentratio n 32.6 g/dL 31.0-3 6.0 Not Available [facility] (Lab) [address] [place], [address], 10/13/2023 14:34:02 10/13/19 24 10/13/2023 CBC/C OMPLE TE BLD COUNT W/DIF F red cell distribution width 12.8 % 11.8-1 5.5 Not Available [facility] (Lab) [address] [place], [address], 10/13/2023 14:34:02 10/13/19 24 10/13/2023 CBC/C OMPLE TE BLD COUNT W/DIF F platelets 186 x10'3 /uL 150-40 0 Not Available [facility] (Lab) [address] [place], [address], 10/13/2023 14:34:02 10/13/19 24 10/13/2023 CBC/C OMPLE TE BLD COUNT W/DIF F mean platelet volume 11.9 fL 9.0-12 .4 Not Available [facility] (Lab) [address] [place], [address], 10/13/2023 14:34:02 10/13/19 24 10/13/2023 CBC/C OMPLE TE BLD COUNT W/DIF F neutrophils 47.6 % 39.0-7 2.0 Not Available [facility] (Lab) [address] [place], [address], 10/13/2023 14:34:02 10/13/1911 1010/13/2023 CBC/C OMPLE TE BLD COUNT W/DIF F lymphocytes 40.3 % 16.0-4 7.0 Not Available [facility] (Lab) [address] [place], [address], 10/13/2023 14:34:02 10/13/19 24 10/13/2023 CBC/C OMPLE TE BLD COUNT W/DIF F monocytes 8.6 % 5.0-12 .0 Not Available [facility] (Lab) [address] [place], [address], 10/13/2023 14:34:02 10/13/19 24 10/13/2023 CBC/C OMPLE TE BLD COUNT W/DIF F eosinophils 2.4 % 1.0-7. 0 Not Available [facility] (Lab) [address] [place], [address], 10/13/2023 14:34:02 10/13/19 24 10/13/2023 CBC/C OMPLE TE BLD COUNT W/DIF F basophils 0.7 % 0.0-2. 0 Not Available [facility] (Lab) [address] [place], [address], 10/13/2023 14:34:02 10/13/19 24 10/13/2023 CBC/C OMPLE TE BLD COUNT W/DIF F immature granulocytes 0.4 % 0.00-0 .50 Not Available [facility] (Lab) [address] [place], [address], 10/13/2023 14:34:02 10/13/19 24 10/13/2023 CBC/C OMPLE TE BLD COUNT W/DIF F neutrophils, absolute count 2.62 x10'3 /uL 1.5-8. 0 Not Available [facility] (Lab) [address] [place], [address], 10/13/2023 14:34:02 10/13/19 24 10/13/2023 CBC/C OMPLE TE BLD COUNT W/DIF F lymphocytes, absolute count 2.21 x10'3 /uL 1.07-3 .43 Not Available [facility] (Lab) [address] [place], [address], 10/13/2023 14:34:02 10/13/19 24 10/13/2023 CBC/C OMPLE TE BLD COUNT W/DIF F monocytes, absolute count 0.47 x10'3 /uL 0.29-0 .99 Not Available [facility] (Lab) [address] [place], [address], 10/13/2023 14:34:02 10/13/19 24 10/13/2023 CBC/C OMPLE TE BLD COUNT W/DIF F eosinophils, absolute count 0.13 x10'3 /uL 0.02-0 .53 Not Available [facility] (Lab) [address] [place], [address], 10/13/2023 14:34:02 10/13/19 24 10/13/2023 CBC/C OMPLE TE BLD COUNT W/DIF F basophils, absolute count 0.04 x10'3 /uL 0.01-0 .08 Not Available [facility] (Lab) [address] [place], [address], 10/13/2023 14:34:02 10/13/19 24 10/13/2023 CBC/C OMPLE TE BLD COUNT W/DIF F immature granulocytes ,absolute 0.02 x10'3 /uL 0.00-0 .05 Not Available [facility] (Lab) [address] [place], [address], 10/13/2023 14:34:02 10/13/19 24 10/13/2023 CBC/C OMPLE TE BLD COUNT W/DIF F nucleated red blood cells 0.0 % -0 Not Available [facility] (Lab) [address] [place], [address], 10/13/2023 14:34:02 10/13/19 24 10/13/2023 CBC/C OMPLE TE BLD COUNT W/DIF F NRBC# 0.00 x10'3 /uL Not Available [facility] (Lab) [address] [place], [address], 10/13/2023 14:34:02 10/13/19 24 10/13/2023 COMPR EHENS ADY METAB OLIC PANEL sodium 140 mmol/ L 137-14 5 Not Available [facility] (Lab) [address] [place], [address], 10/13/2023 14:39:42 10/13/19 24 10/13/2023 COMPR EHENS ADY METAB OLIC PANEL potassium 4.2 mmol/ L 3.5-5. 1 Not Available [facility] (Lab) [address] [place], [address], 10/13/2023 14:39:42 10/13/19 24 10/13/2023 COMPR EHENS ADY METAB OLIC PANEL chloride 109 mmol/ L 98-107 high Not Available [facility] (Lab) [address] [place], [address], 10/13/2023 14:39:42 10/13/19 24 10/13/2023 COMPR EHENS ADY METAB OLIC PANEL carbon dioxide 29 mmol/ L 22-30 Not Available [facility] (Lab) [address] [place], [address], 10/13/2023 14:39:42 10/13/19 24 10/13/2023 COMPR EHENS ADY METAB OLIC PANEL anion gap 6.2 mmol/ L 14-22 low Not Available [facility] (Lab) [address] [place], [address], 10/13/2023 14:39:42 10/13/19 24 10/13/2023 COMPR EHENS ADY METAB OLIC PANEL glucose 113 mg/dL 70-99 high Not Available [facility] (Lab) [address] [place], [address], 10/13/2023 14:39:42 10/13/19 24 10/13/2023 COMPR EHENS ADY METAB OLIC PANEL BUN 12 mg/dL 8-19 Not Available [facility] (Lab) [address] [place], [address], 10/13/2023 14:39:42 10/13/19 24 10/13/2023 COMPR EHENS ADY METAB OLIC PANEL creatinine 0.79 mg/dL 0.66-1 .25 Not Available [facility] (Lab) [address] [place], [address], 10/13/2023 14:39:42 10/13/19 24 10/13/2023 COMPR EHENS ADY METAB OLIC PANEL GFR >60 Refer ence Range : [place] ge GFR Healt hy Adult : >60 [...] or ethni c subgr oups, such as Hispr nics. Outsi de the valid ated lonnie [...] calcu lator is avail able on the F websi te: https ://ann marie w.jigna taveras.o bernice/pr ofess ional s/kdo qi/gf r_cal culat or Not Available [facility] (Lab) [address] [place], [address], 10/13/2023 14:39:42 10/13/19 24 10/13/2023 COMPR EHENS ADY METAB OLIC PANEL alkaline phosphatase 62 U/L 38-126 Not Available [facility] (Lab) [address] [place], [address], 10/13/2023 14:39:42 10/13/19 24 10/13/2023 COMPR EHENS ADY METAB OLIC PANEL alanine aminotransfe rase 30 U/L 0-35 Not Available [facility] (Lab) [address] [place], [address], 10/13/2023 14:39:42 10/13/19 24 10/13/2023 COMPR EHENS ADY METAB OLIC PANEL aspartate aminotransfe rase 35 U/L 15-37 Not Available [facility] (Lab) [address] [place], [address], 10/13/2023 14:39:42 10/13/19 24 10/13/2023 COMPR EHENS ADY METAB OLIC PANEL bilirubin, total 0.60 mg/dL 0.20-1 .30 Not Available [facility] (Lab) [address] [place], [address], 10/13/2023 14:39:42 10/13/19 24 10/13/2023 COMPR EHENS ADY METAB OLIC PANEL calcium 9.3 mg/dL 8.4-10 .2 Not Available [facility] (Lab) [address] [place], [address], 10/13/2023 14:39:42 10/13/19 24 10/13/2023 COMPR EHENS ADY METAB OLIC PANEL total protein 7.0 g/dL 6.3-8. 2 Not Available [facility] (Lab) [address] [place], [address], 10/13/2023 14:39:42 10/13/19 24 10/13/2023 COMPR EHENS ADY METAB OLIC PANEL albumin 4.4 g/dL 3.0-4. 4 Not Available [facility] (Lab) [address] [place], [address], 10/13/2023 14:39:42 10/13/19 24 10/13/2023 COMPR EHENS ADY METAB OLIC PANEL globulin 2.6 g/dL 2.6-4. 2 Not Available [facility] (Lab) [address] [place], [address], 10/13/2023 14:39:42 10/13/19 24 10/13/2023 COMPR EHENS ADY METAB OLIC PANEL A/G ratio 1.7 ratio 1.0-2. 0 Not Available [facility] (Lab) [address] [place], [address], 10/13/2023 14:39:42 10/13/19 24 10/13/2023 LIPID PANEL cholesterol 144 mg/dL 140-19 9 NIH TAYLER NSUS RECOM MENDA TION FOR ANNE-MARIE STERO L: ADULT CHILD LOW RISK: <200 <170 BORDE RLINE : <200- 239 ----- HIGH RISK: >240 >200 Not Available [facility] (Lab) [address] [place], [address], 10/13/2023 14:39:44 10/13/19 24 10/13/2023 LIPID PANEL triglyceride s 87 mg/dL 0-150 NIH TAYLER NSUS REPOR T RECOM MENDA TION FOR TRIGL YCERI IMAN: ADULT CHILD LOW RISK: <150 ----- BODER LINE: 150-1 99 ----- HIGH RISK: >200 ----- Not Available [facility] (Lab) [address] [place], [address], 10/13/2023 14:39:44 10/13/19 24 10/13/2023 LIPID PANEL HDL cholesterol 45 mg/dL 40- Not Available [facility] (Lab) [address] [place], [address], 10/13/2023 14:39:44 10/13/19 24 10/13/2023 LIPID PANEL LDL cholesterol, calculated 82 mg/dL 0-130 NIH TAYLER NSUS REPOR T RECOM MENDA TIONS FOR LDL: ADULT CHILD LOW RISK <130 <110 (OPTI MAL LDL) <100 ----- AILYN RLINE : 130-1 59 ----- HIGH RISK: >160 >130 A TRIGL YCERI DE RESUL T >400 INVAL IDATE S THE CALCU LATIO N FOR LDL FRACT IONAT ION - THE LDL RESUL T WILL NOT BE REPOR JOSHUA. Not Available [facility] (Lab) [address] [place], [address], 10/13/2023 14:39:44 10/13/19 24 10/13/2023 TSH W/REF LONG FT4 TSH with reflex free T4 3.060 uIU/m L 0.465- 4.680 Not Available [facility] (Lab) [address] [place], [address], 10/13/2023 14:52:23 10/13/19 24 10/13/2023 URINA LYSIS COMPL ETE/I RIS W/RFX color LIGHT- YELLOW Not Available [facility] (Lab) [address] [place], [address], 10/13/2023 14:55:27 10/13/19 24 10/13/2023 URINA LYSIS COMPL ETE/I RIS W/RFX appear TURBID abnormal Not Available [facility] (Lab) [address] [place], [address], 10/13/2023 14:55:27 10/13/19 24 10/13/2023 URINA LYSIS COMPL ETE/I RIS W/RFX specific gravity 1.020 1.001- 1.030 Not Available [facility] (Lab) [address] [place], [address], 10/13/2023 14:55:27 10/13/19 24 10/13/2023 URINA LYSIS COMPL ETE/I RIS W/RFX pH 6.5 pH_un its 5.0-9. 0 Not Available [facility] (Lab) [address] [place], [address], 10/13/2023 14:55:27 10/13/19 24 10/13/2023 URINA LYSIS COMPL ETE/I RIS W/RFX leukocytes 25 karime/u L negati ve- abnormal Not Available [facility] (Lab) [address] [place], [address], 10/13/2023 14:55:27 10/13/19 24 10/13/2023 URINA LYSIS COMPL ETE/I RIS W/RFX nitrite NEGATI VE negati ve- Not Available [facility] (Lab) [address] [place], [address], 10/13/2023 14:55:27 10/13/19 24 10/13/2023 URINA LYSIS COMPL ETE/I RIS W/RFX protein NEGATI VE mg/dL negati ve- Not Available [facility] (Lab) [address] [place], [address], 10/13/2023 14:55:27 10/13/19 24 10/13/2023 URINA LYSIS COMPL ETE/I RIS W/RFX glucose NORMAL mg/dL normal - Not Available [facility] (Lab) [address] [place], [address], 10/13/2023 14:55:27 10/13/19 24 10/13/2023 URINA LYSIS COMPL ETE/I RIS W/RFX ketones NEGATI VE mg/dL negati ve- Not Available [facility] (Lab) [address] [place], [address], 10/13/2023 14:55:27 10/13/19 24 10/13/2023 URINA LYSIS COMPL ETE/I RIS W/RFX urobilinogen NORMAL mg/dL normal - Not Available [facility] (Lab) [address] [place], [address], 10/13/2023 14:55:27 10/13/19 24 10/13/2023 URINA LYSIS COMPL ETE/I RIS W/RFX bilirubin NEGATI VE mg/dL negati ve- Not Available [facility] (Lab) [address] [place], [address], 10/13/2023 14:55:27 10/13/19 24 10/13/2023 URINA LYSIS COMPL ETE/I RIS W/RFX blood NEGATI VE mg/dL negati ve- Not Available [facility] (Lab) [address] [place], [address], 10/13/2023 14:55:27 10/13/19 24 10/13/2023 URINA LYSIS COMPL ETE/I RIS W/RFX white blood cells 0-8 /i??h pfi?? 0-8 Not Available [facility] (Lab) [address] [place], [address], 10/13/2023 14:55:27 10/13/19 24 10/13/2023 URINA LYSIS COMPL ETE/I RIS W/RFX red blood cells 0-4 /i??h pfi?? 0-4 Not Available [facility] (Lab) [address] [place], [address], 10/13/2023 14:55:27 10/13/19 24 10/13/2023 URINA LYSIS COMPL ETE/I RIS W/RFX bacteria NONE Not Available [facility] (Lab) [address] [place], [address], 10/13/2023 14:55:27 10/13/19 24 10/13/2023 URINA LYSIS COMPL ETE/I RIS W/RFX mucous OCCASI ONAL /i??l pfi?? abnormal Not Available [facility] (Lab) [address] [place], [address], 10/13/2023 14:55:27 10/13/19 24 10/13/2023 URINA LYSIS COMPL ETE/I RIS W/RFX squamous epithelial PACKED FIELD /i??l pfi?? abnormal Not Available [facility] (Lab) [address] [place], [address], 10/13/2023 14:55:27 10/13/19 24 10/13/2023 URINA LYSIS COMPL ETE/I RIS W/RFX unclassified cast 4 abnormal Not Available [facility] (Lab) [address] [place], [address], 10/13/2023 14:55:27 10/13/19 24 10/13/2023 VITAM IN D 25-HY DROXY vd25oh 33.5 NG/mL 30-100 Vitam in D Statu s: Defic ient: <20 ng/mL Insuf ficie nt: 20-29 ng/mL Suffi cient : 30-10 0 ng/mL Not Available [facility] (Lab) [address] [place], [address], 10/13/2023 14:57:22 10/13/19 24 10/13/2023 VITAM IN B12 (POLA JOEY ) vb12 >1000 pg/mL 239-93 1 high Not Available [facility] (Lab) [address] [place], [address], 10/13/2023 15:21:13 10/13/19 24 10/13/2023 FOLAT E, SERUM /PLAS MA folate 13.5 NG/mL 2.76-2 0.0 Not Available [facility] (Lab) [address] [place], [address], 10/13/2023 15:21:18 10/13/19 24 10/13/2023 HEMOG LOBIN A1C HA1C 6.5 % 4.0-6. 0 high Diabe vicenta Elmer wagner [facility]: <5.7% Consi stent with absen ce of diabe vicenta 5.7-6 .4% Consi stent with incre ased risk for diabe vicenta (pred iabet es) >OR=6 .5% Consi stent with diabe vicenta REFER ENCE: Diabe vicenta Care 2016, 39(Nettles ppl.1 ):s13 -s22 Not Available [facility] (Lab) [address] [place], [address], 10/13/2023 19:24:01 10/13/19 24 09/15/2023 CT, abdom en + pelvi s, w/ contr ast No observ ation record ed. [email or web address] Not Available 2023 14:19:35 10/14/19 24 10/14/2023 US, liver No observ ation record ed. [email or web address] [facility] [address] [facility] [address], [place], [address], 11/09/2023 14:19:35 04/02/19 25 04/02/2024 DEXA No observ ation record ed. [email or web address] [facility] [address], [place], [address], 04/05/2024 10:04:21 09/20/19 25 08/27/2024 elmer kim helder, bilat [facility] [address] [place] [address] [phone] [place] Name: AIDA LOYA Access ion #: [id number] Sex: F : 1960 7 Locati on: RAD Attend ing Physic may: NELSY JOSE Orderi ng Physic may: ENLSY JOSE Exam Date: 08/28/19 8:26 AM Exam Name: MG CAMILO BREAST HELDER BILAT Admitt ing Diagno sis(es ): MAMMOG SHANT REPORT - FINAL EXAM: SCRAnn BREAST HELDER BILAT HISTOR Y: screen ing 63-yea r-old female with no curren t breast compla ints. The patien t has a histor y of bilate ral [...] entire ly fatty. Page 1 of 2 [facility] [facility] A[facility] Access ion #: [id number] Sex: F : 1960 8 Exam [...] ed prompt ly to the [facility]. A negati ve mammog shant report [...] MD (CT) (CT) Page 2 of [address] (Imaging) [address] [place], [address], 09/20/2024 12:31:11 09/20/1908/27/2024 MAMMO , scree kristy, bilat eral No observ ation record ed. [address] [place], [address], 09/20/2024 12:31:12 Result Notes None recorded. Problems Name Problem SNOMED Code Status Onset Date Resolution Date Notes Provider Name and Address Organization Details Recorded Time Insomnia 027119681 Active 2020 Not Available [facility] 3 00:43:37 Incision of thyroid Active 2020 Not Available [facility] 3 00:43:38 Cyst of thyroid 22926095 Active 2020 Not Available [facility] 3 00:43:38 Constipati on 62223663 Active 2020 Not Available [facility] 3 00:43:37 Mixed anxiety and depressive disorder 779652863 Active 2020 Not Available [facility] 3 00:43:37 Hypothyroi dism 05105842 Active 2020 Not Available [facility] 3 00:43:38 Screening for malignant neoplasm of colon Active 2021 Not Available [facility] 3 00:43:37 Hyperlipid emia 30732995 Active 2021 Not Available [facility] 3 00:43:38 Hyperglyce manju 27479272 Active 2021 Not Available [facility] 3 00:43:38 Type 2 diabetes mellitus without complicati on 407084438 Active 2022 Mita Boland NP [address], [place], [address] , [employer] 3 12:48:57 Chronic idiopathic constipati on 37353723 Active 2022 Mita Boland NP [address], [place], [address] , [employer] 3 15:22:02 Obesity 367912460 Active 2023 Luis Antonio Jose MD [address], [place], [address] , [employer] 4 11:07:21 Prediabete s 926585785 Active 2023 Luis Antonio Jose MD [address], [place], [address] , [employer] 4 11:08:11 Chronic low back pain 013839179 Active 2023 Luis Antonio Jose MD [address], [place], [address] , [employer] 4 11:24:17 Blood-ting ed feces 7646973640121 02 Active 2023 Luis Antonio Jose MD [address], [place], [address] , [employer] 4 11:57:31 Thyroid nodule 896928311 Active 2023 Luis Antonio Jose MD [address], [place], [address] , [employer] [facility] [employer] [facility] 4 11:58:23 Change in skin lesion 716196772 Active 2023 Luis Antonio Jose MD [address], [place], [address] , [place] [facility] [employer] [facility] 4 10:20:35 Liver cyst 55124766 Active 2023 Luis Antonio Jose MD [address], [place], [address] , [employer] [facility] [employer] [facility] 4 10:22:56 Memory impairment 877181423 Active 2023 Luis Antonio Jose MD [address], [place], [address] , [employer] [facility] [employer] [facility] 4 10:23:44 Elevated blood-pres sure reading without diagnosis of hypertensi on 007855280 Active 2023 Luis Antonio Jose MD [address], [place], [address] , [employer] [facility] 4 10:26:15 Cholelithi asis without obstructio n 17833375 Active 2023 Luis Antonio Jose MD [address], [place], [address] , [employer] [facility] [employer] [facility] 4 14:24:57 Osteopenia 941450843 Active 2024 Luis Antonio Jose MD [address], [place], [address] , [employer] [facility] [employer] [facility] 5 10:13:36 Anxiety disorder 496482743 Active 2024 Luis Antonio Jose MD [address], [place], [address] , [employer] [facility] [employer] [facility] 5 10:14:13 Type 2 diabetes mellitus 90796237 Active 2024 Luis Antonio Jose MD [address] [facility] [facility] [address], [place], [address] , [facility] [employer] [facility] 16:18:27 Notes:Some problems listed i n Document: #[id number] could not be added to this patient's chart. Please review this document and add these problems to the patient's chart manually as needed. Problem Notes None recorded. Procedures Surgical History Date Name Laterality Status Provider Name and Address Organization Details Recorded Time 09/21/19 24 Transitional_Car e_Management completed Jose Roberto [facility] [employer] 09/21/2023 11:11:03 04/24/19 22 Date of Last Colonoscopy completed Not Available [facility] 05/19/2022 00:41:05 03/01/19 81 delivery completed Not Available [facility] 05/19/2022 00:41:08 biopsy of thyroid completed Not Available [facility] 05/19/2022 00:41:08 Unlisted px meckel's dvrtclm completed Not Available [facility] 05/19/2022 00:41:08 Hysterectomy completed Not Available [facility] 05/19/2022 00:41:08 Imaging Results None recorded. Procedure Notes None recorded. Medical Equipment None Reported. Allergies Allergen ID Allergen Name Allergen Category Reaction Reaction Severity Criticality Documentation Date Start Date Code Code System Note Provider Name and Address Organization Details Recorded Time 42761 metformin medicatio n abdominal pain moderate Not available 04/05/2024 6809 RxNorm Luis Antonio Jose MD [address] [facility] [facility] [address], [place], [address], [facility] [employer] [facility] 5 11:17:26 Medications Name Sig Start [...] Not Available Not Available No t Available omeprazole 20 mg capsule,del ayed release TAKE 1 CAPSULE BY MOUTH DAILY 2024 active Not Available Not Available Not Avai lable diclofenac sodium 75 mg tablet,uriel yed release [...] 0.75 mg/0.5 mL subcutaneou s pen injector INJECT 0.75 MG SUBCUTANE OUS ONE DAY A WEEK active Not Available Not Available No t [...] (BMI) Body weight Body temperature Oxygen saturation Heart rate Systolic And Diastolic Provider Name and Address Organization Details Last Updated DateTime 5 162.56 cm 32.7 kg/m2 86412 g 97.3 [degF] 95 % 91 /min 126/90 mm[Hg] Chari Serrano RN [facility] [employer] 5 10:03:18 Date Recorded Body height Body mass index (BMI) Body weight Body temperature Oxygen saturation Heart rate Systolic And Diastolic Provider Name and Address Organization Details Last Updated DateTime 5 162.56 cm 32 kg/m2 87264.2 3 g 97.5 [degF] 95 % 87 /min 120/78 mm[Hg] Chari Serrano RN [employer] 5 11:07:50 Date Recorded Body height Body mass index (BMI) Body weight Body temperature Heart rate Respiratory rate Oxygen saturation Systolic And Diastolic Provider Name and Address Organization Details Last Updated DateTime 4 157.48 cm 34.2 kg/m2 38276.1 2 g 98.2 [degF] 72 /min 16 /min 99 % 126/84 mm[Hg] Jose Roberto [place] [employer] [facility] [employer] 4 11:14:41 Date Recorded Systolic And Diastolic Provider Name and Address Organization Details Last Updated DateTime 10/13/2023 136/88 mm[Hg] Gene Craven [address] [place] [address], [address], [place] [employer] [facility] [employer] 10/13/2023 10:29:47 Date Recorded Body height Body mass index (BMI) Body weight Body temperature Heart rate Respiratory rate Oxygen saturation Pain severity - 0-10 verbal numeric rating [Score] - Reported Provider Name and Address Organization Details Last Updated DateTime 4 157.48 cm 34.4 kg/m2 29079.7 2 g 97.2 [degF] 72 /min 20 /min 99 % 7 Mita Huang RN [facility] [employer] 4 10:13:40 Date Recorded Body height Body mass index (BMI) Body weight Body temperature Heart rate Respiratory rate Oxygen saturation Systolic And Diastolic Provider Name and Address Organization Details Last Updated DateTime 4 157.48 cm 34.4 kg/m2 44038.7 2 g 98.1 [degF] 70 /min 16 /min 99 % 128/78 mm[Hg] Jose Roberto [place] [employer] [facility] [employer] 14:16:38 Social History Question Answer Notes LastModified by Organizat ion Details LastModified Time Tobacco Smoking Status Never Smoker Not Available [facility] 05/19/2022 00:40:51 What Is Your Level Of Caffeine Consumption? Moderate [id number] Information not available 05/19/2022 How Much Tobacco Do You Chew? None [id number].[id number] Information not available 05/19/2022 In The 14 Days Before Symptom Onset, Have You Had Close Contact With A Laboratory-confir med COVID-19 While That Case Was Ill? No [id number] Information not available 05/19/2022 In The 14 Days Before Symptom Onset, Have You Had Close Contact With A Person Who Is Under Investigation For COVID-19 While That Person Was Ill? No MIGRATION.[id number] Information not available 05/19/2022 What Type Of Diet Are You Following? REGULAR MIGRATION.[id number] Information not available 05/19/2022 Have There Been Any Changes To Your Family Or Social Situation? Yes Dad Information not available 10/13/2023 Where Do You Live? Apartment Information not available 10/13/2023 What Was The Date Of Your Most Recent Tobacco Screening? 06/11/2020 [id number].[id number] Information not available 05/19/2022 How Many Children [...] Are You Passively Exposed To Smoke? No MIGRATION.76479 [id number] Information not available 05/19/2022 Are There Any Smokers In Your House? Yes Information not available 10/13/2023 Do You Participate In Social Media? Yes Information not available 10/13/2023 Have You Recently Traveled Abroad? No Information not available 10/13/2023 Sex: Female Functional Status Question Answer Note LastModified by Organizat ion Details LastModified Time What is your level of alcohol consumption? Occasional [id number] Information not available 05/19/2022 Do you or have you ever used smokeless tobacco? Never used smokeless tobacco MIGRATION.[id number] Information not available 05/19/2022 Are you currently employed? 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 Never used electronic cigarettes MIGRATION.[id number] 026 Information not available 05/19/2022 Mental Status Question Answer Note LastModified by Organization D etails LastModified Time Do you feel stressed (tense, restless, nervous, or anxious, or unable to sleep at night)? [id number] Information not available 10/13/2023 Family History Relationship Description Onset Age of this Age Resolved Age Notes LastModified by Organization Details LastModified Time Brother Heart disease 59 [id number].536 [id number] Not available 05/19/2022 00:41:13 Brother Hypertensive disorder MIGRATION.103 [id number] Not available 05/19/2022 00:41:13 Brother Diabetes mellitus [id number].263 [id number] Not available 05/19/2022 00:41:13 Mother Diabetes mellitus MIGRATION.290 [id number] Not available 05/19/2022 00:41:13 Mother Hypertensive disorder MIGRATION.064 [id number] Not available 05/19/2022 00:41:13 Sister Malignant neoplasm of ovary 38 46 MIGRATION.520 [id number] Not available 05/19/2022 00:41:13 Medical History Condition [...] HAVE YOU BEEN HOSPITALIZED OR SEEN IN [facility] IN THE PAST YEAR ? N BURSITIS N HERNIATED DISC N DIALYSIS N FIBROMYALGIA N OSTEOPOROSIS N ARTHRITIS N NO SIGNIFICANT PAST MEDICAL HISTORY N PERIPHERAL NEUROPATHY N DIABETES, TYPE N HEARTBURN / REFLUX N HEPATITIS / LIVER DISEASE N PULMONARY DISEASE N GOUT N SLEEP DISORDER N ALZHEIMER'S DISEASE N SEIZURES/EPILEPSY N HEADACHES/MIGRAINES N VASCULAR DISEASE N Blood Disorder N HEAD TRAUMA OR INJURY N KIDNEY DISEASE N HEART DISEASE/HEART PROBLEMS N MULTIPLE SCLEROSIS N CARDIAC ARRHYTHMIA N CANCER: SPECIFY N ANESTHESIA COMPLICATIONS N ATRIAL FIBRILLATION N PULMONARY EMBOLISM N AUTOIMMUNE DISEASE N Gynecological History Statement/Question Response Date of Last Colonoscopy 04/24/2021 Obstetrics History GPAL:G 0 P 0 0 0 0 Immunizations Vaccine Type Date Status Note Provider Nam e and Address Organization Details Recorded Time SARS-COV-2 (COVID-19) vaccine, UNSPECIFIED 1 completed Not Available [facility] 05/19/2022 00:46:33 SARS-COV-2 (COVID-19) vaccine, UNSPECIFIED 1 completed Not Available [facility] 05/19/2022 00:46:33 Past Encounters Encounter ID Performer Location Encounter Start Date Encounter Closed Date Diagnosis/Indication Diagnosis SNOMED-CT Code Diagnosis ICD10 Code Diagnosis IMO Codes Diagnosis Note [id number] Mohsen De La Vega MD [facility] [place] [address] [place] [address] 05/26/2020 00:00:00 05/26/2020 15:05:37 [id number] Mohsen De La Vega MD [facility] [place] [address] [place] [address] 06/11/2020 00:00:00 06/11/2020 10:01:59 [id number] Luis Antonio Jose MD [facility] [address] 06/26/2020 00:00:00 06/26/2020 10:43:16 [id number] Chiquis Hawkins MD [facility] [place] [place] [address] [place] [address] 09/16/2020 00:00:00 09/17/2020 07:16:02 [id number] Chiquis Hawkins MD _ATHENA_M IGRATION_ DEFAULT_1 _1 , 10/16/2020 00:00:00 10/16/2020 10:53:01 [id number] Luis Antonio Jose MD [address] [address] 04/08/2021 00:00:00 04/08/2021 11:24:13 [id number] Luis Antonio Jose MD [address] [address] 04/28/2021 00:00:00 04/28/2021 15:30:50 [id number] Mita Boland NP [address] [address] 11/24/2021 00:00:00 11/24/2021 11:09:20 [id number] Mita Boland NP [address] [address] 05/28/2022 11:47:08 05/28/2022 12:43:01 Hypothyroidism 92442646 E03.9 Levothyrox ine 75 mcg po daily. Hyperlipidemia 02722465 E78.5 Rosuvastat in 10 mg po nightly. Hyperglycemia 19232930 R 73.9 States she wasn't fasting last labs, but we will recheck now. Constipation 71522378 K5 9.00 Work on 64 ounces of water [id number] Luis Antonio Jose MD [address] [address] 09/21/2023 11:02:42 09/21/2023 12:01:02 Seen in emergency clinic 349388373 Z76.89 Staff to get recent ED records. Hypothyroidism 62725938 E03.9 Hyperlipidemia 32213140 E78.5 Chronic id iopathic constipation 82054299 K59.04 Obesity 319141756 E66.9 Prediabetes 021073772 R7 3.03 Transition of care 80817 80748 105 Z75.8 Chronic low back pain 27 2715399 M54.50 Blood-tinged feces 06368 72838 21080 K92.1 Advised pt to f/u with her GI about this. Thyroid nodule 184695187 E04.1 [id number] Luis Antonio Jose MD [address] [address] 10/13/2023 10:01:00 10/13/2023 10:38:58 Adult health examination 047034610 Z00.00 Screening for osteoporosis 093512431 Z13.820 Change in skin lesion 39 9766348 L98.9 Liver cyst 59087002 K76. 89 Screening for disorder 031443099 Z13.9 Obesity 933371438 E66.9 Memory impairment 342925 006 R41.3 Chronic id iopathic constipation 26315594 K59.04 Elevated blood-pressure reading without diagnosis of hypertension 056843584 R03.0 [id number] Luis Antonio Jose MD [address] [address] 11/09/2023 14:03:09 11/09/2023 14:40:51 Change in skin lesion 716679637 L98.9 Liver cyst 11387672 K76. 89 1.8 cm Obesity 851485732 E66.9 Memory impairment 264634 006 R41.3 Chronic id iopathic constipation 34170058 K59.04 Elevated blood-pressure reading without diagnosis of hypertension 489005613 R03.0 Type 2 leslie betes mellitus without complication 308075408 E11.9 Cholelithi asis without obstruction 59223319 K80.20 [id number] Luis Antonio Jose MD [address] [address] 04/05/2024 09:51:54 04/05/2024 10:33:05 Type 2 diabetes mellitus without complication 609679744 E11.9 Liver cyst 91669102 K76. 89 1.8 cm Cholelithi asis without obstruction 08175851 K80.20 Change in skin lesion 39 4383482 L98.9 Obesity 301851814 E66.9 Memory impairment 578712 006 R41.3 Chronic id iopathic constipation 40951358 K59.04 Elevated blood-pressure reading without diagnosis of hypertension 320472392 R03.0 Osteopenia 183424465 M85 .80 Anxiety disorder 0234034 06 F41.9 Hyperlipidemia 62693332 E78.5 [id number] Luis Antonio Jose MD [facility] [place] [address] 09/05/2024 10:59:48 09/05/2024 12:27:06 Type 2 diabetes mellitus without complication 953601566 E11.9 Liver cyst 48550370 K76. 89 1.8 cm Cholelithi asis without obstruction 15250360 K80.20 Change in skin lesion 39 8374543 L98.9 Obesity 513207664 E66.9 Memory impairment 965690 006 R41.3 Chronic id iopathic constipation 67626032 K59.04 Elevated blood-pressure reading without diagnosis of hypertension 853583575 R03.0 Osteopenia 836821881 M85 .80 Anxiety disorder F41.9 Hyperlipidemia 42716627 E78.5 Health Concerns Section Related Observation LastModified by Organization Detai ls LastModified Time None Recorded Concern Status LastModified by Organization Details LastModified Time None Recorded Advance Directives Directive None Recorded Payers Insurance Date Sequence Insurance Name Policy Number Policy Fu Covered Member ID Fu Member ID Guarantor Name 11/20/2024 1 [facility] [id number] Ming Loya [id number] Ming Loya 09/05/2024 [facility] Ming Loay SELF SELF Aidalouie Loya 11/20/2024 1 [facility] [id number] Ming Loya [id number] Ming Loya 09/05/2024 1 [employer] [id number] Ming Loya [id number] Ming Loya 11/20/2024 1 [place] Tatiana Loya [id number] Ming Loya 11/21/2024 1 [employer]TER [employer] OF [place] - DOS ON OR AFTER 2020 (MEDICAID REPLACEMENT - HMO) Tatiana Loya [id number] Ming Loya 01/21/2025 1 [facility] (MEDICARE REPLACEMENT/A DVANTAGE - PPO) [id number] Ming Loya [id number] Ming Loya Notes Date Note Type Note [...] of her parents. Luis Antonio Jose MD [address] [place] [address], [place], [address], [place] - [facility] 09/21/2023 11:59:06 10/13/2023 text/html Pt is here [...] her parents. Luis Antonio Jose MD [address] [facility] [facility] [address], [place], [address], [employer] 10/13/2023 10:36:05 11/09/2023 text/html Pt is here [...] back area. Luis Antonio Jose MD [address] [facility] [facility] [address], [place], [address], [employer] 11/09/2023 14:37:51 04/05/2024 text/html Pt is here [...] Luis Antonio Jose MD [address] [facility] [address], [place], [address], [employer] 04/05/2024 10:29:12 09/05/2024 text/html Pt is here [...] is not taking meds for it. Luis Atnonio Jose MD [address] [facility] [address], [place], [address], [employer] 09/05/2024 11:25:44 OBGyn Episode No OBEpisode recorded.
--- OUTSIDE RECORDS SUMMARY | 2025-02-07 14:20 | XMS_ITS | Data Portability ---
Author Organization [facility] Address [address] [place] [address] Assessment Encounter Date Assessment Date Assessment LastModified [...] Lab CMP, serum or plasma 2020 021 [facility] (Lab), [address] , [place], [address], 11:29:20 CBC w/ auto diff 2020 021 [facility] (Lab), [address], [place], [address], 11:29:19 lipid panel, blood 2020 021 [facility] (Lab), [address] [place], [address], 11:29:20 HbA1c (hemoglobin A1c), blood 2020 021 [facility] (Lab), [address] [facility], [place], [address], 1 11:29:19 vitamin D, 25-hydroxy, total, serum 2020 021 [facility] (Lab), [address], [place], [address], 1 11:29:21 TSH, serum or plasma 2020 021 [facility] (Lab), [address], [place], [address], 1 11:29:21 Referral primary care provider referral 2020 021 [email or web address] Not available 13:07:52 Procedures None recorded. Surgeries None recorded. Imaging US, breast, bilateral, complete 2023 024 [facility], [address], [place], [address], 4 13:34:45 MAMMO, screening, bilateral [address] [facility], [address], [place], [address], 4 15:22:18 DEXA, axial skeleton + vertebral fracture assessment 2020 021 [facility], [address], [place], [address], 2 05:00:48 Medication Orders Diflucan 150 mg tablet 2023 024 [id number], [address], [place], [place], [id number], 4 12:13:41 metronidazo le 500 mg tablet 2023 024 [facility] #[id number], [address], [place], [place], [id number], 4 12:13:45 Patient TargetsNo targets recorded. Patient InstructionsNo instructions recorded. Reason for Referral Primary Care Provider Referr al for Adult health examination Referring Physician: Evangelina Capps, ELECTRICAL POWER ENGINEER, Encounter Date: 06/24/2020 Results Created Date Observation Date Name Description Value Unit Range Abnormal Flag Note LastModifiedBy Organization Detail LastModifiedTime 06/25/19 21 06/24/2020 CBC w/ auto diff WBC 6.3 10'3/ uL 3.6-10 .2 Not Available [facility] (Lab) [address], [place], [address], 06/25/2020 11:29:18 06/25/19 21 06/24/2020 CBC w/ auto diff RBC 4.50 10'6/ uL (based on docume nted legal sex) 4.10-5 .30 Not Available [facility] (Lab) [address], [place], [address], 06/25/2020 11:29:18 06/25/19 21 06/24/2020 CBC w/ auto diff HGB 13.7 g/dL (based on docume nted legal sex) 11.9-1 5.8 Not Available [facility] (Lab) [address], [place], [address], 06/25/2020 11:29:18 06/25/19 21 06/24/2020 CBC w/ auto diff HCT 44.9 % (based on docume nted legal sex) 37.4-4 8.3 Not Available [facility] (Lab) [address] [place], [address], 06/25/2020 11:29:18 06/25/19 21 06/24/2020 CBC w/ auto diff MCV 100.0 fL 82.0-9 9.0 high Not Available [facility] (Lab) [address] [place], [address], 06/25/2020 11:29:18 06/25/19 21 06/24/2020 CBC w/ auto diff MCH 31.0 pg 27.0-3 3.0 Not Available [facility] (Lab) [address], [place], [address], 06/25/2020 11:29:18 06/25/19 21 06/24/2020 CBC w/ auto diff MCHC 31.0 g/dL 32.0-3 6.0 low Not Available [facility] (Lab) [address], [place], [address], 06/25/2020 11:29:18 06/25/19 21 06/24/2020 CBC w/ auto diff RDW 14.0 % 11.0-1 5.0 Not Available [facility] (Lab) [address], [place], [address], 06/25/2020 11:29:18 06/25/19 21 06/24/2020 CBC w/ auto diff plt 201 10'3/ uL 150-45 0 Not Available [facility] (Lab) [address], [place], [address], 06/25/2020 11:29:18 06/25/19 21 06/24/2020 CBC w/ auto diff MPV 11.8 fL Not Available [facility] (Lab) [address], [place], [address], 06/25/2020 11:29:18 06/25/19 21 06/24/2020 CBC w/ auto diff NRBC's 0.00 % 0 Not Available [facility] (Lab) [address], [place], [address], 06/25/2020 11:29:18 06/25/19 21 06/24/2020 CBC w/ auto diff absolute NRBCs 0.0 10'3/ uL 0 Not Available [facility] (Lab) [address] [facility], [place], [address], 06/25/2020 11:29:18 06/25/19 21 06/24/2020 CBC w/ auto diff neutrophils 55.0 % 37.0-7 2.0 Not Available [facility] (Lab) [address] [facility], [place], [address], 06/25/2020 11:29:18 06/25/19 21 06/24/2020 CBC w/ auto diff lymphocytes 36.0 % 16.0-4 8.0 Not Available [facility] (Lab) [address] [facility], [place], [address], 06/25/2020 11:29:18 06/25/19 21 06/24/2020 CBC w/ auto diff monocytes 7.0 % 4.0-14 .0 Not Available [facility] (Lab) [address] [facility], [place], [address], 06/25/2020 11:29:18 06/25/19 21 06/24/2020 CBC w/ auto diff eosinophils 1.0 % 0.0-9. 0 Not Available [facility] (Lab) [address], [place], [address], 06/25/2020 11:29:18 06/25/19 21 06/24/2020 CBC w/ auto diff basophils 1.0 % 0.0-2. 0 Not Available [facility] (Lab) [address], [place], [address], 06/25/2020 11:29:18 06/25/19 21 06/24/2020 CBC w/ auto diff immature granulocytes 0.0 % no define d refere nce range Not Available [facility] (Lab) [address], [place], [address], 06/25/2020 11:29:18 06/25/19 21 06/24/2020 CBC w/ auto diff absolute neutrophils 3.5 10'3/ uL 1.1-6. 0 Not Available [facility] (Lab) [address], [place], [address], 06/25/2020 11:29:18 06/25/19 21 06/24/2020 CBC w/ auto diff absolute lymphocytes 2.3 10'3/ uL 0.7-3. 4 Not Available [facility] (Lab) [address], [place], [address], 06/25/2020 11:29:18 06/25/19 21 06/24/2020 CBC w/ auto diff absolute monocytes 0.4 10'3/ uL 0.3-1. 0 Not Available [facility] (Lab) [address], [place], [address], 06/25/2020 11:29:18 06/25/19 21 06/24/2020 CBC w/ auto diff absolute eosinophils 0.1 10'3/ uL 0.0-0. 6 Not Available [facility] (Lab) [address], [place], [address], 06/25/2020 11:29:18 06/25/19 21 06/24/2020 CBC w/ auto diff absolute basophils 0.0 10'3/ uL 0.0-0. 1 Not Available [facility] (Lab) [address], [place], [address], 06/25/2020 11:29:18 06/25/19 21 06/24/2020 CBC w/ auto diff absolute immature granulocytes 0.00 10'3/ uL 0.00-0 .10 7:03 AM: P indic ates parti al resul ts on a panel have been relea sed. Addit ional resul ts will follo w. 7:03 AM: This resul t has been final verif ied. No addit ional or vizcaino ed resul ts are expec peter. Not Available [facility] (Lab) [address], [place], [address], 06/25/2020 11:29:18 06/25/19 21 06/24/2020 HbA1c (hemo [...] s consi stent ly > 8%. <5.7% Myrnada l 5.7 - 6.4% Incre ased risk for diabe vicenta >=6.5 % Diagn ostic of diabe vicenta <7.0% Goal of thera py >8.0% Actio n jordin steadolfo Not Available [facility] (Lab) [address], [place], [address], 06/25/2020 11:29:19 06/25/19 21 06/24/2020 lipid panel , blood total cholesterol 250 mg/dL 0-199 high Not Available [facility] (Lab) [address] [place], [address], 06/25/2020 11:29:20 06/25/19 21 06/24/2020 lipid panel , blood triglyceride s 96 mg/dL 0-150 NCEP Refer ence Value s for Trigl yceri prashanth: Myranda l: <150 mg/dL Borde rline High: 150 - 199 mg/dL High: 200 - 499 mg/dL Very High: >/= 500 mg/dL Not Available [facility] (Lab) [address] [place], [address], 06/25/2020 11:29:20 06/25/19 21 06/24/2020 lipid panel , blood HDL cholesterol 66 mg/dL 40-240 Not Available [facility] (Lab) [address] [place], [address], 06/25/2020 11:29:20 06/25/19 21 06/24/2020 lipid panel [...] mg/dL , HDL <40 mg/dL Not Available [facility] (Lab) [address], [place], [address], 06/25/2020 11:29:20 06/25/19 21 06/24/2020 lipid panel , blood non-HDL cholesterol 184 mg/dL 0-129 high A reaso nable goal for non-H DL gloria stero l is one that is 30 mg/dL highe r than the LDL gloria stero l goal. Not Available [facility] (Lab) [address] [place], [address], 06/25/2020 11:29:20 06/25/19 21 06/24/2020 lipid panel , blood chol/HDL ratio 3.8 . 0.0-5. 0 Not Available [facility] (Lab) [address] [place], [address], 06/25/2020 11:29:20 06/25/19 21 06/24/2020 CMP, serum or plasm a sodium 145 mmol/ L 136-14 5 Not Available [facility] (Lab) [address] [place], [address], 06/25/2020 11:29:20 06/25/19 21 06/24/2020 CMP, serum or plasm a potassium 4.3 mmol/ L 3.5-5. 3 Not Available [facility] (Lab) [address] [place], [address], 06/25/2020 11:29:20 06/25/19 21 06/24/2020 CMP, serum or plasm a chloride 104 mmol/ L 98-107 Not Available [facility] (Lab) [address], [place], [address], 06/25/2020 11:29:20 06/25/19 21 06/24/2020 CMP, serum or plasm a carbon dioxide 27 mmol/ L 23-31 Not Available [facility] (Lab) [address], [place], [address], 06/25/2020 11:29:20 06/25/19 21 06/24/2020 CMP, serum or plasm a anion gap 14 mmol/ L 8-16 Not Available [facility] (Lab) [address], [place], [address], 06/25/2020 11:29:20 06/25/19 21 06/24/2020 CMP, serum or plasm a blood urea nitrogen 12.0 mg/dL 8.0-23 .0 Not Available [facility] (Lab) [address] [place], [address], 06/25/2020 11:29:20 06/25/19 21 06/24/2020 CMP, serum or plasm a creatinine 0.90 mg/dL (based on legal sex) .5-1.2 Not Available [facility] (Lab) [address], [place], [address], 06/25/2020 11:29:20 06/25/19 21 06/24/2020 CMP, serum or plasm a GFR () 77 mL/mi n/1.7 3_m2 60-300 Not Available [facility] (Lab) [address] [place], [address], 06/25/2020 11:29:20 06/25/19 21 06/24/2020 CMP, serum or plasm a GFR (others) 64 mL/mi n/1.7 3_m2 60-300 Not Available [facility] (Lab) [address] [place], [address], 06/25/2020 11:29:20 06/25/19 21 06/24/2020 CMP, serum or plasm a calcium 9.8 mg/dL 8.4-10 .5 Not Available [facility] (Lab) [address] [place], [address], 06/25/2020 11:29:20 06/25/19 21 06/24/2020 CMP, serum or plasm a glucose 94 mg/dL 70-99 Not Available [facility] (Lab) [address] [place], [address], 06/25/2020 11:29:20 06/25/19 21 06/24/2020 CMP, serum or plasm a protein, total 7.2 g/dL 6.0-8. 3 Not Available [facility] (Lab) [address] [place], [address], 06/25/2020 11:29:20 06/25/19 21 06/24/2020 CMP, serum or plasm a albumin 4.6 g/dL 3.5-5. 0 Not Available [facility] (Lab) [address], [place], [address], 06/25/2020 11:29:20 06/25/19 21 06/24/2020 CMP, serum or plasm a ALT 15 units /L 9-43 Not Available [facility] (Lab) [address] [place], [address], 06/25/2020 11:29:20 06/25/19 21 06/24/2020 CMP, serum or plasm a alkaline phosphatase 61 units /L 35-129 Not Available [facility] (Lab) [address] [place], [address], 06/25/2020 11:29:20 06/25/19 21 06/24/2020 CMP, serum or plasm a AST 19 units /L (based on docume nted legal sex) 11-32 Not Available [facility] (Lab) [address] [place], [address], 06/25/2020 11:29:20 06/25/19 21 06/24/2020 CMP, serum or plasm a bilirubin, total 0.4 mg/dL 0.0-1. 0 Not Available [facility] (Lab) [address], [place], [address], 06/25/2020 11:29:20 06/25/19 21 06/24/2020 vitam in D, 25-hy droxy , total , serum vitamin D, 25-hydroxy, total 34.3 NG/mL 30-80 NOTE: Defic iency : <20 ng/mL Insuf ficie ncy: 20-29 ng/mL Optim um Level : 30-80 ng/mL Possi ble Toxic ity: >80 ng/mL Most patie nts with toxic ity have level s >150 ng/mL . Not Available [facility] (Lab) [address], [place], [address], 06/25/2020 11:29:21 06/25/19 21 06/24/2020 TSH, serum or plasm a TSH 5.63 uIU/m L 0.30-5 .00 high Not Available [facility] (Lab) [address] [place], [address], 06/25/2020 11:29:21 06/25/19 21 06/24/2020 T4, free, serum T4, free 0.73 NG/dL 0.80-1 .80 low Not Available [facility] (Lab) [address] [place], [address], 06/26/2020 03:58:05 06/25/19 21 06/24/2020 pap, IG Pap test SEE RESULT S BELOW abnormal CASE REPOR T: Cytol ogy Gynec ologi leonardo Repor t Case: [id number] Autho ashok g Provi mario: Gama Castellano Colle cted: 06/24 1447 FILM OR VIDEOTAPE EDITOR Order ing Locat ion: [place] Patho logy [...] tosin jackson. Elect jamie mata by Asha Marshall [...] patie nt consi derat ions. Not Available [facility] (Lab) [address], [place], [address], 06/26/2020 12:45:05 06/25/19 21 06/24/2020 [facility] HIV Ag-Ab total quant 0.08 idx <1.00 Not Available [facility] (Lab) [address], [place], [address], 06/26/2020 12:49:08 06/25/19 21 06/24/2020 [facility] HIV Ag-Ab total Non-re active non-re active Not Available [facility] (Lab) [address], [place], [address], 06/26/2020 12:49:08 06/25/19 21 06/24/2020 [facility] HIV-1 antibody quant 0.04 idx <1.00 Not Available [facility] (Lab) [address], [place], [address], 06/26/2020 12:49:08 06/25/19 21 06/24/2020 [facility] HIV-1 antibody Non-re active non-re active Not Available [facility] (Lab) [address], [place], [address], 06/26/2020 12:49:08 06/25/19 21 06/24/2020 [facility] HIV-1 antigen (P24) quant 0.08 idx <1.00 Not Available [facility] (Lab) [address] [place], [address], 06/26/2020 12:49:08 06/25/19 21 06/24/2020 [facility] HIV-1 antigen (P24) Non-re active non-re active Not Available [facility] (Lab) [address], [place], [address], 06/26/2020 12:49:08 06/25/19 21 06/24/2020 [facility] HIV-2 antibody quant 0.03 idx <1.00 Not Available [facility] (Lab) [address], [place], [address], 06/26/2020 12:49:08 06/25/19 21 06/24/2020 unlis peter [...] on will be perfo rmed by the [facility] us HIV 1/2 Suppl ement al Assay . The perfo rmanc e of this assay has not been estab lishe d for neona vicenta and the assay shoul d not be used in indiv idual s young er than 2 years of age. Not Available [facility] (Lab) [address], [place], [address], 06/26/2020 12:49:08 05/05/19 24 05/05/2023 IMAGE GUIDE D PAP AND HPV REGAR DLESS image guided Pap, HPV regardless of Pap result SEE RESULT S BELOW CASE REPOR T: Cytol ogy Gynec ologi leonardo Repor t Case: [id number] Autho ashok valenzuela Provi mario: Gama Castellano Colle cted: 05/05 1629 FILM OR VIDEOTAPE EDITOR Order ing Locat ion: [place] Patho logy [...] as clini emanuel escalera nted. Not Available [facility] (Lab) [address], [place], [address], 05/11/2023 20:49:08 07/16/19 21 07/15/2020 MAMMO , scree kristy, bilat eral No observ ation record ed. [facility] (Imaging) [address], [place], [address], 07/21/2020 17:21:15 05/18/19 24 05/17/2023 US, breas t, bilat eral, compl ete No observ ation record ed. [facility] [address], [place], [address], 05/30/2023 01:17:32 05/18/19 24 05/17/2023 MAMMO , diagn ostic , digit al, bilat eral No observ ation record ed. [email or web address] [address], [place], [address], 05/18/2023 17:52:20 Result Notes None recorded. Problems Name Problem SNOMED Code Status Onset Date Resolution Date Notes Provider Name and Address Organization Details Recorded Time Adult health examinat ion Completed 201405/18/2021 ROUTINE MEDICAL EXAM;Gentry rded Elsewhere : No Locati on: [facility] So urce: EHR Chron ic: N Practic e ID: [id number] Bill able Time: 02:30:00 PM Nimcolyn barreto [facility] 2 10:19:16 Speciali zed medical examinat ion Completed 201405/18/2021 ROUTINE HARDNESS INSPECTOR EXAMINATI ON;Record ed Elsewhere : No Locati on: [facility] So urce: EHR Chron ic: N Practic e ID: [id number] Bill able Time: 02:30:00 PM Nimco barreto [facility] 2 10:19:26 Atypical squamous cells on cervical Papanico laou smear cannot exclude high grade squamous intraepi thelial lesion [id number] Completed 201405/18/2021 Papanicol aou smear of cervix with atypical squamous cannot exclude high grade squamous intraepit helial lesion (ASC-H);R ecorded Elsewhere : No Locati on: [facility] So urce: EHR Chron ic: N Practic e ID: [id number] Bill able Time: 02:28:55 PM Nimco barreto [facility] 2 10:19:18 Screenin g for malignan t neoplasm of rectum Completed 201605/18/2021 Encounter for screening for malignant neoplasm of rectum;Pr actice ID: [id number] Nimco barreto [facility] 2 10:19:23 Abscess of vulva [id number] Completed 201605/18/2021 Abscess of vulva;Rec orded Elsewhere : No Locati on: [facility] So urce: EHR Chron ic: N Practic e ID: [id number] Bill able Time: 09:15:00 AM Nimco barreto [facility] 2 10:19:[address] Concept Completed 201705/18/2021 Encntr for graphic designer exam (general) (routine) w/o abn findings; Practice ID: [id number] Nimco barreto [facility] 2 10:19:25 Body mass index 25-29 - overweig [id number] Completed 201705/18/2021 Body mass index (BMI) 29.0-29.9 , adult;Rec orded Elsewhere : No Locati on: [facility] So urce: EHR Chron ic: N Practic e ID: [id number] Bill able Time: 11:00:00 AM [facility] 2 10:19:20 Screenin g for malignan t neoplasm of cervix Completed 201705/18/2021 Screening for malignant neoplasms of the cervix;Re corded Elsewhere : No Locati on: [facility] So urce: EHR Chron ic: N Practic e ID: [id number] Bill able Time: 11:00:00 AM Nimco barreto [facility] 2 10:19:21 Problem Notes None recorded. Procedures Surgical History Date Name Laterality Status Provider Name and Address Organization Details Recorded Time 05/26/19 22 I&D completed Vennacio Clements MD [address], [place], [address], [facility] 05/25/2021 22:57:40 04/25/19 22 completed [facility] 05/18/2021 10:42:58 04/25/19 22 Date of Last Colonoscopy completed [facility] 05/18/2021 10:42:58 07/16/19 21 Date of Last Mammogram completed [facility] 05/18/2021 10:46:50 06/25/19 21 Date of Last Pap Smear completed [facility] 05/18/2021 10:45:03 10/06/[address] [facility] 06/24/2020 10:00:26 Vaginal hysterectomy completed [facility] 06/24/2020 10:01:36 Imaging Results None recorded. [...] times every day 09/05 completed Prescrib ed [facility] e: No Locat ion: [facility] odify By: jasmin salcedo DateTime : 08/28/19 [...] completed Not Available Not Available Not Available [employer] Ultra Test strips USE TO TEST BLOOD [...] Prescrib ed Elsewher e: No Locat ion: [facility] M odify By: [email or web address] Encounte r DateTime [...] Updated DateTime 05/05/2023 160.02 cm 33.2 kg/m2 21572.49 g 137/88 mm[Hg] Smitha Tapia [facility] 05/05/2023 11:57:05 Date Recorded Body height Body mass index (BMI) Body weight Systolic And Diastolic Provider Name and Address Organization Details Last Updated DateTime 05/18/2021 160.02 cm 30.6 kg/m2 66889.48 g 120/80 mm[Hg] Nimco Baker [facility] 05/18/2021 10:42:49 Date Recorded Body height Body mass index (BMI) Body weight Systolic And Diastolic Provider Name and Address Organization Details Last Updated DateTime 05/25/2021 160.02 cm 30.6 kg/m2 79011.48 g 126/76 mm[Hg] Nimco Baker [facility] 05/25/2021 14:56:36 Date Recorded Systolic And Diastolic Provider Name and Address Organization Details Last Updated DateTime 06/24/2020 123/80 mm[Hg] Evangelina Capps, [facility]- [address], [place], [address], [facility] 06/24/2020 10:04:04 Date Recorded Body height Body mass index (BMI) Body weight Provider Name and Address Organization Details Last Updated DateTime 06/24/2020 160.02 cm 28.3 kg/m2 32660.78 g Margret Ontiveros [facility] 06/24/2020 09:59:51 Social History Question Answer Notes LastModified by Organizat ion Details LastModified Time Tobacco Smoking Status Never Smoker Nimco Baker [facility] 05/18/2021 10:43:02 How Many Years Have [...] Or The Highest Degree You Have Received? [id number] Information not available 05/18/2021 Are There Any [...] ICD10 Code Diagnosis IMO Codes Diagnosis Note [id number] [facility] [address] [address] 06/24/2020 09:38:26 06/24/2020 10:32:04 Gynecologic examination [id number] Z01.419 Take Calcium with Vitamin D 12-1500mg daily. Do monthly self breast exams. It is advised to get annual flu shot in the fall and she could obtain at [facility] or [facility]. If you haven't received the Tdap [...] new partners Colon-PCP managed Dexa ordered Adult [facility] th examination [id number] Z00.00 Wants new PCP. Referral made. Reports hx of thyroid dz but does not routine take her medication . Will update her labs & refer out if needed. Postmenopa usal osteopenia [id number] M85.80 [id number] Evangelina Capps , [facility] [address],[place] [address] 05/18/2021 10:29:53 05/18/2021 11:28:26 Comedone present [id number] L70.0 Today, we discussed shaving hygeine & [...] this patient s visit, including available hand assurance associate upon arrive, temperatur e check and being asked a series of screening questions. All staff wore face coverings during this encounter, as well as provided additional cleaning and sanitizing of all surfaces, including countertop s, pens, chairs, door handles, light switches, etc, prior to and following the patient s visit. [id number] Venancio Clements MD [facility] [address],[facility] [place] [address] 05/23/2021 10:33:55 05/23/2021 12:01:43 Obesity [id number] E66.9 Lesion of vulva 03762173 6 N90.89 This patient is a 60-year-ol [...] agreed to meet for the vulvar lesion. [id number] Venancio Clements MD [facility] [address] [address] 05/25/2021 14:36:35 05/26/2021 11:01:41 Lesion of vulva 508287745 N90.89 incision drainage a 0 inclusion cyst, she tolerated well. [id number] Evangelina Capps [facility] [address] [address] 05/05/2023 11:41:09 05/05/2023 12:15:56 Gynecologic examination 89801068 Z01.419 Take Calcium with Vitamin D 12-1500mg daily. Do monthly self breast exams. It is advised to get annual flu shot in the fall and she could obtain at [facility] or [facility] care clinic. If you haven't received the [...] Dexa orderedLab s PCP Screening mammography 24 374751 Z12.31 Extremely dense breast composition 910099365 N63.0 Dense on exam Vaginitis 06124458 N76.0 PRN use Health Concerns Section Related Observation LastModified by Organization Detai ls LastModified Time None Recorded Concern Status LastModified by Organization Details LastModified Time None Recorded Advance Directives Directive None Recorded Payers Insurance Date Sequence Insurance Name Policy Number Policy Fu Covered Member ID Fu Member ID Guarantor Name 05/10/2023 1 [facility] (MEDICAID HMO) [id number] Tatiana Loya [id number] Ming Loya Notes Date Note Type Note Provider Name and Address Organization Details Recorded Time 1 text/html Annual Fund Accounting Manager Post-MenopausalReported by PatientGenitourinary symptomsFor menopausal symptoms, patient [...] andneeds to schedule bone density. Evangelina Capps [facility] [address], [place], [address], [facility] 06/24/2020 10:31:58 2 text/html ROS as [...] sx'sNeg Hx of skin conditions Evangelina Capps [facility] [address], [place], [address], [facility] 05/18/2021 11:13:35 2 text/html This patient [...] lesion. Venancio Clements MD [address], [place], [address], [facility] 05/23/2021 12:00:39 2 text/html Patient presents for incision drainage of vulvar lesion. She has a small inclusion cyst on the left labia. It is slightly less than a cm. Venancio Clements MD [address], [place], [address], [facility] 05/25/2021 23:00:19 4 text/html [employer] Fund Accounting Manager Post-MenopausalReported by PatientGenitourinary symptomsFor menopausal symptoms, patient [...] mammogram, andhistory of recent colonoscopy. Evangelina Capps, [facility]- [address], [place], [address], [facility] 05/05/2023 12:15:43 OBGyn Episode Ob Episode Information Episode Created Date Number of Fetuses Patient Bloodtype Patient rh Status Prepregnancy Weight lbs Domestic Partner Domestic Partner Phone Father Name Laboratory Clerk Status 06/25/19 21 1 CLOSED Fetus Data [...] Domestic Partner Domestic Partner Phone Father Name Laboratory Clerk Status 06/25/19 21 1 CLOSED Fetus Data [...]
== END 2025-02-07 12:15 | disposition home or self-care (01) ==
PROVIDERS: Emergency Provider Registered Nurse; PCP Internal Medicine
DX: J06.9 Acute upper respiratory infection, unspecified (principal); E03.9 Hypothyroidism, unspecified; Z79.899 Other long term (current) drug therapy; Z20.822 Contact with and (suspected) exposure to COVID-19
CPT/HCPCS: 87081; 87426; 87804; 87880; 99213; G0463